=== PATIENT | female | born 1950 | race Caucasian/White ===

== ENCOUNTER → 2016-07-11 | Outpatient (CLI) | payer MEDICARE ==
--- OUTSIDE RECORDS SUMMARY | 2016-07-11 11:41 | XMS REPORT | Continuity of Care Document ---
Author Author [facility] Organization [facility] Address Unknown Phone Unavailable Allergies Medications Problems Date Dx Coded Attending Type Code Diagnosis Diagnosed By 04/16/2014 ADITYA AVILA Ot 268.9 04/16/2014 ADITYA AVILA Ot V13.89 04/16/2014 ADITYA AVILA Ot V15.3 04/16/2014 ADITYA AVILA Ot V58.69 04/16/2015 ADITYA AVILA Ot E55.9 04/16/2015 ADITYA AVILA Ot M85.80 04/16/2015 ADITYA AVILA Ot Z09 04/16/2015 ADITYA AVILA Ot Z86.000 04/16/2015 ADITYA AVILA Ot Z92.3 04/03/2016 Ot 610.1 DIFFUS CYSTIC MASTOPATHY 04/03/2016 Ot V10.3 HX OF BREAST MALIGNANCY 04/03/2016 Ot V67.1 RADIOTHERAPY FOLLOW-UP 04/03/2016 Ot 268.9 VITAMIN D DEFICIENCY NOS 04/03/2016 Ot V10.3 HX OF BREAST MALIGNANCY 04/03/2016 Ot V67.1 RADIOTHERAPY FOLLOW-UP 2016 Ot 610.1 DIFFUS CYSTIC MASTOPATHY 2016 Ot V10.3 HX OF BREAST MALIGNANCY 2016 Ot V67.1 RADIOTHERAPY FOLLOW-UP 2016 Ot 268.9 VITAMIN D DEFICIENCY NOS 2016 Ot V10.3 HX OF BREAST MALIGNANCY 2016 Ot V67.1 RADIOTHERAPY FOLLOW-UP 06/26/2016 ADITYA AVILA Ot 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 06/26/2016 ADITYA AVILA Ot 268.9 VITAMIN D DEFICIENCY NOS 06/26/2016 ADITYA AVILA Ot V15.3 HX OF IRRADIATION 06/26/2016 ADITYA AVILA Ot V58.69 OTH MED,LT,CURRENT USE 06/26/2016 ADITYA AVILA Ot 268.9 VITAMIN D DEFICIENCY NOS 06/26/2016 ADITYA AVILA Ot V13.89 PERSONAL HISTORY OF OTHER SPECIFIED DISE 06/26/2016 ADITYA AVILA Ot V15.3 HX OF IRRADIATION 06/26/2016 ADITYA AVILA Ot V58.69 OTH MED,LT,CURRENT USE 06/26/2016 ADITYA AVILA Ot E55.9 VITAMIN D DEFICIENCY, UNSPECIFIED 06/26/2016 ADITYA AVILA Ot M85.80 OTH DISRD OF BONE DENSITY AND STRUCTURE, 06/26/2016 ADITYA AVILA Ot Z09 ENCNTR FOR F/U EXAM AFT TRTMT FOR COND O 06/26/2016 ADITYA AVILA Ot Z86.000 PERSONAL HISTORY OF IN-SITU NEOPLASM OF 06/26/2016 ADITYA AVILA Ot Z92.3 PERSONAL HISTORY OF IRRADIATION Procedures Results Encounters ACCT No. Visit Date/Time Discharge Status Pt. Type Provider Facility Loc./Unit Complaint [id number] 04/06/2015 10:27:00 2014 23:59:59 CLS Outpatient ADITYA AVILA [facility] [id number] 03/31/2014 10:05:00 2013 23:59:59 CLS Outpatient ADITYA AVILA [facility] FS [id number] 03/25/2013 10:18:00 2012 23:59:59 CLS Outpatient ADITYA AVILA [facility] FS [id number] 04/04/2016 13:36:00 PEN Preadmit ADITYA AVILA [facility] FS [id number] 02/27/2012 13:01:00 Document Registration [id number] 05/02/2011 09:50:00 Document Registration
== END ==
LOC: FS 11:38
PROVIDERS: ATTEND Internal Medicine Hematology & Oncology
DX: Z09 Encounter for follow-up examination after completed treatment for conditions other than malignant neoplasm (principal); Z86.000 Personal history of in-situ neoplasm of breast; E55.9 Vitamin D deficiency, unspecified; M85.80 Other specified disorders of bone density and structure, unspecified site; Z92.3 Personal history of irradiation
CPT/HCPCS: 99213

== ENCOUNTER 2018-02-11 09:14 | Outpatient (RCR) | payer MEDICARE ==
[~2018-02-11] VITALS: Ht 165.1 cm; Wt 48.5 kg
[~2018-02-11 09:14] MED LIST: CARBOPLATIN 425 MG in D5W 50 ML IV(CANCER CTR) 50 ML IV SCH; FAMOTIDINE 20MG/2ML IV (CANCER CTR) IV SCH; FOSAPREPITANT DIMEGLUMINE 150 MG in NS (IVPB) CANCER CENTER ONLY 150 ML IV SCH; NORMAL SALINE IV SCH; NS IV 1000 ML (CANCER CTR) IV SCH; PACLITAXEL IV SCH; PALONOSETRON HCL 0.25 MG, DEXAMETHASONE INJECTION 10 MG in NS (IVPB) CANCER CENTER 50 ML IV SCH; diphenhydrAMINE 25 MG TAB (BENADRYL) CANCER CENTER PO SCH
[2018-02-11 09:35] LABS: BASOPHILS % (AUTO) 0 % (0-10); EOSINOPHILS % (AUTO) 0 % (0-10); HEMATOCRIT 36 % (35-52); HEMOGLOBIN 11.5 G/DL (11.5-16.0); LYMPHOCYTES # (AUTO) 0.8 X 10^3 (1.0-4.0); LYMPHOCYTES % (AUTO) 15 % (12-44); MEAN CORPUSCULAR HEMOGLOBIN 26 PG (25-34); MEAN CORPUSCULAR HGB CONC 32 G/DL (32-36); MEAN CORPUSCULAR VOLUME 83 FL (80-99); MEAN PLATELET VOLUME 8.5 FL (7.4-10.4); MONOCYTES # (AUTO) 0.1 X 10^3 (0.0-1.0); MONOCYTES % (AUTO) 3 % (0-12); NEUTROPHILS # (AUTO) 4.3 X 10^3 (1.8-7.8); NEUTROPHILS % (AUTO) 82 % (42-75); PLATELET COUNT 354 10^3/uL (130-400); RED BLOOD COUNT 4.35 10^6/uL (4.35-5.85); RED CELL DISTRIBUTION WIDTH 21.5 % (10.0-14.5); WHITE BLOOD COUNT 5.3 10^3/uL (4.3-11.0)
[2018-02-11 09:59] LABS: ALANINE AMINOTRANSFERASE 14 U/L (0-55); ALBUMIN 3.8 GM/DL (3.2-4.5); ALKALINE PHOSPHATASE 104 U/L (40-136); BILIRUBIN,TOTAL 0.2 MG/DL (0.1-1.0); BUN/CREATININE RATIO 28; CALCIUM 9.8 MG/DL (8.5-10.1); CARBON DIOXIDE 24 MMOL/L (21-32); CHLORIDE 105 MMOL/L (98-107); CREATININE SERUM 0.78 MG/DL (0.60-1.30); GFR ESTIMATED > 60; GLUCOSE 171 MG/DL (70-105); POTASSIUM 4.1 MMOL/L (3.6-5.0); SODIUM 136 MMOL/L (135-145); TOTAL PROTEIN 7.4 GM/DL (6.4-8.2)
== END 2018-03-01 09:03 | disposition home or self-care (01) ==
LOC: ONC 09:14
PROVIDERS: ATTEND Internal Medicine Hematology & Oncology
DX: Z51.11 Encounter for antineoplastic chemotherapy (principal); Z08 Encounter for follow-up examination after completed treatment for malignant neoplasm; Z85.3 Personal history of malignant neoplasm of breast; E55.9 Vitamin D deficiency, unspecified; M85.89 Other specified disorders of bone density and structure, multiple sites; Z79.899 Other long term (current) drug therapy
CPT/HCPCS: 36591; 80053; 84443; 85025; 86304; 96367; 96375; 96413; 96415; 96417

== ENCOUNTER 2018-03-25 10:40 | Outpatient (RCR) | payer MEDICARE ==
[2018-03-04 09:33] LABS: BASOPHILS % (AUTO) 0 % (0-10); EOSINOPHILS % (AUTO) 0 % (0-10); HEMATOCRIT 36 % (35-52); HEMOGLOBIN 11.6 G/DL (11.5-16.0); LYMPHOCYTES # (AUTO) 0.8 X 10^3 (1.0-4.0); LYMPHOCYTES % (AUTO) 12 % (12-44); MEAN CORPUSCULAR HEMOGLOBIN 28 PG (25-34); MEAN CORPUSCULAR HGB CONC 33 G/DL (32-36); MEAN CORPUSCULAR VOLUME 85 FL (80-99); MEAN PLATELET VOLUME 8.9 FL (7.4-10.4); MONOCYTES # (AUTO) 0.2 X 10^3 (0.0-1.0); MONOCYTES % (AUTO) 3 % (0-12); NEUTROPHILS # (AUTO) 5.5 X 10^3 (1.8-7.8); NEUTROPHILS % (AUTO) 85 % (42-75); PLATELET COUNT 289 10^3/uL (130-400); RED CELL DISTRIBUTION WIDTH 21.6 % (10.0-14.5); WHITE BLOOD COUNT 6.4 10^3/uL (4.3-11.0)
[2018-03-04 09:55] LABS: ALANINE AMINOTRANSFERASE 16 U/L (0-55); ALBUMIN 3.9 GM/DL (3.2-4.5); ALKALINE PHOSPHATASE 105 U/L (40-136); BILIRUBIN,TOTAL 0.2 MG/DL (0.1-1.0); BUN/CREATININE RATIO 24; CALCIUM 10.4 MG/DL (8.5-10.1); CARBON DIOXIDE 22 MMOL/L (21-32); CHLORIDE 104 MMOL/L (98-107); CREATININE SERUM 0.82 MG/DL (0.60-1.30); GFR ESTIMATED > 60; GLUCOSE 194 MG/DL (70-105); POTASSIUM 4.1 MMOL/L (3.6-5.0); SODIUM 138 MMOL/L (135-145); TOTAL PROTEIN 7.7 GM/DL (6.4-8.2)
[~2018-03-25] VITALS: Ht 165.1 cm; Wt 52.6 kg
[2018-03-25 11:10] LABS: BASOPHILS % (AUTO) 1 % (0-10); EOSINOPHILS # (AUTO) 0.1 10^3/uL (0.0-0.3); EOSINOPHILS % (AUTO) 3 % (0-10); HEMATOCRIT 34 % (35-52); HEMOGLOBIN 10.9 G/DL (11.5-16.0); LYMPHOCYTES # (AUTO) 1.4 X 10^3 (1.0-4.0); LYMPHOCYTES % (AUTO) 32 % (12-44); MEAN CORPUSCULAR HEMOGLOBIN 29 PG (25-34); MEAN CORPUSCULAR HGB CONC 32 G/DL (32-36); MEAN CORPUSCULAR VOLUME 89 FL (80-99); MEAN PLATELET VOLUME 9.1 FL (7.4-10.4); MONOCYTES # (AUTO) 0.7 X 10^3 (0.0-1.0); MONOCYTES % (AUTO) 16 % (0-12); NEUTROPHILS # (AUTO) 2.2 X 10^3 (1.8-7.8); NEUTROPHILS % (AUTO) 49 % (42-75); PLATELET COUNT 308 10^3/uL (130-400); RED CELL DISTRIBUTION WIDTH 20.3 % (10.0-14.5); WHITE BLOOD COUNT 4.5 10^3/uL (4.3-11.0)
[2018-03-25 11:31] LABS: ALANINE AMINOTRANSFERASE 15 U/L (0-55); ALBUMIN 3.7 GM/DL (3.2-4.5); ALKALINE PHOSPHATASE 91 U/L (40-136); BILIRUBIN,TOTAL 0.3 MG/DL (0.1-1.0); BUN/CREATININE RATIO 21; CALCIUM 9.7 MG/DL (8.5-10.1); CARBON DIOXIDE 22 MMOL/L (21-32); CHLORIDE 106 MMOL/L (98-107); CREATININE SERUM 0.71 MG/DL (0.60-1.30); GFR ESTIMATED > 60; GLUCOSE 92 MG/DL (70-105); MAGNESIUM 1.7 MG/DL (1.8-2.4); POTASSIUM 3.8 MMOL/L (3.6-5.0); SODIUM 140 MMOL/L (135-145); TOTAL PROTEIN 7.4 GM/DL (6.4-8.2)
== END 2018-06-02 | disposition home or self-care (01) ==
LOC: ONC 10:40
PROVIDERS: ATTEND Internal Medicine Hematology & Oncology
DX: Z51.11 Encounter for antineoplastic chemotherapy (principal); C56.2 Malignant neoplasm of left ovary; C78.7 Secondary malignant neoplasm of liver and intrahepatic bile duct; C78.6 Secondary malignant neoplasm of retroperitoneum and peritoneum; M85.89 Other specified disorders of bone density and structure, multiple sites; E55.9 Vitamin D deficiency, unspecified; Z86.000 Personal history of in-situ neoplasm of breast; Z79.899 Other long term (current) drug therapy
CPT/HCPCS: 36591; 80053; 83735; 85025; 86304; 96367; 96375; 96413; 96415; 96417

== ENCOUNTER 2018-06-10 10:30 | Outpatient (RCR) | payer MEDICARE ==
[2018-06-10 10:48] LABS: BASOPHILS % (AUTO) 1 % (0-10); EOSINOPHILS # (AUTO) 0.3 10^3/uL (0.0-0.3); EOSINOPHILS % (AUTO) 7 % (0-10); HEMATOCRIT 40 % (35-52); HEMOGLOBIN 12.7 G/DL (11.5-16.0); LYMPHOCYTES # (AUTO) 0.8 X 10^3 (1.0-4.0); LYMPHOCYTES % (AUTO) 17 % (12-44); MEAN CORPUSCULAR HEMOGLOBIN 28 PG (25-34); MEAN CORPUSCULAR HGB CONC 32 G/DL (32-36); MEAN CORPUSCULAR VOLUME 86 FL (80-99); MEAN PLATELET VOLUME 9.4 FL (7.4-10.4); MONOCYTES # (AUTO) 0.2 X 10^3 (0.0-1.0); MONOCYTES % (AUTO) 6 % (0-12); NEUTROPHILS % (AUTO) 69 % (42-75); PLATELET COUNT 174 10^3/uL (130-400); RED CELL DISTRIBUTION WIDTH 16.3 % (10.0-14.5); WHITE BLOOD COUNT 4.3 10^3/uL (4.3-11.0)
[2018-06-10 11:11] LABS: ALANINE AMINOTRANSFERASE 22 U/L (0-55); ALBUMIN 3.7 GM/DL (3.2-4.5); ALKALINE PHOSPHATASE 116 U/L (40-136); BILIRUBIN,TOTAL 0.3 MG/DL (0.1-1.0); BUN/CREATININE RATIO 26; CARBON DIOXIDE 23 MMOL/L (21-32); CHLORIDE 102 MMOL/L (98-107); GFR ESTIMATED > 60; GLUCOSE 81 MG/DL (70-105); SODIUM 134 MMOL/L (135-145); TOTAL PROTEIN 7.6 GM/DL (6.4-8.2)
== END 2018-09-08 | disposition home or self-care (01) ==
LOC: ONC 10:30
PROVIDERS: ATTEND Internal Medicine Hematology & Oncology
DX: C56.2 Malignant neoplasm of left ovary (principal); C78.7 Secondary malignant neoplasm of liver and intrahepatic bile duct; C78.6 Secondary malignant neoplasm of retroperitoneum and peritoneum; M85.89 Other specified disorders of bone density and structure, multiple sites; E55.9 Vitamin D deficiency, unspecified; Z86.000 Personal history of in-situ neoplasm of breast; Z79.899 Other long term (current) drug therapy; Z85.3 Personal history of malignant neoplasm of breast
CPT/HCPCS: 36591; 80053; 85025; 86304

== ENCOUNTER → 2019-03-05 | Outpatient (CLI) | payer MEDICARE ==
[~2019-03-05] MED LIST changes: -CARBOPLATIN 425 MG in D5W 50 ML IV(CANCER CTR) 50 ML IV SCH; +CATHETER FLUSH 10 ML SYR IV PRN; -FAMOTIDINE 20MG/2ML IV (CANCER CTR) IV SCH; -FOSAPREPITANT DIMEGLUMINE 150 MG in NS (IVPB) CANCER CENTER ONLY 150 ML IV SCH; +HOLD METFORMIN - RECEIVED CONTRAST 20 ML VIAL IV SCH; +IOHEXOL 350 MG/ML 100 ML (OMNIPAQUE 350) VIAL IV ONE; -NORMAL SALINE IV SCH; +NS 100 ML (IVPB) BAG IV ONE; -NS IV 1000 ML (CANCER CTR) IV SCH; -PACLITAXEL IV SCH; -PALONOSETRON HCL 0.25 MG, DEXAMETHASONE INJECTION 10 MG in NS (IVPB) CANCER CENTER 50 ML IV SCH; -diphenhydrAMINE 25 MG TAB (BENADRYL) CANCER CENTER PO SCH
--- NOTE | 2019-03-05 14:25 | Diagnostic Imaging Report ---
PROCEDURE: CT abdomen and pelvis with contrast. TECHNIQUE: Multiple contiguous axial images were obtained through the abdomen and pelvis after administration of intravenous contrast. Auto Exposure Controls were utilized during the CT exam to meet ALARA standards for radiation dose reduction. INDICATION: Fever, lower abdominal pain for four days. History of breast and ovarian cancer. Cholecystectomy and hysterectomy. COMPARISON: None. FINDINGS: The lung bases are clear. The heart is normal in size. The liver demonstrates multiple hypoattenuating lesions. These appear well circumscribed and appear cyst-like. The largest measures up to 2.8 cm in diameter, located at the lateral right lobe. Additional tiny foci are seen throughout the liver, which are too small to characterize. There is a focal area of peripheral enhancement in the left liver thought to represent transient hepatic attenuation difference. The spleen demonstrates multiple cystic-appearing lesions, although these appear complex with internal heterogeneous density and septation. The largest measures 3.0 x 2.5 cm, located in the medial spleen. The adrenal glands appear normal. The pancreas demonstrates no acute abnormality. The common bile duct is mildly prominent, most likely due to post cholecystectomy changes. The kidneys also demonstrate cystic lesions, the largest in the inferior right kidney measuring 2 cm in diameter. There is moderate right hydronephrosis with marked hydroureter, with a focal transition point in the proximal ureter at the L3 level. No contrast is seen in the distal ureter on delayed imaging beyond the level of S2. The left kidney appears normal. There is wriydwtl-gj-qgvmxe stool throughout the colon. Postsurgical changes are seen at the rectum with sutures in place. No significant free fluid or free air is seen. There is a large cystic lesion in the lower abdomen which measures up to 11.0 x 9.7 cm on axial imaging, and 11.2 cm craniocaudal. There is a cystic lesion in the left pelvis which measures up to 3.8 cm in diameter, and demonstrates mild internal heterogeneity. There is soft tissue density with internal cystic or necrotic changes in the right paraspinous region, measuring approximately 2.6 x 3.2 cm, near the lumbosacral junction (image 51 series 4). This could represent postsurgical scarring or neoplasm, and is along the expected course of the right ureter, and might cause obstruction. Multiple surgical clips are seen in the pelvis and right abdomen. There are mildly prominent loops of small bowel in the left abdomen, most likely due to ileus. In the right inguinal region, there is a cystic-appearing lymph node measuring 3.2 x 2.2 cm, with mild mural nodularity. No acute osseous abnormality is seen. IMPRESSION: 1. Multiple cystic-appearing lesions throughout the abdomen and pelvis, including in the liver and spleen, as well as in a right inguinal lymph node. This includes a very large cystic lesion in the lower abdomen measuring up to 11 cm in size. Findings are concerning for metastatic disease, particularly given the history of ovarian cancer. 2. Ysxihnhb-xx-ghbwht stool in the colon with mildly prominent loops of small bowel in the left abdomen, thought to be due to ileus. A definite transition point is not seen. 3. Right hydroureteronephrosis. The distal right ureter is not well seen, which may be due to compression or stricture. Dictated by: Dictated on workstation # [id number]
== END ==
LOC: RAD FS 13:03
PROVIDERS: ATTEND Nurse Practitioner Family
DX: N13.30 Unspecified hydronephrosis (principal); R19.5 Other fecal abnormalities; R19.00 Intra-abdominal and pelvic swelling, mass and lump, unspecified site; R50.9 Fever, unspecified; Z85.43 Personal history of malignant neoplasm of ovary; K40.90 Unilateral inguinal hernia, without obstruction or gangrene, not specified as recurrent
CPT/HCPCS: 74177

== ENCOUNTER → 2019-03-05 | Outpatient (CLI) | payer MEDICARE ==
[2019-03-05 10:42] LABS: BASOPHILS # (AUTO) 0.1 10^3/uL (0.0-0.1); BASOPHILS % (AUTO) 1 % (0-10); EOSINOPHILS # (AUTO) 0.2 10^3/uL (0.0-0.3); EOSINOPHILS % (AUTO) 3 % (0-10); HEMATOCRIT 42 % (35-52); HEMOGLOBIN 13.5 G/DL (11.5-16.0); LYMPHOCYTES # (AUTO) 1.1 X 10^3 (1.0-4.0); LYMPHOCYTES % (AUTO) 17 % (12-44); MEAN CORPUSCULAR HEMOGLOBIN 32 PG (25-34); MEAN CORPUSCULAR HGB CONC 32 G/DL (32-36); MEAN CORPUSCULAR VOLUME 100 FL (80-99); MEAN PLATELET VOLUME 9.5 FL (7.4-10.4); MONOCYTES # (AUTO) 0.9 X 10^3 (0.0-1.0); MONOCYTES % (AUTO) 13 % (0-12); NEUTROPHILS # (AUTO) 4.5 X 10^3 (1.8-7.8); NEUTROPHILS % (AUTO) 66 % (42-75); PLATELET COUNT 246 10^3/uL (130-400); RED CELL DISTRIBUTION WIDTH 15.7 % (10.0-14.5); WHITE BLOOD COUNT 6.7 10^3/uL (4.3-11.0)
[2019-03-05 11:00] LABS: BUN/CREATININE RATIO 19; CARBON DIOXIDE 28 MMOL/L (21-32); CHLORIDE 102 MMOL/L (98-107); CREATININE SERUM 0.83 MG/DL (0.60-1.30); GFR ESTIMATED > 60; POTASSIUM 4.4 MMOL/L (3.6-5.0); SODIUM 139 MMOL/L (135-145)
[2019-03-05 11:01] LABS: ALANINE AMINOTRANSFERASE 35 U/L (0-55); ALKALINE PHOSPHATASE 103 U/L (40-136); BILIRUBIN,TOTAL 0.6 MG/DL (0.1-1.0); CALCIUM 9.9 MG/DL (8.5-10.1); GLUCOSE 115 MG/DL (70-105); TOTAL PROTEIN 7.3 GM/DL (6.4-8.2)
--- NOTE | 2019-03-05 11:28 | Diagnostic Imaging Report ---
INDICATION: Fever. Abdominal pain. COMPARISON: None FINDINGS: 2 supine radiographic views of the abdomen were obtained and demonstrate a few loops of mildly prominent air-filled small bowel located within the left lower abdominal quadrant. At its widest, small bowel measures approximately 3 cm in diameter. Otherwise, small bowel loops are nondistended.. There is no large collection of free peritoneal air. Moderate air and stool are seen scattered throughout the colon. No unexpected extraosseous calcifications or radiopaque foreign bodies are seen. Bony structures show no gross acute abnormalities. IMPRESSION: 1. Few loops of mildly prominent air-filled small bowel within the left lower abdominal quadrant. Otherwise, small bowel gas pattern is nonobstructed. 2. Moderate colonic air and stool. Please correlate for constipation Dictated by: Dictated on workstation # [id number]
== END ==
LOC: RAD FS 10:24
PROVIDERS: ATTEND Nurse Practitioner Family
DX: K40.90 Unilateral inguinal hernia, without obstruction or gangrene, not specified as recurrent (principal); R50.9 Fever, unspecified; Z85.43 Personal history of malignant neoplasm of ovary
CPT/HCPCS: 36415; 74018; 80053; 85025

== ENCOUNTER → 2019-03-18 | Outpatient (CLI) | payer MEDICARE ==
[~2019-03-18] MED LIST changes: -CATHETER FLUSH 10 ML SYR IV PRN; +FUROSEMIDE 40 MG/4 ML INJ (LASIX) ONE; -HOLD METFORMIN - RECEIVED CONTRAST 20 ML VIAL IV SCH; -IOHEXOL 350 MG/ML 100 ML (OMNIPAQUE 350) VIAL IV ONE; +NITR-65 PO; -NS 100 ML (IVPB) BAG IV ONE; +PHEN-640 PO
--- NOTE | 2019-03-18 17:00 | Diagnostic Imaging Report ---
INDICATION: Right renal obstruction. The patient was administered 5.1 mCi technetium 99m MAG3 intravenously and imaging over the abdomen was performed. In addition, 40 mg of Lasix was administered intravenously at 15 minute indy of the exam. The dynamic blood flow images demonstrate fairly symmetric blood flow to both kidneys. There appears to be fairly symmetric uptake of tubular activity within both kidneys. There is prompt excretion of activity into both renal collecting systems. The right renal collecting system does appear to be dilated. Activity is seen within the left ureter. Activity is visualized in the left ureter as well but is somewhat delayed. Time to peak on the left is 240 seconds and time to peak on the right is 1080 seconds. Overall differential renal function is 54% for the left and 46% for the right. IMPRESSION: There is symmetric blood flow to both kidneys. There is normal uptake and excretion of activity from the left kidney. Right kidney does show hydronephrosis with some delay in an activity within the right ureter consistent with a likely partial obstruction. No complete obstruction is seen. Dictated by: Dictated on workstation # [id number]
== END ==
LOC: CARD 12:40
PROVIDERS: ATTEND Urology
DX: N13.30 Unspecified hydronephrosis (principal); N28.89 Other specified disorders of kidney and ureter
CPT/HCPCS: 78708

== ENCOUNTER 2019-03-19 15:32 | Outpatient (CLI) | payer MEDICARE ==
[~2019-03-19] VITALS: Ht 165 cm; Wt 59.0 kg
[2019-03-20] MEDS ORDERED: NITR-65 PO (09:07)
[2019-03-20] MEDS ORDERED: PHEN-640 PO (09:07)
== END 2019-03-19 15:45 | disposition home or self-care (01) ==
LOC: PREOP 15:32
PROVIDERS: ATTEND Urology
DX: Z01.818 Encounter for other preprocedural examination (principal)

== ENCOUNTER 2019-03-20 06:09 | Day surgery (SDC) | payer MEDICARE ==
[2019-03-20] VITALS (9 sets, daily range): BP systolic 112–155; BP diastolic 72–96
[~2019-03-20] VITALS: Ht 165 cm; Wt 59.0 kg
[2019-03-20] MEDS ORDERED: cefTRIAXone FOR IV USE 1,000 MG in WATER (STERILE) FOR INJECTION 10 ML IV ONE (06:30)
[2019-03-20] MEDS: LACTATED RINGERS 1,000 ML IV PRN ×2 (06:53→08:15)
[2019-03-20] MEDS ORDERED: fentaNYL INJECTION 100 MCG/2 ML AMP ONE (07:15)
[2019-03-20] MEDS ORDERED: MIDAZOLAM 2 MG/2 ML (VERSED) VIAL ONE (07:16)
[2019-03-20] MEDS ORDERED: proPOfol 200 MG/20 ML (DIPRIVAN) VIAL IV ONE (07:16)
[2019-03-20] MEDS ORDERED: LIDOCAINE PF 2% 5 ML (XYLOCAINE) VIAL ONE (07:20)
[2019-03-20] MEDS ORDERED: ONDANSETRON 4 MG/2 ML (SDV) Z0FRAN ONE (07:20)
[2019-03-20] MEDS ORDERED: SEVOFLURANE (ULTANE) 15 ML INHAL SOLN ONE ×3 (07:20→08:48)
[2019-03-20] MEDS ORDERED: DEXAMETHASONE 10 MG/ML (DECADRON) 1 ML VIAL ONE (07:20)
[2019-03-20] MEDS ORDERED: IOPAMIDOL 61% 30 ML (ISOVUE 300) VIAL IV ONE (07:38)
--- NOTE | 2019-03-20 08:02 | Progress Note-Pre Operative ---
Pre-Operative Progress Note H&P Reviewed The H&P was reviewed, patient examined and no changes noted. Date Seen by Provider: Mar 20, 2019 Time Seen by Provider: 08:02 Date H&P Reviewed: Mar 20, 2019 Time H&P Reviewed: 08:02 Pre-Operative Diagnosis: RT URETERAL OBSTRUCTION DEE PEACOCK MD Mar 20, 2019 08:02
--- NOTE | 2019-03-20 08:03 | Progress Note-Post Operative ---
Post-Operative Progess Note Surgeon (s)/Report Programmer (s) Surgeon DEE PEACOCK MD Report Programmer: NONE Pre-Operative Diagnosis RT URETERAL OBSTRUCTION Post-Operative Diagnosis SAME Procedure & Operative Findings Date of Procedure 03/20/19 Procedure Performed/Findings CYSTOSCOPY, RT RETROGRADE UROGRAM, AND INSERTION OF RT STENT Anesthesia Type GENERAL Estimated Blood Loss Estimated blood loss (mL): NONE Specimens/Packing Specimens Removed NONE Packing: NONE DEE PEACOCK MD Mar 20, 2019 08:03
--- NOTE | 2019-03-20 08:04 | Discharge Inst-Urology ---
Discharge Inst-Urology Reconcile Patient Problems Problems Reviewed?: Yes Final Diagnosis RT URETERAL OBSTRUCTION Patient Instructions/Follow Up Plan/Assessment/Instructions Please make appointment to been seen in office in 2 weeks. Increase oral fluids for 48 hours and then as needed. Diet and Activity as tolerated. If questions or concerns contact your physician Or seek help at emergency department. DEE PEACOCK MD Mar 20, 2019 08:04
[2019-03-20] MEDS ORDERED: ROCURONIUM 10 MG/ML 5 ML SYRINGE IV ONE (08:22)
[2019-03-20] MEDS ORDERED: NEOSTIGMINE 3 MG/3 ML VIAL ONE (08:30)
[2019-03-20] MEDS ORDERED: GLYCOPYRROLATE 0.2 MG/ML (ROBINUL) 2 ML VIAL ONE (08:30)
[2019-03-20] MEDS ORDERED: morphine INJ 10 MG/ML 1ML (SYR OR VIAL) IVP ONE (08:45)
[2019-03-20] MEDS ORDERED: fentaNYL INJECTION 100 MCG/2 ML AMP IVP ONE (08:45)
[2019-03-20] MEDS ORDERED: ONDANSETRON 4 MG/2 ML (SDV) Z0FRAN IVP PRN (08:45)
[2019-03-20] MEDS ORDERED: NITR-65 PO (09:07)
[2019-03-20] MEDS ORDERED: PHEN-640 PO (09:07)
--- NOTE | 2019-03-20 11:58 | Anesthesia-General Post-Op ---
General Patient Condition Mental Status/LOC: Same as Preop Cardiovascular: Satisfactory Nausea/Vomiting: Absent Respiratory: Satisfactory Pain: Controlled Complications: Absent Post Op Complications Complications None Follow Up Care/Instructions Patient Instructions None needed. Anesthesia/Patient Condition Patient Condition Patient is doing well, no complaints, stable vital signs, no apparent adverse anesthesia problems. No complications reported per nursing. MINNA CORRALES CRNA Mar 20, 2019 11:58
--- NOTE | 2019-03-20 13:07 | OPERATIVE REPORT ---
DATE OF SERVICE: 03/20/2019 PREOPERATIVE DIAGNOSIS: Right ureteral obstruction. POSTOPERATIVE DIAGNOSIS: Right ureteral obstruction. OPERATION PERFORMED: Cystoscopy, right retrograde urogram and insertion of right double-J stent. SURGEON: Neftaly Peacock MD ANESTHESIA: General. COMPLICATIONS: None. DESCRIPTION OF PROCEDURE: Under satisfactory general anesthesia, the patient in lithotomy position, genitalia were prepped and draped in the usual sterile fashion. Urethra was dilated with sounds to #26-Bhutanese to accommodate a 23-Bhutanese cystoscope. The bladder was inspected and it was normal except for sluggish efflux on the right side. Using the foroblique lens, I passed a 6-Bhutanese ureteral catheter into the intramural portion and injected contrast. There was a narrowing of the ureter distally and dilatation of it was marked tortuosity all the way up to the renal pelvis. I went ahead and passed the stent and with careful manipulation, I was able to bypass the stricture and all the tortuosity all the way up to the renal pelvis. I could see urine coming out from the holes of the stent. I evacuated the bladder, looked again fluoroscopically and there was complete emptying of the contrast through the stent. The patient tolerated the procedure and anesthesia well and was sent to recovery room in stable condition. Job ID: [id number] DocumentID: [id number] Dictated Date: 03/20/2019 09:00:39 Content Management Consultant Date: 03/20/2019 13:07:10 Dictated By: NEFTALY PEACOCK MD
--- NOTE | 2019-03-20 17:43 | Diagnostic Imaging Report ---
INDICATION: Fluoroscopy during cystoscopy and retrograde pyelogram and stent placement. FINDINGS: Fluoroscopy was provided in the OR. 106 seconds of fluoroscopic time was utilized. Images demonstrate a right-sided nephroureteral stent. Multiple surgical clips in the pelvis are noted. IMPRESSION: Fluoroscopy for right ureteral stent placement. Dictated by: Dictated on workstation # [id number]
[2019-03-30] MEDS ORDERED: MORP-68 (11:12)
--- OUTSIDE RECORDS SUMMARY | 2019-04-12 08:49 | XMS REPORT | Clinical Summary ---
Author Author [facility] POS Organization [facility] SP Address Unknown SP Phone Unavailable SP Care Team Providers Care Merchandise For Resale Purchasing Agent Name Role Phone POS Christa Ware MD PCP SP Mateo Cabral MD [id number] SP Sanjuanita Davies MD [id number] SP Source Comments Some departments are not documenting in the electronic medical record. If you d o not see the information that you expected, contact Release of Information in [facility] Information Management department at [phone] for further assistan ce in locating additional records.[facility] Allergies No Known Allergies Medications End Date Status POS Medication Sig Dispensed Refills Start SP Date SP Active SP folic Take by 0 SP acid/multivit-min/lutein mouth daily. SP (CENTRUM SILVER PO) SP Active SP cholecalciferol (VITAMIN Take 2,000 0 SP D-3) 1,000 units tablet Units by SP mouth daily. SP Active SP calcium carbonate/vitamin Take 1 tablet 0 SP D-3 (OSCAL-500+D) 1250 by mouth SP mg/200 unit tablet daily. SP Calcium Carb SP 1250mg SP delivers SP 500mg SP elemental Ca SP Active SP zolpidem (AMBIEN) 10 mg Take 10 mg by 0 SP tablet mouth at SP bedtime as SP needed for SP Sleep. SP Active SP oxyCODONE (ROXICODONE, Take 1-2 45 tablet 0 SP OXY-IR) 5 mg tablet tablets by 8 SP mouth every 4 SP hours as SP needed SP Earliest Fill SP Date: 10/15/17 SP Active SP ondansetron (ZOFRAN) 8 mg Take one 50 tablet 0 SP tabletIndications: Pelvic tablet by 8 SP mass mouth every 6 SP hours as SP needed for SP Nausea or SP Vomiting. SP Active SP hydrocortisone 1 % Apply 0 SP topical creamIndications: topically to SP pruritus of skin affected area SP twice daily. SP Active SP acetaminophen (TYLENOL Take 500 mg 0 SP PO) by mouth SP every 4-6 SP hours as SP needed. SP Active SP ibuprofen (ADVIL) 200 mg Take 400 mg 0 SP tablet by mouth SP every 6 hours SP as needed for SP Pain. Take SP with food. SP Active SP nitrofurantoin Take one 14 capsule 0 SP monohyd/m-cryst capsule by 9 SP (MACROBID) 100 mg mouth every SP capsuleIndications: 12 hours. SP Bacterial Urinary Tract Take with SP Infection food. SP Active SP levoFLOXacin (LEVAQUIN) Take one 5 tablet 0 SP 750 mg tablet tablet by 9 SP mouth daily. SP Active SP diphenoxylate/atropine Take one 60 tablet 3 SP (LOMOTIL) 2.5/0.025 mg tablet by 9 SP tablet mouth twice SP daily as SP needed for SP Diarrhea. SP Active SP ATEZOLIZUMAB Administer 0 SP IVIndications: once every through vein. SP 3 weeks Indications: SP once every 3 SP weeks SP Active SP lactulose 10 gram/15 mL Take 30 mL by 946 mL 3 SP oral solution mouth three 9 SP times daily. SP Active SP electrolyte GUT PEG Mix as 4000 mL 0 SP (NULYTELY) 420 gram oral directed on 9 SP solution package. SP Drink 240ml SP (8oz) every SP 10 minutes SP until gone. SP Refrigerate SP once mixed. SP Active SP morphine SR (MS CONTIN) Take one 60 tablet 0 SP 15 mg tablet tablet by 9 SP mouth every SP 12 hours SP Active SP tiZANidine (ZANAFLEX) 4 Take one 30 tablet 1 SP mg tabletIndications: tablet by 9 SP Cancer associated pain, mouth at SP Malignant neoplasm of bedtime SP ovary, unspecified daily. SP laterality (HCC), Rectal SP pain, Anal pain SP Active SP gabapentin (NEURONTIN) Take one 90 capsule 1 SP 300 mg capsule by 9 SP capsuleIndications: mouth every 8 SP Cancer associated pain, hours. Take SP Malignant neoplasm of 1/day for 3 SP ovary, unspecified days, Take 1 SP laterality (HCC), Rectal pill SP pain, Anal pain twice/day for SP 3 day, then SP take 1 pill SP three SP times/day. SP Active SP nortriptyline (PAMELOR) Take one 30 capsule 3 SP 25 mg capsuleIndications: capsule by 9 SP Cancer associated pain, mouth at SP Malignant neoplasm of bedtime SP ovary, unspecified daily. SP laterality (HCC), Rectal SP pain, Anal pain SP Active SP methylnaltrexone 150 mg Take 150 30 tablet 1 SP tab mg/day by 9 SP mouth daily. SP 04/24/2019 Active SP (INV) cabozantinib ([facility] Take two 60 tablet 0 SP [id number]) 20 mg tablets by 9 SP tabletIndications: mouth daily SP Clinical trial for 21 days. SP participant, Malignant SP neoplasm of ovary, INVESTIGATION SP unspecified laterality AL SPECIAL SP ([facility]) HANDLING SP PRECAUTIONS SP SP -Take on an SP empty stomach SP with a SP minimum of 8 SP ounces of SP water at SP least 1 hour SP before or 2 SP hours after a SP meal. SP 03/31/2019 SP (INV) cabozantinib ([facility] Take one 30 tablet 0 SP [id number]) 20 mg tablet by 9 SP tabletIndications: mouth daily SP Clinical trial for 21 days. SP participant, Malignant SP neoplasm of ovary, INVESTIGATION SP unspecified laterality AL SPECIAL SP ([facility]) HANDLING SP PRECAUTIONS SP SP -Take on an SP empty stomach SP with a SP minimum of 8 SP ounces of SP water at SP least 1 hour SP before or 2 SP hours after a SP meal. SP 04/02/2019 Discontinued (Duplicate Orde r) SP (INV) cabozantinib ([facility] Take one 30 tablet 0 SP [id number]) 20 mg tablet by 9 SP tabletIndications: mouth daily SP Clinical trial for 21 days. SP participant, Malignant SP neoplasm of ovary, INVESTIGATION SP unspecified laterality AL SPECIAL SP (HCC) HANDLING SP PRECAUTIONS SP SP -Take on an SP empty stomach SP with a SP minimum of 8 SP ounces of SP water at SP least 1 hour SP before or 2 SP hours after a SP meal. SP 04/03/2019 Discontinued (Dose adjustmen t) SP (INV) cabozantinib ([facility] Take one 30 tablet 0 SP [id number]) 20 mg tablet by 9 SP tabletIndications: mouth daily SP Clinical trial for 21 days. SP participant, Malignant SP neoplasm of ovary, INVESTIGATION SP unspecified laterality AL SPECIAL SP (HCC) HANDLING SP PRECAUTIONS SP SP -Take on an SP empty stomach SP with a SP minimum of 8 SP ounces of SP water at SP least 1 hour SP before or 2 SP hours after a SP meal. SP Status POS Hospital, Clinic, or Ordered Dose Route Frequency Start End Date SP Other Facility Date SP Administered Medication SP Ended SP lidocaine PF 1% (10 2 mL IJ ONCE 04/03/20 SP mg/mL) injection 2 19 9 SP mLIndications: Rectal SP pain, Anal pain, Cancer SP associated pain, SP Malignant neoplasm of SP ovary, unspecified SP laterality (HCC), SP Neuropathic pain SP Ended SP iohexol (OMNIPAQUE-300) 2 mL SEE ADMIN ONCE 04/03/20 SP 300 mg/mL injection 2 19 9 SP mLIndications: Rectal SP pain, Anal pain, Cancer SP associated pain, SP Malignant neoplasm of SP ovary, unspecified SP laterality (HCC), SP Neuropathic pain SP Ended SP dexamethasone PF 10 mg SEE ADMIN ONCE 04/03/20 SP (DECADRON) injection 10 19 9 SP mgIndications: Rectal SP pain, Anal pain, Cancer SP associated pain, SP Malignant neoplasm of SP ovary, unspecified SP laterality (HCC), SP Neuropathic pain SP Ended SP bupivacaine PF (MARCAINE) 10 mL IJ ONCE 04/03/20 SP 0.25 % injection 10 19 9 SP mLIndications: Rectal SP pain, Anal pain, Cancer SP associated pain, SP Malignant neoplasm of SP ovary, unspecified SP laterality (HCC), SP Neuropathic pain SP Active Problems Problem Noted Date POS Clinical trial participant 05/24/2018 SP Hypotension 10/10/2017 SP Tobacco abuse 10/09/2017 SP Ovarian cancer 09/24/2017 SP Cancer Staging: Clinical stage from : FIGO Stage IIIC (ycT3c, SP cN0, cM0) - Signed by Sanjuanita Davies MD on 03/17/2018 SP Overview: SP CC: Stage IIIC Transitional Cell [place] arcinoma. BRCA Negative. SP REF:Viri Gold MD SP PCP: Christa Ware MD SP Oracle Technical Architect: Talon Reeves MD SP MedOnc: Zakiya Negrete. [phone]; fax: SP HPI: SP Ms Gold is a 67 yo G2 P 2 who presen miguelangel to an OSED on 09/13/2017 with SP c/o a fever. She also complained of nomi rrhea that started on 09/12/2017. SP She has abdominal bloating, small BMs a nd reduced urination. SP Upon examination she was noted to have tenderness in the suprapubic area SP and increased bowel sounds. Abdominal u ltrasound was done and showed SP hepatic and renal cysts. SP A CT done on 09/13/2017 showed complex m ulticystic fluid attenuation pelvic SP mass measuring 16.5 x 15 x 8 cm with ce ntral 2.8 x 3.6 cm soft tissue which SP appears separate from adjacent colonic loops. DDX: ovarian neoplasm of less SP likely dilated fluid containing colonic loops. Right inguinal SP lymphadenopathy and mesenteric soft tis ken deposits abutting the liver SP concerning for metastatic disease. SP She is now being referred to my office. In reading the note from [facility] from 09/17/2017, "had 2 weeks of stooling solid after eating, then SP urine decreased. No stool issues. Now i mproving. Then had fever and dx with SP UTI". Her note from 09/13/2017 states th at she "presents with fever up to SP 103 that started today and diarrhea neeta t started yesterday. She states the SP stools have been of small volume. She s tarted having cramping and urgency SP to defecate on 08/22/2017 hat lasted 4-5 days and then resolved. Since then, SP onset of abdominal bloating, small BMs, reduced urination. Decreased SP drinking fluids and increased fatigue. On examination she had tenderness in SP the suprapubic area. WBC was 18K. SP In talking with the patient, since comp letion of antibiotics, no SP recurrence of fever, wstill with suprap ubic pressure, still with decreased SP caliber of stool. Never had colonoscopy , also urinary pressure/frequency. SP No blood in urine or stool SP TREATMENT: SP 10/09/2017: Exploratory laparotomy, ovar be tumor debulking with SP omentectomy, diaphragmatic upper abdomi nal, pelvic, bladder, peritoneal SP stripping, abdominal hysterectomy, bila teral salpingo-oophorectomy, SP bilateral pelvic lower periaortic lymph node sampling and omentectomy as SP well as resection of 2 liver lesions. Low anterior resection with primary SP anastomosis and mobilization of low ant erior anastomosis. Mobilization of SP splenic flexure.Flexible sigmoidoscopy. Appendectomy.Small bowel resection SP with primary anastomosis. 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 SP 10/22/2017: Presents for follow up. This is her first postoperative visit. SP Will get treatment with Dr. Ruddy Negrete. SP 01/14/2018: presents to the office for f ollow up. She has been treated by SP Dr. Ruddy Negrete with Carboplatin/taxol c hemotherapy. C#1 given on 11/09/2017; SP her last treatment was 01/01/2018. She h as 3 treatments remaining; next SP cycle is on 01/21/2018. SP CT done c/w seroma, reactive pelvic nod e. SP 03/18/2018: Presents for follow up, lion hopkins is her first visit with ia SP following her postoperative visit. She completed her chemotherapy on: SP 03/04/2018. Her last CA125 was 41.6. I t started at [id number] SP (02/07/2018) and now 41.6 on 03/04/2018. SP IMPRESSION : Chest: Stable CT chest without thoracic metastatic SP disease.Abdomen and Pelvis: Mild in crease in size of oval low density SP nodule medial to the spleen consistent with progression of peritoneal SP metastasis. No other enlarging perito conchita masses. No ascites. SP Decrease in size of subcapsular splen ic fluid collection consistent with SP slowly resolving subcapsular hematoma. Tiny posterior subcapsular splenic SP nodules are unchanged.No change in we ll-defined low-density peripheral SP liver lesions which may represent hepat ic cysts or stable treated SP peritoneal metastases. Increase in si ze of large retroperitoneal/central SP mesenteric fluid collection. This may represent progression of cystic SP neoplasm or increase in size of large r etroperitoneal/mesenteric SP lymphocele. SP PET/CT done on 03/22/2018: IMPRESSION Peritoneal carcinomatosis with SP numerous scattered hypermetabolic perit mann nodules including subcapsular SP hepatic, medial splenic, and SP subincisional midline anterior abdomina l wall implants. Several SP hypermetabolic peritoneal nodules are p oorly delineated from bowel loops. SP Mild hypermetabolic bilateral pelvic ly mphadenopathy compatible with robson SP metastatic disease. Redemonstration of large thin-walled unilocular SP abdominopelvic fluid collection without focal or nodular increased FDG SP uptake. Findings may SP reflect postoperative lymphocele, locul ated malignant ascites, or cystic SP malignancy. Development of mild right h ydronephrosis and proximal right SP hydroureter, likely secondary to extrin sic compression. SP 03/28/2018: Presents for follow up fro m the PET Scan. In talking with SP the patient and her , her CA125 dropped further to 33.8 last Sunday. SP She remains asymptomatic except for the abdominal swelling due to the SP lymphcyst. SP 03/27/2019: Presents at 1 year for: SP OLDER RECORDS: SP Pathology: SP 1. none SP Radiology/procedures: SP 1. CT: 09/13/2017: 16.3 x 15 x 8 cm mu lticystic fluid atttenuation SP structure which appears separate from t he adjacent colon and uterus. SP Centrally within this lesion, there is a 2.8 x 3.6 cm nonspecific soft SP tissue mass. There is similar appearing 1.6 x 1.8 cm soft tissue in the SP right adnexal region. There are soft t issue deposits within the mesentery. SP For reference, there is a 1.47 cm soft tissue deposit along the anterior SP aspect of the left hemiliver. There is a similar 0.9 x 2.4 cm soft tissue SP abutting the right posterior liver eliazar in. 2.5 x 1.3 cm low attenuation SP right inguinal node. SP 2. Ultrasound: 09/13/2017: of RUQ. Norm al liver with 2 cysts. GB is SP removed. Normal pancreas. Renal cysts SP 3. Other: no SP PMH: SP 1. Any history of problems with SP heart/lung/kidney/liver/hepatitis/DM/th yroid disease/hematologic SP disorders/DVT: SP 2. Breast Cancer SP PSH: SP 1. BTL SP 2. Breast bx SP 3. C/Section SP 4. Cholecystectomy SP 5. Breast lumpectomy followed by RT SP 6. Cataract removal SP TREAD CUTTER: SP 1. SP 2. Menarche: [age] SP 3. LMP/menopausal:16 years ago SP 4. OCP/ERT/HRT: OCP x 3 years SP 5. control-current: NA SP 6. STDs: no SP 7. Sexually active: no SP 8.: Last pap smear: 5 years ago; no pr ior abnormalities. SP SH: SP 1. Smoke: 45 years of smoking 06/07-1 p pd. SP 2. Drugs: no SP 3. ETOH: yes once/month SP 4. Occupation: retired x 2 years SP 5. Marital status: since 1971 SP 6. Last colonoscopy: never SP 7. Last Mammogram: 06/2017 SP FH: SP 1. Cancer: paunt: ?type; puncle: lung c ancer-smoker; SP Resolved Problems Problem Noted Date Resolved Date POS Moderate malnutrition 10/12/2017 03/27/2018 SP Ovarian cancer 10/09/2017 11/21/2017 SP Pelvic neoplasm 09/25/2017 11/21/2017 SP Overview: SP Added automatically from request for valdovinos rgery [id number] SP Encounters Care Team Description POS Date Type Specialty SP SP Sanjuanita Davies MD Arrived SP 04/11/2019 Hospital Radiology SP Encounter SP Mayra Freitas New Patient SP 04/10/2019 Telephone General Surgery SP Mateo Adam MD Malignant neoplasm of right ovary (HCC) (Primary Dx); SPHemorrhoids, unspecified hemorrhoid type 04/09/2019 Orders Only Oncology SP Darrell Grullon MD SP 04/03/2019 Hospital Radiology SP Encounter SP Darrell Grullon MD SP 04/03/2019 [facility] SP Encounter SP Mateo Adam MD SP 04/03/2019 Documentation Oncology SP Belinda Hernandez APRN SP 04/02/2019 Hospital Oncology SP Encounter SP Belinda Hernandez APRN SP 04/02/2019 Hospital Oncology SP Encounter SP SP Belinda Landeros, [place] Malignant neoplasm of left ovary (HCC) (Primary Dx); SPMalignant neoplasm of right ovary (HCC); Clinical trial participant 04/02/2019 Office Visit Oncology SP SP Belinda Landeros, PAID SEARCH MARKETING ANALYST SP 04/02/2019 Hospital Oncology SP Encounter SP Mateo Adam MD SP 04/02/2019 Orders Only Oncology SP Mateo Adam MD SP 04/02/2019 Documentation Oncology SP Sanjuanita Carroll MD SP 04/02/2019 Telephone Oncology SP SP Belinda Landeros, [place] SP 04/02/2019 Orders Only Oncology SP SP Mateo Cabral MD Malignant neoplasm of ovary, unspecified laterality (HCC) SP Dx); Examination of participant in clinical trial 04/02/2019 Orders Only Oncology SP SP Belinda Landeros, [place] Examination of participant in clinical t rial (Primary Dx) SP 04/01/2019 Orders Only Oncology SP Mateo Adam MD SP 03/31/2019 [facility] Oncology SP Encounter SP Mateo Adam MD SP 03/31/2019 [facility] Oncology SP Encounter SP Mateo Adam MD SP 03/31/2019 [facility] Oncology SP Encounter SP Mateo Adam MD Clinical trial participant (Primary Dx) SP 03/31/2019 Office Visit Oncology SP Mateo Adam MD SP 03/31/2019 Documentation Oncology SP Darrell Grullon MD Cancer associated pain (Primary Dx); SPMalignant neoplasm of ovary, unspecified laterality (HCC); Rectal pain; Anal pain 03/28/2019 Office Visit Anesthesia Pain SP Sanjuanita Carroll MD Malignant neoplasm of right ovary (HCC) SP 03/27/2019 Office Visit Oncology SP Mateo Adam MD SP 03/27/2019 [facility] Radiology SP Encounter SP Sanjuanita Carroll MD SP 03/27/2019 Refill Oncology SP Melyssa Denson APRN-VEHICLE COST ENGINEER SP 03/26/2019 Orders Only Oncology SP Sanjuanita Carroll MD Other SP 03/25/2019 Telephone Oncology SP Sanjuanita Carroll MD Other SP 03/25/2019 Telephone Oncology SP Melyssa Denson PAID SEARCH MARKETING ANALYST-VEHICLE COST ENGINEER SP 03/24/2019 Hospital Oncology SP Encounter SP Mateo Adam MD SP 03/24/2019 Documentation Oncology SP SP Edmundo Martins, [place] Clinical trial participant (Primary Dx); SPMalignant neoplasm of ovary, unspecified laterality (HCC) 03/21/2019 Orders Only SP SP Melyssa Cummings, PAID SEARCH MARKETING ANALYST-VEHICLE COST ENGINEER SP 03/21/2019 Orders Only Oncology SP SP Brennan Robbins MD SP 03/20/2019 Documentation Oncology SP SP Mateo Cabral MD SP 03/19/2019 Documentation Oncology SP SP Mateo Cabral MD Research SP 03/19/2019 Telephone Oncology SP Anila Bloom MD Appointment SP 03/18/2019 Telephone Oncology SP SP Anlia Sanchez MD Clinical trial participant (Primary Dx); SPMalignant neoplasm of right ovary (HCC); Hydronephrosis, unspecified hydronephrosis type 03/17/2019 Office Visit Oncology SP Anila Bloom MD Appointment SP 03/17/2019 Telephone Oncology SP Mateo Adam MD SP 03/17/2019 Documentation Oncology SP Mateo Adam MD Other SP 03/14/2019 Telephone Oncology SP Akbar Land MD SP 03/11/2019 Emergency Emergency Medicine SP SP Morgan Willis MD Hydronephrosis, unspecified hydronephros is type (Primary SP 03/11/2019 Orders Only Urology SP Anila Bloom MD SP 03/10/2019 Hospital Oncology SP Encounter SP Anila Bloom MD Malignant neoplasm of ovary, unspecified laterality SP (Primary Dx); 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); Diarrhea, unspecified type 03/10/2019 Office Visit Oncology SP Anila Bloom MD SP 03/10/2019 Hospital Oncology SP Encounter SP Mateo Adam MD SP 03/10/2019 Documentation Oncology SP Belinda Hernandez APRN SP 03/05/2019 Orders Only Oncology SP Mateo Adam MD Research SP 02/18/2019 Telephone Oncology SP Mateo Adam MD SP 02/17/2019 Hospital Oncology SP Encounter SP Mateo Adam MD Clinical trial participant (Primary Dx) SP 02/17/2019 Office Visit Oncology SP Mateo Adam MD SP 02/17/2019 [facility] Oncology SP Encounter SP Mateo Adam MD SP 02/17/2019 Documentation Oncology SP SP Belinda Landeros, PAID SEARCH MARKETING ANALYST SP 02/13/2019 Orders Only Oncology SP Mateo Adam MD SP 02/12/2019 Documentation Oncology SP SP Belinda Landeros, PAID SEARCH MARKETING ANALYST SP 02/12/2019 Orders Only Oncology SP SP Mateo Cabral MD Malignant neoplasm of ovary, unspecified laterality (HCC) SP Dx); Examination of participant in clinical trial 02/12/2019 Orders Only Oncology SP Mateo Adam MD SP 02/12/2019 Orders Only Oncology SP SP Mateo Cabral MD Malignant neoplasm of ovary, unspecified laterality (HCC) SP Dx); Examination of participant in clinical trial 02/12/2019 Orders Only Oncology SP Mateo Adam MD Malignant neoplasm of ovary, unspecified laterality (HCC) SP Dx); Examination of participant in clinical trial 02/12/2019 Orders Only Oncology SP Mateo Adam MD Results SP 02/12/2019 Telephone Oncology SP Mateo Adam MD SP 02/11/2019 [facility] Oncology SP Encounter SP Mateo Adam MD SP 02/11/2019 [facility] Radiology SP Encounter SP SP Belinda Landeros, PAID SEARCH MARKETING ANALYST SP 02/11/2019 Orders Only Oncology SP SP Gay Reagan PHARMD Clinical trial participant (Primary Dx); SPMalignant neoplasm of ovary, unspecified laterality (HCC) 02/11/2019 Orders Only Oncology SP Mateo Adam MD Malignant neoplasm of ovary, unspecified laterality (HCC) SP Dx); Clinical trial participant; Abnormal CT scan; Malignant neoplasm of right ovary (HCC); Malignant neoplasm of left ovary (HCC) 02/10/2019 Orders Only Oncology SP SP Belinda Landeros, PAID SEARCH MARKETING ANALYST SP 02/10/2019 Orders Only Oncology SP Mateo Adam MD Results SP 02/07/2019 Telephone Oncology SP Mateo Adam MD SP 02/06/2019 [facility] Radiology SP Encounter SP SP Juan J Landeroson, PAID SEARCH MARKETING ANALYST SP 01/13/2019 [facility] Oncology SP Encounter SP SP Tigre Belinda, PAID SEARCH MARKETING ANALYST Malignant neoplasm of ovary, unspecified laterality (HCC) SP Dx); Examination of participant in clinical trial 01/13/2019 Office Visit Oncology SP SP Belinda Landeros APRN SP 01/13/2019 Hospital Oncology SP Encounter SP SP Mateo Cabral MD SP 01/13/2019 Documentation Oncology SP from Last 3 Months Family History Medical History Relation Name Comments POS Cancer Paternal Aunt SP Cancer-Lung Paternal SP Uncle SP Relation Name Status Comments SP Father SP Mother SP Paternal Aunt SP Paternal Uncle SP Social History Date POS Tobacco Use Types Packs/Day Years Used SP SP Current Every Day Smoker Cigarettes 0.5 45 SP Smokeless Tobacco: Never SP Used SP Tobacco Cessation: Ready to Quit: Yes; C ounseling Given: Yes SP Drinks/Week oz/Week Comments POS Alcohol Use SP occasional SP Yes SP Sex Assigned at Date Recorded SP Not on file SP Industry POS Job Start Date Occupation SP Not on file SP Not on file Not on file SP Travel End POS Travel History Travel Start SP No recent travel history available. SP Last Filed Vital Signs Reading Time Taken Comments POS Vital Sign SP 115/80 04/03/2019 1:30 PM CDT SP Blood Pressure SP 81 04/02/2019 12:02 PM CDT SP Pulse SP 36.3 C (97.3 F) 04/03/2019 12:28 PM CDT SP Temperature SP 16 04/02/2019 12:02 PM CDT SP Respiratory Rate SP 99% 04/03/2019 1:30 PM CDT SP Oxygen Saturation SP - - SP Inhaled Oxygen SP Concentration SP 57.6 kg (127 lb) 04/03/2019 12:28 PM CDT SP Weight SP 162.6 cm (5' 4") 04/03/2019 12:28 PM CDT SP Height SP 21.8 04/03/2019 12:28 PM CDT SP Body Mass Index SP Plan of Treatment Health Maintenance Due Date Last Done Comments POS MEDICARE ANNUAL WELLNESS 1950 SP VISIT SP DTAP/TDAP VACCINES (1 - 1969 SP Tdap) SP PHYSICAL (COMPREHENSIVE) 1969 SP EXAM SP BREAST CANCER SCREENING 1991 SP COLORECTAL CANCER 2001 SP SCREENING SP SHINGLES RECOMBINANT 2001 SP VACCINE (1 of 2) SP OSTEOPOROSIS 2016 SP SCREENING/MONITORING SP PNEUMONIA (PCV13/PPSV23) 2016 SP VACCINES (1 of 2 - PCV13) SP INFLUENZA VACCINE 01/02/2019 SP HEPATITIS C SCREENING Completed 05/13/2018 SP Implants Device Identifier Shelf Expiration Date Model / Serial / L ot POS Implanted Type Area Manufactur SP er SP 01/01/2021 [id number] / SP / [id number] Port-11/09/2017 Port Left: Chest SP Implanted: Qty: 1 on 11/09/2017 SP Description:Power Port Implantable SP Port [place] Catheter implanted in SP Pt. left side of chest on SP 11.09.[address] Lovelace, SP [phone]. SP CT 300 psi and MR conditional max SP 3T SP Ref #[id number]; Lot #[id number]; SP [id number]; [id number]; SP [id number] SP Procedures Comments POS Procedure Name Priority Date/Time Associated Diag nosis SP SP MRI PELVIS WO/W CONTRAST ARNAUD 04/11/2019 Malig nant neoplasm of SP 3:39 PM WEAPONS ENGINEER right ovary (HCC) SP SP WY INJECTION ANES Routine 04/03/2019 Rectal pain SP SUPERIOR HYPOGASTRIC 2:03 PM CDT Anal pain SP PLEXUS Cancer associated pain SP Malignant neoplasm of SP ovary, unspecified SP laterality (HCC) SP Neuropathic pain SP SP FLUORO GUIDANCE FOR SPINE Routine 04/03/2019 Pain SP INJ RAD 1:32 PM CDT SP SP HC LIPASE CC Routine 04/02/2019 Clinical trial SP 10:22 AM CDT participant SP Malignant neoplasm of SP ovary, unspecified SP laterality (HCC) SP SP HC AMYLASE CC Routine 04/02/2019 Clinical trial SP 10:22 AM CDT participant SP Malignant neoplasm of SP ovary, unspecified SP laterality (HCC) SP SP HC [facility] Routine 04/02/2019 Clinical trial SP 10:22 AM CDT participant SP Malignant neoplasm of SP ovary, unspecified SP laterality (HCC) SP SP HC MAGNESIUM [facility] Routine 04/02/2019 Clinical trial SP 10:22 AM CDT participant SP Malignant neoplasm of SP ovary, unspecified SP laterality (HCC) SP SP HC LDH [facility] Routine 04/02/2019 Clinical trial SP 10:22 AM CDT participant SP Malignant neoplasm of SP ovary, unspecified SP laterality (HCC) SP SP HC GGTP Routine 04/02/2019 Clinical trial SP 10:22 AM CDT participant SP Malignant neoplasm of SP ovary, unspecified SP laterality (HCC) SP SP HC [facility] Routine 04/02/2019 Clinical tr ial SP 10:22 AM CDT participant SP Malignant neoplasm of SP ovary, unspecified SP laterality (HCC) SP SP HC CBC W DIFF [facility] Routine 04/02/2019 Clinical trial SP 10:22 AM CDT participant SP Malignant neoplasm of SP ovary, unspecified SP laterality (HCC) SP SP HC CA 125 Routine 04/02/2019 Clinical trial SP 10:22 AM CDT participant SP Malignant neoplasm of SP ovary, unspecified SP laterality (HCC) SP SP HC FREE T4(FREE Routine 04/02/2019 Clinical trial SP THYROXINE) 10:22 AM CDT participant SP Malignant neoplasm of SP ovary, unspecified SP laterality (HCC) SP SP HC TSH(THYROID Routine 04/02/2019 Clinical trial SP STIMULATING HORM) 10:22 AM CDT participant SP Malignant neoplasm of SP ovary, unspecified SP laterality (HCC) SP SP HC PTT(APTT) Routine 04/02/2019 Clinical trial SP 10:22 AM CDT participant SP Malignant neoplasm of SP ovary, unspecified SP laterality (HCC) SP SP HC PT(INR) Routine 04/02/2019 Clinical trial SP 10:22 AM CDT participant SP Malignant neoplasm of SP ovary, unspecified SP laterality (HCC) SP SP HC TP/CR RATIO, RANDOM 04/02/2019 Encounter for examination SP 10:07 AM CDT for normal comparison and SP control in clinical SP research program SP Malignant neoplasm of SP unspecified ovary (HCC) SP SP URINALYSIS, MICROSCOPIC Routine 04/02/2019 Clinic al trial SP 10:07 AM CDT participant SP Malignant neoplasm of SP ovary, unspecified SP laterality (HCC) SP SP HC URINALYSIS [facility] Routine 04/02/2019 Clinical trial SP 10:07 AM CDT participant SP Malignant neoplasm of SP ovary, unspecified SP laterality (HCC) SP SP ECG-SCAN 04/02/2019 SP 12:00 AM CDT SP SP HC TP/CR RATIO, RANDOM 03/31/2019 Clinical trial SP 9:41 AM CDT participant SP Malignant neoplasm of SP ovary, unspecified SP laterality (HCC) SP SP URINALYSIS, MICROSCOPIC Routine 03/31/2019 Clinic al trial SP 9:41 AM CDT participant SP Malignant neoplasm of SP ovary, unspecified SP laterality (HCC) SP SP HC URINALYSIS [facility] Routine 03/31/2019 Clinical trial SP 9:41 AM CDT participant SP Malignant neoplasm of SP ovary, unspecified SP laterality (HCC) SP SP HC PT(INR) Routine 03/31/2019 Clinical trial SP 9:12 AM CDT participant SP Malignant neoplasm of SP ovary, unspecified SP laterality (HCC) SP SP HC PTT(APTT) Routine 03/31/2019 Clinical trial SP 9:12 AM CDT participant SP Malignant neoplasm of SP ovary, unspecified SP laterality (HCC) SP SP HC [facility]OSPHORUS [facility] Routine 03/31/2019 Clinical trial SP 9:12 AM CDT participant SP Malignant neoplasm of SP ovary, unspecified SP laterality (HCC) SP SP HC MAGNESIUM [facility] Routine 03/31/2019 Clinical trial SP 9:12 AM CDT participant SP Malignant neoplasm of SP ovary, unspecified SP laterality (HCC) SP SP HC LIPASE Routine 03/31/2019 Clinical trial SP 9:12 AM CDT participant SP Malignant neoplasm of SP ovary, unspecified SP laterality (HCC) SP SP HC AMYLASE Routine 03/31/2019 Clinical trial SP 9:12 AM CDT participant SP Malignant neoplasm of SP ovary, unspecified SP laterality (HCC) SP SP HC LDH [facility] Routine 03/31/2019 Clinical trial SP 9:12 AM CDT participant SP Malignant neoplasm of SP ovary, unspecified SP laterality (HCC) SP SP HC GGTP Routine 03/31/2019 Clinical trial SP 9:12 AM CDT participant SP Malignant neoplasm of SP ovary, unspecified SP laterality (HCC) SP SP HC CHEM 12 [facility] Routine 03/31/2019 Clinical tr ial SP 9:12 AM CDT participant SP Malignant neoplasm of SP ovary, unspecified SP laterality (HCC) SP SP HC CBC W DIFF [facility] Routine 03/31/2019 Clinical trial SP 9:12 AM CDT participant SP Malignant neoplasm of SP ovary, unspecified SP laterality (HCC) SP SP HC CA 125 Routine 03/31/2019 Clinical trial SP 9:12 AM CDT participant SP Malignant neoplasm of SP ovary, unspecified SP laterality (HCC) SP SP HC FREE T4(FREE Routine 03/31/2019 Clinical trial SP THYROXINE) 9:12 AM CDT participant SP Malignant neoplasm of SP ovary, unspecified SP laterality (HCC) SP SP HC TSH(THYROID Routine 03/31/2019 Clinical trial SP STIMULATING HORM) 9:12 AM CDT participant SP Malignant neoplasm of SP ovary, unspecified SP laterality (HCC) SP SP ECG-SCAN 03/31/2019 SP 12:00 AM CDT SP SP CT ABD/PELV W CONTRAST Routine 03/27/2019 Examina tion of SP 11:48 AM CDT participant in clinical SP trial SP Malignant neoplasm of SP ovary, unspecified SP laterality (HCC) SP SP CT CHEST W CONTRAST Routine 03/27/2019 Examinatio n of SP 11:48 AM CDT participant in clinical SP trial SP Malignant neoplasm of SP ovary, unspecified SP laterality (HCC) SP SP CT ABD/PELV W CONTRAST STAT 03/11/2019 SP 4:38 PM CDT SP SP HC URINALYSIS DIPSTICK STAT 03/11/2019 SP 1:30 PM CDT SP SP HC LIPASE STAT 03/11/2019 SP 1:30 PM CDT SP SP HC COMPREHENSIVE STAT 03/11/2019 SP METABOLIC PANEL 1:30 PM CDT SP SP HC CBC W/ AUTOMATED DIFF STAT 03/11/2019 SP 1:30 PM CDT SP SP HC [facility] Routine 03/10/2019 Clinical trial SP 12:40 PM CDT participant SP Malignant neoplasm of SP ovary, unspecified SP laterality (HCC) SP SP HC MAGNESIUM [facility] Routine 03/10/2019 Clinical trial SP 12:40 PM CDT participant SP Malignant neoplasm of SP ovary, unspecified SP laterality (HCC) SP SP HC LIPASE Routine 03/10/2019 Clinical trial SP 12:40 PM CDT participant SP Malignant neoplasm of SP ovary, unspecified SP laterality (HCC) SP SP HC AMYLASE Routine 03/10/2019 Clinical trial SP 12:40 PM CDT participant SP Malignant neoplasm of SP ovary, unspecified SP laterality (HCC) SP SP HC LDH [facility] Routine 03/10/2019 Clinical trial SP 12:40 PM CDT participant SP Malignant neoplasm of SP ovary, unspecified SP laterality (HCC) SP SP HC GGTP Routine 03/10/2019 Clinical trial SP 12:40 PM CDT participant SP Malignant neoplasm of SP ovary, unspecified SP laterality (HCC) SP SP HC CHEM 12 [facility] Routine 03/10/2019 Clinical tr ial SP 12:40 PM CDT participant SP Malignant neoplasm of SP ovary, unspecified SP laterality (HCC) SP SP HC CBC W DIFF [facility] Routine 03/10/2019 Clinical trial SP 12:40 PM CDT participant SP Malignant neoplasm of SP ovary, unspecified SP laterality (HCC) SP SP HC TP/CR RATIO, RANDOM 03/10/2019 Clinical trial SP 12:10 PM CDT participant SP Malignant neoplasm of SP ovary, unspecified SP laterality (HCC) SP SP URINALYSIS, MICROSCOPIC Routine 03/10/2019 Clinic al trial SP 12:10 PM CDT participant SP Malignant neoplasm of SP ovary, unspecified SP laterality (HCC) SP SP HC URINALYSIS [facility] Routine 03/10/2019 Clinical trial SP 12:10 PM CDT participant SP Malignant neoplasm of SP ovary, unspecified SP laterality (HCC) SP SP ECG-SCAN 03/10/2019 SP 12:00 AM CDT SP SP HC TP/CR RATIO, RANDOM 02/17/2019 Clinical trial SP 8:47 AM CDT participant SP Malignant neoplasm of SP ovary, unspecified SP laterality (HCC) SP SP URINALYSIS, MICROSCOPIC Routine 02/17/2019 Clinic al trial SP 8:47 AM CDT participant SP Malignant neoplasm of SP ovary, unspecified SP laterality (HCC) SP SP HC URINALYSIS [facility] Routine 02/17/2019 Clinical trial SP 8:47 AM CDT participant SP Malignant neoplasm of SP ovary, unspecified SP laterality (HCC) SP SP HC [facility] Routine 02/17/2019 Clinical trial SP 8:41 AM CDT participant SP Malignant neoplasm of SP ovary, unspecified SP laterality (HCC) SP SP HC [facility] Routine 02/17/2019 Clinical trial SP 8:41 AM CDT participant SP Malignant neoplasm of SP ovary, unspecified SP laterality (HCC) SP SP HC LIPASE Routine 02/17/2019 Clinical trial SP 8:41 AM CDT participant SP Malignant neoplasm of SP ovary, unspecified SP laterality (HCC) SP SP HC AMYLASE Routine 02/17/2019 Clinical trial SP 8:41 AM CDT participant SP Malignant neoplasm of SP ovary, unspecified SP laterality (HCC) SP SP HC [facility]DH [facility] Routine 02/17/2019 Clinical trial SP 8:41 AM CDT participant SP Malignant neoplasm of SP ovary, unspecified SP laterality (HCC) SP SP HC GGTP Routine 02/17/2019 Clinical trial SP 8:41 AM CDT participant SP Malignant neoplasm of SP ovary, unspecified SP laterality (HCC) SP SP HC CHEM 12 [facility] Routine 02/17/2019 Clinical tr ial SP 8:41 AM CDT participant SP Malignant neoplasm of SP ovary, unspecified SP laterality (HCC) SP SP HC CBC W DIFF [facility] Routine 02/17/2019 Clinical trial SP 8:41 AM CDT participant SP Malignant neoplasm of SP ovary, unspecified SP laterality (HCC) SP SP NM PET SCAN [place]ORSO Routine 02/11/2019 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) SP SP POC GLUCOSE 02/11/2019 SP 1:51 PM CDT SP SP CT ABD/PELV W CONTRAST Routine 02/06/2019 Examina tion of SP 10:47 AM CDT participant in clinical SP trial SP Malignant neoplasm of SP ovary, unspecified SP laterality (HCC) SP SP CT CHEST W CONTRAST Routine 02/06/2019 Examinatio n of SP 10:47 AM CDT participant in clinical SP trial SP Malignant neoplasm of SP ovary, unspecified SP laterality (HCC) SP SP PROTEIN/CR RATIO,UR RAN 01/13/2019 Clinical tria l SP 9:15 AM CDT participant SP Malignant neoplasm of SP ovary, unspecified SP laterality (HCC) SP SP URINALYSIS, MICROSCOPIC Routine 01/13/2019 Clinic al trial SP 9:15 AM CDT participant SP Malignant neoplasm of SP ovary, unspecified SP laterality (HCC) SP SP URINALYSIS DIPSTICK Routine 01/13/2019 Clinical t rial SP 9:15 AM CDT participant SP Malignant neoplasm of SP ovary, unspecified SP laterality (HCC) SP SP BILIRUBIN, DIRECT Routine 01/13/2019 Clinical tri al SP 8:56 AM CDT participant SP Malignant neoplasm of SP ovary, unspecified SP laterality (HCC) SP SP PHOSPHORUS Routine 01/13/2019 Clinical trial SP 8:56 AM CDT participant SP Malignant neoplasm of SP ovary, unspecified SP laterality (HCC) SP SP MAGNESIUM Routine 01/13/2019 Clinical trial SP 8:56 AM CDT participant SP Malignant neoplasm of SP ovary, unspecified SP laterality (HCC) SP SP LIPASE Routine 01/13/2019 Clinical trial SP 8:56 AM CDT participant SP Malignant neoplasm of SP ovary, unspecified SP laterality (HCC) SP SP AMYLASE Routine 01/13/2019 Clinical trial SP 8:56 AM CDT participant SP Malignant neoplasm of SP ovary, unspecified SP laterality (HCC) SP SP LDH-LACTATE DEHYDROGENASE Routine 01/13/2019 Clin ical trial SP 8:56 AM CDT participant SP Malignant neoplasm of SP ovary, unspecified SP laterality (HCC) SP SP GGTP Routine 01/13/2019 Clinical trial SP 8:56 AM CDT participant SP Malignant neoplasm of SP ovary, unspecified SP laterality (HCC) SP SP COMPREHENSIVE METABOLIC Routine 01/13/2019 Clinic al trial SP PANEL 8:56 AM CDT participant SP Malignant neoplasm of SP ovary, unspecified SP laterality (HCC) SP SP CBC AND DIFF Routine 01/13/2019 Clinical trial SP 8:56 AM CDT participant SP Malignant neoplasm of SP ovary, unspecified SP laterality (HCC) SP SP CA125 Routine 01/13/2019 Clinical trial SP 8:56 AM CDT participant SP Malignant neoplasm of SP ovary, unspecified SP laterality (HCC) SP SP FREE T4 (FREE THYROXINE) Routine 01/13/2019 Clini cinthia trial SP ONLY 8:56 AM CDT participant SP Malignant neoplasm of SP ovary, unspecified SP laterality (HCC) SP SP THYROID STIMULATING Routine 01/13/2019 Clinical t rial SP HORMONE-TSH 8:56 AM CDT participant SP Malignant neoplasm of SP ovary, unspecified SP laterality (HCC) SP SP PTT (APTT) Routine 01/13/2019 Clinical trial SP 8:56 AM CDT participant SP Malignant neoplasm of SP ovary, unspecified SP laterality (HCC) SP SP PROTIME INR (PT) Routine 01/13/2019 Clinical tria l SP 8:56 AM CDT participant SP Malignant neoplasm of SP ovary, unspecified SP laterality (HCC) SP from Last 3 Months Results * MRI PELVIS WO/W CONTRAST (04/11/2019 3:39 PM WEAPONS ENGINEER) Specimen POS Impressions Performed At 1.No significant change in size of multiple cystic metastases in the pelvis SP [facility] SP and right groin. SP 2.Unchanged scattered retroperitone al nodules compatible with metastases. SP There is also mild enhancing extraperit mann presacral soft tissue thickening, SP likely either an additional manifestati on of metastatic disease or SP post-therapeutic. SP 3.Minimal direct osseous invasion i nto the anterior/right S1 vertebral body SP by a retroperitoneal metastasis. SP 4.Unchanged moderate right hydronep hrosis and development of mild left SP hydronephrosis. SP 5.No significant change in mild pel keely robson metastases. SP 6.Partial visualization of innumera ble hepatic metastases. SP Approved by Chad Tristan M.D. on 04/11 5:47 PM SP By my electronic signature, I attest th at I have personally reviewed the images SP for this examination and formulated the interpretations and opinions expressed SP in this report SP Finalized by Azar Mcclellan M.D. on 10:19 PM. Dictated by JACQUELYN Alvarez M.D. on 04/11/2019 3:53 PM. SP Narrative Performed At MRI PELVIS [facility] SP Clinical Indication:Female, 68 year s old. Malignant neoplasm of right SP Technique: Multisequence and multiplana r MR imaging was obtained through the pelvis before and following the adminis tration of gadolinium contrast material. SP IV Contrast:Multihance SP Bowel contrast: None SP Magnet:1.5 Emmy Siemens SP Comparison: CT chest/abdomen/pelvis fro 03/27/2019. SP FINDINGS: SP Uterus and adnexa: Prior hysterectomy a nd bilateral salpingooophorectomy. SP Peritoneal space: Visualized bowel loop s are normal in caliber. No significant SP change in size of the simple fluid sign al intensity cystic mass in the central SP upper pelvis which measures up to 12 cm in maximal dimension (series 4 image SP 30). Additionally, there has been no si gnificant change in size of the SP proteinaceous cystic mass in the low le ft intraperitoneal pelvis. SP Retroperitoneal and extraperitoneal pel vis: Multiple unchanged retroperitoneal SP and extraperitoneal nodules and ill-def ined soft tissue thickening. This SP includes a right retroperitoneal nodule at the level of the S1 vertebral body SP along the course of the right ureter (s eries 19 image 57). This nodule invades SP the right S1 vertebral body (series 17 image 41, series 8 image 16). There is SP mild presacral/retroperitoneal enhancin g soft tissue thickening (series 17 SP 46). SP Urinary bladder: Unremarkable. SP Lymph nodes: Multiple enlarged pelvic l ymph nodes are redemonstrated and not SP significantly changed. SP Osseous structures and body wall: Trans itional lumbosacral anatomy. For the SP purposes of numbering, the most caudal defined intervertebral disc space is SP considered S1-S2. Unchanged cystic meta stasis in the right groin. Healed SP ventral abdominal wall incision. SP Other: Partial visualization of innumer able hepatic lesions, consistent with SP metastases. Persistent moderate right h ydronephrosis. Development of mild left SP hydronephrosis. Probable urethral bulki ng agent changes are noted. SP Procedure Note POS SP Interface, Radiant Results - 04/11/2019 10:22 PM WEAPONS ENGINEER MRI PELVIS Clinical Indication: Female, 68 years old. Malignant neoplasm of right ovary. Technique: Multisequence and multiplanar MR imaging was obtained through the pelvis before and following the administration of gadolinium contrast material. IV Contrast:Multihance Bowel contrast: None Magnet:1.5 Emmy Siemens Comparison: CT chest/abdomen/pelvis from 03/27/2019. FINDINGS: Uterus and adnexa: Prior hysterectomy and bilateral salpingooophorectomy. Peritoneal space: Visualized bowel loops are normal in caliber. No significant change in size of the simple fluid signal intensity cystic mass in the central upper pelvis which measures up to 12 cm in maximal dimension (series 4 image 30). Additionally, there has been no significant change in size of the proteinaceous cystic mass in the low left intraperitoneal pelvis. Retroperitoneal and extraperitoneal pelvis: Multiple unchanged retroperitoneal and extraperitoneal nodules and ill-defined soft tissue thickening. This includes a right retroperitoneal nodule at the level of the S1 vertebral body along the course of the right ureter (series 19 image 57). This nodule invades the right S1 vertebral body (series 17 image 41, series 8 image 16). There is mild presacral/retroperitoneal enhancing soft tissue thickening (series 17 image 46). Urinary bladder: Unremarkable. Lymph nodes: Multiple enlarged pelvic lymph nodes are redemonstrated and not significantly changed. Osseous structures and body wall: Transitional lumbosacral anatomy. For the purposes of numbering, the most caudal defined intervertebral disc space is considered S1-S2. Unchanged cystic metastasis in the right groin. Healed midline ventral abdominal wall incision. Other: Partial visualization of innumerable hepatic lesions, consistent with metastases. Persistent moderate right hydronephrosis. Development of mild left hydronephrosis. Probable urethral bulking agent changes are noted. IMPRESSION 1. No significant change in size of mul tiple cystic metastases in the pelvis SP right groin. 2. Unchanged scattered retroperitoneal nodules compatible with metastases. SP is also mild enhancing extraperitoneal presacral soft tissue thickening, likely either an additional manifestation of metastatic disease or post- therapeutic. 3. Minimal direct osseous invasion into the anterior/right S1 vertebral body by SPa retroperitoneal metastasis. 4. Unchanged moderate right hydronephro sis and development of mild left SP 5. No significant change in mild pelvic robson metastases. SP 6. Partial visualization of innumerable hepatic metastases. SP Approved by Chad Tristan M.D. on 04/11/2019 5:47 PM By my electronic signature, I attest that I have personally reviewed the images for this examination and formulated the interpretations and opinions expressed in this report Finalized by Azar Mcclellan M.D. on 04/11/2019 10:19 PM. Dictated by Chad Tristan M.D. on 04/11/2019 3:53 PM. Performing Organization Address City/State/Zipcode Ph one Number [facility] SP * Nerve Block (nerve block meds) (04/03/2019 2:03 PM CDT) Narrative Performed At SP Darrell Chiu MD 04/03/20192:05 PM OTHER OUTSIDE LAB SP Nerve Block (nerve block meds) SP Nerve: superior hypogastric plexus SP Laterality: bilateral SP Consent: SP Consent obtained: verbal SP Consent given by: patient SP Alternatives discussed: referral, no tr eatment, delayed treatment and SP alternative treatment SP Discussed with patient the purpose of t he treatment/procedure, other ways SP of treating my condition, including no treatment/ procedure and the risks SP and benefits of the alternatives. Rigoberto nt has decided to proceed with SP treatment/procedure. SP [place] Protocol: SP Relevant documents: relevant documents present and verified SP Site marked: the operative site was aman polk SP Patient identity confirmed: Patient marvin ntify confirmed verbally with SP patient. SP Time out: Immediately prior to procedur e a "time out" was called to verify SP the correct patient, procedure, equipme nt, sales support manager and site/side SP marked as required SP Procedures Details: SP Indications: Neuritis and Pain Relief SP Preparation: Patient was prepped and dr mckeon in the usual sterile fashion. SP Prep: 2% chlorhexidine SP Patient position: prone SP Needle size: 22 G SP Guidance: fluoroscopy SP Medications administered: 8 mL bupivaca ine PF 0.25 %; 10 mg dexamethasone SP PF 10 mg/mL SP Outcome: Pain improved SP Patient tolerance: tolerated well, no i mmediate complications SP Comments: SP Following appropriate contrast spread a nd negative aspiration, 4mL of the SP solution above was injected on each obed e. SP Performing Organization Address [facility] Ph one Number SP OTHER OUTSIDE LAB SP * FLUORO GUIDANCE FOR SPINE INJ RAD (04/03/2019 1:32 PM CDT) Specimen SP Narrative Performed At SP This order has been auto finalized and does not contain a result. SP * GGTP (04/02/2019 10:22 AM CDT) Only the most recent of 5 results within the time period is included. Pathologist SP Signature SP GGTP 101 (H) 9 - 64 U/L [facility] SP Specimen SP Blood SP Performing Organization Address [facility] Ph one Number SP [facility] [address] [place] [address] SP * PTT (APTT) (04/02/2019 10:22 AM CDT) Only the most recent of 3 results within the time period is included. Pathologist SP Signature SP APTT 46.3 (H) 24.0 - 36.5 SEC [facility] SP Specimen SP Blood SP Performing Organization Address [facility] Ph one Number SP [facility] [address] [place] [address] SP * PROTIME INR (PT) (04/02/2019 10:22 AM CDT) Only the most recent of 3 results within the time period is included. Pathologist SP Signature SP INR 1.1 0.8 - 1.2 [facility] SP Specimen SP Blood SP Performing Organization Address [facility] Ph one Number SP [facility] [address] [place] [address] SP * CBC AND DIFF (04/02/2019 10:22 AM CDT) Only the most recent of 6 results within the time period is included. Pathologist SP Signature SP White Blood 7.3 4.5 - 11.0 K/UL [facility] SP Cells SP RBC 3.83 (L) 4.0 - 5.0 M/UL [facility] SP Hemoglobin 11.9 (L) 12.0 - 15.0 GM/DL [facility] SP Hematocrit 35.3 (L) 36 - 45 % [facility] SP MCV 92.2 80 - 100 FL [facility] SP MCH 31.2 26 - 34 PG [facility] SP MCHC 33.8 32.0 - 36.0 G/DL [facility] SP RDW 15.7 (H) 11 - 15 % [facility] SP Platelet Count 431 (H) 150 - 400 K/UL [facility] SP MPV 7.1 7 - 11 FL [facility] SP Neutrophils 77 41 - 77 % [facility] SP Lymphocytes 10 (L) 24 - 44 % [facility] SP Monocytes 8 4 - 12 % [facility] SP Eosinophils 3 0 - 5 % [facility] SP Basophils 2 0 - 2 % [facility] SP Absolute 5.70 1.8 - 7.0 K/UL [facility] SP Neutrophil SP Count SP Absolute Lymph 0.70 (L) 1.0 - 4.8 K/UL [facility] SP Count SP Absolute 0.60 0 - 0.80 K/UL [facility] SP Monocyte Count SP Absolute 0.20 0 - 0.45 K/UL [facility] SP Eosinophil SP Count SP Absolute 0.10 0 - 0.20 K/UL [facility] SP Basophil Count SP Specimen SP Blood SP Performing Organization Address City/[facility] Ph one Number SP [facility] [address] [place] [address] SP * CA125 (04/02/2019 10:22 AM CDT) Only the most recent of 3 results within the time period is included. Pathologist SP Signature SP CA-125 213 (H) <35 U/ml [facility] SP Specimen SP Blood SP Performing Organization Address [facility] Ph one Number SP [facility] [address] [place] [address] SP * THYROID STIMULATING HORMONE-TSH (04/02/2019 10:22 AM CDT) Only the most recent of 3 results within the time period is included. Pathologist SP Signature SP TSH 0.04 (L) 0.35 - 5.00 MCU/ML [facility] SP Specimen SP Blood SP Performing Organization Address [facility] Ph one Number SP [facility] [address] [place] [address] SP * FREE T4 (FREE THYROXINE) ONLY (04/02/2019 10:22 AM CDT) Only the most recent of 3 results within the time period is included. Pathologist SP Signature SP T4-Free 1.1 0.6 - 1.6 NG/DL [facility] SP Specimen SP Blood SP Performing Organization Address [facility] Ph one Number SP [facility] [address] [place] [address] SP * PHOSPHORUS (04/02/2019 10:22 AM CDT) Only the most recent of 5 results within the time period is included. Pathologist SP Signature SP Phosphorus 4.5 2.0 - 4.5 MG/DL [facility] SP Specimen SP Blood SP Performing Organization Address [facility] [[email or web address]]de Ph one Number SP [facility] [address] [place] [address] SP * MAGNESIUM (04/02/2019 10:22 AM CDT) Only the most recent of 5 results within the time period is included. Pathologist SP Signature SP Magnesium 1.9 1.6 - 2.6 mg/dL [facility] SP Specimen SP Blood SP Performing Organization Address [facility] Ph one Number SP [facility] [address] [place] [phone] SP * LIPASE (04/02/2019 10:22 AM CDT) Only the most recent of 6 results within the time period is included. Pathologist SP Signature SP Lipase 18 11 - 82 U/L [facility] SP Specimen SP Performing Organization Address [facility] Ph one Number SP [facility] [address] [place] [id number] SP * LDH-LACTATE DEHYDROGENASE (04/02/2019 10:22 AM CDT) Only the most recent of 5 results within the time period is included. Pathologist SP Signature SP Lactate 192 100 - 210 U/L [facility] SP Dehydrogenase SP Specimen SP Blood SP Performing Organization Address [facility] Ph one Number SP [facility] [address] [place] [address] SP * AMYLASE (04/02/2019 10:22 AM CDT) Only the most recent of 5 results within the time period is included. Pathologist SP Signature SP Amylase 55 24 - 100 U/L [facility] SP Specimen SP Performing Organization Address [facility] Ph one Number SP [facility] [address] [place], [place] [id number] SP * COMPREHENSIVE METABOLIC PANEL (04/02/2019 10:22 AM CDT) Only the most recent of 6 results within the time period is included. Pathologist SP Signature SP Sodium 138 137 - 147 MMOL/L [facility] SP Potassium 4.2 3.5 - 5.1 MMOL/L [facility] SP Chloride 102 98 - 110 MMOL/L [facility] SP Glucose 86 70 - 100 MG/DL [facility] SP Blood Urea 17 7 - 25 MG/DL [facility] SP Nitrogen SP Creatinine 0.89 0.4 - 1.00 MG/DL [facility] SP Calcium 9.1 8.5 - 10.6 MG/DL [facility] SP Total Protein 6.9 6.0 - 8.0 G/DL [facility] SP Total Bilirubin 0.2 (L) 0.3 - 1.2 MG/DL [facility] SP Albumin 3.4 (L) 3.5 - 5.0 G/DL [facility] SP Alk Phosphatase 185 (H) 25 - 110 U/L [facility] SP AST (SGOT) 42 (H) 7 - 40 U/L [facility] SP CO2 27 21 - 30 MMOL/L [facility] SP ALT (SGPT) 29 7 - 56 U/L [facility] SP Anion Gap 9 3 - 12 [facility] SP eGFR Non >60 >60 mL/min [facility] SP Comment: SP Trin[place] The eGFR is not validated f or SP use in drug dosing SP adjustments.Continue to SP use SP estimated creatinine SP clearance per dosing reference SP text.Please contact the SP Clinical Pharmacist for SP questions. SP eGFR >60 >60 mL/min [facility] SP [place] Comment: SP The eGFR is not validated for SP use in drug dosing SP adjustments.Continue to SP use SP estimated creatinine SP clearance per dosing reference SP text.Please contact the SP Clinical Pharmacist for SP questions. SP Specimen SP Blood SP Performing Organization Address [facility] Ph one Number SP [facility] [address] [place], [place] [phone] SP * PROTEIN/CR RATIO,UR RAN (04/02/2019 10:07 AM CDT) Only the most recent of 5 results within the time period is included. Pathologist SP Signature SP Protein, Random 25 MG/DL [facility] SP Creatinine, 79 MG/DL [facility] SP Random SP Protein/CR 0.3 [facility] SP ratio SP Specimen SP Performing Organization Address [facility] [[email or web address]]de Ph one Number SP [facility] [address] [place] [address] SP * URINALYSIS, MICROSCOPIC (04/02/2019 10:07 AM CDT) Only the most recent of 5 results within the time period is included. Pathologist SP Signature SP WBCs,UA 20-50 0 - 2 /HPF [facility] SP RBCs,UA 0-2 0 - 3 /HPF [facility] SP MucousUA TRACE [facility] SP Bacteria,UA MODERATE (A) NEG-NEG [facility] SP Specimen SP Urine - Urine SP Performing Organization Address [facility] [place] one Number SP [facility] [address] [place] [phone] SP * URINALYSIS DIPSTICK (04/02/2019 10:07 AM CDT) Only the most recent of 6 results within the time period is included. Pathologist SP Signature SP Color,UA YELLOW [facility] SP Turbidity,UA 2+ (A) CLEAR-CLEAR [facility] SP Specific 1.015 1.003 - 1.035 [facility] SP [place]-Urine SP pH,UA 6.5 5.0 - 8.0 [facility] SP Protein,UA TRACE (A) NEG-NEG [facility] SP Glucose,UA NEG NEG-NEG [facility] SP Ketones,UA NEG NEG-NEG [facility] SP Bilirubin,UA NEG NEG-NEG [facility] SP Blood,UA 1+ (A) NEG-NEG [facility] SP Urobilinogen,UA NORMAL NORM-NORMAL [facility] SP Nitrite,UA NEG NEG-NEG [facility] SP Leukocytes,UA 2+ (A) NEG-NEG [facility] SP Specimen SP Urine - Urine SP Performing Organization Address [facility] [place] one Number SP [facility] [address] [place] [phone] SP * ECG-SCAN (04/02/2019 12:00 AM CDT) Narrative Performed At SP This result has an attachment that is n ot available. SP Ordered by an unspecified provider. SP * ECG-SCAN (03/31/2019 12:00 AM CDT) Narrative Performed At This result has an attachment that is n ot available. SP Ordered by an unspecified provider. SP * CT ABD/PELV W CONTRAST (03/27/2019 11:48 AM CDT) Only the most recent of 3 results within the time period is included. Specimen SP Impressions Performed At CHEST: [facility] SP 1. Marked increased size and number of innumerable small pulmonary metastases. SP 2. Development of middle and left anter ior diaphragmatic robson metastases. SP ABDOMEN AND PELVIS: SP 1. Increased size and number of numerou s hepatic metastases. SP 2. Increased abdominopelvic orbson and p eritoneal metastatic disease. SP 3. Development of right adrenal metasta sis. SP 4. Slight improvement of moderate right hydronephrosis status post ureteral SP stent placement. SP 5. Increased conspicuity of subcentimet er anterior abdominal wall nodule, SP suspicious for additional metastasis. SP By my electronic signature, I attest th at I have personally reviewed the images SP for this examination and formulated the interpretations and opinions expressed SP in this report SP Finalized by Jeevan Marquez M.D. on 2:24 PM. Dictated by JACQUELYN Montes M.D. on 03/27/2019 1:13 PM. SP Narrative Performed At SP CT CHEST, ABDOMEN AND PELVIS [facility] SP Clinical Indication:Female, 68 year s old. Malignant neoplasm of ovary, SP transitional cell adenocarcinoma. [place] participant in clinical trial. SP Technique: Multiple contiguous axial im ages were obtained through the chest, SP abdomen and pelvis following the admini stration of IV contrast material. Portal SP venous phase of postcontrast imaging wa s obtained. Post processing coronal and SP sagittal reconstruction images were mad e from the axial images. SP IV contrast: Omnipaque 350. SP Bowel contrast:None. SP Comparison: CT abdomen/pelvis March 042018, PET/CT February 11, 2019, and SP CT chest/abdomen/pelvis February 06. SP CHEST FINDINGS: SP Lower Neck: Unremarkable. SP Axilla, Mediastinum and Janeth: No axilla ry, mediastinal, or hilar SP lymphadenopathy. Development of right m iddle and left anterior diaphragmatic SP lymphadenopathy (series 2, images 37 an d 42 respectively), measuring up to 1.9 SP 1.1 cm on the left. SP Heart and Great Vessels: Heart size is normal. No significant pericardial SP effusion. Normal caliber thoracic aorta without significant atherosclerotic SP plaque. A right IJ chest port terminate s in the low SVC. SP Airway, Lungs and Pleura: The central a irways are patent. There has been SP increase in size and number of numerous pulmonary nodules within both lungs, SP greater within the upper lungs. A repre sentative right middle lobe nodule SP measures 1.0 cm (series 2, image 26), p reviously 0.6 cm on PET/CT February 112018 when measured in a similar fashion . A metastasis along the left SP hemidiaphragm is also significantly inc reased in size, now measuring 1.8 x 0 SP point and series 102, image 89), previo usly 0.8 x 0.4 cm. Unchanged pleural SP parenchymal scarring within the anterio r right upper lobe. There is mild SP bibasilar atelectasis and/or scarring. Mild emphysema. There is no pleural SP effusion. SP Chest Wall and Osseous Structures: Thor acic spondylosis. No destructive osseous SP lesion. SP ABDOMEN AND PELVIS FINDINGS: SP Liver and Biliary system: Liver is norm al in size. Further increase in size and SP number of numerous hypoenhancing hepati c metastases over multiple prior SP examinations. Segment 7 metastasis now measures 2.6 x 2.3 cm (series 2, image SP 74), previously 0.8 x 0.7 cm on Septemb 2018 when measured in a similar SP fashion. The previously measured hypode nse lesion within hepatic segment 6/7 SP measures 2.5 cm (series 2, image 78), p reviously 2.4 cm, and again demonstrates SP simple fluid attenuation. The major por ramsey and hepatic veins appear patent. SP Prior cholecystectomy. There is similar moderate intrahepatic and intrahepatic SP biliary ductal dilatation, likely alejandro dochal ectasia given stability. SP Spleen: Spleen is normal in size. There has been increase in size of several SP splenic capsular metastases. Previously measured posterior superior perisplenic SP mass now measures 5.9 x 1.9 cm (series 2, image 73), previously 5.2 x 2.1 cm on SP February 06, 2019. Splenic hilum mass n ow measures 2.3 x 1.6 cm (series 2, SP 77), previously 2.0 x 1.3 cm. Posterior margin conglomerate now measures 2.5 x SP 2.2 cm (series 2, image 79), previously 2.7 x 1.7 cm. SP Adrenal Glands and Kidneys: Increase in size of right adrenal gland metastasis SP (series 2, image 78). Unremarkable left adrenal gland. Persistent moderate SP hydroureteronephrosis secondary to extr insic compression from large mesenteric SP metastasis and right presacral soft tis ken thickening. Interval placement of a SP right nephroureteral stent, with the pr oximal pigtail within the proximal SP ureter. Punctate nonobstructing left re nal calculus. No left hydronephrosis. A SP left upper pole renal hypodensity is st able and too small to characterize. SP Pancreas and Retroperitoneum: The pancr eas is unremarkable apart from stable SP mild ectasia of the main pancreatic russel t. Development of mild aortocaval and SP left periaortic lymphadenopathy (for in stance series 2, images 87 and 89). SP Aorta and Major Vessels: Normal caliber abdominal aorta with moderate calcified SP atherosclerotic plaque. SP Bowel, Mesentery and Peritoneal space: Prior distal colonic resection and SP colocolonic reanastomosis. Additional s mall bowel anastomosis seen within the SP right lower quadrant. There is mild dis ramsey colonic diverticulosis. The large SP small bowel loops are nondilated. Prior omentectomy. There is no abdominopelvic SP ascites. No significant change in previ ously measured low central abdominal SP peritoneal metastasis, now measuring 11 .5 x 9.9 cm (series 2, image 116), SP previously 11.4 x 10.0 cm on February 06, 2019. The previously measured SP posterior pelvic peritoneal metastasis has increased in size and now measures SP 3.7 x 3.4 cm (series 2, image 124), pre viously 2.5 x 2.9 cm. Additional SP metastases within the central upper mes entery (series 2, image 82) and mid left SP mesentery (series 2, image 94) have inc reased in size. SP Pelvis: Prior hysterectomy, bilateral s alpingo-oophorectomy, and bilateral SP pelvic lymph node dissection. The mildl y distended urinary bladder is SP unremarkable. Previously measured right inguinal lymph node has increased in SP size, now measuring 3.6 x 3.0 cm (serie s 2, image 131), previously 2.8 x 1.8 cm SP on February 06, 2019. There has been sl ight increase in size of the left pelvic SP sidewall lymph node (series 2, image 12 2). Bilateral obturator lymph nodes have SP also increased in size (series 2, image 120). There is similar right presacral SP soft tissue thickening, now measuring 2 .8 x 2.1 cm (image 113), previously 2.9 SP 2.2 cm on March 11, 2019. SP Abdominal wall and Osseous Structures: Transitional lumbosacral anatomy. No SP destructive osseous lesion. Calcified g ranuloma is prior midline laparotomy. SP Increase in conspicuity of a 0.8 cm sub cutaneous nodule within the left SP abdominal wall (series 2, image 107). SP Procedure Note POS SP Interface, Radiant Results - 03/27/2019 2:[address] CHEST, ABDOMEN AND PELVIS Clinical Indication: Female, 68 years old. Malignant neoplasm of ovary, transitional cell adenocarcinoma. Examination of participant in clinical trial. Technique: Multiple contiguous axial images were obtained through the chest, abdomen and pelvis following the administration of IV contrast material. Portal venous phase of postcontrast imaging was obtained. Post processing coronal and sagittal reconstruction images were made from the axial images. IV contrast: Omnipaque 350. Bowel contrast: None. Comparison: CT abdomen/pelvis March 21, 2019, PET/CT February 11, 2019, and CT chest/abdomen/pelvis February 06, 2019. CHEST FINDINGS: Lower Neck: Unremarkable. Axilla, Mediastinum and Janeth: No axillary, mediastinal, or hilar lymphadenopathy. Development of right middle and left anterior diaphragmatic lymphadenopathy (series 2, images 37 and 42 respectively), measuring up to 1.9 x 1.1 cm on the left. Heart and Great Vessels: Heart size is normal. No significant pericardial effusion. Normal caliber thoracic aorta without significant atherosclerotic plaque. A right IJ chest port terminates in the low SVC. Airway, Lungs and Pleura: The central airways are patent. There has been increase in size and number of numerous pulmonary nodules within both lungs, greater within the upper lungs. A manufacturer representative right middle lobe nodule measures 1.0 cm (series 2, image 26), previously 0.6 cm on PET/CT February 11, 2019 when measured in a similar fashion. A metastasis along the left hemidiaphragm is also significantly increased in size, now measuring 1.8 x 0 point and series 102, image 89), previously 0.8 x 0.4 cm. Unchanged pleural parenchymal scarring within the anterior right upper lobe. There is mild bibasilar atelectasis and/or scarring. Mild emphysema. There is no pleural effusion. Chest Wall and Osseous Structures: Thoracic spondylosis. No destructive osseous lesion. ABDOMEN AND PELVIS FINDINGS: Liver and Biliary system: Liver is normal in size. Further increase in size and number of numerous hypoenhancing hepatic metastases over multiple prior examinations. Segment 7 metastasis now measures 2.6 x 2.3 cm (series 2, image 74), previously 0.8 x 0.7 cm on February 06, 2019 when measured in a similar fashion. The previously measured hypodense lesion within hepatic segment 6/7 now measures 2.5 cm (series 2, image 78), previously 2.4 cm, and again demonstrates simple fluid attenuation. The major portal and hepatic veins appear patent. Prior cholecystectomy. There is similar moderate intrahepatic and intrahepatic biliary ductal dilatation, likely choledochal ectasia given stability. Spleen: Spleen is normal in size. There has been increase in size of several splenic capsular metastases. Previously measured posterior superior perisplenic mass now measures 5.9 x 1.9 cm (series 2, image 73), previously 5.2 x 2.1 cm on February 06, 2019. Splenic hilum mass now measures 2.3 x 1.6 cm (series 2, image 77), previously 2.0 x 1.3 cm. Posterior margin conglomerate now measures 2.5 x 2.2 cm (series 2, image 79), previously 2.7 x 1.7 cm. Adrenal Glands and Kidneys: Increase in size of right adrenal gland metastasis (series 2, image 78). Unremarkable left adrenal gland. Persistent moderate hydroureteronephrosis secondary to extrinsic compression from large mesenteric metastasis and right presacral soft tissue thickening. Interval placement of a right nephroureteral stent, with the proximal pigtail within the proximal ureter. Punctate nonobstructing left renal calculus. No left hydronephrosis. A left upper pole renal hypodensity is stable and too small to characterize. Pancreas and Retroperitoneum: The pancreas is unremarkable apart from stable mild ectasia of the main pancreatic duct. Development of mild aortocaval and left periaortic lymphadenopathy (for instance series 2, images 87 and 89). Aorta and Major Vessels: Normal caliber abdominal aorta with moderate calcified atherosclerotic plaque. Bowel, Mesentery and Peritoneal space: Prior distal colonic resection and colocolonic reanastomosis. Additional small bowel anastomosis seen within the right lower quadrant. There is mild distal colonic diverticulosis. The large and small bowel loops are nondilated. Prior omentectomy. There is no abdominopelvic ascites. No significant change in previously measured low central abdominal peritoneal metastasis, now measuring 11.5 x 9.9 cm (series 2, image 116), previously 11.4 x 10.0 cm on February 06, 2019. The previously measured posterior pelvic peritoneal metastasis has increased in size and now measures 3.7 x 3.4 cm (series 2, image 124), previously 2.5 x 2.9 cm. Additional metastases within the central upper mesentery (series 2, image 82) and mid left mesentery (series 2, image 94) have increased in size. Pelvis: Prior hysterectomy, bilateral salpingo-oophorectomy, and bilateral pelvic lymph node dissection. The mildly distended urinary bladder is unremarkable. Previously measured right inguinal lymph node has increased in size, now measuring 3.6 x 3.0 cm (series 2, image 131), previously 2.8 x 1.8 cm on February 06, 2019. There has been slight increase in size of the left pelvic sidewall lymph node (series 2, image 122). Bilateral obturator lymph nodes have also increased in size (series 2, image 120). There is similar right presacral soft tissue thickening, now measuring 2.8 x 2.1 cm (image 113), previously 2.9 x 2.2 cm on March 11, 2019. Abdominal wall and Osseous Structures: Transitional lumbosacral anatomy. No destructive osseous lesion. Calcified granuloma is prior midline laparotomy. Increase in conspicuity of a 0.8 cm subcutaneous nodule within the left anterior abdominal wall (series 2, image 107). IMPRESSION CHEST: 1. Marked increased size and number of i nnumerable small pulmonary metastases. SP 2. Development of middle and left anteri or diaphragmatic robson metastases. SP ABDOMEN AND PELVIS: 1. Increased size and number of numerous hepatic metastases. SP 2. Increased abdominopelvic robson and pe ritoneal metastatic disease. SP 3. Development of right adrenal metastas is. SP 4. Slight improvement of moderate right hydronephrosis status post ureteral SP placement. 5. Increased conspicuity of subcentimete r anterior abdominal wall nodule, SP for additional metastasis. By my electronic signature, I attest that I have personally reviewed the images for this examination and formulated the interpretations and opinions expressed in this report Finalized by Jeevan Marquez M.D. on 03/27/2019 2:24 PM. Dictated by Poncho Stuart M.D. on 03/27/2019 1:13 PM. Performing Organization Address City/State/Zipcode Ph one Number SP [facility] SP * CT CHEST W CONTRAST (03/27/2019 11:48 AM CDT) Only the most recent of 2 results within the time period is included. Specimen SP Impressions Performed At CHEST: [facility] SP 1. Marked increased size and number of innumerable small pulmonary metastases. SP 2. Development of middle and left anter ior diaphragmatic robson metastases. SP ABDOMEN AND PELVIS: SP 1. Increased size and number of numerou s hepatic metastases. SP 2. Increased abdominopelvic robson and p eritoneal metastatic disease. SP 3. Development of right adrenal metasta sis. SP 4. Slight improvement of moderate right hydronephrosis status post ureteral SP stent placement. SP 5. Increased conspicuity of subcentimet er anterior abdominal wall nodule, SP suspicious for additional metastasis. SP By my electronic signature, I attest th at I have personally reviewed the images SP for this examination and formulated the interpretations and opinions expressed SP in this report SP Finalized by Jeevan Marquez M.D. on 2:24 PM. Dictated by JACQUELYN Montes M.D. on 03/27/2019 1:13 PM. SP Narrative Performed At CT CHEST, ABDOMEN AND PELVIS [facility] SP Clinical Indication:Female, 68 year s old. Malignant neoplasm of ovary, SP transitional cell adenocarcinoma. [place] participant in clinical trial. SP Technique: Multiple contiguous axial im ages were obtained through the chest, SP abdomen and pelvis following the admini stration of IV contrast material. Portal SP venous phase of postcontrast imaging wa s obtained. Post processing coronal and SP sagittal reconstruction images were mad e from the axial images. SP IV contrast: Omnipaque 350. SP Bowel contrast:None. SP Comparison: CT abdomen/pelvis March 042018, PET/CT February 11, 2019, and SP CT chest/abdomen/pelvis February 06 19. SP CHEST FINDINGS: SP Lower Neck: Unremarkable. SP Axilla, Mediastinum and Janeth: No axilla ry, mediastinal, or hilar SP lymphadenopathy. Development of right m iddle and left anterior diaphragmatic SP lymphadenopathy (series 2, images 37 an d 42 respectively), measuring up to 1.9 SP 1.1 cm on the left. SP Heart and Great Vessels: Heart size is normal. No significant pericardial SP effusion. Normal caliber thoracic aorta without significant atherosclerotic SP plaque. A right IJ chest port terminate s in the low SVC. SP Airway, Lungs and Pleura: The central a irways are patent. There has been SP increase in size and number of numerous pulmonary nodules within both lungs, SP greater within the upper lungs. A repre sentative right middle lobe nodule SP measures 1.0 cm (series 2, image 26), p reviously 0.6 cm on PET/CT February 112018 when measured in a similar fashion . A metastasis along the left SP hemidiaphragm is also significantly inc reased in size, now measuring 1.8 x 0 SP point and series 102, image 89), previo usly 0.8 x 0.4 cm. Unchanged pleural SP parenchymal scarring within the anterio r right upper lobe. There is mild SP bibasilar atelectasis and/or scarring. Mild emphysema. There is no pleural SP effusion. SP Chest Wall and Osseous Structures: Thor acic spondylosis. No destructive osseous SP lesion. SP ABDOMEN AND PELVIS FINDINGS: SP Liver and Biliary system: Liver is norm al in size. Further increase in size and SP number of numerous hypoenhancing hepati c metastases over multiple prior SP examinations. Segment 7 metastasis now measures 2.6 x 2.3 cm (series 2, image SP 74), previously 0.8 x 0.7 cm on Septemb 2018 when measured in a similar SP fashion. The previously measured hypode nse lesion within hepatic segment 6/7 SP measures 2.5 cm (series 2, image 78), p reviously 2.4 cm, and again demonstrates SP simple fluid attenuation. The major por ramsey and hepatic veins appear patent. SP Prior cholecystectomy. There is similar moderate intrahepatic and intrahepatic SP biliary ductal dilatation, likely alejandro dochal ectasia given stability. SP Spleen: Spleen is normal in size. There has been increase in size of several SP splenic capsular metastases. Previously measured posterior superior perisplenic SP mass now measures 5.9 x 1.9 cm (series 2, image 73), previously 5.2 x 2.1 cm on SP February 06, 2019. Splenic hilum mass n ow measures 2.3 x 1.6 cm (series 2, SP 77), previously 2.0 x 1.3 cm. Posterior margin conglomerate now measures 2.5 x SP 2.2 cm (series 2, image 79), previously 2.7 x 1.7 cm. SP Adrenal Glands and Kidneys: Increase in size of right adrenal gland metastasis SP (series 2, image 78). Unremarkable left adrenal gland. Persistent moderate SP hydroureteronephrosis secondary to extr insic compression from large mesenteric SP metastasis and right presacral soft tis ken thickening. Interval placement of a SP right nephroureteral stent, with the pr oximal pigtail within the proximal SP ureter. Punctate nonobstructing left re nal calculus. No left hydronephrosis. A SP left upper pole renal hypodensity is st able and too small to characterize. SP Pancreas and Retroperitoneum: The pancr eas is unremarkable apart from stable SP mild ectasia of the main pancreatic russel t. Development of mild aortocaval and SP left periaortic lymphadenopathy (for in stance series 2, images 87 and 89). SP Aorta and Major Vessels: Normal caliber abdominal aorta with moderate calcified SP atherosclerotic plaque. SP Bowel, Mesentery and Peritoneal space: Prior distal colonic resection and SP colocolonic reanastomosis. Additional s mall bowel anastomosis seen within the SP right lower quadrant. There is mild dis ramsey colonic diverticulosis. The large SP small bowel loops are nondilated. Prior omentectomy. There is no abdominopelvic SP ascites. No significant change in previ ously measured low central abdominal SP peritoneal metastasis, now measuring 11 .5 x 9.9 cm (series 2, image 116), SP previously 11.4 x 10.0 cm on February 06, 2019. The previously measured SP posterior pelvic peritoneal metastasis has increased in size and now measures SP 3.7 x 3.4 cm (series 2, image 124), pre viously 2.5 x 2.9 cm. Additional SP metastases within the central upper mes entery (series 2, image 82) and mid left SP mesentery (series 2, image 94) have inc reased in size. SP Pelvis: Prior hysterectomy, bilateral s alpingo-oophorectomy, and bilateral SP pelvic lymph node dissection. The mildl y distended urinary bladder is SP unremarkable. Previously measured right inguinal lymph node has increased in SP size, now measuring 3.6 x 3.0 cm (serie s 2, image 131), previously 2.8 x 1.8 cm SP on February 06, 2019. There has been sl ight increase in size of the left pelvic SP sidewall lymph node (series 2, image 12 2). Bilateral obturator lymph nodes have SP also increased in size (series 2, image 120). There is similar right presacral SP soft tissue thickening, now measuring 2 .8 x 2.1 cm (image 113), previously 2.9 SP 2.2 cm on March 11, 2019. SP Abdominal wall and Osseous Structures: Transitional lumbosacral anatomy. No SP destructive osseous lesion. Calcified g ranuloma is prior midline laparotomy. SP Increase in conspicuity of a 0.8 cm sub cutaneous nodule within the left SP abdominal wall (series 2, image 107). SP Procedure Note POS SP Interface, Radiant Results - 03/27/2019 2:[address] CHEST, ABDOMEN AND PELVIS Clinical Indication: Female, 68 years old. Malignant neoplasm of ovary, transitional cell adenocarcinoma. Examination of participant in clinical trial. Technique: Multiple contiguous axial images were obtained through the chest, abdomen and pelvis following the administration of IV contrast material. Portal venous phase of postcontrast imaging was obtained. Post processing coronal and sagittal reconstruction images were made from the axial images. IV contrast: Omnipaque 350. Bowel contrast: None. Comparison: CT abdomen/pelvis March 21, 2019, PET/CT February 11, 2019, and CT chest/abdomen/pelvis February 06, 2019. CHEST FINDINGS: Lower Neck: Unremarkable. Axilla, Mediastinum and Janeth: No axillary, mediastinal, or hilar lymphadenopathy. Development of right middle and left anterior diaphragmatic lymphadenopathy (series 2, images 37 and 42 respectively), measuring up to 1.9 x 1.1 cm on the left. Heart and Great Vessels: Heart size is normal. No significant pericardial effusion. Normal caliber thoracic aorta without significant atherosclerotic plaque. A right IJ chest port terminates in the low SVC. Airway, Lungs and Pleura: The central airways are patent. There has been increase in size and number of numerous pulmonary nodules within both lungs, greater within the upper lungs. A manufacturer representative right middle lobe nodule measures 1.0 cm (series 2, image 26), previously 0.6 cm on PET/CT February 11, 2019 when measured in a similar fashion. A metastasis along the left hemidiaphragm is also significantly increased in size, now measuring 1.8 x 0 point and series 102, image 89), previously 0.8 x 0.4 cm. Unchanged pleural parenchymal scarring within the anterior right upper lobe. There is mild bibasilar atelectasis and/or scarring. Mild emphysema. There is no pleural effusion. Chest Wall and Osseous Structures: Thoracic spondylosis. No destructive osseous lesion. ABDOMEN AND PELVIS FINDINGS: Liver and Biliary system: Liver is normal in size. Further increase in size and number of numerous hypoenhancing hepatic metastases over multiple prior examinations. Segment 7 metastasis now measures 2.6 x 2.3 cm (series 2, image 74), previously 0.8 x 0.7 cm on February 06, 2019 when measured in a similar fashion. The previously measured hypodense lesion within hepatic segment 6/7 now measures 2.5 cm (series 2, image 78), previously 2.4 cm, and again demonstrates simple fluid attenuation. The major portal and hepatic veins appear patent. Prior cholecystectomy. There is similar moderate intrahepatic and intrahepatic biliary ductal dilatation, likely choledochal ectasia given stability. Spleen: Spleen is normal in size. There has been increase in size of several splenic capsular metastases. Previously measured posterior superior perisplenic mass now measures 5.9 x 1.9 cm (series 2, image 73), previously 5.2 x 2.1 cm on February 06, 2019. Splenic hilum mass now measures 2.3 x 1.6 cm (series 2, image 77), previously 2.0 x 1.3 cm. Posterior margin conglomerate now measures 2.5 x 2.2 cm (series 2, image 79), previously 2.7 x 1.7 cm. Adrenal Glands and Kidneys: Increase in size of right adrenal gland metastasis (series 2, image 78). Unremarkable left adrenal gland. Persistent moderate hydroureteronephrosis secondary to extrinsic compression from large mesenteric metastasis and right presacral soft tissue thickening. Interval placement of a right nephroureteral stent, with the proximal pigtail within the proximal ureter. Punctate nonobstructing left renal calculus. No left hydronephrosis. A left upper pole renal hypodensity is stable and too small to characterize. Pancreas and Retroperitoneum: The pancreas is unremarkable apart from stable mild ectasia of the main pancreatic duct. Development of mild aortocaval and left periaortic lymphadenopathy (for instance series 2, images 87 and 89). Aorta and Major Vessels: Normal caliber abdominal aorta with moderate calcified atherosclerotic plaque. Bowel, Mesentery and Peritoneal space: Prior distal colonic resection and colocolonic reanastomosis. Additional small bowel anastomosis seen within the right lower quadrant. There is mild distal colonic diverticulosis. The large and small bowel loops are nondilated. Prior omentectomy. There is no abdominopelvic ascites. No significant change in previously measured low central abdominal peritoneal metastasis, now measuring 11.5 x 9.9 cm (series 2, image 116), previously 11.4 x 10.0 cm on February 06, 2019. The previously measured posterior pelvic peritoneal metastasis has increased in size and now measures 3.7 x 3.4 cm (series 2, image 124), previously 2.5 x 2.9 cm. Additional metastases within the central upper mesentery (series 2, image 82) and mid left mesentery (series 2, image 94) have increased in size. Pelvis: Prior hysterectomy, bilateral salpingo-oophorectomy, and bilateral pelvic lymph node dissection. The mildly distended urinary bladder is unremarkable. Previously measured right inguinal lymph node has increased in size, now measuring 3.6 x 3.0 cm (series 2, image 131), previously 2.8 x 1.8 cm on February 06, 2019. There has been slight increase in size of the left pelvic sidewall lymph node (series 2, image 122). Bilateral obturator lymph nodes have also increased in size (series 2, image 120). There is similar right presacral soft tissue thickening, now measuring 2.8 x 2.1 cm (image 113), previously 2.9 x 2.2 cm on March 11, 2019. Abdominal wall and Osseous Structures: Transitional lumbosacral anatomy. No destructive osseous lesion. Calcified granuloma is prior midline laparotomy. Increase in conspicuity of a 0.8 cm subcutaneous nodule within the left anterior abdominal wall (series 2, image 107). IMPRESSION CHEST: 1. Marked increased size and number of i nnumerable small pulmonary metastases. SP 2. Development of middle and left anteri or diaphragmatic robson metastases. SP ABDOMEN AND PELVIS: 1. Increased size and number of numerous hepatic metastases. SP 2. Increased abdominopelvic robson and pe ritoneal metastatic disease. SP 3. Development of right adrenal metastas is. SP 4. Slight improvement of moderate right hydronephrosis status post ureteral SP placement. 5. Increased conspicuity of subcentimete r anterior abdominal wall nodule, SP for additional metastasis. By my electronic signature, I attest that I have personally reviewed the images for this examination and formulated the interpretations and opinions expressed in this report Finalized by Jeevan Marquez M.D. on 03/27/2019 2:24 PM. Dictated by Poncho Stuart M.D. on 03/27/2019 1:13 PM. Performing Organization Address City/State/Zipcode Ph one Number SP [facility] SP * ECG-SCAN (03/10/2019 12:00 AM CDT) Narrative Performed At This result has an attachment that is n ot available. SP Ordered by an unspecified provider. SP * NM PET SCAN [place] (SKULL-THIGHS) (02/11/2019 3:36 PM CDT) Specimen SP Addenda POS SP Addendum by Ashwin Melendez MD on 02/12/2019 12:45 PM Finalized by Ashwin Melendez M.D. on 02/11/2019 5:06 PM. Dictated by Moody Mckinney M.D. on 02/11/2019 3:19 PM.Addendum: Impression addendum: The hepatic, peritoneal, and robson metastatic disease has progressed since PET/CT March 2018. This addendum was communicated with Dr. Cabral by email on 02/12/2019 at 9:00 AM Approved by Moody Mckinney M.D. on 02/12/2019 8:53 AM By my electronic signature, I attest that I have personally reviewed the images for this examination and formulated the interpretations and opinions expressed in this report Finalized by Ashwin Melendez M.D. on 02/12/2019 12:42 PM. Dictated by Moody Mckinney M.D. on 02/12/2019 8:51 AM. Impressions Performed At 1. Numerous hypermetabolic hepatic and peritoneal met astases with widespread SP RAD RESULTS abdominopelvic robson metastatic disease . SP 2. Multiple tiny pulmonary nodules are too small to evaluate on PET/CT. No SP hypermetabolic cervical or thoracic lym ph nodes identified. SP Approved by Moody Mckinney M.D. on 019 5:05 PM SP By my electronic signature, I attest th at I have personally reviewed the images SP for this examination and formulated the interpretations and opinions expressed SP in this report SP Narrative Performed At NM PET SCAN [place] (SKULL-THIGHS) [facility] SP Radiopharmaceutical: 9.2 mCi F-18 Fluor odeoxyglucose (FDG) IV. SP Clinical Indication: Ovarian cancer, fo llow-up new lesions from 02/06/2019 CT SP Technique: PET imaging was performed fr om the skull to thighs 61 minutes after SP tracer administration. Low dose non-con trast CT imaging was performed for SP attenuation correction and localization purposes. Current mean hepatic SUV SP (reported for chief quality officer purposes) is 2.4, maximum 4.1. SP Blood glucose level (at the time of rad iopharmaceutical administration):85 SP mg/dL SP Comparison: CT chest/abdomen/pelvis 02/06, PET/CT 03/22/2018 SP FINDINGS: SP Head/Neck: No suspicious hypermetabolic lesion(s). SP Chest: No suspicious hypermetabolic les ion(s). Multiple tiny pulmonary nodules SP are too small to evaluate on PET/CT. SP Abdomen/Pelvis: Numerous hypermetabolic hepatic and peritoneal lesions, SP including perisplenic capsular metastas es. Multiple hypermetabolic peritoneal SP implants are noted. Multiple hypermetab olic retroperitoneal, mesenteric, and SP pelvic lymph nodes. A reference aortoca melina node demonstrates a maximum SUV of SP 6.8 (CT image 225). A large cystic lesi on in the central abdomen demonstrates SP significant FDG uptake. A right inguina l lymph node demonstrates only low-grade SP peripheral FDG uptake medially. SP Osseous Structures: Development of a hy permetabolic focus within the T12 SP vertebral body with no definite CT lorin elate which demonstrates a maximum SUV SP 5.6 (CT image 176). SP Additional CT Findings: A right chest p ort is in place the tip terminating in SP the low SVC. Prior distal colonic resec tion and primary anastomosis. Prior SP omentectomy. Prior small bowel anastomo sis within the right lower quadrant of SP the abdomen. Prior hysterectomy and alex ateral salpingo-oophorectomy. SP Procedure Note POS SP Interface, Radiant Results - 02/12/2019 12:45 PM CDT NM PET SCAN [place] (SKULL-THIGHS) Radiopharmaceutical: 9.2 mCi F-18 Fluorodeoxyglucose (FDG) IV. Clinical Indication: Ovarian cancer, follow-up new lesions from 02/06/2019 CT scan Technique: PET imaging was performed from the skull to thighs 61 minutes after tracer administration. Low dose non-contrast CT imaging was performed for attenuation correction and localization purposes. Current mean hepatic SUV (reported for chief quality officer purposes) is 2.4, maximum 4.1. Blood glucose level (at the time of radiopharmaceutical administration): 85 mg/dL Comparison: CT chest/abdomen/pelvis 02/06/2019, PET/CT 03/22/2018 FINDINGS: Head/Neck: No suspicious hypermetabolic lesion(s). Chest: No suspicious hypermetabolic lesion(s). Multiple tiny pulmonary nodules are too small to evaluate on PET/CT. Abdomen/Pelvis: Numerous hypermetabolic hepatic and peritoneal lesions, including perisplenic capsular metastases. Multiple hypermetabolic peritoneal implants are noted. Multiple hypermetabolic retroperitoneal, mesenteric, and pelvic lymph nodes. A reference aortocaval node demonstrates a maximum SUV of 6.8 (CT image 225). A large cystic lesion in the central abdomen demonstrates no significant FDG uptake. A right inguinal lymph node demonstrates only low-grade peripheral FDG uptake medially. Osseous Structures: Development of a hypermetabolic focus within the T12 vertebral body with no definite CT correlate which demonstrates a maximum SUV of 5.6 (CT image 176). Additional CT Findings: A right chest port is in place the tip terminating in the low SVC. Prior distal colonic resection and primary anastomosis. Prior omentectomy. Prior small bowel anastomosis within the right lower quadrant of the abdomen. Prior hysterectomy and bilateral salpingo-oophorectomy. IMPRESSION 1. Numerous hypermetabolic hepatic and p eritoneal metastases with widespread SP robson metastatic disease. 2. Multiple tiny pulmonary nodules are t oo small to evaluate on PET/CT. No SP cervical or thoracic lymph nodes identified. Approved by oMody Mckinney M.D. on 02/11/2019 5:05 PM By my electronic signature, I attest that I have personally reviewed the images for this examination and formulated the interpretations and opinions expressed in this report Performing Organization Address City/State/Zipcode Ph one Number SP [facility] SP * POC GLUCOSE (02/11/2019 1:51 PM CDT) Pathologist SP Signature SP Glucose, POC 85 70 - 100 MG/DL [facility] SP Specimen SP Performing Organization Address City[facility] one Number SP [facility] [address] [place] [address] SP * BILIRUBIN, DIRECT (01/13/2019 8:56 AM CDT) Pathologist SP Signature SP Bilirubin, <0.1 <0.4 MG/DL [facility] SP Direct SP Specimen SP Blood SP Performing Organization Address [facility] Ph one Number SP [facility] [address] [place] [address] SP from Last 3 Months Insurance Type POS Payer Benefit Subscriber ID Effective Phone Address SP Plan / Dates SP Group SP Medicare SP MEDICARE MEDICARE xxxxxxxxxxx 2016- SP PART A AND Present SP B SP Medicare SP BCBS [employer] BCBS xxxxxxxxxxxx 2017-P SP SUPPLEMENT resent SP [id number] SP Advance Directives 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 necessary based on SP Dx SP
--- OUTSIDE RECORDS SUMMARY | 2019-04-12 08:49 | XMS REPORT | Encounter Summary ---
Author Author [facility] POS Organization [facility] SP Address Unknown SP Phone Unavailable SP Care Team Providers Care Manufacturing Weaver Name Role Phone POS Christa Ware MD PCP SP Encounter Details Care Team Description POS Date Type Department SP SP Darrell Chiu MD [address] [facility] [place], [place] [id number] SP 04/03/2019 [facility] [place] [address] [place] [address] SP [phone] SP Social History Date POS Tobacco Use Types Packs/Day Years Used SP SP Current Every Day Smoker Cigarettes 0.5 45 SP Smokeless Tobacco: Never SP Used SP Drinks/Week oz/Week Comments POS Alcohol Use SP occasional SP Yes SP Sex Assigned at Date Recorded SP Not on file SP Industry POS Job Start Date Occupation SP Not on file SP Not on file Not on file SP Travel End POS Travel History Travel Start SP No recent travel history available. SP documented as of this encounter Functional Status Date of Assessment POS Functional Status Response SP 04/02/2019 SP Does the patient have a hearing impairment: No SP 04/02/2019 SP Does the patient have a visual impairment: No SP 04/02/2019 SP Does the patient have impaired ambulation: No SP 04/02/2019 SP Does the patient have an activity of daily living No SP (ADL) impairment: SP 04/02/2019 SP Does the patient have an instrumental activity of No SP daily living (IADL) impairment: SP Date of Assessment POS Cognitive Status Response SP 04/02/2019 SP Does the patient have a cognitive impairment: No SP documented as of this encounter Medications at Time of Discharge Start Date End Date POS Medication Sig Dispensed Refills SP 04/03/2019 04/24/2019 SP (INV) cabozantinib (HSC Take two 60 tablet 0 SP [id number]) 20 mg tablets by SP tabletIndications: mouth daily SP Clinical trial [...] SP hours after a SP meal. SP SP acetaminophen (TYLENOL Take 500 mg 0 SP PO) by mouth SP every 4-6 SP hours as SP needed. SP SP ATEZOLIZUMAB Administer 0 SP IVIndications: once every through vein. SP 3 weeks Indications: SP once every 3 SP weeks SP SP calcium carbonate/vitamin Take 1 tablet 0 SP D-3 (OSCAL-500+D) 1250 by mouth SP mg/200 unit tablet daily. SP Calcium Carb SP 1250mg SP delivers SP 500mg SP elemental Ca SP SP cholecalciferol (VITAMIN Take 2,000 0 SP D-3) 1,000 units tablet Units by SP mouth daily. SP 12/23/2018 SP diphenoxylate/atropine Take one 60 tablet 3 SP (LOMOTIL) 2.5/0.025 mg tablet by SP tablet mouth twice SP daily as SP needed for SP Diarrhea. SP 03/27/2019 SP electrolyte GUT PEG Mix as 4000 mL 0 SP (NULYTELY) 420 gram oral directed on SP solution package. SP Drink 240ml SP (8oz) every SP 10 minutes SP until gone. SP Refrigerate SP once mixed. SP SP folic Take by 0 SP acid/multivit-min/lutein mouth daily. SP (CENTRUM SILVER PO) SP 03/28/2019 SP gabapentin (NEURONTIN) Take one 90 capsule 1 SP 300 mg capsule by SP capsuleIndications: mouth every 8 SP Cancer associated pain, hours. Take SP Malignant neoplasm of 1/day for 3 SP ovary, unspecified days, Take 1 SP laterality (HCC), Rectal pill SP pain, Anal pain twice/day for SP 3 day, then SP take 1 pill SP three SP times/day. SP SP hydrocortisone 1 % Apply 0 SP topical creamIndications: topically to SP pruritus of skin affected area SP twice daily. SP SP ibuprofen (ADVIL) 200 mg Take 400 mg 0 SP tablet by mouth SP every 6 hours SP as needed for SP Pain. Take SP with food. SP 03/27/2019 SP lactulose 10 gram/15 mL Take 30 mL by 946 mL 3 SP oral solution mouth three SP times daily. SP 12/04/2018 SP levoFLOXacin (LEVAQUIN) Take one 5 tablet 0 SP 750 mg tablet tablet by SP mouth daily. SP 03/31/2019 SP methylnaltrexone 150 mg Take 150 30 tablet 1 SP tab mg/day by SP mouth daily. SP 03/27/2019 SP morphine SR (MS CONTIN) Take one 60 tablet 0 SP 15 mg tablet tablet by SP mouth every SP 12 hours SP 07/29/2018 SP nitrofurantoin Take one 14 capsule 0 SP monohyd/m-cryst capsule by SP (MACROBID) 100 mg mouth every SP capsuleIndications: 12 hours. SP Bacterial Urinary Tract Take with SP Infection food. SP 03/28/2019 SP nortriptyline (PAMELOR) Take one 30 capsule 3 SP 25 mg capsuleIndications: capsule by SP Cancer associated pain, mouth at SP Malignant neoplasm of bedtime SP ovary, unspecified daily. SP laterality (HCC), Rectal SP pain, Anal pain SP 05/27/2018 SP ondansetron (ZOFRAN) 8 mg Take one 50 tablet 0 SP tabletIndications: Pelvic tablet by SP mass mouth every 6 SP hours as SP needed for SP Nausea or SP Vomiting. SP 10/15/2017 SP oxyCODONE (ROXICODONE, Take 1-2 45 tablet 0 SP OXY-IR) 5 mg tablet tablets by SP mouth every 4 SP hours as SP needed SP Earliest Fill SP Date: 10/15/17 SP 03/28/2019 SP tiZANidine (ZANAFLEX) 4 Take one 30 tablet 1 SP mg tabletIndications: tablet by SP Cancer associated pain, mouth at SP Malignant neoplasm of bedtime SP ovary, unspecified daily. SP laterality (HCC), Rectal SP pain, Anal pain SP SP zolpidem (AMBIEN) 10 mg Take 10 mg by 0 SP tablet mouth at SP bedtime as SP needed for SP Sleep. SP documented as of this encounter Plan of Treatment Not on filedocumented as of this encounter Procedures Comments POS Procedure Name Priority Date/Time Associated Diag nosis SP SP FLUORO GUIDANCE FOR SPINE Routine 04/03/2019 Pain SP INJ RAD 1:32 PM CDT SP documented in this encounter Results * FLUORO GUIDANCE FOR SPINE INJ RAD (04/03/2019 1:32 PM CDT) Specimen POS Narrative Performed At SP This order has been auto finalized and does not contain a result. SP documented in this encounter Visit Diagnoses Diagnosis POS Pain - Primary SP Generalized pain SP Clinical trial participant SP Malignant neoplasm of ovary, unspecifie d laterality (HCC) SP documented in this encounter
--- OUTSIDE RECORDS SUMMARY | 2019-04-12 08:49 | XMS REPORT | Encounter Summary ---
Author Author [facility] POS Organization [facility] SP Address Unknown SP Phone Unavailable SP Care Team Providers Care P D Driver Name Role Phone POS Christa Ware MD PCP SP Encounter Details Care Team Description POS Date Type Department SP SP Mateo Cabral MD [address] [facility] [place] [address] [phone] SP 04/03/2019 Documentation [facility] SP [address] [facility] 2nd Md Carlos Enrique [address] [place] [address] SP [phone] SP Social History Date POS Tobacco Use [...] No SP documented as of this encounter Miscellaneous Notes * Research - Aydee Banks - 04/03/2019 5:29 PM CDT Study Title:A Phase 1b Dose-Escalation Study of Carbozantinib (XL184) Administ ered Alone or in Combination with Atezolizumab to Subjects with Locally Advanced or Metastatic Solid Tumors [[id number]] Study ID:[id number] Dose Modification: 02/03/2019 - 02/17/2019: - C13D1 delayed by 1 week to accommodate pt vacation - C13D1 delayed 1 additonal week as pt completed PET s can on 11Feb2019. 02/18/2019 -03/17/2019: XL184 held due to biopsy of L hand 03/10/2019: XL184 dose reduced to 20mg per PI d/t diarrhea and PPE 03/17/2019: XL184 held pending consult/renal scan due to possible placement o f stent 04/02/2019: [id number] continues at 20mg. 04/03/2019: XL184 re-escalated to 40 mg, QD. Approval from study PI (Dr. Sanchez ) and treating subPI (Dr. Cabral). OK per protocol as GI issues have now resolve d. Patient presented to clinic to pick and shovel man additional cabozantinib pill bottle. Adry daniel nurse Eva Greenberg (KATHI) and emergency management coordinator visited with patient to doub le verify medication. Pt Katty Gold has been approved to dose re-escalate to 40mg, QD for the XL184 -021. Per protocol: For subjects in the Combination-Therapy Expansion Cohorts and the Exploratory SAC Cohorts, re-escalation of cabozantinib to the previous dose after a dose re duction may be allowed at the discretion of the field traffic investigator for AEs which have resolved or recovered to Grade 1 (or baseline value) and are deemed tolerable an d easily managed by optimized supportive treatment. A minimum two-week interval is needed between resuming with study treatment and the escalation to the next h igher dose level. Dr. Sanchez (PI) and Dr. Cabral are in agreement to re-escalate the patient, as GI issues have now resolved. Please see email for additional confirmation. New medication Accountability: 20 mg Cabozantinib (XL184): I: [id number], II: ZDDB, III: 08/2021, QTY: 30 pills Pharmacy dispensed and additional Cabozantinib pill bottle #[id number]) will return this bottle back to pharmacy as it is not needed. NV: Patient is scheduled to come back to clinic for Cycle 16, Day 1 on 9 documented in this encounter Plan of Treatment Not on filedocumented as of this encounter Visit Diagnoses Not on filedocumented in this encounter
--- OUTSIDE RECORDS SUMMARY | 2019-04-12 08:49 | XMS REPORT | Encounter Summary ---
Author Author [facility] POS Organization [facility] SP Address Unknown SP Phone Unavailable SP Care Team Providers Care Motorboat Mechanic Name Role Phone POS Christa Ware MD PCP SP Reason for Referral * Consult, Test & Treat (Urgent) Referred By Contact Referred To Contact POS Status Reason Specialty Diagnoses / SP Procedures SP SP Mateo Cabral MD [address] [facility] [place] [address] SP [facility] Surgery [address] [place] [address] No Auth Needed Specialty Services Colon and Rectal Diagnoses SP Required Surgery Malignant neoplasm SP of right ovary SP (HCC) SP Hemorrhoids, SP unspecified SP hemorrhoid type SP Encounter Details Care Team Description POS Date Type Department SP SP Mateo Cabral MD [address] [facility] [place], [place] [id number] Malignant neoplasm of right ovary (HCC) (Primary Dx); SPHemorrhoids, unspecified hemorrhoid type 04/09/2019 Orders Only [facility] SP [address] [facility] SP 2nd Fl Carlos Enrique [address] [place] [address] SP [phone] SP Social History Date POS Tobacco Use [...] No SP documented as of this encounter Plan of Treatment Order Schedule POS Name Type Priority Associated Diag noses SP Ordered: 04/09/2019 SP AMB REFERRAL TO Outpatient Routine Malignant neop lasm of SP COLORECTAL SURGERY Referral right ovary (HCC) SP Hemorrhoids, unspecified SP hemorrhoid type SP documented as of this encounter Visit Diagnoses Diagnosis POS Malignant neoplasm of right ovary (HCC) - Primary SP Malignant neoplasm of ovary SP Hemorrhoids, unspecified hemorrhoid typ e SP documented in this encounter
--- OUTSIDE RECORDS SUMMARY | 2019-04-12 08:49 | XMS REPORT | Encounter Summary ---
Author Author [facility] POS Organization [facility] SP Address Unknown SP Phone Unavailable SP Care Team Providers Care Testing Machine Operator Name Role Phone POS Christa Ware MD PCP SP Mateo Cabral MD [id number] SP Sanjuanita Davies MD [id number] SP Reason for Visit * Reason Comments POS New Patient SP Encounter Details Care Team Description POS Date Type Department SP SP Mayra Aguiar New Patient SP 04/10/[address] [facility] SP [address] [place] [address] SP [phone] SP Social History Date POS Tobacco Use [...] as of this encounter Miscellaneous Notes * Telephone Encounter - Mayra Aguiar - 04/10/2019 1:38 PM HOSPITAL NURSING ASSISTANT New Pt Appt: Wed. (05/14/19) at 12PM with Dr. Usama Kirk Location: [place] [address] Emailed appt notice with map to pt on 04.10.19 Referring: Dr. Mateo Cabral (INTERN PRODUCT MARKETING MANAGER) Care Team: Updated on 04.10.19 Dx: hemorrhoid. On ovarian ca trial Verbal records hx from pt: GI Testing: Sep, 2017 - Colonoscopy by Dr. iVri Gold at [facility]. Only one in lifetime. Surgery: 1984 - Hemorrhoid Lanced Oct, 2017 Surgery for ovarian ca with two resections and appendix removal and fu ll hysterectomy at [facility]. - Gallbladder removal 2 c-sections. Radiology: 04.11.19 MRI pelvis at [facility] CT c/a/p at [facility] Imaging at [place], [place] and [address] and [facility]. CT a/p at [facility]. May have all been clouded to [facility] for the ova radha ca surgery ITAL NURSING ASSISTANT documented in this encounter Plan of Treatment Not on filedocumented as of this encounter Visit Diagnoses Not on filedocumented in this encounter
--- OUTSIDE RECORDS SUMMARY | 2019-04-12 08:49 | XMS REPORT | Encounter Summary ---
Author Author [facility] POS Organization [facility] SP Address Unknown SP Phone Unavailable SP Care Team Providers Care Chemical Research Engineer Name Role Phone POS Christa Ware MD PCP SP Mateo Cabral MD [id number] SP Sanjuanita Davies MD 057348 SP Reason for Referral * Radiology Services (Urgent) Referred By Contact Referred To Contact POS Status Reason Specialty Diagnoses / SP Procedures SP SP Sanjuanita Davies MD [address] [place] [address] SP Ic1 Mri [address] [place] [address] No Auth Needed Radiology Diagnoses SP Malignant neoplasm SP of right ovary SP (HCC) SP P SP rocedures SP MRI PELVIS WO/W SP CONTRAST SP Reason for Visit * Radiology Services (Urgent) Referred By Contact Referred To Contact POS Status Reason Specialty Diagnoses / SP Procedures SP SP Sanjuanita Davies MD [address] [place] [address] SP Ic1 Mri [address] [place] [address] No Auth Needed Radiology Diagnoses SP Malignant neoplasm SP of right ovary SP (HCC) SP P SP rocedures SP MRI PELVIS WO/W SP CONTRAST SP Encounter Details Care Team Description POS Date Type Department SP SP Sanjuanita Davies MD [address] [facility] [place] [address] [phone] Arrived SP 04/11/2019 [facility] [place] [address] [place] [address] SP [phone] SP Social History Date POS Tobacco Use [...] Malig nant neoplasm of SP 3:39 PM GENERAL ASSEMBLER INSTALLER right ovary (HCC) SP documented in this encounter Results * MRI PELVIS WO/W CONTRAST (04/11/2019 3:39 PM GENERAL ASSEMBLER INSTALLER) Specimen POS Impressions Performed At SP 1.No significant change in size of multiple [...] r MR imaging was obtained through the SP pelvis before and following the adminis tration [...] Interface, Radiant Results - 04/11/2019 10:22 PM GENERAL ASSEMBLER INSTALLER MRI PELVIS Clinical Indication: Female, 68 years [...] one Number SP [facility] RAD RESULTS SP documented in this encounter Visit Diagnoses Diagnosis POS Malignant neoplasm of right ovary (HCC) SP Malignant neoplasm of ovary SP documented in this encounter Administered Medications Action Date Dose Rate Site POS Medication Order MAR Action SP 04/11/2019 3:34 PM GENERAL ASSEMBLER INSTALLER 11 mL SP gadobenate dimeglumine (MULTIHANCE) Given SP injection 11 mL SP 11 mL, Intravenous, ONCE, 1 dose, Fri SP 04/11/19 at 1545, NOTE: This is a HIGH SP ALERT Medication., SP 04/11/2019 3:34 PM GENERAL ASSEMBLER INSTALLER 50 mL SP sodium chloride PF 0.9% injection 50 mL Given SP 50 mL, Intravenous, ONCE, 1 dose, Fri SP 04/11/19 at 1545, DO NOT SEND this SP medication unless it is requested. This SP med is usually available in floor SP stock., SP documented in this encounter
--- OUTSIDE RECORDS SUMMARY | 2019-04-12 08:50 | XMS REPORT | Encounter Summary ---
Author Author [facility] POS Organization [facility] SP Address Unknown SP Phone Unavailable SP Care Team Providers Care Corporate Planning Manager Name Role Phone POS Christa Ware MD PCP SP Encounter Details Care Team Description POS Date Type Department SP SP Mateo Cabral MD [address] [facility] [place], [place] [phone] SP 04/02/2019 Orders Only [facility] Cancer [place] [address] [place], [place] SP [phone] SP Social History Date POS Tobacco Use [...]
--- OUTSIDE RECORDS SUMMARY | 2019-04-12 08:50 | XMS REPORT | Encounter Summary ---
Author Author [facility] POS Organization [facility] SP Address Unknown SP Phone Unavailable SP Care Team Providers Care Captain Waiter Name Role Phone POS Christa Ware MD PCP SP Reason for Referral * Radiology Services (Routine) Referred By Contact Referred To Contact POS Status Reason Specialty Diagnoses / SP Procedures SP SP Mateo Cabral MD [address] [place] [address] SP New Request Radiology Diagnoses SP Malignant neoplasm SP of ovary, SP unspecified SP laterality (HCC) SP Examination of SP participant in SP clinical trial SP P SP rocedures SP CT ABD/PELV W SP CONTRAST SP * Radiology Services (Routine) Referred By Contact Referred To Contact POS Status Reason Specialty Diagnoses / SP Procedures SP SP Mateo Cabral MD [address] [place] [address] SP New Request Radiology Diagnoses SP Malignant neoplasm SP of ovary, SP unspecified SP laterality (HCC) SP Examination of SP participant in SP clinical trial SP P SP rocedures SP CT CHEST W SP CONTRAST SP Encounter Details Care Team Description POS Date Type Department SP SP Mateo Cabral MD [address] [place] [address] Malignant neoplasm of ovary, unspecified laterality (HCC) SP Dx); Examination of participant in clinical trial 04/02/2019 Orders Only [facility] SP [address] SP [address] Carlos Enrique [address] [place] [address] SP [phone] SP Social History Date POS Tobacco Use [...] Name Type Priority Associated Diag noses SP Expected: 05/05/2019 (Approximate), Expi res: 04/02/[address] CHEST W CONTRAST Imaging Routine Malignant neoplasm of SP ovary, unspecified SP laterality (HCC) SP Examination of SP participant in clinical SP trial SP Expected: 05/05/2019 (Approximate), Expi res: 04/02/[address] ABD/PELV W CONTRAST Imaging Routine Maligna nt neoplasm of SP ovary, unspecified SP laterality (HCC) SP Examination of SP participant in clinical SP trial SP documented as of this encounter Visit Diagnoses Diagnosis POS Malignant neoplasm of ovary, unspecifie d laterality (HCC) - Primary SP Examination of participant in clinical trial SP documented in this encounter
--- OUTSIDE RECORDS SUMMARY | 2019-04-12 08:50 | XMS REPORT | Encounter Summary ---
Author Author [facility] POS Organization [facility] SP Address Unknown SP Phone Unavailable SP Care Team Providers Care Access Tech Name Role Phone POS Christa Ware MD PCP SP Mateo Cab[place] MD [id number] SP Sanjuanita Davies MD 385371 SP Encounter Details Care Team Description POS Date Type Department SP SP Sanjuanita Davies MD [address] [facility] Cancer [place], [place] [phone] SP 04/02/2019 Telephone [facility] Cancer [facility] [address] [place], [place] SP [phone] SP Social History Date POS Tobacco Use [...]
--- OUTSIDE RECORDS SUMMARY | 2019-04-12 08:50 | XMS REPORT | Encounter Summary ---
Author Author [facility] POS Organization [facility] SP Address Unknown SP Phone Unavailable SP Care Team Providers Care Chronic Condition Nurse Name Role Phone POS Christa Ware MD PCP SP Encounter Details Care Team Description POS Date Type Department SP SP Mateo Cabral MD [address] [facility] Cancer [place], [place] [id number] SP 04/02/2019 Documentation [facility] SP [address] [facility] 2nd Tx Carlos Enrique [address] [place] [address] SP [phone] SP Social History Date POS Tobacco Use [...] Notes * Research - Aydee Banks - 04/02/2019 4:00 PM CDT Study Title:A Phase 1b Dose-Escalation Study of Carbozantinib (XL184) Administ ered Alone or in Combination with Atezolizumab to Subjects with Locally Advanced or Metastatic Solid Tumors [[facility]:[id number]] Study ID:[id number] Dose Modification: 02/03/2019 - 02/17/2019: - C13D1 [...] due to possible placement o f stent Patient presented to clinic for Cycle 15, Day 1 for the above mentioned trial wi th her , Petra. Labs were drawn and reviewed by treatment nurse, Newton Greenberg (RN), study odell norman, and Belinda Landeros (DIVISION SUPERVISOR). Labs met treatment parameters. OK to treat per win chapman. Pt requested that her cabozantinib be re-escalated. Per study PI pt will need to stay at the 20 mg dose. Belinda visited with patient to review any new/ongoing symptoms. Please see provi marty notes for detailed assessments. See MAR for infusion start/stop times. Old Medication Accountability: (pill diary returned to construction coordinator) 20 mg Cabozantinib: 1: [id number], II: ZDDB, III: , QTY: 22 pills remaing <-- returned to pharmacy New medication Accountability: 20 mg Cabozantinib: I: [id number], II: ZDDB, III: 08/2021, QTY: 30 pills Today's dosing time: 20 mg Cabozantinib dosed at 12:12 pm Cycle 15, Day 1 new pill diary given to patient. NV: Patient is scheduled to come back to clinic for Cycle 16, Day 1 on 9 documented in this encounter Plan of Treatment Not on filedocumented as of this encounter Visit Diagnoses Not on filedocumented in this encounter
--- OUTSIDE RECORDS SUMMARY | 2019-04-12 08:50 | XMS REPORT | Encounter Summary ---
Author Author [facility] POS Organization [facility] SP Address Unknown SP Phone Unavailable SP Care Team Providers Care Bundle Packer Name Role Phone POS Christa Ware MD PCP SP Encounter Details Care Team Description POS Date Type Department SP SP Belinda Landeros, WIRE MACHINE OPERATOR [address] [facility] [address] [place], [place] [id number] SP 04/02/2019 Orders Only [facility] SP [address] [facility] [address] SP [address]nd [address] Carlos Enrique [address] [place] [address] SP [phone] SP Social History Date POS Tobacco Use [...]
--- OUTSIDE RECORDS SUMMARY | 2019-04-12 08:50 | XMS REPORT | Encounter Summary ---
Author Author [facility] POS Organization [facility] SP Address Unknown SP Phone Unavailable SP Care Team Providers Care Batch Tank Controller Name Role Phone POS Christa Ware MD PCP SP Reason for Visit * Reason Comments POS Treatment SP Encounter Details Care Team Description POS Date Type Department SP SP Belinda Landeros, JIGGER OPERATOR [address] [facility] [address] [place], [place] [phone] SP 04/02/2019 [facility] SP Encounter Cancer [facility] SP [address] [facility] [address] [facility] [address] [place] [address] SP [phone] SP Social History Date POS Tobacco Use [...] available. SP documented as of this encounter Last Filed Vital Signs Reading Time Taken Comments POS Vital Sign SP 102/67 04/02/2019 12:02 PM CDT SP Blood Pressure SP 81 04/02/2019 12:02 PM CDT SP Pulse SP 36.8 C (98.3 F) 04/02/2019 12:02 PM CDT SP Temperature SP 16 04/02/2019 12:02 PM CDT SP Respiratory Rate SP 100% 04/02/2019 12:02 PM CDT SP Oxygen Saturation SP - - SP Inhaled Oxygen SP Concentration SP 57 kg (125 lb 10.6 oz) 04/02/2019 10:07 AM CDT SP Weight SP - - SP Height SP 20.91 03/28/2019 3:05 PM CDT SP Body Mass Index SP documented in this encounter Functional Status Date of Assessment [...] Date POS Medication Sig Dispensed Refills SP SP acetaminophen (TYLENOL Take 500 mg [...] as SP needed for SP Sleep. SP 04/02/2019 04/03/2019 SP (INV) cabozantinib (HSC Take one 30 tablet 0 SP [id number]) 20 mg tablet by SP tabletIndications: mouth daily SP Clinical [...] SP hours after a SP meal. SP documented as of this encounter Progress Notes * Eva Greenberg RN - 04/02/2019 12:42 PM CDT CRC TREATMENT DAY Study : Cycle and Day : Cycle 15 Day 1 Labs : Clinical and correlative labs drawn from R port Assessment : Assessment documented in doc flowsheet. Fatigue Scale:3 Vital Signs : 04/02/19 1007 SOC 04/02/19 1202 Within 60min prior to Atezolizumab Vitals/Screening BP 121/76 102/67 BP Source Arm, Right Upper Arm, Right Upper BP Patient Position Chair Chair Pulse 93 81 Resp 16 16 Temp 36.8 C (98.3 F) 36.8 C (98.3 F) Temp src Oral Oral SpO2 97 % 100 % Correlative Labs & EKG : Correlative labs drawn from R port EKG completed by hospital staff at 1038, pt started resting at 1030 Side Effects : Fatigue Anal pain Additional Notes : Pt arrived to [facility] for C15D1 of XL-184. Pt arrived with . Labs drawn fr om R port. EKG completed. Urine collected. Pt seen by Aydee, claims coordinator. Pt seen by Belinda Landeros APRN. Belinda Landeros APRN suggested use of Udderly Smooth with Urea cream for hands and feet while on treatment. Pt states understanding. Okay to proceed with treatment. Pt tolerated treatment well. This RN reviewed labs and calendar with pt. Pt states understanding. Pt has pills with her upon leaving clinic today. Calendar/AVS : AVS and Calendar given. Patient educated and without questions or concerns. Discharge : Patient left the unit at 1256 without complaints. Drug : Dosage and BSA was double checked with Isa Bradley, RN and agrees with valencia nice as written Verified chemo consent signed and in chart. Blood return positive via: Port (Single and Accessed) Premedications/Prehydration given as ordered (if applicable). ondansetron (ZOFRAN) tablet 16 mg [[id number]] Ordered Dose: 16 mg Route: Oral Frequency: ONCE Administration Dose: 16 mg Arm band verified at bedside with second RN (same RN as above unless otherwise n oted). Lab tests checked (may include other additional protocol parameters): CBC, Compr ehensive Metabolic Panel (CMP) and Other labs per study protocol Chemo drug/dose/route: (INV) atezolizumab ([facility] 322520) 1,200 mg in sodium chloride 0.9% (NS) 270 mL IVP B [[id number]] Ordered Dose: 1,200 mg Route: Intravenous Frequency: ONCE @ 540 mL/hr over 30 Mi nutes Volume: 270 mL Rate verified with second RN (same RN as above unless otherwise noted). Patient education offered and stated understanding. Drug : Dosage was double checked with Isa Bradley ,Chemotherapy Certified Nurse, p er protocol. Dose time: 1212 wedding coordinator at bedside for additional education/teaching. Yes Verified chemo consent signed and in chart. Yes Verified initiate chemo order in Yes Premedications/Prehydration given as ordered. N/A Arm band verified at bedside with second RN (same RN as above unless otherwise n oted). Yes Labs/applicable tests checked: Yes Chemo drug/dose/route: (INV) cabozantinib ([facility] 216135) 20 mg tablet [[id number]] Dose: 20 mg Route: Oral Frequency: DAILY Dispense Quantity: 30 tablet Refills: 0 Fills remaining: -- Sig: Take one tablet by mouth daily for 21 days. INVESTIGATIONAL SPECIAL HANDLI NG PRECAUTIONS -Take on an empty stomach with a minimum of 8 ounces of water at least 1 hour be fore or 2 hours after a meal. Patient education offered and stated understanding. documented in this encounter Miscellaneous Notes * Addendum Note - Radha Alarcon - 04/02/2019 11:59 PM CDT Encounter addended by: Radha Alarcon on: 04/07/2019 8:33 AM Actions taken: Charge Capture section accepted LATORY SERVICES REPRESENTATIVE documented in this encounter Plan of Treatment Order Schedule POS Name Type Priority Associated Diag noses SP Ordered: 04/02/2019 SP RESEARCH BLOOD COLLECTION Lab Routine Clin ical trial SP ONLY participant SP Malignant neoplasm of SP ovary, unspecified SP laterality (HCC) SP documented as of this encounter Procedures Comments POS Procedure Name Priority Date/Time Associated Diag nosis SP SP HC GGTP Routine 04/02/2019 Clinical [...] SP laterality (HCC) SP SP HC LIPASE CC Routine 04/02/2019 [...] laterality (HCC) SP SP HC CHEM 12 [facility] Routine 04/02/2019 Clinical tr ial SP 10:22 AM CDT participant SP Malignant neoplasm of SP ovary, unspecified SP laterality (HCC) SP SP URINALYSIS, MICROSCOPIC Routine 04/02/2019 Clinic al trial SP 10:07 AM CDT participant SP Malignant neoplasm of SP ovary, unspecified SP laterality (HCC) SP SP HC URINALYSIS [facility] Routine 04/02/2019 Clinical trial SP 10:07 AM CDT participant SP Malignant neoplasm of SP ovary, unspecified SP laterality (HCC) SP documented in this encounter Results * LIPASE (04/02/2019 10:22 AM CDT) Pathologist POS Signature SP Lipase 18 11 - 82 U/L [facility] SP Specimen SP Performing Organization Address City[facility] Ph [facility] Number SP [facility] [address] [place] [address] SP * AMYLASE (04/02/2019 10:22 AM CDT) Pathologist SP Signature SP Amylase 55 24 - 100 U/L [facility] SP Specimen SP Performing Organization Address City/[facility] SP [facility] [address] [place] [address] SP * PHOSPHORUS (04/02/2019 10:22 AM CDT) Pathologist SP Signature SP Phosphorus 4.5 2.0 - 4.5 MG/DL [facility] SP Specimen SP Blood SP Performing Organization Address [facility] Ph [facility] Number SP [facility] [address] [place], [place] [id number] SP * MAGNESIUM (04/02/2019 10:22 AM CDT) Pathologist SP Signature SP Magnesium 1.9 1.6 - 2.6 mg/dL [facility] SP Specimen SP Blood SP Performing Organization Address [facility]/[place] Ph one Number SP [facility] [address] [place], [place] [phone] SP * LDH-LACTATE DEHYDROGENASE (04/02/2019 10:22 AM CDT) Pathologist SP Signature SP Lactate 192 100 - 210 U/L [facility] SP Dehydrogenase SP Specimen SP Blood SP Performing Organization Address City/[facility] Ph [facility] Number SP [facility] [address] [place], [place] [phone] SP * GGTP (04/02/2019 10:22 AM CDT) Pathologist SP Signature SP GGTP 101 (H) 9 - 64 U/L [facility] SP Specimen SP Blood SP Performing Organization Address [facility] Ph one Number SP [facility] [address] [place] [address] SP * COMPREHENSIVE METABOLIC PANEL (04/02/2019 10:22 AM CDT) Pathologist SP Signature SP Sodium 138 137 [...] >60 mL/min [facility] SP Comment: SP [place] The eGFR is not validated f or SP use in drug dosing SP adjustments.Continue to SP use SP estimated creatinine SP clearance per dosing reference SP text.Please contact the SP Clinical Pharmacist for SP questions. SP eGFR >60 >60 mL/min [facility] SP [place] Comment: SP The eGFR is not validated for SP use in drug dosing SP adjustments.Continue to SP use SP estimated creatinine SP clearance per dosing reference SP text.Please contact the SP Clinical Pharmacist for SP questions. SP Specimen SP Blood SP Performing Organization Address City/State/Zipcode Ph one Number SP [facility] [address] [place] [address] SP * CBC AND DIFF (04/02/2019 10:22 AM CDT) Pathologist SP Signature SP White Blood 7.3 [...] Specimen SP Blood SP Performing Organization Address City/[facility]/[place] Ph one Number SP [facility] [address] [place], [place] [phone] SP * CA125 (04/02/2019 10:22 AM CDT) Pathologist SP Signature SP CA-125 213 (H) <35 U/ml [facility] SP Specimen SP Blood SP Performing Organization Address City/[facility]/[place] Ph one Number SP [facility] [address] [place] [address] SP * FREE T4 (FREE THYROXINE) ONLY (04/02/2019 10:22 AM CDT) Pathologist SP Signature SP T4-Free 1.1 0.6 - 1.6 NG/DL [facility] SP Specimen SP Blood SP Performing Organization Address City/[facility]/[place] Ph one Number SP [facility] [address] [place] [address] SP * THYROID STIMULATING HORMONE-TSH (04/02/2019 10:22 AM CDT) Pathologist SP Signature SP TSH 0.04 (L) 0.35 - 5.00 MCU/ML [facility] SP Specimen SP Blood SP Performing Organization Address [facility]/[place] Ph one Number SP [facility] [address] [place] [address] SP * PTT (APTT) (04/02/2019 10:22 AM CDT) Pathologist SP Signature SP APTT 46.3 (H) 24.0 - 36.5 SEC [facility] SP Specimen SP Blood SP Performing Organization Address [facility]/[place] Ph one Number SP [facility] [address] [place] [address] SP * PROTIME INR (PT) (04/02/2019 10:22 AM CDT) Pathologist SP Signature SP INR 1.1 0.8 - 1.2 [facility] SP Specimen SP Blood SP Performing Organization Address [facility]/[place] Ph one Number SP [facility] [address] [place] [address] SP * URINALYSIS, MICROSCOPIC (04/02/2019 10:07 AM CDT) Pathologist SP Signature SP WBCs,UA 20-50 0 - 2 /HPF [facility] SP RBCs,UA 0-2 0 - 3 /HPF [facility] SP MucousUA TRACE [facility] SP Bacteria,UA MODERATE (A) NEG-NEG [facility] SP Specimen SP Urine - Urine SP Performing Organization Address [facility] one Number SP [facility] [address] [place] [address] SP * URINALYSIS DIPSTICK (04/02/2019 10:07 AM CDT) Pathologist SP Signature SP Color,UA YELLOW [facility] SP Turbidity,UA 2+ (A) CLEAR-CLEAR [facility] SP Specific 1.015 1.003 - 1.035 [facility] SP [place]-Urine SP pH,UA 6.5 5.0 - 8.0 [facility] [...] Urine - Urine SP Performing Organization Address [facility]/Zipcode Ph one Number SP [facility] [address] [place] [address] SP documented in this encounter Visit Diagnoses Diagnosis POS Clinical trial participant - Primary SP Malignant neoplasm of ovary, unspecifie d laterality (HCC) SP documented in this encounter Administered Medications Action Date Dose Rate Site POS Medication Order MAR Action SP 04/02/2019 12:17 PM CDT 1,200 mg 540 mL/hr SP (INV) atezolizumab ([facility] 951281) 1,200 mg Given - New SP in sodium chloride 0.9% (NS) 270 mL IVPB Bag SP 1,200 mg, Intravenous, 270 mL, SP Administer over 30 Minutes, ONCE, 1 SP dose, Sun04/02/19 at 1200, SP INVESTIGATIONAL CYTOTOXIC If SP first dose was well tolerated, SP administer over 30 minutes (+/- 10 SP minutes). Infuse through a 0.2 micron SP filter. NOTE: This is a HIGH ALERT SP medication., SP 04/02/2019 12:49 PM CDT 500 Units SP heparin lock flush PF syringe 500 Units Given SP 500 Units, Flush, ONCE, 1 dose, Sun SP 04/02/19 at 1200, NOTE: This is a HIGH SP ALERT Medication., SP 04/02/2019 11:44 AM CDT 16 mg SP ondansetron (ZOFRAN) tablet 16 mg Given SP 16 mg, Oral, ONCE, 1 dose, Sun04/02/19 SP at 1130 SP documented in this encounter
--- OUTSIDE RECORDS SUMMARY | 2019-04-12 08:50 | XMS REPORT | Encounter Summary ---
Author Author [facility] POS Organization [facility] SP Address Unknown SP Phone Unavailable SP Care Team Providers Care Boning Room Worker Name Role Phone POS Christa Ware MD PCP SP Reason for Visit * Pain Authorization (Routine) Referred By Contact Referred To Contact POS Status Reason Specialty Diagnoses / SP Procedures SP SP Darrell Chiu MD [address] [facility] [place] [address] SP Asc Icc2 Pp [id number] [place] [address] Closed Diagnoses SP Cancer associated SP pain SP Malignant neoplasm SP of ovary, SP unspecified SP laterality (HCC) SP Rectal pain SP Anal pain SP P SP rocedures SP KU AMB NERVE BLOCK SP Encounter Details Care Team Description POS Date Type Department SP SP Darrell Chiu MD [address] [facility] [place] [address] [phone] SP 04/03/2019 Hospital ASC ICC2 PP SP Encounter [id number] [place] [address] SP [phone] SP Social History Date POS Tobacco Use [...] 1:30 PM CDT SP Blood Pressure SP - - SP Pulse SP 36.3 C (97.3 F) 04/03/2019 12:28 PM CDT SP Temperature SP - - SP Respiratory Rate SP 99% 04/03/2019 1:30 [...] No SP documented as of this encounter Discharge Instructions * Pre-Anesthesia Patient Instructions* Shayy Garcia RN - 04/01/2019 2:46 PM CDT Below are the instructions for your upcoming procedure. DATE OF PROCEDURE: 04/03/2019 ARRIVAL TIME: 12:15 pm * BATHE, BRUSH TEETH AND GARGLE THE MORNING OF SURGERY, NO MAKEUP, PERFUMES OR L OTION * WEAR CASUAL, COMFORTABLE, LOOSE FITTING CLOTHING THAT ARE EASY TO GET ON AND O FF * IF YOU WEAR GLASSES OR CONTACTS PLEASE BRING A CASE FOR THEIR SAFEKEEPING * BRING INSURANCE CARD AND DRIVERS LICENSE, AND BE PREPARED TO PAY ANY COPAY/DED UCTIBLE ON ARRIVAL WHEN CHECKING IN * NOTIFY US IF YOU HAVE ANY SIGNIFICANT HEALTH STATUS CHANGES OR SHOULD YOU BECO ME ILL PRIOR TO SURGERY WITH FEVER OR SORE THROAT OUR ADDRESS IS [address] [place] [id number] [place] [address] [address] TO [address] [place] [address] AND TURN LEFT. TAKE A LEFT AT THE FIRST OR SECOND ENTRANCE AND FOLLOW SIGNAGE TO THE [facility] ([address] [place] [address]). Pre-Admissions Testing (PAT) [facility] [place], [facility] [employer] [address] [place] [address] [id number] (Main) [phone] (PAT) [email or web address] * Additional Instructions* Tomasa Thapa RN - 04/03/2019 1:39 PM CDT GENERAL POST PROCEDURE INSTRUCTIONS Time: Physician: Procedure Completed Today: o Joint Injection (hip, knee, shoulder) o Cervical Epidural Steroid Injection o Cervical Transforaminal Steroid Injection o Trigger Point Injection o Other o Thoracic Epidural Steroid Injection o Lumbar Epidural Steroid Injection o Lumbar Transforaminal Steroid Injection o Facet Joint Injection Important information following your procedure today: ? You may drive today ? If you had sedation, you may NOT drive today ? Rest at home for the next 6 hours. You may then begin to resume your normal a ctivities. ? DO NOT drive any vehicle, operate any power tools, drink alcohol, make any bharati or decisions, or sign any legal documents for the next 12 hours. 1. Pain relief may not be immediate. It is possible you may even experience an i ncrease in pain during the first 24-48 hours followed by a gradual decrease of y our pain. 2. Though the procedure is generally safe and complications are rare, we do ask that you be aware of any of the following: ? Any swelling, persistent redness, new bleeding or drainage from the site of th e injection. ? You should not experience a severe headache. ? You should not run a fever over 101oF. ? New onset of sharp, severe back and or neck pain. ? New onset of upper or lower extremity numbness or weakness. ? New difficulty controlling bowel or bladder function after injection. ? New shortness of breath. If any of these occur, please call to report this occurrence to a nurse at [phone]. If you are calling after 4:00pm, on the weekends or holidays please cinthia felix [phone] and ask to have the pain management resident physician application developer manager fo r the physician paged or go to your local emergency room. 3. You may experience soreness at the injection site. Ice can be applied at 20 m inute intervals for the first 24 hours. The following day you may alternate ice with heat if you are experiencing muscle tightness, otherwise continue with ice. Ice works best at decreasing pain. Avoid application of direct heat, hot showers or hot tubs today. 4. Avoid strenuous activity today. You many resume your regular activities and e xercise tomorrow. 5. Patients with diabetes may see an elevation in blood sugars for 7-10 days aft er the injection. It is important to pay close attention to you diet, check your blood sugars daily and repost extreme elevations to the physician that treats y our diabetes. 6. Patients taking daily blood thinners can resume their regular dose this eveni ng. 7. It is important that you take all medications ordered by your pain physician. Taking medications as ordered is an important part of you pain care plan. If you cannot continue the medication plan, please notify the physician. Possible side effects to steroids that may occur: ? Flushing or redness of the face ? Irritability ? Fluid retention ? Change in women's menses Follow up appointment as needed if in the event you are unable to keep an appoin tment please notify the manager of it 24 hours in advance at [phone]. FOLLOW UP IN 5 WEEKS WITH LUIS F documented in this encounter Medications at Time of Discharge [...] Sleep. SP documented as of this encounter Progress Notes * Darrell Chiu MD - 04/03/2019 12:54 PM CDT I have examined the patient, and there are no significant changes in their condi tion, from the previous H&P performed on 03/28/19. Bilateral superior hypogastric plexus block [facility] - [facility] NEW PATIENT HISTORY AND PHYSICAL Subjective Chief Complaint: No chief complaint on file. HPI: Katty Gold is a 68 y.o. female who has a past medical history of [place] east cancer (HCC), radiation therapy (1999), and Ovarian cancer (HCC) ( 8). who presents for evaluation. The pain is in the Right groin, back of leg and anal region. Reports radiates down to knee Pain started: 3-4 weeks ago in the groin and leg. Anal region worse on 03/21 Initial inciting injury or event: No. Recently feels worse due to her constip ation. Numbness/tingling: No The pain averages 9-10 without medications, 2-3 while on morphine SR and perc ocet. The pain is described as Constant pressure and tightness. Radiating pain is c ramping not sharp. The pain is exacerbated by No clear factors. The pain is partially alleviated by Medications. PRIOR MEDICATIONS: Effective Acetaminophen NSAID Gabapentin - Has tried one pill Ineffective Unable to tolerate Never Gabapentin Lyrica Ami/Nortriptyline Cymbalta Tizanidine PRIOR INTERVENTIONS: Effective Ineffective Katty Loly Horvathson denies any recent fevers, chills, infection, antibiotics, ladarius l or bladder incontinence, saddle anesthesia, bleeding issues, or recent anticoa gulant. History of cancer s/p exploratory laparotomy and radical dissection by Dr. Cresencio moncada. Unfortunately, her cancer continues to progress and patient reports that yelitza derian is likely no longer an option. Still currently on her clinical trial medica tions. Currently having constipation. ROS: All 14 systems reviewed and found to be negative except as above and as fol lows. 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 Family History: Family History Problem Relation Age of Onset Cancer Paternal Aunt Cancer-Lung Paternal Uncle Social History: Lives in [place] [id number] Social History Socioeconomic History Marital status: Spouse name: Not on file Number of children: Not on file Years of education: Not on file Highest education level: Not on file Occupational History Not on file Tobacco Use Smoking status: Current Every Day Smoker Packs/day: 0.50 Years: 45.00 Pack years: 22.50 Types: Cigarettes Smokeless tobacco: Never Used Substance and Sexual Activity Alcohol use: Yes Comment: occasional Drug use: No Sexual activity: Not on file Other Topics Concern Not on file Social History Narrative Not on file Allergies: No Known Allergies Medications: Current Outpatient Medications: (INV) cabozantinib ([facility] 669666) 20 mg tablet, Take one tablet by mouth hero y for 21 days. [employer]VE[employer] PRECAUTIONS -Take on an empty stomach with a minimum of 8 ounces of water at least 1 hour before or 2 h ours after a meal., Disp: 30 tablet, Rfl: 0 acetaminophen (TYLENOL PO), Take 500 mg by mouth every 4-6 hours as needed. , Disp: , Rfl: ATEZOLIZUMAB IV, Administer through vein. Indications: once every 3 weeks, Disp: , Rfl: calcium carbonate/vitamin D-3 (OSCAL-500+D) 1250 mg/200 unit tablet, Take 1 tablet by mouth daily. Calcium Carb 1250mg delivers 500mg elemental Ca, Disp: , Rfl: cholecalciferol (VITAMIN D-3) 1,000 units tablet, Take 2,000 Units by mouth daily., Disp: , Rfl: diphenoxylate/atropine (LOMOTIL) 2.5/0.025 mg tablet, Take one tablet by mo ut twice daily as needed for Diarrhea., Disp: 60 tablet, Rfl: 3 electrolyte GUT PEG (NULYTELY) 420 gram oral solution, Mix as directed on p ackage. Drink 240ml (8oz) every 10 minutes until gone. Refrigerate once mixed., Disp: 4000 mL, Rfl: 0 folic acid/multivit-min/lutein (CENTRUM SILVER PO), Take by mouth daily., Disp: , Rfl: gabapentin (NEURONTIN) 300 mg capsule, Take one capsule by mouth every 8 ho urs. Take 1/day for 3 days, Take 1 pill twice/day for 3 day, then take 1 pill th ree times/day., Disp: 90 capsule, Rfl: 1 hydrocortisone 1 % topical cream, Apply topically to affected area twice d aily., Disp: , Rfl: ibuprofen (ADVIL) 200 mg tablet, Take 400 mg by mouth every 6 hours as need ed for Pain. Take with food., Disp: , Rfl: lactulose 10 gram/15 mL oral solution, Take 30 mL by mouth three times hero y., Disp: 946 mL, Rfl: 3 levoFLOXacin (LEVAQUIN) 750 mg tablet, Take one tablet by mouth daily., Dis p: 5 tablet, Rfl: 0 methylnaltrexone 150 mg tab, Take 150 mg/day by mouth daily., Disp: 30 tabl et, Rfl: 1 morphine SR (MS CONTIN) 15 mg tablet, Take one tablet by mouth every 12 gregg rs, Disp: 60 tablet, Rfl: 0 nitrofurantoin monohyd/m-cryst (MACROBID) 100 mg capsule, Take one capsule by mouth every 12 hours. Take with food., Disp: 14 capsule, Rfl: 0 nortriptyline (PAMELOR) 25 mg capsule, Take one capsule by mouth at bedtime daily., Disp: 30 capsule, Rfl: 3 ondansetron (ZOFRAN) 8 mg tablet, Take one tablet by mouth every 6 hours as needed for Nausea or Vomiting., Disp: 50 tablet, Rfl: 0 oxyCODONE (ROXICODONE, OXY-IR) 5 mg tablet, Take 1-2 tablets by mouth every 4 hours as needed Earliest Fill Date: 10/15/17, Disp: 45 tablet, Rfl: 0 tiZANidine (ZANAFLEX) 4 mg tablet, Take one tablet by mouth at bedtime hero y., Disp: 30 tablet, Rfl: 1 zolpidem (AMBIEN) 10 mg tablet, Take 10 mg by mouth at bedtime as needed fo r Sleep., Disp: , Rfl: Current Facility-Administered Medications: bupivacaine PF (MARCAINE) 0.25 % injection 10 mL, 10 mL, Injection, ONCE, L Darrell car MD dexamethasone PF (DECADRON) injection 10 mg, 10 mg, SEE ADMIN INSTRUCTIONS, ONCE, Darrell Chiu MD iohexol (OMNIPAQUE-300) 300 mg/mL injection 2 mL, 2 mL, SEE ADMIN INSTRUCTI ONS, ONCE, Darrell Chiu MD lidocaine PF 1% (10 mg/mL) injection 2 mL, 2 mL, Injection, ONCE, Us mei Chiu MD Physical examination: BP 135/86 | Temp 36.3 C (97.3 F) | Ht 162.6 cm (64") | Wt 57.6 kg (127 lb ) | LMP 09/24/1997 | SpO2 97% | BMI 21.80 kg/m General: The patient is a well-developed, well nourished 68 y.o. female in no ac anna distress. HEENT: Head is normocephalic and atraumatic. Pupils are equal and reactive to li ght bilaterally. Cardiac: Based on palpation, pulse appears to be regular rate and rhythm. Pulmonary: The patient has unlabored respirations and bilateral symmetric chest excursion. Abdomen: Soft, BLQ TTP and nondistended. There is no rebound or guarding. Extremities: No clubbing, cyanosis, or edema. Neurologic: The patient is alert and oriented times 3. Cranial nerves II through XII are intact without any focal deficits. Musculoskeletal: Gait is normal. L-Spine There is no paraspinal tenderness. Paraspinal muscle tone is tense. There is no tenderness or radiating pain with palpation over the SI joints, piri formis, or greater trochanteric bursae bilaterally. ROM with flexion, extension, rotation, and lateral bending is intact. Strength is equal and adequate bilaterally in the flexors and extensors of the b ilateral lower extremities. SLR is negative bilaterally. CT Chest 03/27/19 1. Marked increased size and number of innumerable small pulmonary metastases. 2. Development of middle and left anterior diaphragmatic robson metastases. CT Abdomen/Pelvis 03/27/19 1. Increased size and number of numerous hepatic metastases. 2. Increased abdominopelvic robson and peritoneal metastatic disease. 3. Development of right adrenal metastasis. 4. Slight improvement of moderate right hydronephrosis status post ureteral sten t placement. 5. Increased conspicuity of subcentimeter anterior abdominal wall nodule, suspic ious for additional metastasis. Last Cr and LFT's: Creatinine Date Value Ref Range Status 04/02/2019 0.89 0.4 - 1.00 MG/DL Final AST (SGOT) Date Value Ref Range Status 04/02/2019 42 (H) 7 - 40 U/L Final ALT (SGPT) Date Value Ref Range Status 04/02/2019 29 7 - 56 U/L Final Alk Phosphatase Date Value Ref Range Status 04/02/2019 185 (H) 25 - 110 U/L Final Total Bilirubin Date Value Ref Range Status 04/02/2019 0.2 (L) 0.3 - 1.2 MG/DL Final Assessment: Katty Gold is a 68 y.o. female who has a past medical history of Breast cancer (HCC), radiation therapy (2000), and Ovarian cancer (HCC) (10/09/2017). pal tejada presents for evaluation of pain. The pain complaints are most likely due to: 1. Rectal pain KU AMB NERVE BLOCK KU AMB NERVE BLOCK lidocaine PF 1% (10 mg/mL) injection 2 mL iohexol (OMNIPAQUE-300) 300 mg/mL injection 2 mL dexamethasone PF (DECADRON) injection 10 mg bupivacaine PF (MARCAINE) 0.25 % injection 10 mL 2. Anal pain KU AMB NERVE BLOCK KU AMB NERVE BLOCK lidocaine PF 1% (10 mg/mL) injection 2 mL iohexol (OMNIPAQUE-300) 300 mg/mL injection 2 mL dexamethasone PF (DECADRON) injection 10 mg bupivacaine PF (MARCAINE) 0.25 % injection 10 mL 3. Cancer associated pain KU AMB NERVE BLOCK KU AMB NERVE BLOCK lidocaine PF 1% (10 mg/mL) injection 2 mL iohexol (OMNIPAQUE-300) 300 mg/mL injection 2 mL dexamethasone PF (DECADRON) injection 10 mg bupivacaine PF (MARCAINE) 0.25 % injection 10 mL 4. Malignant neoplasm of ovary, unspecified laterality (HCC) KU AMB NERVE BLOCK KU AMB NERVE BLOCK lidocaine PF 1% (10 mg/mL) injection 2 mL iohexol (OMNIPAQUE-300) 300 mg/mL injection 2 mL dexamethasone PF (DECADRON) injection 10 mg bupivacaine PF (MARCAINE) 0.25 % injection 10 mL 5. Neuropathic pain lidocaine PF 1% (10 mg/mL) injection 2 mL iohexol (OMNIPAQUE-300) 300 mg/mL injection 2 mL dexamethasone PF (DECADRON) injection 10 mg bupivacaine PF (MARCAINE) 0.25 % injection 10 mL Patient has had an adequate trial of passage of time without improvement of symp toms. The pain has significant impact on the daily quality of life. Plan: 1. Plan for superior hypogastric plexus block bilaterally at first available brit ointment 2. Will start patient on gabapentin, nortriptyline and tizanidine 3. Okay to continue taking morphine SR and percocet PRN as prescribed by her oth er providers 4. Patient scheduled for MRI pelvis 03/31 5. Dependent on course and prognosis, ITP could be considered in the future as w ell. 6. Follow up as needed. Risks/benefits of all pharmacologic and interventional treatments discussed and questions answered. Thank you for this kind referral for consultation. Please feel free to contact m e with any questions or concerns. ATTESTATION I personally performed the che portions of the E/M visit, discussed case with re sident and concur with resident documentation of history, physical exam, assessm ent, and treatment plan unless otherwise noted. Staff name: Darrell Chiu MD Date: 03/28/2019 documented in this encounter Procedure Notes * Darrell Chiu MD - 04/03/2019 2:03 PM CDT Associated Order(s): Nerve Block (nerve block meds) Post-Procedure Diagnose(s): Rectal pain; Anal pain; Cancer associated pain; Deisi gnant neoplasm of ovary, unspecified laterality (HCC); Neuropathic pain Attending Surgeon: Darrell Chiu MD Anesthesia: Local Pre-Procedure Diagnosis: 1. Rectal pain 2. Anal pain 3. Cancer associated pain 4. Malignant neoplasm of ovary, unspecified laterality (HCC) 5. Neuropathic pain Post-Procedure Diagnosis: 1. Rectal pain 2. Anal pain 3. Cancer associated pain 4. Malignant neoplasm of ovary, unspecified laterality (HCC) 5. Neuropathic pain Nerve Block (nerve block meds) Nerve: superior hypogastric plexus Laterality: bilateral Consent: Consent obtained: verbal Consent given by: patient Alternatives discussed: referral, no treatment, delayed treatment and alternativ e treatment Discussed with patient the purpose of the treatment/procedure, other ways of sarah ating my condition, including no treatment/ procedure and the risks and benefits of the alternatives. Patient has decided to proceed with treatment/procedure. [place] Protocol: Relevant documents: relevant documents present and verified Site marked: the operative site was marked Patient identity confirmed: Patient identify confirmed verbally with patient. Time out: Immediately prior to procedure a "time out" was called to verify the c orrect patient, procedure, equipment, field support specialist and site/side marked as requ ired Procedures Details: Indications: Neuritis and Pain Relief Preparation: Patient was prepped and draped in the usual sterile fashion. Prep: 2% chlorhexidine Patient position: prone Needle size: 22 G Guidance: fluoroscopy Medications administered: 8 mL bupivacaine PF 0.25 %; 10 mg dexamethasone PF 10 mg/mL Outcome: Pain improved Patient tolerance: tolerated well, no immediate complications Comments: Following appropriate contrast spread and negative aspiration, 4mL of the soluti on above was injected on each side. Estimated blood loss: none or minimal Specimens: none Patient tolerated the procedure well with no immediate complications. Pressure w as applied, and hemostasis was accomplished. documented in this encounter Miscellaneous Notes * Addendum Note - Tomasa Thapa RN - 04/03/2019 3:18 PM CDT Encounter addended by: Tomasa Thapa RN on: 04/03/2019 3:18 PM Actions taken: Edit Component-style Discharge Instructions * Addendum Note - Tomasa Thapa RN - 04/03/2019 3:15 PM CDT Encounter addended by: Tomasa Thapa RN on: 04/03/2019 3:15 PM Actions taken: Edit Component-style Discharge Instructions documented in this encounter Plan of Treatment Not on filedocumented as of this encounter Procedures Comments POS Procedure Name Priority Date/Time Associated Diag nosis SP SP PA INJECTION ANES Routine 04/03/2019 Rectal pain SP SUPERIOR HYPOGASTRIC 2:03 PM CDT Anal pain SP PLEXUS Cancer associated pain SP Malignant neoplasm of SP ovary, unspecified SP laterality (HCC) SP Neuropathic pain SP documented in this encounter Results * Nerve Block (nerve block meds) (04/03/2019 2:03 PM CDT) Narrative Performed At POS Darrell Chiu MD 04/03/20192:05 PM OTHER OUTSIDE [...] decided to proceed with SP treatment/procedure. SP [place] Protocol: SP Relevant documents: relevant documents present and verified SP Site marked: the operative site was aman VALLADARES Patient identity confirmed: Patient marvin ntify confirmed verbally with SP patient. SP Time out: Immediately prior to procedur e a "time out" was called to verify SP the correct patient, procedure, equipme nt, field support specialist and site/side SP marked as required SP [...] each obed e. SP Performing Organization Address [facility] SP OTHER OUTSIDE LAB SP documented in this encounter Visit Diagnoses Diagnosis POS Rectal pain - Primary SP Anal or rectal pain SP Anal pain SP Anal or rectal pain SP Cancer associated pain SP Neoplasm related pain (acute) (chronic) SP Malignant neoplasm of ovary, unspecifie d laterality (HCC) SP Neuropathic pain SP Neuralgia, neuritis, and radiculitis, u nspecified SP documented in this encounter Administered Medications Action Date Dose Rate Site POS Medication Order MAR Action SP 04/03/2019 1:23 PM CDT 10 mL SP bupivacaine PF (MARCAINE) 0.25 % Given SP injection 10 mL SP 10 mL, Injection, ONCE, 1 dose, Tia SP 04/03/19 at 1300 SP 04/03/2019 2:05 PM CDT 8 mL SP bupivacaine PF (MARCAINE) 0.25 % Given SP injection 8 mL SP 8 mL, Injection, ONCE PRN, 1 dose, SP Starting Tia 04/03/19 at 1405, Until Th u SP 04/03/19 at 1405 SP 04/03/2019 1:24 PM CDT 10 mg SP dexamethasone PF (DECADRON) injection 10 Given SP mg SP 10 mg, SEE ADMIN INSTRUCTIONS, ONCE, 1 SP dose, Tia 04/03/19 at 1300, Preservativ e SP Free Route: Epidural, SP 04/03/2019 2:05 PM CDT 10 mg SP dexamethasone PF (DECADRON) injection 10 Given SP mg SP 10 mg, Injection, ONCE PRN, 1 dose, SP Starting Tia 04/03/19 at 1405, Until Th u SP 04/03/19 at 1405 SP 04/03/2019 1:24 PM CDT 2 mL SP iohexol (OMNIPAQUE-300) 300 mg/mL Given SP injection 2 mL SP 2 mL, SEE ADMIN INSTRUCTIONS, ONCE, 1 SP dose, Tia 04/03/19 at 1300, Route: SP Epidural NOTE: This is a HIGH ALERT SP Medication., SP 04/03/2019 1:24 PM CDT 2 mL SP lidocaine PF 1% (10 mg/mL) injection 2 Given SP mL SP 2 mL, Injection, ONCE, 1 dose, Tia SP 04/03/19 at 1300 SP documented in this encounter
--- OUTSIDE RECORDS SUMMARY | 2019-04-12 08:51 | XMS REPORT | Encounter Summary ---
Author Author [facility] POS Organization [facility] SP Address Unknown SP Phone Unavailable SP Care Team Providers Care Packer Sausage And Wiener Name Role Phone POS Christa Ware MD PCP SP Reason for Visit * Reason Comments POS Treatment SP Encounter Details Care Team Description POS Date Type Department SP SP Belinda Landeros, FINANCIAL SYSTEMS DIRECTOR [address] [facility] [address] [place], [place] [id number] Malignant neoplasm of left ovary (HCC) (Primary Dx); SPMalignant neoplasm of right ovary (HCC); Clinical trial participant 04/02/2019 Office Visit [facility] SP [address] [facility] [address] [place] [address] SP [phone] SP Social History Date POS Tobacco Use [...] Time Taken Comments POS Vital Sign SP 121/76 04/02/2019 10:07 AM CDT SP Blood Pressure SP 93 04/02/2019 10:07 AM CDT SP Pulse SP 36.8 C (98.3 F) 04/02/2019 10:07 AM CDT SP Temperature SP 16 04/02/2019 10:07 AM CDT SP Respiratory Rate SP 97% 04/02/2019 10:07 AM CDT SP Oxygen Saturation SP - - [...] No SP documented as of this encounter Progress Notes * Belinda Landeros APRN - 04/02/2019 11:30 AM CDT Subjective GYNECOLOGIC ONCOLOGY EVALUATION Name:Katty Gold Date: 04/03/19 Primary Care Physician: Christa Ware Chief Complaint: Chief Complaint Patient presents with Treatment History of Present Illness: Katty Gold is a 68 y.o. 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 Onc Timeline Katty Gold is a 67 y.o. female with recurrent transitional cell ovarian cancer. She presents to my office due to severe pain in the rectal/anal region and down her right leg. On 03/05/2019 she had onset of right groin/buttock pain with low grade temberatur es. apparnelty in an ED and old had an "ileus". On 03/11/2019, emeis with constipation. CT otherwise negative for obstruction. Ap parently saw a new retroperitoneal mass with partial obstruction of the right ur eter. Saw Dr. Sanchez as Dr. Cabral was OOT. Ordered a renal scan done last Sunday; h ad a stent placed last at [place]. After the stent was placeed, was wel l until El am when she noted severe ano-recla pain. In bed all day x 2 days. Then went to ED on 03/23/2019. Put on percocet. Saw GI and put on miralax for constipation. Sent here. States that both her GI and physicians suspect pain due to a retroperitoneal mass.Currently has pain in right groin region, buttock on right and down the rig ht leg. She has been off her experimental drug due to a biopsy/surgery on her left hand. Last dose ? But was off x 10 days due to the skin lesion during this time she developed pelvic pain. She has not restarted the experimental drug due to the pain. REF:Viri Gold MD PCP: Christa Ware MD Structural Worker: Talon Reeves MD MED/ONC: Dr. Cesar Ovarian cancer (HCC) 10/09/2017 Surgery Ex Lap, tumor debulking with omentectomy, diaphragmatic upper abdominal, pelvi c, bladder, peritoneal stripping, abdominal hysterectomy, BSO, bilat P and lower PALND and resection of 2 liver lesions. Lower anterior resection of bowel with primary anastomosis. Surgeons Dr. Hakeem Davies and Zelalem Carranza. 10/09/2017 Pathology Transitional cell carcinoma involving anterior liver lesion, diaphragmatic dev or, falciform ligament and liver tumor, omentum, L ovary and fallopian tube, R f allopian tube, R ovary with superficial/serosal involvement, uterine serosa, col onic/rectal serosa, R diaphragm peritoneum. 0/31 LN involved. Tumor cells are p ositive for PAX-8, ALESIA-3 and CAM5.2, partially positive for TERESA, CK7 and p63, a nd negative for WT-1, inhibin, calretinin, Med[place]-1, ER, AL, synaptophysin and chr omogranin. A p53 stain demonstrates focal and weak nuclear staining. A Ki-67 sta in demonstrates a proliferation index of approximately 40%. 10/30/2017 Other CANCER CONFERENCE: Recommend Carbo/Taxol chemotherapy x 6 cycles. 11/19/2017 - 03/04/2018 Chemotherapy Carbo Taxol x [address] Cesar 03/22/2018 Imaging PET with carcinomatosis 03/28/[address] Davies, although she was optimally cytoreduced, it did require extens ze surgery; in addition, transitional cell tumors may be less sensitive to denisha dard therapy and despite the normalization of the CA125, with the uptake on PET and the increased size of the lesion on CT, this was most reflective of alatna resistant/refractory disease. As such, surgical exploration and removal of the perisplenic disease, should have no impact on OS, PFS, and would only delay init iation of cytotoxic therapy. The patient was referred to for possible early phas e trial. 05/27/2018 - Chemotherapy Enrolled in XL-184: a phase I trial of combination of cabozantinib and atezoli zumab, Dose Modification: 02/03/2019 - 02/17/2019: - C13D1 delayed by 1 week to accommodate pt vacation - C13D1 delayed 1 additonal week as pt completed PET scan on p2 019. 02/18/2019 - 03/17/2019: XL184 held due to biopsy of L hand 03/10/2019: XL184 dose reduced to 20mg per PI d/t diarrhea and PPE 03/17/2019: XL184 held pending consult/renal scan due to possible placement o f stent 09/30/2018 Pertinent Labs Tumor genetics sent - KRAS 94% mutational change, GO4Xvij >50%, tp53 + 01/[address] with concern for progression, PET with essentially stable disease, decision to continue with trial 03/11/[address] Scan MPRESSION 1. Development of moderate right hydronephrosis secondary to increase in size of a soft tissue mass within the retroperitoneum. 2. No evidence of bowel obstruction. Mild mural thickening of the rectum, which may indicate mild proctitis. 3. Progression of hepatic metastases. Grossly unchanged mesenteric, splenic and right inguinal metastases. 03/11/2019 Pertinent History Patient begins vomiting when she went to the dentist and the chair was vamsi richmond. Patient was taken by her to the ED at . CT showed (per , r esults in O2) "retroperitoneal mass that had increased in size and is possible i mpinging on the right ureter) ED physician said that a renal scan had been orde red and would be set up by Dr Cabral's office. Per Dr Cabral's office, patient and her made the decision to have this done at [facility]. 03/20/[address] Neftaly Childs at [facility] and has cystoscopy, renal scan and right ureteral stent placement. Patient felt pain relief after the procedure. 03/21/2019 Pertinent History 03/21/2019: Patient developed "severe and unrelenting" rectal and anal pain. Dr Childs believes that the mass may be impinging on the sacral nerves. 03/23/2019: Due to the patients pain and the "awful experience" the patient had at [facility] on 03/11/2019, the patients took her to [facility] ED [facility] location where the patient had another CT. This CT showed a 3.6cm m ass anterior to the distal sigmoid colon and rectum. It also showed a rectocele measuring 10-11cm. 03/24/2019: Patient saw Dr Mariano at [facility]. He is concerned about the sacra l mass. He recommended that the patient increase her Miralax that she has been taking for constipation and get in to see Dr Davies as soon as possible with a CT of the anterior and distal sacrum. 04/02/2019 - Chemotherapy Resumed treatment atezolizumab and cabozantinib. Originally restarted Cabozant inib at 20 mg po. Received OK from sponsor to resume the 40 mg dose. 02-Apr-2019 -- Patient states she was so constipated and tried 7 different medic ations to get relief. She finally ended up drinking 8 glasses of Go-Lytly with good results. States she is going home to have some more to "make sure I'm malinda samina out". She and her expressed they really wanted her to resume treatm ent today at the dose she was at originally. She states there were only 2 days (not consecutive) when she had an excessive number of bowel movements. She and her feel she shouldn't have been dose reduced and eventually had cabo he ld. Target lesions Left hemidiaphragm lesion 15mm --> 14mm --> 11 --> 9 --> 8mm Lateral hepatic lesion 17mm --> 19mm --> 22 mm --> 24 mm -- > 23 mm --> 24 mm Post splenic lesion 32mm -->26mm --> 26 --> 21mm Non target lesions Left pelvic nodule - present Right inguinal node - present Past Medical History: Medical History: Diagnosis Date Breast cancer (HCC) Right Hx of radiation therapy 2000 Ovarian cancer (HCC) 10/09/2017 stage IIIC transitional cell carcinoma of the ovary. Past Surgical History: Surgical History: Procedure Laterality Date COLONOSCOPY 09/27/2017 benign polypectomy without malignancy TUMOR DEBULKING Bilateral 10/09/2017 EXPLORATORY LAPAROTOMY, TOTAL ABDOMINAL HYSTERECTOMY, BILATERAL SALPINGO-OOPHOR ECTOMY, OVARIAN CANCER TUMOR DEBULKING, OMENTECTOMY, PELVIC LYMPH NODE DISSECTIO N, APPENDECTOMY, COLON RESECTION, DIAPHRAGMATIC STRIPPING, MOBILIZATION OF SPLEN IC FLEXURE AND FLEX SIGMOID, RESECTION OF LIVER LESION performed by Mauro Davies MD at [facility] OR/Periop RECTAL SURGERY Left 10/09/2017 RESECTION SIGMOID COLON, COLONOSCOPY performed by Tim Chung MD at [facility] OR/Periop SECTION HX BREAST BIOPSY HX BREAST LUMPECTOMY followed by radiation therapy. HX CHOLECYSTECTOMY HX TUBAL LIGATION Bilateral Medications: Current Outpatient Medications: (INV) cabozantinib ([facility] 143994) 20 mg tablet, Take one tablet by [...] 2.5/0.025 mg tablet, Take one tablet by [facility] twice daily as needed for Diarrhea., Disp: [...] needed fo r Sleep., Disp: , Rfl: Allergies: No Known Allergies Social History: Social History Socioeconomic History Marital status: Spouse [...] file Social History Narrative Not on file Family History: Family History Problem Relation Age of Onset Cancer Paternal Aunt Cancer-Lung Paternal Uncle REVIEW OF SYSTEMS: CONSTITUTIONAL: Negative unless stated in HPI EYES: Negative unless stated in HPI ENT: Negative unless stated in HPI RESPIRATORY: Negative unless stated in HPI CARDIOVASCULAR: Negative unless stated in HPI GI: Negative unless stated in HPI : Negative unless stated in HPI MUSCULO-SKELETAL: Negative unless stated in HPI SKIN: Negative unless stated in HPI ENDOCRINE: Negative unless stated in HPI HEMATOLOGIC: Negative unless stated in HPI ECOG 0 Physical Exam: BP 121/76 (BP Source: Arm, Right Upper, Patient Position: Sitting) | Pulse 93 | Temp 36.8 C (98.3 F) (Oral) | Resp 16 | Wt 57 kg (125 lb 10.6 oz) | LMP 09/24/1997 | SpO2 97% | BMI 20.91 kg/m GENERAL APPEARANCE: Appears healthy. Alert; in no acute distress. Pleasant. HEENT: Unremarkable. No tenderness or masses noted. NECK: Neck supple. No tenderness. No adenopathy. LUNGS: Chest symmetrical. Good diaphragmatic excursion. Lungs clear; normal alethea th sounds. CARDIOVASCULAR: RRR. Heart sounds normal. ABDOMEN: Abdomen soft, non-tender. No masses, organomegaly, or hernia. No clini cinthia evidence of ascites. PELVIC: Deferred EXTREMITIES: Extremities normal. No joint deformities, edema, or skin discolorat ion. Station and gait normal. SKIN: Skin color, texture, turgor normal. Healing biopsy site on back of left fan nd. LYMPH NODES: No palpable supraclavicular or inguinal lymph nodes. Does have 4cm fluctuant area in right groin, minimal mobility and no solid areas palpated CBC w/Diff Lab Results Component Value Date/Time WBC 7.3 04/02/2019 10:22 AM RBC 3.83 (L) 04/02/2019 10:22 AM HGB 11.9 (L) 04/02/2019 10:22 AM HCT 35.3 (L) 04/02/2019 10:22 AM MCV 92.2 04/02/2019 10:22 AM MCH 31.2 04/02/2019 10:22 AM MCHC 33.8 04/02/2019 10:22 AM RDW 15.7 (H) 04/02/2019 10:22 AM PLTCT 431 (H) 04/02/2019 10:22 AM MPV 7.1 04/02/2019 10:22 AM Lab Results Component Value Date/Time NEUT 77 04/02/2019 10:22 AM ANC 5.70 04/02/2019 10:22 AM LYMA 10 (L) 04/02/2019 10:22 AM ALC 0.70 (L) 04/02/2019 10:22 AM JEFRY 8 04/02/2019 10:22 AM AMC 0.60 04/02/2019 10:22 AM EOSA 3 04/02/2019 10:22 AM AEC 0.20 04/02/2019 10:22 AM BASA 2 04/02/2019 10:22 AM ABC 0.10 04/02/2019 10:22 AM Comprehensive Metabolic Profile Lab Results Component Value Date/Time NA 138 04/02/2019 10:22 AM K 4.2 04/02/2019 10:22 AM CL 102 04/02/2019 10:22 AM CO2 27 04/02/2019 10:22 AM GAP 9 04/02/2019 10:22 AM BUN 17 04/02/2019 10:22 AM CR 0.89 04/02/2019 10:22 AM GLU 86 04/02/2019 10:22 AM Lab Results Component Value Date/Time CA 9.1 04/02/2019 10:22 AM PO4 4.5 04/02/2019 10:22 AM ALBUMIN 3.4 (L) 04/02/2019 10:22 AM TOTPROT 6.9 04/02/2019 10:22 AM ALKPHOS 185 (H) 04/02/2019 10:22 AM AST 42 (H) 04/02/2019 10:22 AM ALT 29 04/02/2019 10:22 AM TOTBILI 0.2 (L) 04/02/2019 10:22 AM GFR >60 04/02/2019 10:22 AM GFRAA >60 04/02/2019 10:22 AM Other labs No results found for: ESR Lab Results Component Value Date/Time LDH 192 04/02/2019 10:22 AM ASSESSMENT/PLAN: Katty Gold is a 68 y.o. female with metastatic recurrent transitional car cinoma of the ovary for XL-184 trial. Functionally cleared for trial. Labs reviewed. Possible progression of disease on CT Imaging now with progression of disease Pt has been on hold on the trial for around a month due to skin cancer procedure Reviewed with sponsor and although pt has progression on interval imaging, she m eets criteria to cont/restart treatment as she was deriving clinical benefit avtar or to stopping Will restart trial and repeat imaging in 4-6 weeks per trial 02-Apr-2019: Resumed treatment today. Originally started at Cabozantinib 20 mg[address] Discuss[address] w ith Dr. Cabral, Dr. Sanchez and the Medical Monitor. After patient left for the day, received the OK to restart at 40 mg. Patient will return on 03-Apr-2019 to obtain updated dose. We also discussed if she starts having a rash, hand/foot syndrome, uncontrolled diarrhea - she is to let us know. We discussed using Utterly Smooth with Uria o n hands and feet to help prevent hand/foot. Also discussed wearing socks after applying lotion she she doesn't fall. Skin cancer - reviewed she had to hold cabozantanib 7 days before and after pro cedure per trial protocol Gr 1 neutropenia - no change per protocol, cont dosing Gr 1 rash - hydrocortisone cream and cetaphil prn Elevated amylase and lipase - Gr 2 now resolved Diarrhea - Gr 2, likely related to study drugs, cont TID benafiber with meals, stable and some improvement with treatment delay, reviewed that it is reassurin g that her electrolytes and Cr are stable and that she is not showing signs of d ehydration, has an appt with superintendent operations division Pain - seen in pain clinic, plan for superior hypogastric plexus block bilateral ly at first available appointment Will start patient on gabapentin, nortriptyli ne and tizanidine, Okay to continue taking morphine SR and percocet PRN as presc ribed by her other providers, Patient scheduled for MRI pelvis 03/31 Reviewed NextGene sequencing sent by Dr Davies. KRAS and PM3Hgyj mutation which are both actionable, would consider referral for a clinical trial if evidence of progression. The mechanisms of action for these drugs, rationale for the Cabozantanib and PD1 inhibitor combination, known and potentially expected toxicities, schedule/rout es of drug administration, investigational procedures, response assessment, and voluntary/investigational nature of these trials were discussed at some length. All her questions were answered. RV next cycle Today's visit comprised over 55 minutes, with most of the time dedicated to face to face discussion. Belinda Landeros DNP, FINANCIAL SYSTEMS DIRECTOR-RESOURCE PROGRAM TEACHER PI: Dr. Mateo Cabral documented in this encounter Plan of Treatment Not on filedocumented as of this encounter Procedures Comments POS Procedure Name Priority Date/Time Associated Diag nosis SP SP ECG-SCAN 04/02/2019 SP 12:00 AM CDT SP documented in this encounter Results * ECG-SCAN (04/02/2019 12:00 AM CDT) Narrative Performed At POS This result has an attachment that is n ot available. SP Ordered by an unspecified provider. SP documented in this encounter Visit Diagnoses Diagnosis POS Malignant neoplasm of left ovary (HCC) - Primary SP Malignant neoplasm of ovary SP Malignant neoplasm of right ovary (HCC) SP Malignant neoplasm of ovary SP Clinical trial participant SP documented in this encounter
--- OUTSIDE RECORDS SUMMARY | 2019-04-12 08:51 | XMS REPORT | Encounter Summary ---
Author Author [facility] POS Organization [facility] SP Address Unknown SP Phone Unavailable SP Care Team Providers Care Electric Golf Cart Repairer Name Role Phone POS Christa Ware MD PCP SP Encounter Details Care Team Description POS Date Type Department SP SP Mateo Cabral MD [address] [facility] [place] [address] [phone] SP 03/31/2019 [facility] SP Encounter Cancer Center SP [address] [facility] SP [address]nd Fl [address] [place] [address] SP [phone] SP Social History Date POS Tobacco Use [...] of Assessment POS Functional Status Response SP 03/28/2019 SP Does the patient have a hearing impairment: No SP 03/28/2019 SP Does the patient have a visual impairment: No SP 03/28/2019 SP Does the patient have impaired ambulation: No SP 03/28/2019 SP Does the patient have an activity of daily living No SP (ADL) impairment: SP 03/28/2019 SP Does the patient have an instrumental activity of No SP daily living (IADL) impairment: SP Date of Assessment POS Cognitive Status Response SP 03/28/2019 SP Does the patient have a cognitive [...] as SP needed for SP Sleep. SP 03/21/2019 04/02/2019 SP (INV) cabozantinib ([facility]SC Take one 30 tablet 0 SP [id number]) 20 mg tablet by SP tabletIndications: mouth [...] meal. SP documented as of this encounter Plan of Treatment Not on filedocumented as of this encounter Visit Diagnoses Not on filedocumented in this encounter
--- OUTSIDE RECORDS SUMMARY | 2019-04-12 08:51 | XMS REPORT | Encounter Summary ---
Author Author [facility] POS Organization [facility] SP Address Unknown SP Phone Unavailable SP Care Team Providers Care Chief Human Resources Officer Name Role Phone POS Christa Ware MD PCP SP Encounter Details Care Team Description POS Date Type Department SP SP Mateo Cabral MD [address] [place] [address] [phone] SP 03/31/2019 Documentation [facility] SP [address] [facility] [address] [place] [address] SP [phone] SP Social History Date POS Tobacco Use [...] Notes * Research - Aydee Banks - 03/31/2019 7:05 PM CDT Study Title:A Phase 1b Dose-Escalation Study of Carbozantinib (XL184) Administ ered Alone or in Combination with Atezolizumab to Subjects with Locally Advanced or Metastatic Solid Tumors [place][id number] Study ID:[id number] Dose Modification: 02/03/2019 - 02/17/2019: - C13D1 delayed by 1 week to accommodate pt vacation - C13D1 delayed 1 additonal week as pt completed PET scan on 10Sep2 019. 02/18/2019 - 03/17/2019: XL184 held due [...] were drawn and reviewed by treatment nurse, Eva Greenberg (KATHI), study odell norman, and Dr. Cabral (). 42 week scans were reviewed by Dr. Cabral. Unfortunately, per RECIST 1.1, pt esther wed to have progressive disease. Please see provider notes for detailed assessme nts. Pt and would like to stay on trial, as they have held their cabozan tinib since Feb 2019. communications coordinator sent this request over to sponsor for bonnie lanier guidance. Per medical monitor, Dr. Austin, we can be treated beyond irPD per RECIST 1.1 if the subject meets the following criteria: ? Evidence of clinical benefit, as determined by the investigator narcotics following a re view of all available data ? Absence of symptoms and signs indicating unequivocal progression of disease (e g, laboratory values, such as clinically significant hypercalcemia for subjects with RCC that cannot be managed by optimizing supportive therapy) ? Absence of decline in ECOG performance status that can be attributed to diseas e progression ? Absence of tumor progression at critical anatomical sites (eg, leptomeningeal disease) that cannot be managed by protocol-allowed medical interventions. Cabozantinib can be restarted if held for <12 weeks per Syrup Shed Supervisor discretion. We only require to provide approval if held for >[address] Cabral's response to the above, "I think we should restart her then. The y both felt strongly that they wanted to restart if it was an option and she mildred ts the below criteria. She showed a prolonged benefit of being of the treatment and I think there could be a clinical benefit to trying full therapy again." communications coordinator will schedule the patient to come back for study treatment thi s week. Will submit new orders to treatment nurses. NV: Cycle 15, Day 1 to be determined based on clinic availabilities. documented in this encounter Plan of Treatment Not on filedocumented as of this encounter Visit Diagnoses Not on filedocumented in this encounter
--- OUTSIDE RECORDS SUMMARY | 2019-04-12 08:51 | XMS REPORT | Encounter Summary ---
Author Author [facility] POS Organization [facility] SP Address Unknown SP Phone Unavailable SP Care Team Providers Care Alignment Specialist Name Role Phone POS Christa Ware MD PCP SP Encounter Details Care Team Description POS Date Type Department SP SP Belinda Landeros, PAN GREASER [address] [facility] [address] [place] [address] Examination of participant in clinical t rial (Primary Dx) SP 04/01/2019 Orders Only [facility] SP [address] [facility] [address] [facility] [address] [place] [address] SP [phone] SP Social History Date POS Tobacco Use [...] Type Priority Associated Diag noses SP Expected: 04/02/2019, Expires: 0 SP ECG 12-LEAD ECG Routine Examination of SP participant in clinical SP trial SP documented as of this encounter Visit Diagnoses Diagnosis POS Examination of participant in clinical trial - Primary SP documented in this encounter
--- OUTSIDE RECORDS SUMMARY | 2019-04-12 08:51 | XMS REPORT | Encounter Summary ---
Author Author [facility] POS Organization [facility] SP Address Unknown SP Phone Unavailable SP Care Team Providers Care Manager Fast Food Name Role Phone POS Christa Ware MD PCP SP Encounter Details Care Team Description POS Date Type Department SP SP Belinda Landeros, MYSQL DEVELOPER [address] [facility] [address] [place], [place] [phone] SP 04/02/2019 [facility] SP Encounter Cancer Center SP [address] [facility] SP [address] [place] [address] SP [phone] SP Social History Date POS Tobacco Use [...] Date/Time Associated Diag nosis SP SP HC TP/CR RATIO, RANDOM 04/02/2019 Encounter for examination SP 10:07 AM CDT for normal comparison and SP control in clinical SP research program SP Malignant neoplasm of SP unspecified ovary (HCC) SP documented in this encounter Results * PROTEIN/CR RATIO,UR RAN (04/02/2019 10:07 AM CDT) Pathologist POS Signature SP Protein, Random 25 MG/DL [facility] SP Creatinine, 79 MG/DL [facility] SP Random SP Protein/CR 0.3 [facility] SP ratio SP Specimen SP Performing Organization Address City/State/[facility] Ph one Number SP [facility] [address] [place] [address] SP documented in this encounter Visit Diagnoses Diagnosis POS Encounter for examination for normal co mparison and control in clinical SP program Malignant neoplasm of unspecified ovary (HCC) SP documented in this encounter
--- OUTSIDE RECORDS SUMMARY | 2019-04-12 08:51 | XMS REPORT | Encounter Summary ---
Author Author [facility] POS Organization [facility] SP Address Unknown SP Phone Unavailable SP Care Team Providers Care Cutter Barrel Drum Name Role Phone POS Christa Ware MD PCP SP Encounter Details Care Team Description POS Date Type Department SP SP Belinda Landeros, SENIOR PRODUCTION SUPERVISOR [address] [facility] [address] [place], [place] [id number] [facility] SP [address] [facility] SP [address] En[address] [place] [address] SP [phone] SP Social History Date POS Tobacco Use [...]
--- OUTSIDE RECORDS SUMMARY | 2019-04-12 08:51 | XMS REPORT | Encounter Summary ---
Author Author [facility] POS Organization [facility] SP Address Unknown SP Phone Unavailable SP Care Team Providers Care Automotive Refinish Technician Name Role Phone POS Christa Ware MD PCP SP Encounter Details Care Team Description POS Date Type Department SP SP Mateo Cabral MD [address] [facility] [place] [address] [phone] SP 03/31/2019 [facility] SP Encounter Cancer Center SP [address] [facility] SP 2nd Fl [address] [place] [address] SP [phone] SP Social History Date POS Tobacco Use [...] (HSC Take one 30 tablet 0 SP [id number]) 20 mg tablet by SP tabletIndications: mouth [...]
--- OUTSIDE RECORDS SUMMARY | 2019-04-12 08:52 | XMS REPORT | Encounter Summary ---
Author Author [facility] POS Organization [facility] SP Address Unknown SP Phone Unavailable SP Care Team Providers Care Audio Production Instructor Name Role Phone POS Christa Ware MD PCP SP Reason for Visit * Reason Comments POS Labs Only SP * Treatment (Routine) Referred By Contact Referred To Contact POS Status Reason Specialty Diagnoses / SP Procedures SP SP Mateo Cabral MD [address] [place] [address] SP Mateo Cabral MD [address] [place] [address] Authorized Oncology Diagnoses SP Malignant neoplasm SP of right ovary SP (HCC) SP Clinical trial SP participant SP Malignant neoplasm SP of left ovary SP (HCC) SP P SP rocedures SP (INV) [facility] [id number]; SP [id number]; SP EXPANSION COHORTS SP OR OPTION 1: SP CABOZANTINIB + SP ATEZOLIZUMAB SP Encounter Details Care Team Description POS Date Type Department SP SP Mateo Cabral MD [address] [phone] SP 03/31/2019 [facility] SP Encounter Cancer Center SP [address] [facility] SP [address]nd [address] En[address] [place] [address] SP [phone] SP Social History Date POS Tobacco Use [...] Time Taken Comments POS Vital Sign SP 123/65 03/31/2019 8:55 AM CDT SP Blood Pressure SP 123 03/31/2019 8:55 AM CDT noted to KATHI Velasquez Pulse SP 36.4 C (97.5 F) 03/31/2019 8:55 AM CDT SP Temperature SP 16 03/31/2019 8:55 AM CDT SP Respiratory Rate SP 99% 03/31/2019 8:55 AM CDT SP Oxygen Saturation SP - - SP Inhaled Oxygen SP Concentration SP 56.8 kg (125 lb 3.5 oz) 03/31/2019 8:55 AM CDT SP Weight SP - - SP Height SP 20.84 03/28/2019 3:05 PM CDT SP Body Mass [...] (HSC Take one 30 tablet 0 SP [id number]) 20 mg tablet by SP tabletIndications: mouth [...] Progress Notes * Eva Greenberg RN - 03/31/2019 12:30 PM CDT CRC TREATMENT DAY Study : XL-184 Cycle and Day : Cycle 15 Day 1 -- HELD Labs : Clinical labs drawn from R port Assessment : Assessment documented in doc flowsheet. Fatigue Scale:4 Vital Signs : 03/31/19 0855 SOC, pt started resting at 0849 Vitals/Screening BP 123/65 BP Source Arm, Right Upper BP Patient Position Chair Pulse (!) 123 (noted to KATHI Velasquez) Resp 16 Temp 36.4 C (97.5 F) Temp src Oral SpO2 99 % Correlative Labs & EKG : EKG completed by hospital staff at 1013 Side Effects : Fatigue Diarrhea/Constipation Pain to anal area Additional Notes : Pt arrived to [facility] for C15D1 of XL-184. Pt arrived with . Labs drawn fr om R port. Urine collected. EKG completed. Pt seen by Dr. Cabral. Pt having complaints of previous diarrhea, which has become constipation. Pt having small loose bowel movements at this time with GoLytle. Pt also taking Lac tulose, Miralax, Docalax, Relistor. Pt requesting refill for Relistor. Okay per Dr. Cabral. Completed, sent to [facility] pharmacy. Pt aware. Dr. Cabral reviewed CT scan results with pt. Pt shows progression of disease. Pt states she has only had 4 days of cabozantinib of this cycle, previously t aken last 02/18/19. Pt and pt requesting to stay on clinical trial as has missed cabozantinib doses. Per Dr. Cabral, okay to take cabozantinib pill tonight, but will HOLD C15D1 t reatment. Per Dr. Cabral, will have Aydee, operating room coordinator, email sponsor to see if ok ay to continue on trial at this time. If okay, will bring pt back in to clinic t o start C15D1. Pt and pt states understanding. No pills or infusion dispensed today in clinic. Pt has old pills with her upo n leaving clinic today. Per Dr. Cabral, pt okay to have flu shot. Pt states she will get near home. Pt knows to expect a phone call with upcoming plan of care after hearing from study sponsor. Calendar/AVS : AVS and Calendar given. Patient educated and without questions or concerns. Discharge : Patient left the unit at 1250 without complaints. documented in this encounter Plan of Treatment Order Schedule POS Name Type Priority Associated Diag noses SP Ordered: 03/31/2019 SP RESEARCH BLOOD COLLECTION Lab Routine Clin ical trial SP ONLY participant SP Malignant neoplasm of SP ovary, unspecified SP laterality (HCC) SP documented as of this encounter Procedures Comments POS Procedure Name Priority Date/Time Associated Diag nosis SP SP HC TP/CR RATIO, RANDOM 03/31/2019 [...] this encounter Results * PROTEIN/CR RATIO,UR RAN (03/31/2019 9:41 AM CDT) Pathologist POS Signature SP Protein, Random 23 MG/DL [facility] SP Creatinine, 75 MG/DL [facility] SP Random SP Protein/CR 0.3 [facility] SP ratio SP Specimen SP Performing Organization Address City/State/[facility] Ph one Number SP [facility] [address] [place] [address] SP * URINALYSIS, MICROSCOPIC (03/31/2019 9:41 AM CDT) Pathologist SP Signature SP WBCs,UA 2-5 0 - 2 /HPF [facility] SP RBCs,UA 2-5 0 - 3 /HPF [facility] SP Comment,UA OCCASSIONAL WBC CLUMP PRESENT [facility] SP Epith Cells,UA 0-2 0 - 2 /HPF [facility] SP MucousUA 1+ [facility] SP Bacteria,UA FEW (A) NEG-NEG [facility] SP Specimen SP Urine - Urine SP Performing Organization Address [facility] Ph one Number SP [facility] [address] [place] [phone] SP * URINALYSIS DIPSTICK (03/31/2019 9:41 AM CDT) Pathologist SP Signature SP Color,UA YELLOW [facility] SP Turbidity,UA TRACE (A) CLEAR-CLEAR [facility] SP Specific 1.015 1.003 - 1.035 [facility] SP [place]-Urine SP pH,UA 6.5 5.0 - 8.0 [facility] SP Protein,UA TRACE (A) NEG-NEG [facility] SP Glucose,UA NEG NEG-NEG [facility] SP Ketones,UA NEG NEG-NEG [facility] SP Bilirubin,UA NEG NEG-NEG [facility] SP Blood,UA TRACE (A) NEG-NEG [facility] SP Urobilinogen,UA NORMAL NORM-NORMAL [facility] SP Nitrite,UA NEG NEG-NEG [facility] SP Leukocytes,UA TRACE (A) NEG-NEG [facility] SP Specimen SP Urine - Urine SP Performing Organization Address [facility] Ph one Number SP [facility] [address] [place] [id number] SP * PROTIME INR (PT) (03/31/2019 9:12 AM CDT) Pathologist SP Signature SP INR 1.1 0.8 - 1.2 [facility] SP Specimen SP Blood SP Performing Organization Address [facility] Ph one Number SP [facility] [address] [place] [address] SP * PTT (APTT) (03/31/2019 9:12 AM CDT) Pathologist SP Signature SP APTT 29.2 24.0 - 36.5 SEC [facility] SP Specimen SP Blood SP Performing Organization Address [facility] Ph one Number SP [facility] [address] [place] [address] SP * PHOSPHORUS (03/31/2019 9:12 AM CDT) Pathologist SP Signature SP Phosphorus 3.6 2.0 - 4.5 MG/DL [facility] SP Specimen SP Blood SP Performing Organization Address City/[facility] Ph one Number SP [facility] [address] [place], [place] [phone] SP * MAGNESIUM (03/31/2019 9:12 AM CDT) Pathologist SP Signature SP Magnesium 1.8 1.6 - 2.6 mg/dL [facility] SP Specimen SP Blood SP Performing Organization Address City/[email or web address]de Ph one Number SP [facility] [address] [place], [place] [phone] SP * LIPASE (03/31/2019 9:12 AM CDT) Pathologist SP Signature SP Lipase 17 11 - 82 U/L [facility] SP Specimen SP Blood SP Performing Organization Address City/[facility] Ph one Number SP [facility] [address] [place] [address] SP * AMYLASE (03/31/2019 9:12 AM CDT) Pathologist SP Signature SP Amylase 47 24 - 100 U/L [facility] SP Specimen SP Blood SP Performing Organization Address [email or web address]de Ph one Number SP [facility] [address] [place] [address] SP * LDH-LACTATE DEHYDROGENASE (03/31/2019 9:12 AM CDT) Pathologist SP Signature SP Lactate 175 100 - 210 U/L [facility] SP Dehydrogenase SP Specimen SP Blood SP Performing Organization Address [email or web address]de Ph one Number SP [facility] [address] [place] [address] SP * GGTP (03/31/2019 9:12 AM CDT) Pathologist SP Signature SP GGTP 116 (H) 9 - 64 U/L [facility] SP Specimen SP Blood SP Performing Organization Address City/[facility] Ph one Number SP [facility] [address] [place] [address] SP * COMPREHENSIVE METABOLIC PANEL (03/31/2019 9:12 AM CDT) Pathologist SP Signature SP Sodium 137 137 - 147 MMOL/L [facility] SP Potassium 3.5 3.5 - 5.1 MMOL/L [facility] SP Chloride 100 98 - 110 MMOL/L [facility] SP Glucose 145 (H) 70 - 100 MG/DL [facility] SP Blood Urea 16 7 - 25 MG/DL [facility] SP Nitrogen SP Creatinine 0.78 0.4 - 1.00 MG/DL [facility] SP Calcium 9.3 8.5 - 10.6 MG/DL [facility] SP Total Protein 7.1 6.0 - 8.0 G/DL [facility] SP Total Bilirubin 0.3 0.3 - 1.2 MG/DL [facility] SP Albumin 3.4 (L) 3.5 - 5.0 G/DL [facility] SP Alk Phosphatase 212 (H) 25 - 110 U/L [facility] SP AST (SGOT) 36 7 - 40 U/L [facility] SP CO2 26 21 - 30 MMOL/L [facility] SP ALT (SGPT) 30 7 - 56 U/L [facility] SP Anion Gap 11 3 - 12 [facility] SP eGFR Non >60 >60 mL/min [facility] SP Comment: SP [place] The eGFR is not validated f or SP use in drug dosing SP adjustments.Continue to SP use SP estimated creatinine SP clearance per dosing reference SP text.Please contact the SP Clinical Pharmacist for SP questions. SP eGFR >60 >60 mL/min [facility] SP [place] Comment: SP The eGFR is not validated for SP use in drug dosing SP adjustments.Continue to SP use SP estimated creatinine SP clearance per dosing reference SP text.Please contact the SP Clinical Pharmacist for SP questions. SP Specimen SP Blood SP Performing Organization Address City/State/Zipcode Ph one Number SP [facility] [address] [place] [address] SP * CBC AND DIFF (03/31/2019 9:12 AM CDT) Pathologist SP Signature SP White Blood 6.8 4.5 - 11.0 K/UL [facility] SP Cells SP RBC 3.90 (L) 4.0 - 5.0 M/UL [facility] SP Hemoglobin 12.2 12.0 - 15.0 GM/DL [facility] SP Hematocrit 36.2 36 - 45 % [facility] SP MCV 92.9 80 - 100 FL [facility] SP MCH 31.4 26 - 34 PG [facility] SP MCHC 33.8 32.0 - 36.0 G/DL [facility] SP RDW 16.4 (H) 11 - 15 % [facility] SP Platelet Count 450 (H) 150 - 400 K/UL [facility] SP MPV 7.2 7 - 11 FL [facility] SP Neutrophils 75 41 - 77 % [facility] SP Lymphocytes 10 (L) 24 - 44 % [facility] SP Monocytes 10 4 - 12 % [facility] SP Eosinophils 4 0 - 5 % [facility] SP Basophils 1 0 - 2 % [facility] SP Absolute 5.10 1.8 - 7.0 K/UL [facility] SP Neutrophil SP Count SP Absolute Lymph 0.70 (L) 1.0 - 4.8 K/UL [facility] SP Count SP Absolute 0.70 0 - 0.80 K/UL [facility] SP Monocyte Count SP Absolute 0.20 0 - 0.45 K/UL [facility] SP Eosinophil SP Count SP Absolute 0.10 0 - 0.20 K/UL [facility] SP Basophil Count SP Specimen SP Blood SP Performing Organization Address City/[facility] Ph one Number SP [facility] [address] [place] [address] SP * CA125 (03/31/2019 9:12 AM CDT) Pathologist SP Signature SP CA-125 311 (H) <35 U/ml [facility] SP Specimen SP Blood SP Performing Organization Address City/[facility] Ph one Number SP [facility] [address] [place] [address] SP * FREE T4 (FREE THYROXINE) ONLY (03/31/2019 9:12 AM CDT) Pathologist SP Signature SP T4-Free 1.1 0.6 - 1.6 NG/DL [facility] SP Specimen SP Blood SP Performing Organization Address [facility] Ph one Number SP [facility] [address] [place] [address] SP * THYROID STIMULATING HORMONE-TSH (03/31/2019 9:12 AM CDT) Pathologist SP Signature SP TSH 0.06 (L) 0.35 - 5.00 MCU/ML [facility] SP Specimen SP Blood SP Performing Organization Address City/State/Zipcode Ph one Number [facility] [address] [place] [address] SP documented in this encounter Visit Diagnoses Diagnosis POS Clinical trial participant - Primary SP Malignant neoplasm of ovary, unspecifie d laterality (HCC) SP documented in this encounter Administered Medications Action Date Dose Rate Site POS Medication Order MAR Action SP 03/31/2019 12:45 PM CDT 500 Units SP heparin lock flush PF syringe 500 Units Given SP 500 Units, Flush, ONCE, 1 dose, Mon SP 03/31/19 at 1245, NOTE: This is a HIGH SP ALERT Medication., SP documented in this encounter
--- OUTSIDE RECORDS SUMMARY | 2019-04-12 08:52 | XMS REPORT | Encounter Summary ---
Author Author [facility] POS Organization [facility] SP Address Unknown SP Phone Unavailable SP Care Team Providers Care Animal Assisted Therapist Name Role Phone POS Christa Ware MD PCP SP Reason for Referral * Radiology Services (Urgent) Referred By Contact Referred To Contact POS Status Reason Specialty Diagnoses / SP Procedures SP SP Sanjuanita Davies MD [address] [place] [address] SP Ic1 Mri [address] [place] [phone] No Auth Needed Radiology Diagnoses SP Malignant neoplasm SP of right ovary SP (HCC) SP P SP rocedures SP MRI PELVIS WO/W SP CONTRAST SP * Consult, Test & Treat (Urgent) Referred By Contact Referred To Contact POS Status Reason Specialty Diagnoses / SP Procedures SP SP Sanjuanita Davies MD [address] [place] [address] SP Bhg Spn Anes Pain Cl [address] [address] No Auth Needed Specialty Services Anesthesia Pain Diagnoses SP Required Malignant neoplasm SP of right ovary SP (HCC) SP Reason for Visit * Reason Comments POS Cancer SP Encounter Details Care Team Description POS Date Type Department SP SP Sanjuanita Davies MD [address] [facility] Cancer [place], [place] [phone] Malignant neoplasm of right ovary (HCC) SP 03/27/2019 Office Visit [facility] SP Cancer Center [facility] [address] [place], [place] SP [phone] SP Social History Date POS Tobacco Use [...] Time Taken Comments POS Vital Sign SP 142/81 03/27/2019 12:11 PM CDT SP Blood Pressure SP 104 03/27/2019 12:11 PM CDT SP Pulse SP 36.7 C (98 F) 03/27/2019 12:11 PM CDT SP Temperature SP 16 03/27/2019 12:11 PM CDT SP Respiratory Rate SP 98% 03/27/2019 12:11 PM CDT SP Oxygen Saturation SP - - SP Inhaled Oxygen SP Concentration SP 57.7 kg (127 lb 3.2 oz) 03/27/2019 12:11 PM CDT SP Weight SP 163.7 cm (5' 4.45") 03/27/2019 12:11 PM CDT SP Height SP 21.53 03/27/2019 12:11 PM CDT SP Body Mass Index SP documented in this encounter Functional Status Date of Assessment POS Functional Status Response SP 03/17/2019 SP Does the patient have a hearing impairment: No SP 03/17/2019 SP Does the patient have a visual impairment: Yes SP 03/17/2019 SP Does the patient have impaired ambulation: No SP 03/17/2019 SP Does the patient have an activity of daily living No SP (ADL) impairment: SP 03/17/2019 SP Does the patient have an instrumental activity of No SP daily living (IADL) impairment: SP Date of Assessment POS Cognitive Status Response SP 03/17/2019 SP Does the patient have a cognitive impairment: No SP documented as of this encounter Patient Instructions * Patient Instructions* Gwen Pollard RN - 03/27/2019 12:00 PM CDT Mirlax 17 g every day Lactulose 30 mL 2-3 times per day, take the medication and follow with 8-16 oz o f water If that does not work in 2-3 days: Go-lytely reconstitute to a gallon and drink through out the day documented in this encounter Progress Notes * Sanjuanita Davies MD - 03/27/2019 12:00 PM CDT Subjective GYNECOLOGIC ONCOLOGY EVALUATION Name:Katty Gold Date: 03/31/19 Referring Physician: Primary Care Physician: Christa Ware Chief Complaint: Chief Complaint Patient presents with Cancer History of Present Illness: Katty Gold is a 68 y.o. female with pain Onc Timeline Katty Gold is a 67 [...] h ad a stent placed last at [facility]. After the stent was placeed, was wel l until Sunday am when she noted severe ano-recla pain. [...] REF:Viri Gold MD PCP: Christa Ware MD Radiology Transporter: Talon Reeves MD MED/ONC: Dr. Cesar Ovarian [...] a nd negative for WT-1, inhibin, calretinin, [place]-1, ER, [place], synaptophysin and chr omogranin. A p53 stain [...] on CT, this was most reflective of eagle resistant/refractory disease. As such, surgical exploration and [...] genetics sent - KRAS 94% mutational change, [id number] >50%, tp53 + 01/[address] with [...] the decision to have this done at [facility]. 03/20/[address] Neftaly Childs at [facility] and has cystoscopy, renal scan and right ureteral stent placement. Patient felt pain relief after the procedure. 03/21/2019 Pertinent History 03/21/2019: Patient developed "severe and unrelenting" rectal and anal pain. Dr Childs believes that the mass may be impinging on the sacral nerves. 03/23/2019: Due to the patients pain and the "awful experience" the patient had at [facility] on 03/11/2019, the patients took her to [facility] ED [facility] location where the patient had another CT. This CT showed a 3.6cm m ass anterior to the distal sigmoid colon and rectum. It also showed a rectocele measuring 10-11cm. 03/24/2019: Patient saw Dr Mariano at [facility]. He is concerned about the sacra l mass. He recommended that the patient increase her Miralax that she has been taking for constipation and get in to see Dr Davies as soon as possible with a CT of the anterior and distal sacrum. Past Medical History: Medical History: Diagnosis Date [...] LESION performed by Mauro Davies MD at [facility] OR/Periop RECTAL SURGERY Left 10/09/2017 RESECTION SIGMOID COLON, COLONOSCOPY performed by Tim Chung MD at [facility] OR/Periop SECTION HX BREAST BIOPSY HX BREAST LUMPECTOMY followed by radiation therapy. HX CHOLECYSTECTOMY HX TUBAL LIGATION Bilateral Medications: Current Outpatient Medications: (INV) cabozantinib ([facility] [id number][place] 20 mg tablet, Take one tablet by mouth hero y for 21 days. INVESTIGATIONAL SPECIAL HANDLING PRECAUTIONS -Take on an empty stomach with a minimum of 8 ounces of water at least 1 hour before or 2 h ours after a meal., Disp: 30 tablet, Rfl: 0 (INV) cabozantinib ([facility] [id number]) 20 mg tablet, Take one tablet by [...] 2.5/0.025 mg tablet, Take one tablet by [facility] twice daily as needed for Diarrhea., Disp: [...] daily., Dis p: 5 tablet, Rfl: 0 morphine SR (MS CONTIN) 15 mg tablet, [...] HEMATOLOGIC: Negative unless stated in HPI ECOG 1 Physical Exam: BP 142/81 (BP Source: Arm, Left Upper, Patient Position: Sitting) | Pulse 104 | Temp 36.7 C (98 F) (Oral) | Resp 16 | Ht 163.7 cm (64.45") | Wt 57.7 kg (127 lb 3.2 oz) | LMP 09/24/1997 | SpO2 98% | BMI 21.53 kg/m GENERAL APPEARANCE: Appears healthy. Alert; in no acute distress. Pleasant. HEENT: Unremarkable. No tenderness or masses noted. NECK: Neck supple. No tenderness. No adenopathy. LUNGS: Chest symmetrical. Good diaphragmatic excursion. Lungs clear; normal alethea th sounds. CARDIOVASCULAR: RRR. Heart sounds normal. ABDOMEN: Abdomen soft, non-tender. No masses, organomegaly, or hernia. No clini cinthia evidence of ascites. PELVIC: External genitalia, anus, perineum, urethral meatus, urethra, bladder and vagina normal. I do not think that I feel the presacral mass; however, I do feel what I suspect is her colon onto the left side. Is tender and firm. Exam chaperoned by nurse EXTREMITIES: Extremities normal. No joint deformities, edema, or skin discolorat ion. Station and gait normal. SKIN: Skin color, texture, turgor normal. No rashes or lesions. LYMPH NODES: No palpable supraclavicular or inguinal lymph nodes. Fluid in right groin. CBC w/Diff Lab Results Component Value Date/Time WBC 6.8 03/31/2019 09:12 AM RBC 3.90 (L) 03/31/2019 09:12 AM HGB 12.2 03/31/2019 09:12 AM HCT 36.2 03/31/2019 09:12 AM MCV 92.9 03/31/2019 09:12 AM MCH 31.4 03/31/2019 09:12 AM MCHC 33.8 03/31/2019 09:12 AM RDW 16.4 (H) 03/31/2019 09:12 AM PLTCT 450 (H) 03/31/2019 09:12 AM MPV 7.2 03/31/2019 09:12 AM Lab Results Component Value Date/Time NEUT 75 03/31/2019 09:12 AM ANC 5.10 03/31/2019 09:12 AM LYMA 10 (L) 03/31/2019 09:12 AM ALC 0.70 (L) 03/31/2019 09:12 AM JEFRY 10 03/31/2019 09:12 AM AMC 0.70 03/31/2019 09:12 AM EOSA 4 03/31/2019 09:12 AM AEC 0.20 03/31/2019 09:12 AM BASA 1 03/31/2019 09:12 AM ABC 0.10 03/31/2019 09:12 AM Comprehensive Metabolic Profile Lab Results Component Value Date/Time NA 137 03/31/2019 09:12 AM K 3.5 03/31/2019 09:12 AM CL 100 03/31/2019 09:12 AM CO2 26 03/31/2019 09:12 AM GAP 11 03/31/2019 09:12 AM BUN 16 03/31/2019 09:12 AM CR 0.78 03/31/2019 09:12 AM GLU 145 (H) 03/31/2019 09:12 AM Lab Results Component Value Date/Time CA 9.3 03/31/2019 09:12 AM PO4 3.6 03/31/2019 09:12 AM ALBUMIN 3.4 (L) 03/31/2019 09:12 AM TOTPROT 7.1 03/31/2019 09:12 AM ALKPHOS 212 (H) 03/31/2019 09:12 AM AST 36 03/31/2019 09:12 AM ALT 30 03/31/2019 09:12 AM TOTBILI 0.3 03/31/2019 09:12 AM GFR >60 03/31/2019 09:12 AM GFRAA >60 03/31/2019 09:12 AM Other labs No results found for: ESR Lab Results Component Value Date/Time LDH 175 03/31/2019 09:12 AM Lab Results Component Value Date CA125 17 01/13/2019 ASSESSMENT/PLAN: Katty Gold is a 68 y.o. 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 In addition, I would not be surprised if it was not affecting the sciatic nerve. I am not sure that I can feel it-I suspect that I feel her colon, near the site of her prior anastomosis. This mass is most likely the etiology of her pain. I will make sure that Dr. Cabral is aware; consideration of stereotactic RT to t his site due to the severity of the pain. Will obtain MRI. Consideration to go to pain anesthesia. For her pain, MS Contin 15 mg bid and continue with the oral short acting. (10/04 25). She does have severe constipation/opstipation. Recommended Miralax 17 g/day; la ctulose 30 ml 2-3x/day. If no response in 2-3 days, golyghtly. Sanjuanita A Davies, MD documented in this encounter Plan of Treatment Order Schedule POS Name Type Priority Associated Diag noses SP Ordered: 03/27/2019 SP AMB REFERRAL TO PAIN Outpatient STAT Malignant neoplasm of SP CLINIC Referral right ovary (HCC) SP documented as of this encounter Results * MRI PELVIS WO/W CONTRAST (04/11/2019 3:39 PM PASSENGER BRAKEMAN) Specimen POS Impressions Performed At SP 1.No [...] Emmy Siemens SP Comparison: CT chest/abdomen/pelvis fro m 03/27/2019. SP FINDINGS: SP Uterus and adnexa: [...] Interface, Radiant Results - 04/11/2019 10:22 PM PASSENGER BRAKEMAN MRI PELVIS Clinical Indication: Female, 68 years [...]
--- OUTSIDE RECORDS SUMMARY | 2019-04-12 08:52 | XMS REPORT | Encounter Summary ---
Author Author [facility] POS Organization [facility] SP Address Unknown SP Phone Unavailable SP Care Team Providers Care Mud Mill Tender Name Role Phone POS Christa Ware MD PCP SP Reason for Visit * Reason Comments POS Medication Refill SP Encounter Details Care Team Description POS Date Type Department SP SP Sanjuanita Davies MD [address] [place] [address] Cancer [place], [place] [phone] SP 03/27/[address] [facility] SP Cancer [address] SP [phone] SP Social History Date POS Tobacco Use [...]
--- OUTSIDE RECORDS SUMMARY | 2019-04-12 08:52 | XMS REPORT | Encounter Summary ---
Author Author [facility] POS Organization [facility] SP Address Unknown SP Phone Unavailable SP Care Team Providers Care Retail Analytics Manager Name Role Phone POS Christa Ware MD PCP SP Reason for Visit * Reason Comments POS Treatment SP Encounter Details Care Team Description POS Date Type Department SP SP Mateo Cabral MD [address] [facility] [place] [address] Clinical trial participant (Primary Dx) SP 03/31/2019 Office Visit [facility] [address] En[address] [place] [address] SP [phone] SP Social History Date POS Tobacco Use [...] 8:55 AM CDT noted to KATHI Velasquez SP Pulse SP 36.4 C (97.5 F) 03/31/2019 [...] as of this encounter Progress Notes * Mateo Cabral MD - 03/31/2019 9:45 AM CDT Subjective GYNECOLOGIC ONCOLOGY EVALUATION Name:Katty Gold Date: 03/31/19 Primary Care Physician: Christa Ware Chief Complaint: [...] h ad a stent placed last at [facility]. After the stent was placeed, was wel [...] REF:Viri Gold MD PCP: Christa Ware MD Outside Plant Technician: Talon Reeves MD MED/ONC: Dr. Cesar Ovarian [...] a nd negative for WT-1, inhibin, calretinin, [place]-1, ER, [place], synaptophysin and chr omogranin. 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 As such, surgical exploration and [...] week as pt completed PET scan on Sep2 019. 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 03/20/[address] Neftaly Childs at [facility] and has cystoscopy, renal scan and right ureteral stent placement. Patient felt pain relief after the procedure. 03/21/2019 Pertinent History 03/21/2019: Patient developed "severe and unrelenting" rectal and anal pain. Dr Childs believes that the mass may be impinging on the sacral nerves. 03/23/2019: Due to the patients pain and the "awful experience" the patient had at [facility] on 03/11/2019, the patients took her to [facility] ED [facility] location where the patient had another CT. This CT showed a 3.6cm m ass anterior to the distal sigmoid colon and rectum. It also showed a rectocele measuring 10-11cm. 03/24/2019: Patient saw Dr Mariano at [facility]. He is concerned about the sacra l mass. He recommended that the patient increase her Miralax that she has been taking for constipation and get in to see Dr Davies as soon as possible with a CT of the anterior and distal sacrum. Target lesions Left hemidiaphragm lesion 15mm --> [...] LESION performed by Mauro Davies MD at [facility] OR/Periop RECTAL SURGERY Left 10/09/2017 RESECTION SIGMOID COLON, COLONOSCOPY performed by Tim Chung MD at [facility] OR/Periop SECTION HX BREAST BIOPSY HX BREAST LUMPECTOMY followed by radiation therapy. HX CHOLECYSTECTOMY HX TUBAL LIGATION Bilateral Medications: Current Outpatient Medications: (INV) cabozantinib ([facility] [id number]) 20 mg tablet, Take one tablet by mouth hero y for 21 days. INVESTIGATIONAL SPECIAL HANDLING PRECAUTIONS -Take on an empty stomach with a minimum of 8 ounces of water at least 1 hour before or 2 h ours after a meal., Disp: 30 tablet, Rfl: 0 (INV) cabozantinib ([facility] [id number]) 20 mg tablet, Take one tablet by [...] 2.5/0.025 mg tablet, Take one tablet by [facility] twice daily as needed for Diarrhea., Disp: [...] in HPI ECOG 0 Physical Exam: BP 123/65 (BP Source: Arm, Right Upper, Patient Position: Sitting) | Pulse (!) 123 Comment: noted to KATHI Velasquez | Temp 36.4 C (97.5 F) (Oral) | Resp 16 | Wt 56.8 kg (125 lb 3.5 oz) | LMP 09/24/1997 | SpO2 99% | BMI 20.84 kg/m GENERAL APPEARANCE: Appears healthy. Alert; in [...] Value Date/Time LDH 175 03/31/2019 09:12 AM ASSESSMENT/PLAN: Katty Gold is a 68 [...] repeat imaging in 4-6 weeks per trial Skin cancer - reviewed she had to [...] of d ehydration, has an appt with automation design engineer Pain - seen in pain clinic, plan for superior hypogastric plexus block bilateral ly at first available appointment Will start patient on gabapentin, nortriptyli ne and tizanidine, Okay to continue taking morphine SR and percocet PRN as presc ribed by her other providers, Patient scheduled for MRI pelvis 03/31 Reviewed NextGene sequencing sent by Dr Davies. 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 Mateo Cabral MD documented in this encounter Plan of Treatment Not on filedocumented as of this encounter Procedures Comments POS Procedure Name Priority Date/Time Associated Diag nosis SP SP ECG-SCAN 03/31/2019 SP 12:00 AM CDT SP documented in this encounter Results * ECG-SCAN (03/31/2019 12:00 AM CDT) Narrative Performed At POS This result has an attachment that is n ot available. SP Ordered by an unspecified provider. SP documented in this encounter Visit Diagnoses Diagnosis POS Clinical trial participant - Primary SP documented in this encounter
--- OUTSIDE RECORDS SUMMARY | 2019-04-12 08:52 | XMS REPORT | Encounter Summary ---
Author Author [facility] POS Organization [facility] SP Address Unknown SP Phone Unavailable SP Care Team Providers Care Soaker Helper Name Role Phone POS Christa Ware MD PCP SP Reason for Referral * Pain Authorization (Routine) Referred By Contact Referred To Contact POS Status Reason Specialty Diagnoses / SP Procedures SP SP Darrell Chiu MD [address] [facility] [place] [address] SP [facility] [id number] [place] [address] Closed Diagnoses SP Cancer associated SP pain SP Malignant neoplasm SP of ovary, SP unspecified SP laterality (HCC) SP Rectal pain SP Anal pain SP P SP rocedures SP KU AMB NERVE BLOCK SP Reason for Visit * Reason Comments POS New Patient cancer SP Pain SP Groin Pain SP * Consult, Test & Treat (Urgent) Referred By Contact Referred To Contact POS Status Reason Specialty Diagnoses / SP Procedures SP SP Sanjuanita Davies MD [address] [place] [address] SP Bhg Spn Anes Pain Cl [address] [address] No Auth Needed Specialty Services Anesthesia Pain Diagnoses SP Required Malignant neoplasm SP of right ovary SP (HCC) SP Encounter Details Care Team Description POS Date Type Department SP SP Darrell Chiu MD [address] [facility] [place] [address] [phone] Cancer associated pain (Primary Dx); SPMalignant neoplasm of ovary, unspecified laterality (HCC); Rectal pain; Anal pain 03/28/2019 Office Visit [facility] SP [address] [place] [address] SP [phone] SP Social History Date POS Tobacco Use [...] Time Taken Comments POS Vital Sign SP 128/89 03/28/2019 3:05 PM CDT SP Blood Pressure SP 103 03/28/2019 3:05 PM CDT SP Pulse SP - - SP Temperature SP - - SP Respiratory Rate SP 97% 03/28/2019 3:05 PM CDT SP Oxygen Saturation SP - - SP Inhaled Oxygen SP Concentration SP 59 kg (130 lb) 03/28/2019 3:05 PM CDT SP Weight SP 165.1 cm (5' 5") 03/28/2019 3:05 PM CDT SP Height SP 21.63 03/28/2019 3:05 PM CDT SP Body Mass [...] this encounter Patient Instructions * Patient Instructions* Vania Spears MA - 03/28/2019 3:00 PM CDT General Instructions: How to reach me: Please send a [employer] message to the [facility] or leave a voicemail for my nurse Quin at [phone]. Scheduling: Our scheduling phone number is [phone]. How to get a medication refill: Five business days before refill needed, plea se use the MyChart Refill request or contact your pharmacy directly to request m edication refills. How to receive your test results: If you have signed up for [employer], you will receive your test results and messages from me this way. Otherwise, you will get a phone call or letter. If you are expecting results and have not heard from my office within 2 weeks of your testing, please send a [employer] message or call my office. Support for many chronic illnesses is available through [employer]: [email or web address] or [phone]. For questions on nights, weekends or holidays, call the unit operator at [phone], and ask for the doctor senior consultant for Anesthesia Pain Management. documented in this encounter Progress Notes * Darrell Chiu MD - 03/28/2019 3:[address] Sanjuanita Davies, I appreciate your kind referral of Katty Gold for evaluation of pain. Ple ase see my note below for the full details of the evaluation and management plan . Thank you, Darrell Chiu MD [facility] - Interventional Pain NEW PATIENT HISTORY AND PHYSICAL Subjective Chief Complaint: Chief Complaint Patient presents with Lower Back - Pain Right Leg - Groin Pain New Patient cancer HPI: Katty Gold is a 68 y.o. female who has a past medical history of [place] cancer (HCC), radiation therapy (1999), and Ovarian cancer (HCC) (). who presents for evaluation. The pain is [...] Cymbalta Tizanidine PRIOR INTERVENTIONS: Effective Ineffective Katty Horvathson denies any recent fevers, chills, infection, antibiotics, ladarius l or bladder incontinence, saddle anesthesia, bleeding issues, or recent anticoa gulant. History of cancer s/p exploratory laparotomy and radical dissection by Dr. Cresencio mocnada. Unfortunately, her cancer continues to progress and [...] Cancer-Lung Paternal Uncle Social History: Lives in [place] [id number] Social History Socioeconomic History Marital status: Spouse [...] Allergies Medications: Current Outpatient Medications: (INV) cabozantinib ([facility] [id number]) 20 mg tablet, Take one tablet by mouth hero y for 21 days. [employer] PRECAUTIONS -Take on an empty stomach with a minimum of 8 ounces of water at least 1 hour before or 2 h ours after a meal., Disp: 30 tablet, Rfl: 0 (INV) cabozantinib ([facility] [id number]) 20 mg tablet, Take one tablet by [...] 2.5/0.025 mg tablet, Take one tablet by [facility] twice daily as needed for Diarrhea., Disp: 60 tablet, Rfl: 3 electrolyte GUT PEG (NULYTELY) 420 gram oral solution, Mix as directed on p ackage. Drink 240ml (8oz) every 10 minutes until gone. Refrigerate once mixed., Disp: 4000 mL, Rfl: 0 folic acid/multivit-min/lutein (CENTRUM SILVER PO), Take by mouth daily., Disp: , Rfl: hydrocortisone 1 % topical cream, Apply topically [...] with food., Disp: 14 capsule, Rfl: 0 ondansetron (ZOFRAN) 8 mg tablet, Take one tablet by mouth every 6 hours as needed for Nausea or Vomiting., Disp: 50 tablet, Rfl: 0 oxyCODONE (ROXICODONE, OXY-IR) 5 mg tablet, Take 1-2 tablets by mouth every 4 hours as needed Earliest Fill Date: 10/15/17, Disp: 45 tablet, Rfl: 0 zolpidem (AMBIEN) 10 mg tablet, Take 10 mg by mouth at bedtime as needed fo r Sleep., Disp: , Rfl: Physical examination: BP 128/89 | Pulse 103 | Ht 165.1 cm (65") | Wt 59 kg (130 lb) | LMP 09/24/18 98 | SpO2 97% | BMI 21.63 kg/m Pain Score: Four General: The patient is a well-developed, well nourished 68 y.o. female in no ac wrangell distress. HEENT: Head is normocephalic and atraumatic. [...] LFT's: Creatinine Date Value Ref Range Status 03/11/2019 0.95 0.4 - 1.00 MG/DL Final AST (SGOT) Date Value Ref Range Status 03/11/2019 41 (H) 7 - 40 U/L Final ALT (SGPT) Date Value Ref Range Status 03/11/2019 32 7 - 56 U/L Final Alk Phosphatase Date Value Ref Range Status 03/11/2019 87 25 - 110 U/L Final Total Bilirubin Date Value Ref Range Status 03/11/2019 0.4 0.3 - 1.2 MG/DL Final Assessment: Katty Gold is a 68 y.o. female who has a past medical history of Breast cancer (HCC), radiation therapy (1999), and Ovarian cancer (HCC) (10/09/2017). pal tejada presents for evaluation of pain. The pain complaints are most likely due to: 1. Cancer associated pain tiZANidine (ZANAFLEX) 4 mg tablet KU AMB NERVE BLOCK gabapentin (NEURONTIN) 300 mg capsule nortriptyline (PAMELOR) 25 mg capsule 2. Malignant neoplasm of ovary, unspecified laterality (HCC) tiZANidine (ZANAFL EX) 4 mg tablet KU AMB NERVE BLOCK gabapentin (NEURONTIN) 300 mg capsule nortriptyline (PAMELOR) 25 mg capsule 3. Rectal pain tiZANidine (ZANAFLEX) 4 mg tablet KU AMB NERVE BLOCK gabapentin (NEURONTIN) 300 mg capsule nortriptyline (PAMELOR) 25 mg capsule 4. Anal pain tiZANidine (ZANAFLEX) 4 mg tablet KU AMB NERVE BLOCK gabapentin (NEURONTIN) 300 mg capsule nortriptyline (PAMELOR) 25 mg capsule Patient has had an adequate trial of [...] MD Date: 03/28/2019 documented in this encounter Plan of Treatment Not on filedocumented as of this encounter Visit Diagnoses Diagnosis POS Cancer associated pain - Primary SP Neoplasm related pain (acute) (chronic) SP Malignant neoplasm of ovary, unspecifie d laterality (HCC) SP Rectal pain SP Anal or rectal pain SP Anal pain SP Anal or rectal pain SP documented in this encounter
--- OUTSIDE RECORDS SUMMARY | 2019-04-12 08:53 | XMS REPORT | Encounter Summary ---
Author Author [facility] POS Organization [facility] SP Address Unknown SP Phone Unavailable SP Care Team Providers Care Director Of Residential Services Name Role Phone POS Christa Ware MD PCP SP Reason for Visit * Reason Comments POS Cancer SP Encounter Details Care Team Description POS Date Type Department SP SP Anila Sanchez MD [address] [facility] [place] [address] Clinical trial participant (Primary Dx); SPMalignant neoplasm of right ovary (HCC); Hydronephrosis, unspecified hydronephrosis type 03/17/2019 Office Visit [facility] SP [address] [facility] [address] [place] [address] SP [phone] SP Social History Date POS Tobacco Use [...] Time Taken Comments POS Vital Sign SP 127/69 03/17/2019 10:25 AM CDT SP Blood Pressure SP 90 03/17/2019 10:25 AM CDT SP Pulse SP 36.6 C (97.9 F) 03/17/2019 10:25 AM CDT SP Temperature SP 16 03/17/2019 10:25 AM CDT SP Respiratory Rate SP 99% 03/17/2019 10:25 AM CDT SP Oxygen Saturation SP - - SP Inhaled Oxygen SP Concentration SP 59.2 kg (130 lb 8.2 oz) 03/17/2019 10:25 AM CDT SP Weight SP - - SP Height SP 21.72 02/06/2019 10:10 AM CDT SP Body Mass Index SP documented [...] as of this encounter Progress Notes * Anila Sanchez MD - 03/17/2019 10:20 AM CDT Subjective Name:Katty Gold Date: 03/17/19 Referring Physician: Primary Care Physician: Christa Ware Chief Complaint: Chief Complaint Patient presents with Cancer She is here for follow up of ovarian cancer on a clinical trial with cabozantini b and atezolizumab. HPI: Katty is a 68 y.o. G2 P 2 who presented to an ED on 09/13/2017 with c/o a feve r. She started having diarrhea the day before this. She also had abdominal bloat ing, small BMs and reduced urination. She was noted to have tenderness in the valdovinos prapubic area and increased bowel sounds. Abdominal ultrasound was done and show ed hepatic and renal cysts. A CT done on 09/13/2017 showed complex multicystic fl uid attenuation pelvic mass measuring 16.5 x 15 x 8 cm with central 2.8 x 3.6 cm soft tissue which appears separate from adjacent colonic loops, right inguinal lymphadenopathy and mesenteric soft tissue deposits abutting the liver concernin g for metastatic disease. She was referred to Dr. Davies. On 10/09/2017, she underwent Exploratory laparoto my, ovarian tumor debulking with omentectomy, diaphragmatic upper abdominal, pel keely, bladder, peritoneal stripping, abdominal hysterectomy, bilateral salpingo-o ophorectomy, bilateral pelvic lower periaortic lymph node sampling and omentecto my as well as resection of 2 liver lesions. Low anterior resection with primary anastomosis and mobilization of low anterior anastomosis. Mobilization of sple larissa flexure.Flexible sigmoidoscopy. Appendectomy.Small bowel resection with avtar christina anastomosis. 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 On 11/09/17, the patient started carboplatin and t axol and completed this on 03/04/[address] Negrete. On 03/18/2018 she was seen for follow up by Dr. Davies. Her last CA125 was 41.6 on 03/04/2018. CT of the chest, abdomen and pelvis done on 03/18/18 has the following report: Chest: Stable CT chest without thoracic metastatic disease. Abdomen and Pelvis: 1. Mild increase in size of oval low density nodule medial to the spleen consistent with progression of peritoneal metastasis. No other enlarging peritoneal masses. No ascites. 2. Decrease in size of subcapsular splenic fluid collection consistent with slowly resolving subcapsular hematoma. Tiny posterior subcapsular splenic nodules are unchanged. 3. No change in well-defined low-density peripheral liver lesions which may represent hepatic cysts or stable treated peritoneal metastases. 4. Increase in size of large retroperitoneal/central mesenteric fluid collection. This may represent progression of cystic neoplasm or increase in size of large retroperitoneal/mesenteric lymphocele. PET/CT done on 03/22/2018 has the following report: IMPRESSION Peritoneal car cinomatosis with numerous scattered hypermetabolic peritoneal nodules including subcapsular hepatic, medial splenic, and subincisional midline anterior abdominal wall implants. Several hypermetabolic p eritoneal nodules are poorly delineated from bowel loops. Mild hypermetabolic bi lateral pelvic lymphadenopathy compatible with robson metastatic disease. Redemon stration of large thin-walled unilocular abdominopelvic fluid collection without focal or nodular increased FDG uptake. Findings may reflect postoperative lymphocele, loculated malignant ascites, or cystic maligna ncy. Development of mild right hydronephrosis and proximal right hydroureter, li dennis secondary to extrinsic compression. On 03/28/2018, she was seen by Dr. Davies and she discussed the results of the PET/CT. Per Dr. 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 As such, surgical exploration and removal o f the perisplenic disease, should have no impact on OS, PFS, and would only juana y initiation of cytotoxic therapy. The patient was referred to early Phase Unit for possible participation into XL-184 which is a phase I trial of the combinati on of cabozantinib and atezolizumab. She received C1D1 of the treatment on 05/27/18. She had surgery in the left hand on 02/28/19. Cabozantinib was held before that surgery. I saw her on 03/10/19. She reported having significant diarrhea at night while on cabozantinib sometimes up to 20x. This improved about 5 days after stopping cabozantinib. Per protocol she was to be off cabozantinib for 10 days following her biopsy. We continued to hold it and the patient agreed to be evaluated after 1 week and the plan is to reduce the dose of cabozantinib to 20 mg/day when we restart. On 03/11/19, she went to the ED with complaints of abdominal pain, vomiting start ing that morning and no BM since 03/09/19. ED note showed "Labs grossly unremarka ble, UA not indicative of a UTI. -Imaging as above, concerning for newly developed moderate right hydronephrosis most likely secondary to increased growth and retroperitoneal mass. Consulted G yn/onc for input as to necessary interventions. Please see consult note for fur ther details. Talked to urology who did not recommend acute intervention at [facility] time given patient's normal creatinine. Will follow-up in clinic later on thi s week for reevaluation and determining treatment. -Gave fentanyl, Tylenol, and fluids to help with pain resuscitation. Reevaluati on showed patient feeling better and ready to go home. She will continue to con trol her pain at home by her previous regimen. -Patient was discharged in stable condition with strict return precautions given ." She is here today for follow up. She came accompanied by her . She report s having right sided back pain in the last 2 weeks. Because of the constipation she took Magnesium citrate on 03/15/19 and she had many bouts of BM after than. On 03/16/19, she took dulcolax and miralax and she had 3 good BM. Otherwise she feels good. Medical History: Diagnosis Date Breast cancer (HCC) [...] LESION performed by Mauro Davies MD at [facility] OR/Periop RECTAL SURGERY Left 10/09/2017 RESECTION SIGMOID COLON, COLONOSCOPY performed by Tim Chung MD at [facility] OR/Periop SECTION HX BREAST BIOPSY HX BREAST LUMPECTOMY followed by radiation therapy. HX CHOLECYSTECTOMY HX TUBAL LIGATION Bilateral Medications: Current Outpatient Medications: (INV) cabozantinib ([facility] 644833) 20 mg tablet, Take one tablet by [...] hours as needed. , Disp: , Rfl: calcium carbonate/vitamin D-3 (OSCAL-500+D) [...] for Diarrhea., Disp: 60 tablet, Rfl: 3 folic acid/multivit-min/lutein (CENTRUM SILVER PO), Take by mouth daily., Disp: , Rfl: hydrocortisone 1 % topical cream, Apply topically to affected area twice d aily., Disp: , Rfl: ibuprofen (ADVIL) 200 mg tablet, Take 400 mg by mouth every 6 hours as need ed for Pain. Take with food., Disp: , Rfl: levoFLOXacin (LEVAQUIN) 750 mg tablet, Take one tablet by mouth daily., Dis p: 5 tablet, Rfl: 0 nitrofurantoin monohyd/m-cryst (MACROBID) 100 [...] Onset Cancer Paternal Aunt Cancer-Lung Paternal Uncle Review of Systems Constitutional: Positive for fatigue. Negative for activity change, appetite samaria nge, fever and unexpected weight change. HENT: Positive for dental problem. Negative for mouth sores and trouble swallowi ng. Respiratory: Negative for shortness of breath. Cardiovascular: Negative for chest pain and leg swelling. Gastrointestinal: Positive for abdominal distention, constipation, diarrhea and vomiting (had 2 bouts on 03/11 which she felt was from her dental work that day. No more vomiting since.). Negative for abdominal pain and blood in stool. Genitourinary: Positive for flank pain (right). Negative for difficulty urinatin g and hematuria. Musculoskeletal: Positive for back pain. Skin: Negative for rash. Neurological: Negative for dizziness, light-headedness and headaches. Psychiatric/Behavioral: The patient is not nervous/anxious. ECOG performance status is 1, Restricted in physically strenuous activity but am bulatory and able to carry out work of a light or sedentary nature, e.g., light house work, office work Pain: flank pain, mild and controlled. Physical Exam: BP 127/69 (BP Source: Arm, Left Upper, Patient Position: Sitting) | Pulse 90 | Temp 36.6 C (97.9 F) (Oral) | Resp 16 | Wt 59.2 kg (130 lb 8.2 oz) | LMP 09/24/1997 | SpO2 99% | BMI 21.72 kg/m GENERAL APPEARANCE: Appears healthy. Alert; in no acute distress. Pleasant. Sh e looks better than when I saw her first. She looks like she had gained weight. HEENT: No tenderness or masses noted. NECK: No tenderness. No adenopathy. LUNGS: Chest symmetrical. Good diaphragmatic excursion. Lungs clear; normal alethea th sounds. CARDIOVASCULAR: RRR. Heart sounds normal. ABDOMEN: Abdomen soft, non-tender. No masses, organomegaly, or hernia. No clini cinthia evidence of ascites, multiple scars. EXTREMITIES: Extremities normal. No joint deformities, edema, or skin discolorat ion. Station and gait normal. She has palpable soft mass in the right inguinal a harsh. SKIN: Dry skin, some areas with erythematous papules in the back. Healing incisi onal wound in the left arm without exudation-not completely healed yet. LYMPH NODES: No palpable supraclavicular lymph nodes. CBC w/Diff Lab Results Component Value Date/Time WBC 7.6 03/11/2019 01:30 PM RBC 4.30 03/11/2019 01:30 PM HGB 14.1 03/11/2019 01:30 PM HCT 42.1 03/11/2019 01:30 PM MCV 98.0 03/11/2019 01:30 PM MCH 32.8 03/11/2019 01:30 PM MCHC 33.5 03/11/2019 01:30 PM RDW 16.0 (H) 03/11/2019 01:30 PM PLTCT 359 03/11/2019 01:30 PM MPV 7.1 03/11/2019 01:30 PM Lab Results Component Value Date/Time NEUT 81 (H) 03/11/2019 01:30 PM ANC 6.20 03/11/2019 01:30 PM LYMA 10 (L) 03/11/2019 01:30 PM ALC 0.80 (L) 03/11/2019 01:30 PM JEFRY 6 03/11/2019 01:30 PM AMC 0.50 03/11/2019 01:30 PM EOSA 2 03/11/2019 01:30 PM AEC 0.10 03/11/2019 01:30 PM BASA 1 03/11/2019 01:30 PM ABC 0.00 03/11/2019 01:30 PM Comprehensive Metabolic Profile Lab Results Component Value Date/Time NA 140 03/11/2019 01:30 PM K 4.1 03/11/2019 01:30 PM CL 105 03/11/2019 01:30 PM CO2 25 03/11/2019 01:30 PM GAP 10 03/11/2019 01:30 PM BUN 21 03/11/2019 01:30 PM CR 0.95 03/11/2019 01:30 PM GLU 118 (H) 03/11/2019 01:30 PM Lab Results Component Value Date/Time CA 10.0 03/11/2019 01:30 PM PO4 3.7 03/10/2019 12:40 PM ALBUMIN 4.3 03/11/2019 01:30 PM TOTPROT 8.0 03/11/2019 01:30 PM ALKPHOS 87 03/11/2019 01:30 PM AST 41 (H) 03/11/2019 01:30 PM ALT 32 03/11/2019 01:30 PM TOTBILI 0.4 03/11/2019 01:30 PM GFR 59 (L) 03/11/2019 01:30 PM GFRAA >60 03/11/2019 01:30 PM Other labs No results found for: ESR Lab Results Component Value Date/Time LDH 168 03/10/2019 12:[address] ABD/PELV W CONTRAST Narrative: CT ABDOMEN AND PELVIS Clinical Indication: Female, 68 years old. Abdominal pain. Concern for small mala wel obstruction. History of breast and ovarian cancer. Technique: Multiple contiguous axial images were obtained through the abdomen a nd pelvis following the administration of IV contrast material. Post processing coronal and sagittal reconstruction images were made from the axial images. IV contrast: Omnipaque-350 Bowel contrast: None Comparison: CT abdomen and pelvis from 02/06/2019. FINDINGS: Lower Thorax: Partially visualized heart is normal in size. No significant chapin e tiny pulmonary nodules within the lung bases. Liver and Biliary system: Liver is normal in size, with progression of hepatic m etastases; for example, a segment 7 lesion measures 1.7 cm (image 12, series 2), compared to 0.9 cm previously. Major portal veins are patent. Prior cholecystec maría.. Spleen: Spleen is normal in size, with redemonstration of splenic capsular metas tases which have not significantly changed in appearance. Adrenal Glands and Kidneys: Redemonstration of right adrenal gland thickening. L eft adrenal gland is unremarkable. Development of moderate right hydronephrosis, secondary to soft tissue thickening at the region of the mid to distal right ur eter as described below. Pancreas and Retroperitoneum: Pancreas is unremarkable. Development of retroperi toneal soft tissue thickening, measuring 2.9 x 2.2 cm (image 52, series 2). Aorta and Major Vessels: Aortoiliac vessels are normal in caliber with mild calc ific atherosclerosis. Bowel, Mesentery and Peritoneal space: Prior distal colonic resection and reanas tomosis with omentectomy. No evidence of bowel obstruction. Mesenteric metastase s are unchanged, with the dominant cystic mesenteric metastasis measuring 11.7 c m in diameter (image 51, series 2), previously 11.4 cm. Pelvis: Prior hysterectomy, bilateral salpingo-oophorectomy and pelvic lymph nod e dissection. Partially distended urinary bladder is grossly unremarkable. No si gnificant change in size of previously noted right inguinal lymph node (image 65 , series 2). Abdominal wall and Osseous Structures: Diffuse demineralization. No aggressive o sseous lesion. Impression: 1. Development of moderate right hydronephrosis secondary to increas e in size of a soft tissue mass within the retroperitoneum. 2. No evidence of bowel obstruction. Mild mural thickening of the rectum, which may indicate mild proctitis. 3. Progression of hepatic metastases. Grossly unchanged mesenteric, splenic and right inguinal metastases. Dr. Sandoval discussed these findings with Dr. Li by telephone at 5:38 PM on 03/11/2019. Approved by Viktoria Sandoval MD on 03/11/2019 5:49 PM By my electronic signature, I attest that I have personally reviewed the images for this examination and formulated the interpretations and opinions expressed i n this report Finalized by Carlos Clark M.D. on 03/12/2019 8:38 AM. Dictated by Viktoria livingston MD on 03/11/2019 4:40 PM. ASSESSMENT/PLAN: Katty Gold is a 68 y.o. female with the following problems: 1. Transitional cell cancer of the ovary, FIGO stage IIIC, S/P Exploratory lapar otomy, ovarian tumor debulking with omentectomy, diaphragmatic upper abdominal, pelvic, bladder, peritoneal stripping, abdominal hysterectomy, bilateral salping o-oophorectomy, bilateral pelvic lower periaortic lymph node sampling and omente ctomy as well as resection of 2 liver lesions. Low anterior resection with prim leda anastomosis and mobilization of low anterior anastomosis. Mobilization of s plenic flexure.Flexible sigmoidoscopy. Appendectomy.Small bowel resection with primary anastomosis on 10/09/2017 Final stage : Stage IIIC and pathology showed T ransitional Cell adenocarcinoma of the ovary. She is S/P adjuvant treatment wit h IV carbo/taxol. Unfortunately she has evidence of recurrent disease suggestive of pamunkey resistance. She agreed to be on the XL-184: A Phase 1b Dose-Escala tion Study of Cabozantinib (XL184) Administered in Combination with Atezolizumab to Subjects with Locally Advanced or Metastatic Solid Tumors. She received C1D1 of the treatment on 05/27/18. She had surgery in the left hand on 02/28/19. She has been on cabozantinib because of the hand surgery she recently had. This has healed. However, she is found to have progression of the right hydronephrosis. Jolie samaniego will send her to for this. She is also going to be scheduled for a renal sc an. I will continue to hold cabozantinib in anticipation of a possible urologic procedure. We will continue all supportive measures. RTC with CBC and diff and CMP after the evaluation. 2. Right hydroureter/nephrosis: This is related to her underlying disease. I rev iewed her imaging back in 2018 and this has been present with some improvement and then not seen in the CT done in 02/20. As above we will send to for possi ble decompression if renal functio is present. 3. Flank pain in the right: most probably from the urinary obstruction, as above . 4. Vomiting: unclear of etiology but this has resolved. 5. Constipation: better with current regimen. 6. Diarrhea: this improved when cabozantinib was held then worsened with the lax atives taken for recent constipation. Counseled the patient about this. 7. Voice change: this is chronic. The patient and her were allowed to ask questions and these were address ed. They expressed understanding of what was explained to them and they agreed w ith the present plan. Anila Sanchez MD documented in this encounter Miscellaneous Notes * Addendum Note - Jesus Najera RN - 03/17/2019 10:20 AM CDT Addended by: JESUS NAJERA on: 03/17/2019 03:30 PM Modules accepted: Orders documented in this encounter Plan of Treatment Not on filedocumented as of this encounter Visit Diagnoses Diagnosis POS Clinical trial participant - Primary SP Malignant neoplasm of right ovary (HCC) SP Malignant neoplasm of ovary SP Hydronephrosis, unspecified hydronephro sis type SP documented in this encounter
--- OUTSIDE RECORDS SUMMARY | 2019-04-12 08:53 | XMS REPORT | Encounter Summary ---
Author Author [facility] POS Organization [facility] SP Address Unknown SP Phone Unavailable SP Care Team Providers Care Floor Cleaner Name Role Phone POS Christa Ware MD PCP SP Encounter Details Care Team Description POS Date Type Department SP SP Brennan Robbins MD [address] [facility] [address] [place], [place] [id number] SP 03/20/2019 Documentation [facility] SP [address] [facility] [address] [place] [address] SP [phone] SP Social History Date POS Tobacco Use [...] as of this encounter Progress Notes * Silvina Najera RN - 03/20/2019 3:05 PM CDT Records for stent placement requested from [facility]. documented in this encounter Plan of Treatment Not on filedocumented as of this encounter Visit Diagnoses Not on filedocumented in this encounter
--- OUTSIDE RECORDS SUMMARY | 2019-04-12 08:53 | XMS REPORT | Encounter Summary ---
Author Author [facility] POS Organization [facility] SP Address Unknown SP Phone Unavailable SP Care Team Providers Care Associate Professor Of Management Name Role Phone POS Christa Ware MD PCP SP Encounter Details Care Team Description POS Date Type Department SP SP Mateo Cabral MD [address] [facility] [place] [address] [phone] SP 03/24/2019 Documentation [facility] SP [address] [facility] [address] [place] [address] SP [phone] SP Social History Date POS Tobacco Use [...] of this encounter Progress Notes * Silvina Najera, KATHI - 03/24/2019 9:26 AM CDT Report from ureteral stent placement requested from [facility]. documented in this encounter Plan of Treatment Not on filedocumented as of this encounter Visit Diagnoses Not on filedocumented in this encounter
--- OUTSIDE RECORDS SUMMARY | 2019-04-12 08:53 | XMS REPORT | Encounter Summary ---
Author Author [facility] POS Organization [facility] SP Address Unknown SP Phone Unavailable SP Care Team Providers Care Instructor Apparel Manufacture Name Role Phone POS Christa Ware MD PCP SP Reason for Visit * Reason Comments POS Other SP Encounter Details Care Team Description POS Date Type Department SP SP Sanjuanita Davies MD [address] [facility] [place], [place] [phone] Other SP 03/25/2019 Telephone [facility] Cancer [address] [place] [id number] [place], [place] SP [phone] SP Social History Date POS Tobacco Use [...] encounter Miscellaneous Notes * Telephone Encounter - Glenna Murillo, KATHI - 03/25/2019 1:06 PM CDT called Petra Gold to advise that Katty has been scheduled to see Dr Samson gray 03/27/2019 at 12:[address] Petra verbalized understanding and was enco uraged to call with any further questions or concerns. documented in this encounter Plan of Treatment Not on filedocumented as of this encounter Visit Diagnoses Not on filedocumented in this encounter
--- OUTSIDE RECORDS SUMMARY | 2019-04-12 08:53 | XMS REPORT | Encounter Summary ---
Author Author [facility] POS Organization [facility] SP Address Unknown SP Phone Unavailable SP Care Team Providers Care Reshipping Clerk Name Role Phone POS Christa Ware MD PCP SP Encounter Details Care Team Description POS Date Type Department SP SP Melyssa Cummings, FOOD VENDOR-WORKFORCE DEVELOPMENT PROGRAM DIRECTOR [address] [facility] Clinical Research Ctr [address] [place] [address] [phone] SP 03/24/2019 [facility] SP Encounter Cancer Center SP [address] [facility] 2nd [facility] [address] [place] [address] SP [phone] SP Social History Date POS Tobacco Use [...] SP hours as SP needed. SP SP calcium carbonate/vitamin Take 1 tablet [...] as SP needed for SP Diarrhea. SP SP folic Take by 0 SP acid/multivit-min/lutein mouth daily. SP (CENTRUM SILVER PO) SP SP hydrocortisone 1 % Apply 0 SP topical creamIndications: topically to SP pruritus of skin affected area SP twice daily. SP SP ibuprofen (ADVIL) 200 mg Take 400 mg 0 SP tablet by mouth SP every 6 hours SP as needed for SP Pain. Take SP with food. SP 12/04/2018 SP levoFLOXacin (LEVAQUIN) Take one 5 tablet 0 SP 750 mg tablet tablet by SP mouth daily. SP 07/29/2018 SP nitrofurantoin Take one 14 capsule 0 SP monohyd/m-cryst capsule by SP (MACROBID) 100 mg mouth every SP capsuleIndications: 12 hours. SP Bacterial Urinary Tract Take with SP Infection food. SP 05/27/2018 SP ondansetron (ZOFRAN) 8 mg [...] SP Earliest Fill SP Date: 10/15/17 SP SP zolpidem (AMBIEN) 10 mg Take 10 mg by 0 SP tablet mouth at SP bedtime as SP needed for SP Sleep. SP 03/21/2019 04/02/2019 SP (INV) cabozantinib ([facility] Take one 30 tablet 0 SP [id number]) 20 mg tablet by SP tabletIndications: mouth [...] SP hours after a SP meal. SP 03/10/2019 03/31/2019 SP (INV) cabozantinib ([facility] Take one 30 tablet 0 SP [id number]) 20 mg tablet by SP tabletIndications: mouth [...] as of this encounter Progress Notes * Isa Darby, RN - 03/24/2019 11:17 AM CDT Pt to CRC treatment to picker packer new bottle of Cabozantinib. Had been held due to stent placement. New bottles dispensed today in clinic, pt verbalizes understand ing regarding POC. Drug : Dosage was double checked with Silvina Fox RN ,Chemotherapy Certified Nurse, pe r protocol. Dose time: N/A, pt self dosing at home tonight docent coordinator at bedside for additional education/teaching. Yes Verified chemo consent signed and in chart. Yes Verified initiate chemo order in Yes Premedications/Prehydration given as ordered. N/A Arm band verified at bedside with second RN (same RN as above unless otherwise n oted). Yes Labs/applicable tests checked: N/A Chemo drug/dose/route: (INV) cabozantinib ([facility] [id number]) 20 mg tablet [[id number]] Order Details Dose: 20 mg Route: Oral Frequency: DAILY [...] and stated understanding. documented in this encounter Plan of Treatment Not on filedocumented as of this encounter Visit Diagnoses Not on filedocumented in this encounter
--- OUTSIDE RECORDS SUMMARY | 2019-04-12 08:53 | XMS REPORT | Encounter Summary ---
Author Author [facility] POS Organization [facility] SP Address Unknown SP Phone Unavailable SP Care Team Providers Care It Professional Name Role Phone POS Chritsa Ware MD PCP SP Reason for Visit * Reason Comments POS Other SP Encounter Details Care Team Description POS Date Type Department SP SP Mateo Cabral MD [address] [facility] Cancer [place], [place] [phone] Other SP 03/14/2019 Telephone The [facility] Cancer [place] [id number] [place], [place] SP [phone] SP Social History Date POS Tobacco Use [...] of Assessment POS Functional Status Response SP 03/11/2019 SP Does the patient have a hearing impairment: No SP 11/11/2018 SP Does the patient have a visual impairment: No SP 11/11/2018 SP Does the patient have impaired ambulation: No SP 11/11/2018 SP Does the patient have an activity of daily living No SP (ADL) impairment: SP 11/11/2018 SP Does the patient have an instrumental activity of No SP daily living (IADL) impairment: SP Date of Assessment POS Cognitive Status Response SP 11/11/2018 SP Does the patient have a cognitive impairment: No SP documented as of this encounter Miscellaneous Notes * Telephone Encounter - Mateo Jeronimo RN - 03/14/2019 3:28 PM CDT Call, left VM Recent hospitalization due to concerns partial bowel obstruction . Patient was found not to have ileus. However she is still requiring Miralax and ducolax to nancy [facility]. indicates that referral was to be placed by urology and to ca ll this day if hadnt heard anything regarding an appointment . However upon revi ew of chart, it indicates that Patient is to have renal scan for final determina tion If Pateint will requires ureteral stents or nephrostomy tubes. Informed Hus band the case would need to be discussed w/ Marianna . Patient is scheduled w/ Dr Sanchez on Sunday. documented in this encounter Plan of Treatment Not on filedocumented as of this encounter Visit Diagnoses Not on filedocumented in this encounter
--- OUTSIDE RECORDS SUMMARY | 2019-04-12 08:53 | XMS REPORT | Encounter Summary ---
Author Author [facility] POS Organization [facility] SP Address Unknown SP Phone Unavailable SP Care Team Providers Care Art Tracer Name Role Phone POS Christa Ware MD PCP SP Reason for Visit * Reason Comments POS Appointment SP Encounter Details Care Team Description POS Date Type Department SP SP Anila Sanchez MD [address] [facility] [place] [address] Appointment SP 03/18/2019 Telephone [facility] [address] [place] [address] SP [phone] SP Social History Date POS Tobacco Use [...] encounter Miscellaneous Notes * Telephone Encounter - Silvina Najera RN - 03/18/2019 7:50 AM CDT This RN called patient and e-mailed copy of the renal scan ordered to her as req uested. She denied any additional needs at this time. * Telephone Encounter - Silvina Najera RN - 03/18/2019 7:46 AM CDT ----- Message from Katty Gold sent at 03/17/2019 4:25 PM CDT ----- Regarding: Referral Question Contact: I would appreciate a copy of the order for my renal scan to be put in my chart s o I can have it by tomorrow for the procedure. Silvina in office s aid she would send if needed. I cannot get the [facility] to put me through to her and I do not have her direct number. Thank you. Yuriy documented in this encounter Plan of Treatment Not on filedocumented as of this encounter Visit Diagnoses Not on filedocumented in this encounter
--- OUTSIDE RECORDS SUMMARY | 2019-04-12 08:53 | XMS REPORT | Encounter Summary ---
Author Author [facility] POS Organization [facility] SP Address Unknown SP Phone Unavailable SP Care Team Providers Care Pressing Department Supervisor Name Role Phone POS Christa Ware MD PCP SP Reason for Referral * Radiology Services (Routine) Referred By Contact Referred To Contact POS Status Reason Specialty Diagnoses / SP Procedures SP SP Michelle Lehman MD [address] [facility] [address] [place] [address] SP [facility] [address] [address] No Auth Needed Radiology Diagnoses SP Hydronephrosis, SP unspecified SP hydronephrosis SP type SP P SP rocedures SP NM RENAL FUNCTION SP W LASIX SP Encounter Details Care Team Description POS Date Type Department SP SP Morgan Willis MD [address] [place] [address] [phone] Hydronephrosis, unspecified hydronephros is type (Primary Dx) SP 03/11/2019 Orders Only The [facility] SP [address] SP Level 2 Pod [place] [id number] SP [phone] SP Social History Date POS Tobacco Use [...] Type Priority Associated Diag noses SP Expected: 03/18/2019 (Approximate), Expi res: 03/11/2020 SP NM RENAL FUNCTION W LASIX Imaging Routine Hydr onephrosis, SP unspecified SP hydronephrosis type SP documented as of this encounter Visit Diagnoses Diagnosis POS Hydronephrosis, unspecified hydronephro sis type - Primary SP documented in this encounter
--- OUTSIDE RECORDS SUMMARY | 2019-04-12 08:53 | XMS REPORT | Encounter Summary ---
Author Author [facility] POS Organization [facility] SP Address Unknown SP Phone Unavailable SP Care Team Providers Care Missile Control Pilot Name Role Phone POS Christa Ware MD PCP SP Encounter Details Care Team Description POS Date Type Department SP SP Melyssa Cummings, MANAGER OPERATING-DIORAMIST [address] [facility] Clinical Research Ctr [address] [place] [address] [phone] SP 03/26/2019 Orders Only [facility] SP [address] [facility] 2nd [facility] [address] [place] [address] SP [phone] SP Social History Date POS Tobacco Use [...]
--- OUTSIDE RECORDS SUMMARY | 2019-04-12 08:53 | XMS REPORT | Encounter Summary ---
Author Author [facility] POS Organization [facility] SP Address Unknown SP Phone Unavailable SP Care Team Providers Care Shellfish Farming Supervisor Name Role Phone POS Christa Ware MD PCP SP Encounter Details Care Team Description POS Date Type Department SP SP Melyssa Cummings, CONTINUOUS MINING OPERATOR-AQUATICS ASSISTANT DEPARTMENT HEAD [address] [facility] Clinical Research Ctr [address] [place] [address] [phone] SP 03/21/2019 Orders Only [facility] SP [address] [facility] 2nd [facility] [address] [place] [address] SP [phone] SP Social History Date POS Tobacco Use [...]
--- OUTSIDE RECORDS SUMMARY | 2019-04-12 08:53 | XMS REPORT | Encounter Summary ---
Author Author [facility] POS Organization [facility] SP Address Unknown SP Phone Unavailable SP Care Team Providers Care Mechanical Drawing Teacher Name Role Phone POS Christa Ware MD PCP SP Reason for Visit * Reason Comments POS Other SP Encounter Details Care Team Description POS Date Type Department SP SP Sanjuanita Davies MD [address] [facility] Cancer [place], [place] [phone] Other SP 03/25/2019 Telephone [facility] Cancer [place] [address] [place], [place] SP [phone] SP Social History Date POS Tobacco Use [...] encounter Miscellaneous Notes * Telephone Encounter - Denver GlennaKATHI cano - 03/25/2019 9:43 AM CDT Patients called to discuss recent events with the patients health and re quest an appt with Dr Davies as soon as possible. Patient has been on Clinical Trial with Dr Cabral since May and has done well until March 2019 per the . Patients reported the following timeline: 03/05/2019: Patient febrile, constipated with bloating. PCP order CT which show ed an ilius of the small bowel. Patient was told by her PCP that if she starts to experience vomiting, she should go to the ED immediately. 03/11/2019: Patient begins vomiting when she went to the dentist and the chair was reclined. Patient was taken by her to the ED at . 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 Per Dr Cabral's office, patient and her made the decision to have this done at [facility]. 03/20/2019: Patient saw Dr. Neftaly Childs at [facility] and has cystoscopy, renal scan and right ureteral stent placement. Patient felt pain relief after the pr ocedure. 03/21/2019: Patient developed "severe and unrelenting" rectal and anal pain. Dr Childs believes that the mass may be impinging on the sacral nerves. 03/23/2019: Due to the patients pain and the "awful experience" the patient had at [facility] on 03/11/2019, the patients took her to [facility] ED [facility] location where the patient had another CT. This CT showed a 3.6cm m ass anterior to the distal sigmoid colon and rectum. It also showed a rectocele measuring 10-11cm. 03/24/2019: Patient saw Dr Mariano at [facility]. He is concerned about the sacra l mass. He recommended that the patient increase her Miralax that she has been taking for constipation and get in to see Dr Davies as soon as possible with a CT of the anterior and distal sacrum. I will collect outside records. I have called Dr Mariano's office and his office n ote is not completed. I have been asked to call back in a couple of days for th at report. I have spoken with CT and they confirm that the CT C/A/P that will be done am will get the sacrum also. Patient will be scheduled an appt to see Dr Davies on . I have spoken with Dr Cabral's office to advise t hem of my call with patients , and that Dr Davies will be seeing the pat ient on . documented in this encounter Plan of Treatment Not on filedocumented as of this encounter Visit Diagnoses Not on filedocumented in this encounter
--- OUTSIDE RECORDS SUMMARY | 2019-04-12 08:53 | XMS REPORT | Encounter Summary ---
Author Author [facility] POS Organization [facility] SP Address Unknown SP Phone Unavailable SP Care Team Providers Care Surgical Attendant Name Role Phone POS Christa Ware MD PCP SP Reason for Referral * Radiology Services (Routine) Referred By Contact Referred To Contact POS Status Reason Specialty Diagnoses / SP Procedures SP Mateo Adam MD [address] [place] [address] [place] [address] No Auth Needed Radiology Diagnoses SP Examination of SP participant in SP clinical trial SP Malignant neoplasm SP of ovary, SP unspecified SP laterality (HCC) SP P SP rocedures SP CT ABD/PELV W SP CONTRAST SP CHG CT THORAX SP W/CONTRAST SP MATERIAL SP * Radiology Services (Routine) Referred By Contact Referred To Contact POS Status Reason Specialty Diagnoses / SP Procedures SP Mateo Adam MD [address] [place] [address] SP New Request Radiology Diagnoses SP Examination of SP participant in SP clinical trial SP Malignant neoplasm SP of ovary, SP unspecified SP laterality (HCC) SP P SP rocedures SP CT CHEST W SP CONTRAST SP Reason for Visit * Radiology Services (Routine) Referred By Contact Referred To Contact POS Status Reason Specialty Diagnoses / SP Procedures SP Mateo Adam MD [address] [place] [address] [place] [address] No Auth Needed Radiology Diagnoses SP Examination of SP participant in SP clinical trial SP Malignant neoplasm SP of ovary, SP unspecified SP laterality (HCC) SP P SP rocedures SP CT ABD/PELV W SP CONTRAST SP CHG CT THORAX SP W/CONTRAST SP MATERIAL SP Encounter Details Care Team Description POS Date Type Department SP SP Mateo Cabral MD [address] [place] [address] [phone] SP 03/27/2019 [facility] SP Encounter Health System SP [address] SP [address] [place] [address] SP [phone] SP Social History Date POS Tobacco Use [...] tablet tablet by SP mouth daily. SP 03/27/2019 SP [...] Sleep. SP 03/21/2019 04/02/2019 SP (INV) cabozantinib ([facility] Take one 30 tablet 0 SP [id number]) 20 mg tablet by SP tabletIndications: mouth [...] meal. SP 03/10/2019 03/31/2019 SP (INV) cabozantinib ([facility] Take one 30 tablet 0 [id number]) 20 mg tablet by SP tabletIndications: mouth [...] Priority Date/Time Associated Diag nosis SP SP CT ABD/PELV W CONTRAST Routine [...] SP documented in this encounter Results * CT ABD/PELV W CONTRAST (03/27/2019 11:48 AM CDT) Specimen POS Impressions Performed At SP CHEST: [facility] RAD RESULTS SP 1. Marked [...] lungs, greater within the upper lungs. A telephone claims representative right middle lobe nodule measures 1.0 [...] CHEST W CONTRAST (03/27/2019 11:48 AM CDT) Specimen SP Impressions Performed At CHEST: [facility] [...] lungs, greater within the upper lungs. A telephone claims representative right middle lobe nodule measures 1.0 [...] in this encounter Visit Diagnoses Diagnosis POS Examination of participant in clinical trial SP Malignant neoplasm of ovary, unspecifie d laterality (HCC) SP documented in this encounter Administered Medications Action Date Dose Rate Site POS Medication Order MAR Action SP 03/27/2019 11:49 AM CDT 80 mL SP iohexol (OMNIPAQUE-350) 350 mg/mL Given SP injection 80 mL SP 80 mL, Intravenous, ONCE, 1 dose, Tia SP 03/27/19 at 1200, NOTE: This is a HIGH SP ALERT Medication., SP 03/27/2019 11:49 AM CDT 50 mL SP sodium chloride PF 0.9% injection 50 mL Given SP 50 mL, Intravenous, ONCE, 1 dose, Tia SP 03/27/19 at 1200, DO NOT SEND this SP medication unless it is requested. This SP med is usually available in floor SP stock., Intra-procedure (IR) SP documented in this encounter
--- OUTSIDE RECORDS SUMMARY | 2019-04-12 08:53 | XMS REPORT | Encounter Summary ---
Author Author [facility] POS Organization [facility] SP Address Unknown SP Phone Unavailable SP Care Team Providers Care Sharepoint Administrator Name Role Phone POS Christa Ware MD PCP SP Encounter Details Care Team Description POS Date Type Department SP SP Mateo Cabral MD [address] [facility] [place] [address] [phone] SP 03/19/2019 Documentation [facility] SP [address] [facility] [address] [place] [address] SP [phone] SP Social History Date POS Tobacco Use [...] Progress Notes * Silvina Najera RN - 03/19/2019 10:19 AM CDT Copy of renal scan requested from [facility] in [place]. documented in this encounter Plan of Treatment Not on filedocumented as of this encounter Visit Diagnoses Not on filedocumented in this encounter
--- OUTSIDE RECORDS SUMMARY | 2019-04-12 08:53 | XMS REPORT | Encounter Summary ---
Author Author [facility] POS Organization [facility] SP Address Unknown SP Phone Unavailable SP Care Team Providers Care Fuels Sales Representative Name Role Phone POS Christa Ware MD PCP SP Encounter Details Care Team Description POS Date Type Department SP SP Edmundo Martins, PHARMD Clinical trial participant (Primary Dx); SPMalignant neoplasm of ovary, unspecified laterality (HCC) 03/21/2019 Orders Only [facility] SP [address] [facility] [place] [address] SP Social History Date POS Tobacco Use [...]
--- OUTSIDE RECORDS SUMMARY | 2019-04-12 08:53 | XMS REPORT | Encounter Summary ---
Author Author [facility] POS Organization [facility] SP Address Unknown SP Phone Unavailable SP Care Team Providers Care Leaf Size Picker Name Role Phone POS Christa Ware MD PCP SP Encounter Details Care Team Description POS Date Type Department SP SP Mateo Cabral MD [address] [facility] [place] [address] [phone] SP 03/17/2019 Documentation The [facility] SP [address] [facility] [address] [place] [address] SP [phone] SP Social History Date POS Tobacco Use [...] this encounter Miscellaneous Notes * Research - Mac Lipscomb - 03/17/2019 11:03 AM CDT Study Title:A Phase 1b Dose-Escalation Study of Carbozantinib (XL184) Administ ered Alone or in Combination with Atezolizumab to Subjects with Locally Advanced or Metastatic Solid Tumors [[facility]:[id number]] Study ID:[id number] Dose Modification: 02/03/2019 - 02/17/2019: - C13D1 delayed by 1 week to accommodate pt vacation - C13D1 delayed 1 additonal week as pt completed PET scan on 11Feb2019. 02/18/2019 - 03/17/2019: XL184 held due to biopsy of L hand 03/10/2019: XL184 dose reduced to 20mg per PI d/t diarrhea and PPE 03/17/2019: XL184 held pending consult/renal scan due to possible placement o f stent Patient presentsto CRCfor SOC appt Patient seen by treatment nurses Silvina (RN),this SC and Dr. Sanchez. No labs jamila wn today. Dr. Sanchez met with patient and reviewed new/ongoing symptoms. Isak nicole recently presented to ED with complaints of vomiting. CT completed in ED showe d right hydronephrosis. Dr. Sanchez referred pt to and scheduled a renal scan on 03/20/2019. Per PI will continue to hold XL184 due to possible stent placeme nt. No study procedures completed today. IRT:ORACLE Medication Accountability:Patient does not have any medication at this time. Next Imagin wk scans on 03/27/2019 RTC:Next trial appt C15D1 on 03/31/2019 documented in this encounter Plan of Treatment Not on filedocumented as of this encounter Visit Diagnoses Not on filedocumented in this encounter
--- OUTSIDE RECORDS SUMMARY | 2019-04-12 08:53 | XMS REPORT | Encounter Summary ---
Author Author [facility] POS Organization [facility] SP Address Unknown SP Phone Unavailable SP Care Team Providers Care Ground Wirer Name Role Phone POS Christa Ware MD PCP SP Reason for Visit * Reason Comments POS Research SP Encounter Details Care Team Description POS Date Type Department SP SP Mateo Cabral MD [address] [facility] [place] [address] Research SP 03/19/2019 Telephone [facility] [place] SP [address] [place] [address] SP [phone] SP Social History Date POS Tobacco Use [...] Notes * Research - Mac Lipscomb - 03/19/2019 10:07 AM CDT Petra called to provide an update on Katty. Renal scan completed yesterday at [facility] in [place], [place]. Rigoberto nt scheduled for a stent placement on morning of 03/20. Petra expressed his concern that Katty will be taken off of the trial due to no t being seen at . Assured Petra that she would not be removed from the trial d ue to being seen outside of . SC informed him that we will request records fro m [facility] and advised Petra that 10-day washout will be met on 03/30 and her next appt is scheduled for 03/31. May be able to resume cabozantinib on that da te. Petra stated no further questions or concerns. documented in this encounter Plan of Treatment Not on filedocumented as of this encounter Visit Diagnoses Not on filedocumented in this encounter
--- OUTSIDE RECORDS SUMMARY | 2019-04-12 08:53 | XMS REPORT | Encounter Summary ---
Author Author [facility] POS Organization [facility] SP Address Unknown SP Phone Unavailable SP Care Team Providers Care Fire Watcher Name Role Phone POS Christa Ware MD PCP SP Reason for Visit * Reason Comments POS Appointment SP Encounter Details Care Team Description POS Date Type Department SP SP Anila Sanchez MD [address] [facility] [place] [address] Appointment SP 03/17/2019 Telephone [facility] [address] [place] [address] SP [phone] SP Social History Date POS Tobacco Use [...] Miscellaneous Notes * Telephone Encounter - Silvina Najera, RN - 03/17/2019 3:[address] Sanchez notified this RN that patient will get renal lasix scan and see urol ogy closer to home. This RN cancelled referral and renal scan appointment. This RN called patient to ensure she didn't need any orders or referrals from our off ice. She denied any additional needs at this time. documented in this encounter Plan of Treatment Not on filedocumented as of this encounter Visit Diagnoses Not on filedocumented in this encounter
--- OUTSIDE RECORDS SUMMARY | 2019-04-12 08:54 | XMS REPORT | Encounter Summary ---
Author Author [facility] POS Organization [facility] SP Address Unknown SP Phone Unavailable SP Care Team Providers Care Studio Receptionist Name Role Phone POS Christa Ware MD PCP SP Reason for Visit * Reason Comments POS Treatment SP * Treatment (Routine) Referred By Contact Referred To Contact POS Status Reason Specialty Diagnoses / SP Procedures SP SP Mateo Cabral MD [address] [place] [address] SP Mateo Cabral MD [address] [place] [address] Authorized Oncology Diagnoses SP Malignant neoplasm SP of right ovary SP (HCC) SP Clinical trial SP participant SP Malignant neoplasm SP of left ovary SP (HCC) SP P SP rocedures SP (INV) [facility] [id number]; SP [id number]; SP EXPANSION COHORTS SP OR OPTION 1: SP CABOZANTINIB + SP ATEZOLIZUMAB SP Encounter Details Care Team Description POS Date Type Department SP SP Anila Sanchez MD [address] [facility] [place] [address] SP 03/10/2019 [facility] SP Encounter Cancer Center SP [address] [facility] SP 2nd Fl Carlos Enrique [address] [place] [address] SP [phone] SP Social History Date POS Tobacco Use [...] Time Taken Comments POS Vital Sign SP 125/70 03/10/2019 2:19 PM CDT SP Blood Pressure SP 71 03/10/2019 2:19 PM CDT SP Pulse SP 36.8 C (98.3 F) 03/10/2019 2:19 PM CDT SP Temperature SP 16 03/10/2019 2:19 PM CDT SP Respiratory Rate SP 96% 03/10/2019 2:19 PM CDT SP Oxygen Saturation SP - - SP Inhaled Oxygen SP Concentration SP 59.4 kg (130 lb 15.3 oz) 03/10/2019 12:15 PM CDT SP Weight SP - - SP Height SP 21.79 02/06/2019 10:10 AM CDT SP Body Mass Index SP documented in this encounter Functional Status Date of Assessment POS Functional Status Response SP 11/11/2018 SP Does the patient have a hearing [...] as SP needed for SP Sleep. SP 03/10/2019 03/31/2019 SP (INV) cabozantinib (HSC Take one 30 tablet 0 SP [id number]) 20 mg tablet by SP tabletIndications: mouth [...] Progress Notes * Isa Darby, RN - 03/10/2019 12:07 PM CDT CRC TREATMENT DAY Study : XL 184 Cycle and Day : C14D1 Labs : Clinical and correlative labs drawn. UA obtained. Assessment : Assessment documented in doc flowsheet. Fatigue Scale:0 Vital Signs : 03/10/19 1215 SOC, patient resting prior starting at 1207 03/10/19 1419 Within 60 min of Atezolizumab Start Enc Vitals BP 109/66 125/70 Pulse 71 71 Resp 16 16 Temp 36.9 C (98.4 F) 36.8 C (98.3 F) Temp src Oral Oral SpO2 96 % 96 % Correlative Labs & EKG : Correlative labs drawn. Pre dose EKG done by [facility] at 1229. Side Effects : Diarrhea with Cabozantinib, stopped 5 days after stopping Cabozantinib. Additional Notes : Pt to CRC treatment for C14D1 XL 184. Pt arrived ambulatory with spouse. Labs drawn from Right Port. Labs WNL per treatment plan. Pt seen by dinesh Collins to proceed with Atezolizumab. Pt dosed reduced for Cabozantinib to 1, 20 mg tablet daily due to diarrhea. Pt with wound to left fan nd from dermatology, spot removed on hand in February. Due to would still heali ng and stitches removed today prior to treatment, pt to hold Cabozantinib dose u ntil wound reevaluated by Dr. Sanchez next Sunday. Cabozantinib given to pharmac y to hold until appointment on Sunday and pt scheduled with Dr. Sanchez. Pt tolerated infusion well and verbalizes understanding regarding POC. Calendar/AVS : AVS and Calendar given. Patient educated and without questions or concerns. Discharge : Patient left the unit at 1508 without complaints. Drug : Dosage was double checked with Amber Ervin RN ,Chemotherapy Certified Nurse, per protocol. Dose time: N/A, pt holding Cabozantinib per Dr. Sanchez until evaluation of w ound on hand. Pills double checked by this RN and Ambre Ervin RN, pills given ba ck to pharmacy to be held until Sunday. emergency medical services coordinator at bedside for additional education/teaching. N/A Verified chemo consent signed and in chart. Yes Verified initiate chemo order in Yes Premedications/Prehydration given as ordered. N/A Arm band verified at bedside with second RN (same RN as above unless otherwise n oted). Yes Labs/applicable tests checked: Yes Chemo drug/dose/route: (INV) cabozantinib ([facility] [id number]) 20 mg tablet [[id number]] Order Details Dose: 20 mg Route: Oral [...] meal. Patient education offered and stated understanding. Drug : Dosage and BSA was double checked with Amber Ervin RN and agrees with orders as written Verified chemo consent signed and in chart. Blood return positive via: Port (Single) Premedications/Prehydration given as ordered (if applicable). ondansetron (ZOFRAN) tablet 16 mg [[id number]] Ordered Dose: 16 mg Route: Oral Frequency: ONCE Administration Dose: 16 mg Scheduled Start Date/Time: 03/10/19 1400 End Date/Time: 03/11/19 1400 after 1 do ses Diagnosis Association: Clinical trial participant (Z00.6); Malignant neoplasm of ovary, unspecified laterality (HCC) (C56.9) Order Status: Active Arm band verified at bedside with second RN (same RN as above unless otherwise n oted). Lab tests checked (may include other additional protocol parameters): CBC, Compr ehensive Metabolic Panel (CMP) and UA Chemo drug/dose/route: (INV) atezolizumab ([facility] [id number]) 1,200 mg in sodium chlori de 0.9% (NS) 270 mL IVPB [[id number]] Ordered Dose: 1,200 mg Route: Intravenous Frequency: ONCE @ 540 mL/hr over 30 Mi nutes Volume: 270 mL Stability: 6 Hours Scheduled Start Date/Time: 03/10/19 1430 End Date/Time: 03/11/19 1430 after 1 do ses Admin Instructions: INVESTIGATIONAL CYTOTOXIC If first dose was well tolerated, administer over 30 minutes (+/- 10 minutes). Infuse through a 0.2 micron filter. NOTE: This is a HIGH ALERT medication. Rate verified with second RN (same RN as above unless otherwise noted). Patient education offered and stated understanding. documented in this encounter Miscellaneous Notes * Addendum Note - Radha Alarcon - 03/13/2019 2:14 PM CDT Encounter addended by: Radha Alarcon on: 03/13/2019 2:14 PM Actions taken: Charge Capture section accepted documented in this encounter Plan of Treatment Not on filedocumented as of this encounter Procedures Comments POS Procedure Name Priority Date/Time Associated Diag nosis SP SP GGTP Routine 03/10/2019 Clinical trial SP 12:40 PM CDT participant SP Malignant neoplasm of SP ovary, unspecified SP laterality (HCC) SP SP CBC W DIFF [facility] Routine 03/10/2019 Clinical trial SP 12:40 PM CDT participant SP Malignant neoplasm of SP ovary, unspecified SP laterality (HCC) SP SP PHOSPHORUS [facility] Routine 03/10/2019 Clinical trial SP 12:40 PM CDT participant SP Malignant neoplasm of SP ovary, unspecified SP laterality (HCC) SP SP MAGNESIUM [facility] Routine 03/10/2019 Clinical trial SP 12:40 PM CDT participant SP Malignant neoplasm of SP ovary, unspecified SP laterality (HCC) SP SP LIPASE Routine 03/10/2019 Clinical trial SP 12:40 PM CDT participant SP Malignant neoplasm of SP ovary, unspecified SP laterality (HCC) SP SP LDH [facility] Routine 03/10/2019 Clinical trial SP 12:40 PM CDT participant SP Malignant neoplasm of SP ovary, unspecified SP laterality (HCC) SP SP AMYLASE Routine 03/10/2019 Clinical trial SP 12:40 [...] SP documented in this encounter Results * PHOSPHORUS (03/10/2019 12:40 PM CDT) Pathologist POS Signature SP Phosphorus 3.7 2.0 - 4.5 MG/DL [facility] SP Specimen SP Blood SP Performing Organization Address City/[facility] one Number SP [facility] [address] [place], [place] [id number] SP * MAGNESIUM (03/10/2019 12:40 PM CDT) Pathologist SP Signature SP Magnesium 1.9 1.6 - 2.6 mg/dL [facility] SP Specimen SP Blood SP Performing Organization Address City/[facility] Number SP [facility] [address] [place] [address] SP * LIPASE (03/10/2019 12:40 PM CDT) Pathologist SP Signature SP Lipase 33 11 - 82 U/L [facility] SP Specimen SP Blood SP Performing Organization Address City/State/[facility] Ph one Number SP [facility] [address] [place] [address] SP * AMYLASE (03/10/2019 12:40 PM CDT) Pathologist SP Signature SP Amylase 68 24 - 100 U/L [facility] SP Specimen SP Blood SP Performing Organization Address City/State/[facility] Ph one Number SP [facility] [address] [place] [address] SP * LDH-LACTATE DEHYDROGENASE (03/10/2019 12:40 PM CDT) Pathologist SP Signature SP Lactate 168 100 - 210 U/L [facility] SP Dehydrogenase SP Specimen SP Blood SP Performing Organization Address City/[facility] Ph one Number SP [facility] [address] [place] [address] SP * GGTP (03/10/2019 12:40 PM CDT) Pathologist SP Signature SP GGTP 38 9 - 64 U/L [facility] SP Specimen SP Blood SP Performing Organization Address [facility] Ph one Number SP [facility] [address] [place] [address] SP * COMPREHENSIVE METABOLIC PANEL (03/10/2019 12:40 PM CDT) Pathologist SP Signature SP Sodium 137 137 - 147 MMOL/L [facility] SP Potassium 4.0 3.5 - 5.1 MMOL/L [facility] SP Chloride 105 98 - 110 MMOL/L [facility] SP Glucose 100 70 - 100 MG/DL [facility] SP Blood Urea 21 7 - 25 MG/DL [facility] SP Nitrogen SP Creatinine 0.95 0.4 - 1.00 MG/DL [facility] SP Calcium 9.1 8.5 - 10.6 MG/DL [facility] SP Total Protein 6.6 6.0 - 8.0 G/DL [facility] SP Total Bilirubin 0.3 0.3 - 1.2 MG/DL [facility] SP Albumin 3.8 3.5 - 5.0 G/DL [facility] SP Alk Phosphatase 83 25 - 110 U/L [facility] SP AST (SGOT) 25 7 - 40 U/L [facility] SP CO2 23 21 - 30 MMOL/L [facility] SP ALT (SGPT) 22 7 - 56 U/L [facility] SP Anion Gap 9 3 - 12 [facility] SP eGFR Non 59 (L) >60 mL/min [facility] SP Comment: SP [place]ian The eGFR is not validated f or SP use in drug dosing SP adjustments.Continue to SP use SP estimated creatinine SP clearance per dosing reference SP text.Please contact the SP Clinical Pharmacist for SP questions. SP eGFR >60 >60 mL/min [facility] SP [place] Comment: SP The eGFR is not validated for SP use in drug dosing SP adjustments.Continue to SP use SP estimated creatinine SP clearance per dosing reference SP text.Please contact the SP Clinical Pharmacist for SP questions. SP Specimen SP Blood SP Performing Organization Address [facility]/State[facility] SP [facility] [address] [place], [place] [id number] SP * CBC AND DIFF (03/10/2019 12:40 PM CDT) Pathologist SP Signature SP White Blood 5.0 4.5 - 11.0 K/UL [facility] SP Cells SP RBC 3.78 (L) 4.0 - 5.0 M/UL [facility] SP Hemoglobin 12.4 12.0 - 15.0 GM/DL [facility] SP Hematocrit 36.2 36 - 45 % [facility] SP MCV 95.8 80 - 100 FL [facility] SP MCH 32.8 26 - 34 PG [facility] SP MCHC 34.2 32.0 - 36.0 G/DL [facility] SP RDW 15.5 (H) 11 - 15 % [facility] SP Platelet Count 289 150 - 400 K/UL [facility] SP MPV 7.5 7 - 11 FL [facility] SP Neutrophils 62 41 - 77 % [facility] SP Lymphocytes 22 (L) 24 - 44 % [facility] SP Monocytes 7 4 - 12 % [facility] SP Eosinophils 5 0 - 5 % [facility] SP Basophils 4 (H) 0 - 2 % [facility] SP Absolute 3.10 1.8 - 7.0 K/UL [facility] SP Neutrophil SP Count SP Absolute Lymph 1.10 1.0 - 4.8 K/UL [facility] SP Count SP Absolute 0.30 0 - 0.80 K/UL [facility] SP Monocyte Count SP Absolute 0.30 0 - 0.45 K/UL [facility] SP Eosinophil SP Count SP Absolute 0.20 0 - 0.20 K/UL [facility] SP Basophil Count SP Specimen SP Blood SP Performing Organization Address City/State/Zipcode Ph one Number SP [facility] [address] [place], [place] [phone] SP * PROTEIN/CR RATIO,UR RAN (03/10/2019 12:10 PM CDT) Pathologist SP Signature SP Protein, Random 13 MG/DL [facility] SP Creatinine, 94 MG/DL [facility] SP Random SP Protein/CR 0.1 [facility] SP ratio SP Specimen SP Performing Organization Address [facility] Ph one Number SP [facility] [address] [place] [address] SP * URINALYSIS, MICROSCOPIC (03/10/2019 12:10 PM CDT) Pathologist SP Signature SP WBCs,UA 10-20 0 - 2 /HPF [facility] SP RBCs,UA NONE 0 - 3 /HPF [facility] SP Epith Cells,UA 0-2 0 - 2 /HPF [facility] SP MucousUA TRACE [facility] SP Bacteria,UA MANY (A) NEG-NEG [facility] SP Specimen SP Urine - Urine SP Performing Organization Address [facility] Ph one Number SP [facility] [address] [place], [place] [phone] SP * URINALYSIS DIPSTICK (03/10/2019 12:10 PM CDT) Pathologist SP Signature SP Color,UA YELLOW [facility] SP Turbidity,UA 1+ (A) CLEAR-CLEAR [facility] SP Specific 1.015 1.003 - 1.035 [facility] SP Hanson-Urine SP pH,UA 5.5 5.0 - 8.0 [facility] SP Protein,UA NEG NEG-NEG [facility] SP Glucose,UA NEG NEG-NEG [facility] SP Ketones,UA NEG NEG-NEG [facility] SP Bilirubin,UA NEG NEG-NEG [facility] SP Blood,UA NEG NEG-NEG [facility] SP Urobilinogen,UA NORMAL NORM-NORMAL [facility] SP Nitrite,UA POS (A) NEG-NEG [facility] SP Leukocytes,UA TRACE (A) NEG-NEG [facility] SP Specimen SP Urine - Urine SP Performing Organization Address [facility] SP [facility] [address] [place] [address] SP documented in this encounter Visit Diagnoses Diagnosis POS Clinical trial participant - Primary SP Malignant neoplasm of ovary, unspecifie d laterality (HCC) SP documented in this encounter Administered Medications Action Date Dose Rate Site POS Medication Order MAR Action SP 03/10/2019 2:30 PM CDT 1,200 mg 540 mL/hr SP (INV) atezolizumab ([facility] [id number]) 1,200 mg Given - New SP in sodium chloride 0.9% (NS) 270 mL IVPB Bag SP 1,200 mg, Intravenous, 270 mL, SP Administer over 30 Minutes, ONCE, 1 SP dose, Sun03/10/19 at 1430, SP INVESTIGATIONAL CYTOTOXIC If SP first dose was well tolerated, SP administer over 30 minutes (+/- 10 SP minutes). Infuse through a 0.2 micron SP filter. NOTE: This is a HIGH ALERT SP medication., SP 03/10/2019 3:04 PM CDT 500 Units SP heparin lock flush PF syringe 500 Units Given SP 500 Units, Intra-catheter, ONCE, 1 dose , SP Sun03/10/19 at 1400, NOTE: This is a SP HIGH ALERT Medication., SP 03/10/2019 1:57 PM CDT 16 mg SP ondansetron (ZOFRAN) tablet 16 mg Given SP 16 mg, Oral, ONCE, 1 dose, Sun03/10/19 SP at 1400 SP documented in this encounter
--- OUTSIDE RECORDS SUMMARY | 2019-04-12 08:54 | XMS REPORT | Encounter Summary ---
Author Author [facility] POS Organization [facility] SP Address Unknown SP Phone Unavailable SP Care Team Providers Care Bluing Oven Tender Name Role Phone POS Christa Ware MD PCP SP Encounter Details Care Team Description POS Date Type Department SP SP Anila Sanchez MD [address] [facility] [place] [address] SP 03/10/2019 [facility] SP Encounter Cancer Center SP [address] [facility] SP [address]nd Ga [address] En[address] [place] [address] SP [phone] SP Social History Date POS Tobacco Use [...] Date/Time Associated Diag nosis SP SP ECG-SCAN 03/10/2019 SP 12:00 AM CDT SP documented in this encounter Results * ECG-SCAN (03/10/2019 12:00 AM CDT) Narrative Performed At POS This result has an attachment that is n ot available. SP Ordered by an unspecified provider. SP documented in this encounter Visit Diagnoses Not on filedocumented in this encounter
--- OUTSIDE RECORDS SUMMARY | 2019-04-12 08:54 | XMS REPORT | Encounter Summary ---
Author Author [facility] POS Organization [facility] SP Address Unknown SP Phone Unavailable SP Care Team Providers Care Social Sciences Department Chair Name Role Phone POS Christa Ware MD PCP SP Reason for Visit * Reason Comments POS Vomiting x1 day SP Encounter Details Care Team Description POS Date Type Department SP SP Akbar Crews MD [address] [facility] Emergency Dept [place], [place] [phone] SP 03/11/2019 Emergency [facility] SP [address] [place] [address] SP [phone] SP Social History Date POS Tobacco Use [...] Time Taken Comments POS Vital Sign SP 140/70 03/11/2019 11:00 PM CDT SP Blood Pressure SP - - SP Pulse SP 36.8 C (98.2 F) 03/11/2019 1:21 PM CDT SP Temperature SP - - SP Respiratory Rate SP 97% 03/11/2019 11:00 PM CDT SP Oxygen Saturation SP - - SP Inhaled Oxygen SP Concentration SP 59.4 kg (131 lb) 03/11/2019 1:21 PM CDT SP Weight SP - - SP Height SP 21.8 02/06/2019 10:10 AM CDT SP Body Mass [...] as of this encounter Discharge Instructions * Instructions* Carol Li MD - 03/11/2019 You were seen in the emergency department for abdominal pain. You were found to have signs of an obstruction of your right kidney on CT scan due to increase in size of a mass your retroperitoneal space. He was seen by our obstetric gyneco logists who talked to our urologist who agreed that he did not need any interven tion overnight and can follow-up as an outpatient for further management of your symptoms. You should be receiving a call from Dr. Cabral's office in the [facility], however you if you do not hear from them by tomorrow afternoon, please call their office to schedule an appointment for Sunday. Please keep your appointmen t with medical oncology on Sunday. You can continue to take your medications as prescribed. Please continue to keep your bowels regular by using either MiraLAX or a stool softener as desired. Please return to the emergency department if your symptoms worsen or new symptoms develop including, but not limited to, feve r, worsening abdominal pain, blood in your stool, blood in your urine, or intrac table vomiting. If you were given opiates or narcotics during your stay please do not drive or o perate heavy machinery for the next 24 hours due to the effects of these medicat ions. * Attachments The following attachments cannot be sent through Care Everywhere.* Kidney Problems (IRISH) * Pain,Medicine for (IRISH) documented in this encounter Medications at Time [...] (HSC Take one 30 tablet 0 SP [id number]) 20 mg tablet by SP tabletIndications: mouth [...] as of this encounter Progress Notes * Morgan Willis MD - 03/11/2019 10:35 PM CDT Urology Brief Note I was contacted by Floor Broker/Onc team regarding Katty Gold being evaluated in the e mergency department with 2x episodes nausea/emesis. A CT scan was ordered and de monstrated moderate right sided hydronephrosis in setting of progressive abdomin o-pelvic mestastasis with a dominant pelvic met near 12 cm in size. She has had prior demonstration of mild right sided hydronephrosis on multiple CT scans in r ecent past. Luckily, tonight she has no leukocytosis or fevers, her Cr is near baseline at 0 .9 (baseline in records 0.7-1.0). Her urinalysis is also unremarkable. Per GynOnc, patient appears appropriate for discharge, and was tolerating PO samaria llenge. Urology was called for recommendations regarding her R hydronephrosis. A/P: In setting of widespread metastasis and likely progression of disease, there is likely some degree of early right ureteral obstruction, however patient's renal function is stable and there is no indication for urgent intervention. We would like to evaluate the patient's bilateral renal function and drainage wi th an outpatient NM Renal Lasix scan which I will order. Per GynOnc, patient will likely be following up outpatient in near future. After discussing with Dr. Lehman, most appropriate plan would be to perform Abel al scan in next 1-2 weeks prior to next Floor Broker appt. If evidence of obvious uretera l obstruction, Urology can be contacted and outpatient ureteral stent vs nephros maría tube placement can be performed. We will plan to discuss the pro/cons/risks of both of these options with the patient at the time of her outpatient follow up with Floor Broker if necessary. 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 Morgan Willis MD Urology PGY4 field crop harvest contractor Discussed with Dr. Lehman documented in this encounter Consult Notes * Gabrielle Mchugh MD - 03/11/2019 9:19 PM CDT Associated Order(s): CONSULT ACQUISITION PROFESSIONAL PHYSCIAN Floor Broker/Onc History and Physical Chief Complaint: Nausea, vomiting, change in bowel habits History of Present Illness: This is a 68 y.o. 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 Vomiting 2 times today 1st time green 2nd time yellow. No abrupt adbominal pain or cramping. She is concerned about irregular bowel function. She typically has diarrhea but has not had a BM in 2 days. Sun Sat two small BM. No BM Sunday. Presented to OSH 03/05 and scan last Sunday at OSH told that she had ileus. Copy of CT report brought in for review "[id number] stool in the colon w ith mildly prominent loops of small bowel in the left abdomen, thought to be due to ileus. A definite transition point is not seen. Went to [facility] for vacation after this visit. Right inguinal pain from palpable node. CT scan today concerning for moderate hydronephrosis. Patient and partner commen t that this has been present in scans earlier this year performed as part of her clinical trial. She denies dysuria, endorses stable frequency for 1 year. Diagnosis recurrent transitional cell ovarian cancer Prior treatment Ex lap debulking Carbo/taxol cabozantinib and atezolizumab ROS: General-negative Cardiovascular-negative Pulmonary-negative Gastrointestinal-+nausea, +vomiting Genitourinary-negative Musculoskeletal-left hand biopsy not healing well, right inguinal pain Neurologic-negative Endocrine-negative History: Onc Timeline Katty Gold is a 67 y.o. female with recurrent transitional cell ovaria n cancer. REF:Viri Gold MD PCP: Christa Ware MD Floor Broker: Talon Reeves MD MED/ONC: Dr. Cesar Ovarian cancer (HCC) 10/09/2017 Surgery Ex Lap, tumor debulking with omentectomy, diaphragmatic upper abdominal, p elvic, bladder, peritoneal stripping, abdominal hysterectomy, BSO, bilat P and l ower PALND and resection of 2 liver lesions. Lower anterior resection of bowel with primary anastomosis. Surgeons Dr. Hakeem Davies and Zelalem Carranza. 10/09/2017 Pathology Transitional cell carcinoma involving anterior liver lesion, diaphragmatic tumor, falciform ligament and liver tumor, omentum, L ovary and fallopian tube, R fallopian tube, R ovary with superficial/serosal involvement, uterine serosa, colonic/rectal serosa, R diaphragm peritoneum. 0/31 LN involved. Tumor cells a re positive for PAX-8, ALESIA-3 and CAM5.2, partially positive for TERESA, CK7 and p6 3, and negative for WT-1, inhibin, calretinin, [place]-1, ER, HI, synaptophysin and chromogranin. A p53 stain demonstrates focal and weak nuclear staining. A Ki-67 stain demonstrates a proliferation index of approximately 40%. 10/30/2017 Other CANCER CONFERENCE: Recommend Carbo/Taxol chemotherapy x 6 cycles. 11/19/2017 - 03/04/2018 Chemotherapy Carbo Taxol x [address] Cesar 03/22/2018 Imaging PET with carcinomatosis 03/28/[address] Davies, althoughshe was optimally cytoreduced, it did require e xtensive surgery; in addition, transitional cell tumors may be less sensitive to standard therapy and despitethe normalization of the CA125, with the uptake on PET and the increased size of the lesion on CT, this wasmost reflective of p latinum resistant/refractory disease. As such, surgical exploration and removal of the perisplenic disease, should have no impact on OS, PFS, and wouldonlyd elay initiation of cytotoxic therapy. The patient was referred to for possible e catarino phase trial. 05/27/2018 - Chemotherapy Enrolled in XL-184: a phase I trial of combination of cabozantinib and ate zolizumab, C1 05/27/18 09/30/2018 Pertinent Labs Tumor genetics sent - KRAS 94% mutational change, GI5Iuvv >50%, tp53 + 01/[address] with concern for progression, PET with essentially stable disease, deci gera to continue with trial Target lesions Left hemidiaphragm lesion 15mm --> 14mm --> 11 --> 9 --> 8mm Lateral hepatic lesion 17mm --> 19mm --> 22 mm --> 24 mm -- > 23 mm --> 24 mm Post splenic lesion 32mm -->26mm --> 26 --> 21mm Non target lesions Left pelvic nodule - present Right inguinal node - present Medical History: Diagnosis Date Breast cancer (HCC) Right Hx of radiation therapy 1999 Ovarian cancer (HCC) 10/09/2017 stage IIIC transitional cell carcinoma of the ovary. Surgical History: Procedure Laterality Date COLONOSCOPY 09/27/2017 benign polypectomy without malignancy TUMOR DEBULKING Bilateral 10/09/2017 EXPLORATORY LAPAROTOMY, TOTAL ABDOMINAL HYSTERECTOMY, BILATERAL SALPINGO-OOPHOR ECTOMY, OVARIAN CANCER TUMOR DEBULKING, OMENTECTOMY, PELVIC LYMPH NODE DISSECTIO N, APPENDECTOMY, COLON RESECTION, DIAPHRAGMATIC STRIPPING, MOBILIZATION OF SPLEN IC FLEXURE AND FLEX SIGMOID, RESECTION OF LIVER LESION performed by Mauro Davies MD at [facility] OR/Periop RECTAL SURGERY Left 10/09/2017 RESECTION SIGMOID COLON, COLONOSCOPY performed by Tim Chung MD at [facility] OR/Periop SECTION HX BREAST BIOPSY HX BREAST LUMPECTOMY followed by radiation therapy. HX CHOLECYSTECTOMY HX TUBAL LIGATION Bilateral Social History Socioeconomic History Marital status: Spouse [...] Social History Narrative Not on file Family History Problem Relation Age of Onset Cancer Paternal Aunt Cancer-Lung Paternal Uncle Physical Exam: Blood pressure 136/65, temperature 36.8 C (98.2 F), weight 59.4 kg (131 lb), last menstrual period 09/24/1997, SpO2 92 %. General - No acute distress, walking around the room eating a sandwich Cardiovascular - Regular rate and rhythm Pulmonary - Clear to auscultation bilaterally Abdomen - non-distended, well healed midline and RUQ incision, non tender to pal pation, discomfort with deep palpation over mass in lower abdomen, no rebound, n o guarding, no rigidity, bowel sounds present Extremities - no bilateral lower extremity edema, palpable tender right inguinal node, left hand with bandage over dorsum : deferred Medications - prn ondansetron (ZOFRAN) IV Once PRN Medications- scheduled Allergies- Allergies as of 03/11/2019 (No Known Allergies) Labs - Results for orders placed or performed during the hospital encounter of 03/11/19 (from the past 24 hour(s)) CBC AND DIFF Collection Time: 03/11/19 1:30 PM # # Low-High White Blood Cells 7.6 4.5 - 11.0 K/UL RBC 4.30 4.0 - 5.0 M/UL Hemoglobin 14.1 12.0 - 15.0 GM/DL Hematocrit 42.1 36 - 45 % MCV 98.0 80 - 100 FL MCH 32.8 26 - 34 PG MCHC 33.5 32.0 - 36.0 G/DL RDW 16.0 (H) 11 - 15 % Platelet Count 359 150 - 400 K/UL MPV 7.1 7 - 11 FL Neutrophils 81 (H) 41 - 77 % Lymphocytes 10 (L) 24 - 44 % Monocytes 6 4 - 12 % Eosinophils 2 0 - 5 % Basophils 1 0 - 2 % Absolute Neutrophil Count 6.20 1.8 - 7.0 K/UL Absolute Lymph Count 0.80 (L) 1.0 - 4.8 K/UL Absolute Monocyte Count 0.50 0 - 0.80 K/UL Absolute Eosinophil Count 0.10 0 - 0.45 K/UL Absolute Basophil Count 0.00 0 - 0.20 K/UL COMPREHENSIVE METABOLIC PANEL Collection Time: 03/11/19 1:30 PM # # Low-High Sodium 140 137 - 147 MMOL/L Potassium 4.1 3.5 - 5.1 MMOL/L Chloride 105 98 - 110 MMOL/L Glucose 118 (H) 70 - 100 MG/DL Blood Urea Nitrogen 21 7 - 25 MG/DL Creatinine 0.95 0.4 - 1.00 MG/DL Calcium 10.0 8.5 - 10.6 MG/DL Total Protein 8.0 6.0 - 8.0 G/DL Total Bilirubin 0.4 0.3 - 1.2 MG/DL Albumin 4.3 3.5 - 5.0 G/DL Alk Phosphatase 87 25 - 110 U/L AST (SGOT) 41 (H) 7 - 40 U/L CO2 25 21 - 30 MMOL/L ALT (SGPT) 32 7 - 56 U/L Anion Gap 10 3 - 12 eGFR Non 59 (L) >60 mL/min eGFR >60 >60 mL/min LIPASE Collection Time: 03/11/19 1:30 PM # # Low-High Lipase 38 11 - 82 U/L URINALYSIS DIPSTICK Collection Time: 03/11/19 1:30 PM # # Low-High Color,UA YELLOW Turbidity,UA CLEAR CLEAR-CLEAR Specific [place]-Urine 1.014 1.003 - 1.035 pH,UA 6.0 5.0 - 8.0 Protein,UA NEG NEG-NEG Glucose,UA NEG NEG-NEG Ketones,UA TRACE (A) NEG-NEG Bilirubin,UA NEG NEG-NEG Blood,UA NEG NEG-NEG Urobilinogen,UA NORMAL NORM-NORMAL Nitrite,UA NEG NEG-NEG Leukocytes,UA NEG NEG-NEG Urine Ascorbic Acid, UA NEG NEG-NEG Radiology- CT ABD/PELV W CONTRAST Preliminary Result 1. Development of moderate right hydronephrosis secondary to increase in size of a soft tissue mass within the retroperitoneum. 2. No evidence of bowel obstruction. Mild mural thickening of the rectum, which may be reflective of mild proctitis. 3. Progression of hepatic metastases. Grossly unchanged mesenteric, splenic and right inguinal metastases. Dr. Sandoval discussed these findings with Dr. Li by telephone at 5:38 PM on 03/11/2019. Approved by Viktoria Sandoval MD on 03/11/2019 5:49 PM Assessment: Patient Active Problem List Diagnosis Date Noted Clinical trial participant 05/24/2018 Hypotension 10/10/2017 Tobacco abuse 10/09/2017 Ovarian cancer (HCC) 09/24/2017 68 y.o. female with recurrent Stage IIIC transitional cell carcinoma of the ovar y who presents with nausea vomiting whose workup is not consistent with ileus or bowel obstruction. Worsening hydronephrosis identified on scan with slight bump in SCr but does not require immediate urologic intervention. Plan: 1. CV: mild HTN, pulse normal 2. Pulm: no acute issues 3. GI: Nausea vomiting -CT neg for obstruction, outside scan 6 days prior was concerning for ileus whic h may occur intermittently but is not present at this time -Abdominal exam is benign and not clinically consistent with ileus or obstructio n, non distended, bowel sounds present -Mild increase in AST/ALT - presence of liver mets on CT today, progression of h epatic metastases. Grossly unchanged mesenteric, splenic and right inguinal metastases. -Mild mural thickening of the rectum which may be reflective of mild proctitis n oted, bowel function as above -recommend bowel regimen with Miralax in setting of no BM x2 days -patient reports she has antiemetics at home 4. : -Moderate right hydronephrosis September CT "persistent mild right hydro" December "resolution of mild right hydronephrosis" February CT "no hydronephrosis bilateral" Today "moderate" -Cr today 0.95. Baseline has been 0.70s-0.90s -Discussed care with urology, given only mild increase in SCr which she has had SCr that high in the past no immediate surgical intervention -Plan for outpatient lasix scan with repeat SCr in 1 week. -Patient desires scan at time of her Med Onc appt Sunday if feasible. -Floor Broker Onc will coordinate follow up with Dr. Cabral next week, potential interven tion could be reviewed at this appointment and dicussed with urology -Precautions reviewed with patient including subjective decrease in UOP or new f lank pain 5. MS: ambulating 6. FEN: regular diet 7. Heme: Hgb 14.1, plts 359 8. Pain: well controlled on oral pain meds 9. ID: WBC 7.6, no si/sx infx 10. Neuro/psych: no acute issues 11. Endo: no acute issues 13. Discussed with Dr. Dubon 14. Disposition: appropraite for dischagre and outpatient follow up Gabrielle Mchugh MD Obstetrics and Gynecology PGY3 Please page dry drug worker/onc at [phone] with any questions. Associated attestation - Katie Dubon MD - 03/12/2019 7:56 PM CDT I discussed case with the resident and concur with documentation of history, phy sical exam, assessment, and treatment plan, unless otherwise noted. Katie Dubon MD, FACOG, FACS Professor, Gynecologic Oncology [phone] documented in this encounter ED Notes * Korin Rosario, KATHI - 03/11/2019 11:23 PM CDT Pt given discharge instructions and allowed time for questions. Pt signed paperw ork and discharged with all belongings in possession. IV Removed without complications. * Akbar Crews MD - 03/11/2019 2:19 PM CDT Katty Gold is a 68 y.o. female. Chief Complaint: Chief Complaint Patient presents with Vomiting x1 day History of Present Illness: Katty Gold is a 68 y.o. female with a pmh of metastatic ovarian cancer on chemo presenting today for abdominal pain and vomiting since this afternoon. P atient states that she received her infusion of atezolizumab yesterday without c omplication. She started having vomiting today around 1130 with the last episod e at 1230. Vomit was nonbloody and appeared bilious. She is also supposed to b e on cabozantinib but has not taken it for the last 3 weeks due to a wound on he r hand that is healing. She went to a clinic 4 days ago for right lower quadran t abdominal pain that has been going on for the last [address] had a CT sca n which not show any cause for her pain. Says the pain has been persistent and is not getting better with ibuprofen, which is usually when she uses to treat he r pain. Denies fever, chills, chest pain, shortness of breath, or diarrhea. Melisa jones BM was on 03/09 and she has been passing minimal gas since then. When she was discharged from clinic, they said to return to emergency department if she had any vomiting due to concerns for SBO. History provided by: Patient and medical records flower machine operator used: No Review of Systems: Review of Systems Constitutional: Negative for chills and fever. HENT: Negative for rhinorrhea. Eyes: Negative for visual disturbance. Respiratory: Negative for cough, chest tightness and shortness of breath. Cardiovascular: Negative for chest pain. Gastrointestinal: Positive for abdominal pain, nausea and vomiting. Negative for diarrhea. Mass in R groin, persistent Genitourinary: Negative for difficulty urinating, dysuria and hematuria. Skin: Negative for rash. Neurological: Negative for dizziness, weakness, numbness and headaches. Psychiatric/Behavioral: Negative for agitation, behavioral problems and confusio n. Allergies: Patient has no known allergies. Past Medical History: Medical History: Diagnosis Date [...] by Mauro Davies MD at [facility] OR/Periop RECTAL SURGERY Left 10/09/2017 RESECTION SIGMOID COLON, COLONOSCOPY performed by Tim Chung MD at [facility] OR/Periop SECTION HX BREAST BIOPSY HX BREAST LUMPECTOMY followed by radiation therapy. HX CHOLECYSTECTOMY HX TUBAL LIGATION Bilateral Pertinent medical/surgical history reviewed Social History: Social History Tobacco Use Smoking status: Current Every Day Smoker Packs/day: 0.50 Years: 45.00 Pack years: 22.50 Types: Cigarettes Smokeless tobacco: Never Used Substance Use Topics Alcohol use: Yes Comment: occasional Drug use: No Social History Substance and Sexual Activity Drug Use No Family History: Family History Problem Relation Age of Onset Cancer Paternal Aunt Cancer-Lung Paternal Uncle Vitals: ED Vitals Date and Time T BP P RR SPO2P SPO2 User 03/11/19 2300 -- 140/70 -- -- 88 97 % SP 03/11/19 1830 -- 136/65 -- -- 96 92 % BF 03/11/19 1730 -- 152/77 -- -- 80 95 % NW 03/11/19 1700 -- 145/79 -- -- 76 95 % BF 03/11/19 1652 -- -- -- -- 80 98 % NW 03/11/19 1651 -- 151/78 -- -- 84 97 % NW 03/11/19 1542 -- -- -- -- 73 95 % NW 03/11/19 1541 -- 149/80 -- -- -- -- NW 03/11/19 1530 -- 163/73 -- -- 67 97 % BF 03/11/19 1330 -- 166/70 -- -- 74 97 % BF 03/11/19 1321 36.8 C (98.2 F) 155/71 -- 16 PER MINUTE 72 97 % SR Physical Exam: Physical Exam Constitutional: She appears well-developed and well-nourished. No distress. HENT: Head: Normocephalic and atraumatic. Eyes: Conjunctivae and EOM are normal. Right eye exhibits no discharge. Left eye exhibits no discharge. Neck: Normal range of motion. Cardiovascular: Normal rate, regular rhythm, normal heart sounds and intact dist al pulses. Exam reveals no gallop and no friction rub. No murmur heard. Pulmonary/Chest: Effort normal and breath sounds normal. No respiratory distress . She has no wheezes. She has no rales. Abdominal: Soft. Bowel sounds are normal. She exhibits no distension and no mass . There is tenderness in the right lower quadrant, suprapubic area and left lowe r quadrant. There is no guarding. Musculoskeletal: She exhibits no edema or deformity. Neurological: She is alert. Skin: Skin is warm and dry. Capillary refill takes less than 2 seconds. No rash noted. She is not diaphoretic. No erythema. Psychiatric: She has a normal mood and affect. Her behavior is normal. Judgment and thought content normal. Nursing note and vitals reviewed. Laboratory Results: Labs Reviewed CBC AND DIFF - Abnormal Result Value Ref Range Status White Blood Cells 7.6 4.5 - 11.0 K/UL Final RBC 4.30 4.0 - 5.0 M/UL Final Hemoglobin 14.1 12.0 - 15.0 GM/DL Final Hematocrit 42.1 36 - 45 % Final MCV 98.0 80 - 100 FL Final MCH 32.8 26 - 34 PG Final MCHC 33.5 32.0 - 36.0 G/DL Final RDW 16.0 (*) 11 - 15 % Final Platelet Count 359 150 - 400 K/UL Final MPV 7.1 7 - 11 FL Final Neutrophils 81 (*) 41 - 77 % Final Lymphocytes 10 (*) 24 - 44 % Final Monocytes 6 4 - 12 % Final Eosinophils 2 0 - 5 % Final Basophils 1 0 - 2 % Final Absolute Neutrophil Count 6.20 1.8 - 7.0 K/UL Final Absolute Lymph Count 0.80 (*) 1.0 - 4.8 K/UL Final Absolute Monocyte Count 0.50 0 - 0.80 K/UL Final Absolute Eosinophil Count 0.10 0 - 0.45 K/UL Final Absolute Basophil Count 0.00 0 - 0.20 K/UL Final COMPREHENSIVE METABOLIC PANEL - Abnormal Sodium 140 137 - 147 MMOL/L Final Potassium 4.1 3.5 - 5.1 MMOL/L Final Chloride 105 98 - 110 MMOL/L Final Glucose 118 (*) 70 - 100 MG/DL Final Blood Urea Nitrogen 21 7 - 25 MG/DL Final Creatinine 0.95 0.4 - 1.00 MG/DL Final Calcium 10.0 8.5 - 10.6 MG/DL Final Total Protein 8.0 6.0 - 8.0 G/DL Final Total Bilirubin 0.4 0.3 - 1.2 MG/DL Final Albumin 4.3 3.5 - 5.0 G/DL Final Alk Phosphatase 87 25 - 110 U/L Final AST (SGOT) 41 (*) 7 - 40 U/L Final CO2 25 21 - 30 MMOL/L Final ALT (SGPT) 32 7 - 56 U/L Final Anion Gap 10 3 - 12 Final eGFR Non 59 (*) >60 mL/min Final eGFR >60 >60 mL/min Final URINALYSIS DIPSTICK - Abnormal Color,UA YELLOW Final Turbidity,UA CLEAR CLEAR-CLEAR Final Specific [place]-Urine 1.014 1.003 - 1.035 Final pH,UA 6.0 5.0 - 8.0 Final Protein,UA NEG NEG-NEG Final Glucose,UA NEG NEG-NEG Final Ketones,UA TRACE (*) NEG-NEG Final Bilirubin,UA NEG NEG-NEG Final Blood,UA NEG NEG-NEG Final Urobilinogen,UA NORMAL NORM-NORMAL Final Nitrite,UA NEG NEG-NEG Final Leukocytes,UA NEG NEG-NEG Final Urine Ascorbic Acid, UA NEG NEG-NEG Final LIPASE Lipase 38 11 - 82 U/L Final Radiology Interpretation: CT ABD/PELV W CONTRAST Final Result 1. Development of moderate right hydronephrosis secondary [...] Viktoria livingston MD on 03/11/2019 4:40 PM. EKG: Rate: 71 Rhythm: sinus [place]: left HI: 140 QRS: 72 QTc: 435 Impression: sinus rhythm without STEMI morphology similar to previous ED Course: Katty Gold is a 68 y.o. female with a pmh of metastatic ovarian cancer on chemo presenting today for abdominal pain and vomiting since this afternoon. -vitals reviewed, stable -Differential includes, but is not limited to, SBO, constipation, cancer pain, U TI, other infection -Ordered CBC, CMP, UA, lipase, CT abdomen/pelvis, EKG -Labs grossly unremarkable, UA not indicative of a UTI. -Imaging as above, concerning for newly developed moderate right hydronephrosis most likely secondary to increased growth and retroperitoneal mass. Consulted G yn/onc for input as to necessary interventions. Please see consult note for fur ther details. Talked to urology who did not recommend acute intervention at [facility] s time given patient's normal creatinine. Will [...] stable condition with strict return precautions given . 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 Facility Administered Meds: Medications fentaNYL citrate PF (SUBLIMAZE) injection 50 mcg (50 mcg Intravenous Given 1541) lactated ringers infusion (0 mL Intravenous Infusion Stopped 03/11/191914) iohexol (OMNIPAQUE-350) 350 mg/mL injection 75 mL (75 mL Intravenous Given 1645) sodium chloride PF 0.9% injection 50 mL (50 mL Intravenous Given 03/11/19 1645) fentaNYL citrate PF (SUBLIMAZE) injection 50 mcg (50 mcg Intravenous Given 1900) acetaminophen (TYLENOL) tablet 650 mg (650 mg Oral Given 03/11/19 2319) Clinical Impression: Clinical Impression Right lower quadrant abdominal pain Hydronephrosis, unspecified hydronephrosis type Disposition/Follow up ED Disposition ED Disposition Discharge Mateo Cabral MD [address] [facility] [address] In 3 days Medications: Discharge Medication List as of 03/11/2019 11:10 PM Procedure Notes: Procedures Attestation / Supervision: Carol Li MD Attestation / Supervision Note concerning Katty Gold: I personally perfor med the che portions of the E/M visit, discussed case with resident and concur w [facility] resident documentation of history, physical exam, assessment, and treatment plan unless otherwise noted. Akbar Crews MD * Matilda Shah RN - 03/11/2019 1:35 PM CDT Katty is a 68 y/o female who presents to the ER with CC of vomiting. She report s vomiting twice today and was told to go the ER if she vomits d/t recent dx of an ovarian cyst. Denies blood in her emesis. Describes as yellow bile. Reports 7 /10 RLQ abdominal pain x 1 week. Also reporting diarrhea and fevers. Afebrile at this time. Pt placed on ED monitor. Airway is patent. Lungs CTA. Heart NSR. Pt is PWD. NAD noted. Pt is alert and oriented*4. Pt ambulatory with steady gait. at be dside. Pt Belongings: Clothing: black shirt, pants, undergarments, shoes, bra MISC: phone, black purse Belongings placed in bag at bedside or are with pt. 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 documented in this encounter Plan of Treatment Not on filedocumented as of this encounter Procedures Comments POS Procedure Name Priority Date/Time Associated Diag nosis SP SP CT ABD/PELV W CONTRAST STAT 03/11/2019 SP 4:38 PM CDT SP SP HC URINALYSIS DIPSTICK STAT 03/11/2019 SP 1:30 PM CDT SP SP HC CBC W/ AUTOMATED DIFF STAT 03/11/2019 SP 1:30 PM CDT SP SP HC LIPASE STAT 03/11/2019 SP 1:30 PM CDT SP SP HC COMPREHENSIVE STAT 03/11/2019 SP METABOLIC PANEL 1:30 PM CDT SP documented in this encounter Results * CT ABD/PELV W CONTRAST (03/11/2019 4:38 PM CDT) Specimen POS Impressions Performed At SP 1. Development of moderate right hydron ephrosis secondary to increase in size SP [facility] SP a soft tissue mass within the retroperi toneum. SP 2. No evidence of bowel obstruction. Mi ld mural thickening of the rectum, which SP may indicate mild proctitis. SP 3. Progression of hepatic metastases. G rossly unchanged mesenteric, splenic and SP right inguinal metastases. SP Dr. Sandoval discussed these findings with Dr. Li by telephone at 5:38 PM SP 03/11/2019. SP Approved by Viktoria Sandoval MD on 03/11 5:49 PM SP By my electronic signature, I attest th at I have personally reviewed the images SP for this examination and formulated the interpretations and opinions expressed SP in this report SP Finalized by Carlos Clark M.D. on 03/12/2019 8:38 AM. Dictated by Viktoria Sandoval MD on 03/11/2019 4:40 PM. SP Narrative Performed At CT ABDOMEN AND PELVIS [facility] SP Clinical Indication:Female, 68 year s old. Abdominal pain. Concern for small SP bowel obstruction. History of breast an d ovarian cancer. SP Technique:Multiple contiguous axial images were obtained through the SP and pelvis following the administration of IV contrast material. Post SP coronal and sagittal reconstruction talib ges were made from the axial images. SP IV contrast: Omnipaque-350 SP Bowel contrast:None SP Comparison: CT abdomen and pelvis from 02/06/2019. SP FINDINGS: SP Lower Thorax: Partially visualized hear t is normal in size. No significant SP change tiny pulmonary nodules within th e lung bases. SP Liver and Biliary system: Liver is norm al in size, with progression of hepatic SP metastases; for example, a segment 7 le gera measures 1.7 cm (image 12, series SP 2), compared to 0.9 cm previously. Karla r portal veins are patent. Prior SP cholecystectomy.. SP Spleen: Spleen is normal in size, with redemonstration of splenic capsular SP metastases which have not significantly changed in appearance. SP Adrenal Glands and Kidneys: Redemonstra tion of right adrenal gland thickening. SP Left adrenal gland is unremarkable. Dev elopment of moderate right SP hydronephrosis, secondary to soft tissu e thickening at the region of the mid to SP distal right ureter as described below. SP Pancreas and Retroperitoneum: Pancreas is unremarkable. Development of SP retroperitoneal soft tissue thickening, measuring 2.9 x 2.2 cm (image 52, SP 2). SP Aorta and Major Vessels: Aortoiliac ves sels are normal in caliber with mild SP calcific atherosclerosis. SP Bowel, Mesentery and Peritoneal space: Prior distal colonic resection and SP reanastomosis with omentectomy. No evid ence of bowel obstruction. Mesenteric SP metastases are unchanged, with the marcy nant cystic mesenteric metastasis SP measuring 11.7 cm in diameter (image 51 , series 2), previously 11.4 cm. SP Pelvis: Prior hysterectomy, bilateral s alpingo-oophorectomy and pelvic lymph SP node dissection. Partially distended ur inary bladder is grossly unremarkable. SP significant change in size of previousl y noted right inguinal lymph node (image SP 65, series 2). SP Abdominal wall and Osseous Structures: Diffuse demineralization. No aggressive SP osseous lesion. SP Procedure Note POS SP Interface, Radiant Results - 03/12/2019 8:[address] ABDOMEN AND PELVIS Clinical Indication: Female, 68 years old. Abdominal pain. Concern for small bowel obstruction. History of breast and ovarian cancer. Technique: Multiple contiguous axial images were obtained through the abdomen and pelvis following the administration of IV contrast material. Post processing coronal and sagittal reconstruction images were made from the axial images. IV contrast: Omnipaque-350 Bowel contrast: None Comparison: CT abdomen and pelvis from 02/06/2019. FINDINGS: Lower Thorax: Partially visualized heart is normal in size. No significant change tiny pulmonary nodules within the lung bases. Liver and Biliary system: Liver is normal in size, with progression of hepatic metastases; for example, a segment 7 lesion measures 1.7 cm (image 12, series 2), compared to 0.9 cm previously. Major portal veins are patent. Prior cholecystectomy.. Spleen: Spleen is normal in size, with redemonstration of splenic capsular metastases which have not significantly changed in appearance. Adrenal Glands and Kidneys: Redemonstration of right adrenal gland thickening. Left adrenal gland is unremarkable. Development of moderate right hydronephrosis, secondary to soft tissue thickening at the region of the mid to distal right ureter as described below. Pancreas and Retroperitoneum: Pancreas is unremarkable. Development of retroperitoneal soft tissue thickening, measuring 2.9 x 2.2 cm (image 52, series 2). Aorta and Major Vessels: Aortoiliac vessels are normal in caliber with mild calcific atherosclerosis. Bowel, Mesentery and Peritoneal space: Prior distal colonic resection and reanastomosis with omentectomy. No evidence of bowel obstruction. Mesenteric metastases are unchanged, with the dominant cystic mesenteric metastasis measuring 11.7 cm in diameter (image 51, series 2), previously 11.4 cm. Pelvis: Prior hysterectomy, bilateral salpingo-oophorectomy and pelvic lymph node dissection. Partially distended urinary bladder is grossly unremarkable. No significant change in size of previously noted right inguinal lymph node (image 65, series 2). Abdominal wall and Osseous Structures: Diffuse demineralization. No aggressive osseous lesion. IMPRESSION 1. Development of moderate right hydrone phrosis secondary to increase in size of SPa soft tissue mass within the retroperitoneum. 2. No evidence of bowel obstruction. Mil d mural thickening of the rectum, which SP indicate mild proctitis. 3. Progression of hepatic metastases. Gr ossly unchanged mesenteric, splenic and SP inguinal metastases. Dr. Sandoval discussed these findings with Dr. Li by telephone at 5:38 PM on 03/11/2019. Approved by Viktoria Sandoval MD on 03/11/2019 5:49 PM By my electronic signature, I attest that I have personally reviewed the images for this examination and formulated the interpretations and opinions expressed in this report Finalized by Carlos Clark M.D. on 03/12/2019 8:38 AM. Dictated by Viktoria Sandoval MD on 03/11/2019 4:40 PM. Performing Organization Address [facility] Ph one Number SP [facility] SP * URINALYSIS DIPSTICK (03/11/2019 1:30 PM CDT) Pathologist SP Signature SP Color,UA YELLOW [facility] SP Turbidity,UA CLEAR CLEAR-CLEAR [facility] SP Specific 1.014 1.003 - 1.035 [facility] SP [place]-Urine SP pH,UA 6.0 5.0 - 8.0 [facility] SP Protein,UA NEG NEG-NEG [facility] SP Glucose,UA NEG NEG-NEG [facility] SP Ketones,UA TRACE (A) NEG-NEG [facility] SP Bilirubin,UA NEG NEG-NEG [facility] SP Blood,UA NEG NEG-NEG [facility] SP Urobilinogen,UA NORMAL NORM-NORMAL [facility] SP Nitrite,UA NEG NEG-NEG [facility] SP Leukocytes,UA NEG NEG-NEG [facility] SP Urine Ascorbic NEG NEG-NEG [facility] SP Acid, UA SP Specimen SP Urine - Urine SP Performing Organization Address [facility] Ph one Number SP [facility] [address] [place] [address] SP * LIPASE (03/11/2019 1:30 PM CDT) Pathologist SP Signature SP Lipase 38 11 - 82 U/L [facility] SP Specimen SP Blood SP Performing Organization Address [facility] Ph one Number SP [facility] [address] [place] [address] SP * COMPREHENSIVE METABOLIC PANEL (03/11/2019 1:30 PM CDT) Pathologist SP Signature SP Sodium 140 137 - 147 MMOL/L [facility] SP Potassium 4.1 3.5 - 5.1 MMOL/L [facility] SP Chloride 105 98 - 110 MMOL/L [facility] SP Glucose 118 (H) 70 - 100 MG/DL [facility] SP Blood Urea 21 7 - 25 MG/DL [facility] SP Nitrogen SP Creatinine 0.95 0.4 - 1.00 MG/DL [facility] SP Calcium 10.0 8.5 - 10.6 MG/DL [facility] SP Total Protein 8.0 6.0 - 8.0 G/DL [facility] SP Total Bilirubin 0.4 0.3 - 1.2 MG/DL [facility] SP Albumin 4.3 3.5 - 5.0 G/DL [facility] SP Alk Phosphatase 87 25 - 110 U/L [facility] SP AST (SGOT) 41 (H) 7 - 40 U/L [facility] SP CO2 25 21 - 30 MMOL/L [facility] SP ALT (SGPT) 32 7 - 56 U/L [facility] SP Anion Gap 10 3 - 12 [facility] SP eGFR Non 59 (L) >60 mL/min [facility] SP Comment: SP [place] The eGFR is not validated f or SP use in drug dosing SP adjustments.Continue to SP use SP estimated creatinine SP clearance per dosing reference SP text.Please contact the SP Clinical Pharmacist for SP questions. SP eGFR >60 >60 mL/min [facility] SP [place] Comment: SP The eGFR is not validated for SP use in drug dosing SP adjustments.Continue to SP use SP estimated creatinine SP clearance per dosing reference SP text.Please contact the SP Clinical Pharmacist for SP questions. SP Specimen SP Blood SP Performing Organization Address City/State/Zipcode Ph one Number SP MAIN LAB [address] [place] [address] SP * CBC AND DIFF (03/11/2019 1:30 PM CDT) Pathologist SP Signature SP White Blood 7.6 4.5 - 11.0 K/UL [facility] SP Cells SP RBC 4.30 4.0 - 5.0 M/UL [facility] SP Hemoglobin 14.1 12.0 - 15.0 GM/DL [facility] SP Hematocrit 42.1 36 - 45 % [facility] SP MCV 98.0 80 - 100 FL [facility] SP MCH 32.8 26 - 34 PG [facility] SP MCHC 33.5 32.0 - 36.0 G/DL [facility] SP RDW 16.0 (H) 11 - 15 % [facility] SP Platelet Count 359 150 - 400 K/UL [facility] SP MPV 7.1 7 - 11 FL [facility] SP Neutrophils 81 (H) 41 - 77 % [facility] SP Lymphocytes 10 (L) 24 - 44 % [facility] SP Monocytes 6 4 - 12 % [facility] SP Eosinophils 2 0 - 5 % [facility] SP Basophils 1 0 - 2 % [facility] SP Absolute 6.20 1.8 - 7.0 K/UL [facility] SP Neutrophil SP Count SP Absolute Lymph 0.80 (L) 1.0 - 4.8 K/UL [facility] SP Count SP Absolute 0.50 0 - 0.80 K/UL [facility] SP Monocyte Count SP Absolute 0.10 0 - 0.45 K/UL [facility] SP Eosinophil SP Count SP Absolute 0.00 0 - 0.20 K/UL [facility] SP Basophil Count SP Specimen SP Blood SP Performing Organization Address City/State/Zipcode Ph one Number SP [facility] [address] [place] [address] SP documented in this encounter Visit Diagnoses Diagnosis POS Right lower quadrant abdominal pain - P rimary SP Abdominal pain, right lower quadrant SP Hydronephrosis, unspecified hydronephro sis type SP documented in this encounter Administered Medications Action Date Dose Rate Site POS Medication Order MAR Action 03/11/2019 11:19 PM CDT 650 mg SP acetaminophen (TYLENOL) tablet 650 mg Given SP 650 mg, Oral, ONCE, 1 dose, 03/11/19 SP at 2300, TOTAL ACETAMINOPHEN DOSE NOT T O SP EXCEED 4GM DAILY, 03/11/2019 3:41 PM CDT 50 mcg SP fentaNYL citrate PF (SUBLIMAZE) Given SP injection 50 mcg SP 50 mcg, Intravenous, ONCE, 1 dose, [facility] 03/11/19 at 1530 SP 03/11/2019 7:00 PM CDT 50 mcg SP fentaNYL citrate PF (SUBLIMAZE) Given SP injection 50 mcg SP 50 mcg, Intravenous, ONCE, 1 dose, [facility] 03/11/19 at 1830 SP 03/11/2019 4:45 PM CDT 75 mL SP iohexol (OMNIPAQUE-350) 350 mg/mL Given SP injection 75 mL SP 75 mL, Intravenous, ONCE, 1 dose, [facility] 03/11/19 at 1645, NOTE: This is a HIGH SP ALERT Medication., 03/11/2019 3:41 PM CDT 1,000 mL SP lactated ringers infusion Given - New SP 1,000 mL, 1,000 mL, Intravenous, BOLUS, Bag SP 1 dose, [facility] 03/11/19 at 1530 SP ondansetron (ZOFRAN) injection 4 mg SP 4 mg, Intravenous, ONCE PRN, 1 dose, SP Starting 03/11/19 at 1541, Until Tue SP 03/11/19 at 2359, Nausea/Vomiting SP Injectable, Please give if nausea SP develops, SP 03/11/2019 4:45 PM CDT 50 mL SP sodium chloride PF 0.9% injection 50 mL Given SP 50 mL, Intravenous, ONCE, 1 dose, e SP 03/11/19 at 1645, DO NOT SEND this SP medication unless it is requested. This SP med is usually available in floor SP stock., Intra-procedure (IR) SP documented in this encounter
--- OUTSIDE RECORDS SUMMARY | 2019-04-12 08:54 | XMS REPORT | Encounter Summary ---
Author Author [facility] POS Organization [facility] SP Address Unknown SP Phone Unavailable SP Care Team Providers Care Fruit Inspector Name Role Phone POS Christa Ware MD PCP SP Encounter Details Care Team Description POS Date Type Department SP SP Mateo Cabral MD [address] [facility] [place] [address] [phone] SP 03/10/2019 Documentation [facility] SP [address] [facility] [address] [place] [address] SP [phone] SP Social History Date POS Tobacco Use [...] Notes * Research - Mac Lipscomb - 03/10/2019 1:19 PM CDT Study Title:A Phase 1b Dose-Escalation Study of Carbozantinib (XL184) Administ ered Alone or in Combination with Atezolizumab to Subjects with Locally Advanced or Metastatic Solid Tumors [[facility]:[id number]] Study ID:[id number] Dose Modification: 02/03/2019 - 02/17/2019: - C13D1 delayed by 1 week to accommodate pt vacation - C13D1 delayed 1 additonal week as pt completed PET scan on 11Feb2019. 02/18/2019 - TBD: XL184 held due to biopsy of L hand Patient [facility]sto [id number] 1. Patient seen by treatment nurses Isa (RN) and Amber (RN), this SC and Dr. Sanchez. Labs drawn per protocol and reviewed by all above. Dr. Sanchez met with patient and reviewed new/ongoing symptoms. Patient's biopsy of left hand not ad equately healed per PI and will continue to hold XL184 today, atezolizumab infus ion will continue today. Per PI, once healing is adequate, patient will continue XL184 at a reduced dose of 20mg QD due to diarrhea and PPE. This will be reasse ssed in one week. IRT:[facility] dispensed the following drug units,[id number], [id number]; forwarded to win jones and treatment nurse Medication Accountability:Patient brought in2 bottles of Cabozantinib (XL184 ) both were turned in to pharmacy Drug Unit#: [id number] Drug Unit #: [id number] Pharmacy dispensed one bottle of cabozantinib today: Drug Unit #: [id number], containing 30 tablets Next Imagin wk scans on 03/27/2019 RTC:Patient will return on03/17/19for SOC follow-up of left hand documented in this encounter Plan of Treatment Not on filedocumented as of this encounter Visit Diagnoses Not on filedocumented in this encounter
--- OUTSIDE RECORDS SUMMARY | 2019-04-12 08:55 | XMS REPORT | Encounter Summary ---
Author Author [facility] POS Organization [facility] SP Address Unknown SP Phone Unavailable SP Care Team Providers Care Shaper Set Up Operator Name Role Phone POS Christa Ware MD PCP SP Reason for Visit * Reason Comments POS Treatment SP Encounter Details Care Team Description POS Date Type Department SP SP Mateo Cabral MD [address] [facility] [place] [address] Clinical trial participant (Primary Dx) SP 02/17/2019 Office Visit [facility] [address] [place] [address] SP [phone] SP Social History Date POS Tobacco Use [...] Time Taken Comments POS Vital Sign SP 132/71 02/17/2019 8:28 AM CDT SP Blood Pressure SP 62 02/17/2019 8:28 AM CDT SP Pulse SP 36.4 C (97.5 F) 02/17/2019 8:28 AM CDT SP Temperature SP 16 02/17/2019 8:28 AM CDT SP Respiratory Rate SP 99% 02/17/2019 8:28 AM CDT SP Oxygen Saturation SP - - SP Inhaled Oxygen SP Concentration SP 58 kg (127 lb 13.9 oz) 02/17/2019 8:28 AM CDT SP Weight SP - - SP Height SP 21.28 02/06/2019 10:10 AM CDT SP Body Mass [...] Progress Notes * Mateo Cabral MD - 02/17/2019 9:30 AM CDT Subjective GYNECOLOGIC ONCOLOGY EVALUATION Name:Katty Gold Date: 02/17/19 Primary Care Physician: Christa Ware Chief Complaint: Chief Complaint Patient presents with Treatment History of Present Illness: Katty Gold is a 68 y.o. 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 Onc Timeline Katty Gold is a 67 y.o. female with recurrent transitional cell ovarian cancer. Here today for follow up. Feeling well overall. Diarrhea is mod improved since w e have had a delay on this treatment cycle. Rash cont to be improved today. C ont to have having daily episodes of diarrhea that happen in a short interval in the evenings. Taking immodium BID now and no change noted. The rest of the day is fine without diarrhea. Symptoms otherwise stable. Tolerating cabozantanib well. 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 Has a sc heduled larger excision planned. Appetite is good. Has chronic voice changes. Do es have mild fatigue. No neuropathy. No pain complaints, No changes in bowel or urinary habits. REF:Viri Gold MD PCP: Christa Ware MD Food Technologist: Talon Reeves MD MED/ONC: Dr. Cesar Ovarian [...] serosa, col onic/rectal serosa, R diaphragm peritoneum. [address] LN involved. Tumor cells are p ositive for PAX-8, ALESIA-3 and CAM5.2, partially positive for TERESA, CK7 and p63, a nd negative for WT-1, inhibin, calretinin, [place]-1, ER, VA, synaptophysin and chr omogranin. A p53 stain [...] on CT, this was most reflective of [place] resistant/refractory disease. As such, surgical exploration and removal of the perisplenic disease, should have no impact on OS, PFS, and would only delay init iation of cytotoxic therapy. The patient was referred to for possible early phas e trial. 05/27/2018 - Chemotherapy Enrolled in XL-184: a phase I trial of combination of cabozantinib and atezoli zumab, C1 05/27/18 09/30/2018 Pertinent Labs Tumor genetics sent - KRAS 94% mutational change, [id number] >50%, tp53 + 01/[address] with concern for progression, PET with essentially stable disease, decision to continue with trial Target lesions Left [...] LESION performed by Mauro Davies MD at [facility] OR/Periop RECTAL SURGERY Left 10/09/2017 RESECTION SIGMOID COLON, COLONOSCOPY performed by Tim Chung MD at [facility] OR/Periop SECTION HX BREAST BIOPSY HX BREAST LUMPECTOMY followed by radiation therapy. HX CHOLECYSTECTOMY HX TUBAL LIGATION Bilateral Medications: Current Outpatient Medications: (INV) cabozantinib ([facility] [id number]) 20 mg tablet, Take two tablets by mouth kandice ly for 21 days. IN[employer]ATIONAL [employer] PRECAUTIONS -Take on a n empty stomach with a minimum of 8 ounces of water at least 1 hour before or 2 hours after a meal., Disp: 60 tablet, Rfl: 0 acetaminophen (TYLENOL PO), Take [...] mg tablet, Take one tablet by [facility] twice daily as needed for Diarrhea., Disp: [...] in HPI ECOG 0 Physical Exam: BP 132/71 (BP Source: Arm, Right Upper, Patient Position: Sitting) | Pulse 62 | Temp 36.4 C (97.5 F) (Oral) | Resp 16 | Wt 58 kg (127 lb 13.9 oz) | LMP 09/24/1997 | SpO2 99% | BMI 21.28 kg/m GENERAL APPEARANCE: Appears healthy. Alert; in [...] w/Diff Lab Results Component Value Date/Time WBC 4.1 (L) 02/17/2019 08:41 AM RBC 4.50 02/17/2019 08:41 AM HGB 14.7 02/17/2019 08:41 AM HCT 43.3 02/17/2019 08:41 AM MCV 96.3 02/17/2019 08:41 AM MCH 32.6 02/17/2019 08:41 AM MCHC 33.9 02/17/2019 08:41 AM RDW 15.2 (H) 02/17/2019 08:41 AM PLTCT 201 02/17/2019 08:41 AM MPV 8.0 02/17/2019 08:41 AM Lab Results Component Value Date/Time NEUT 59 02/17/2019 08:41 AM ANC 2.50 02/17/2019 08:41 AM LYMA 25 02/17/2019 08:41 AM ALC 1.00 02/17/2019 08:41 AM JEFRY 9 02/17/2019 08:41 AM AMC 0.40 02/17/2019 08:41 AM EOSA 6 (H) 02/17/2019 08:41 AM AEC 0.20 02/17/2019 08:41 AM BASA 1 02/17/2019 08:41 AM ABC 0.10 02/17/2019 08:41 AM Comprehensive Metabolic Profile Lab Results Component Value Date/Time NA 136 (L) 02/17/2019 08:41 AM K 4.2 02/17/2019 08:41 AM CL 103 02/17/2019 08:41 AM CO2 27 02/17/2019 08:41 AM GAP 6 02/17/2019 08:41 AM BUN 14 02/17/2019 08:41 AM CR 0.78 02/17/2019 08:41 AM GLU 87 02/17/2019 08:41 AM Lab Results Component Value Date/Time CA 9.2 02/17/2019 08:41 AM PO4 3.0 02/17/2019 08:41 AM ALBUMIN 4.0 02/17/2019 08:41 AM TOTPROT 6.8 02/17/2019 08:41 AM ALKPHOS 66 02/17/2019 08:41 AM AST 35 02/17/2019 08:41 AM ALT 38 02/17/2019 08:41 AM TOTBILI 0.4 02/17/2019 08:41 AM GFR >60 02/17/2019 08:41 AM GFRAA >60 02/17/2019 08:41 AM Other labs No results found for: ESR Lab Results Component Value Date/Time LDH 219 (H) 02/17/2019 08:41 AM ASSESSMENT/PLAN: Katty Gold is a 68 y.o. female with metastatic recurrent transitional car cinoma of the ovary for XL-184 trial. Functionally cleared for trial. Labs reviewed. Possible progression of disease on CT PET with stable disease, will cont treatment Cleared for C13 Skin cancer - reviewed she has to hold cabozantanib 7 days before and [...] of d ehydration, has an appt with website designer Reviewed NextGene sequencing sent by Dr Davies. KRAS and [id number] mutation which are both actionable, would consider [...] RV next cycle Today's visit comprised over 40 minutes, with most of the time dedicated to face to face discussion. Mateo Cabral MD documented in this encounter Plan of Treatment Not on filedocumented as of this encounter Visit Diagnoses Diagnosis POS Clinical trial participant - Primary SP documented in this encounter"
--- OUTSIDE RECORDS SUMMARY | 2019-04-12 08:55 | XMS REPORT | Encounter Summary ---
Author Author [facility] POS Organization [facility] SP Address Unknown SP Phone Unavailable SP Care Team Providers Care Industrial Hygienist Name Role Phone POS Christa Ware MD PCP SP Encounter Details Care Team Description POS Date Type Department SP SP Mateo Cabral MD [address] [facility] [place] [address] [phone] SP 02/12/2019 Documentation [facility] SP [address] [facility] [address] [place] [address] SP [phone] SP Social History Date POS Tobacco Use [...] Notes * Research - Aydee Banks - 02/12/2019 3:24 PM CDT Study Title:A Phase 1b Dose-Escalation Study of Carbozantinib (XL184) Administ ered Alone or in Combination with Atezolizumab to Subjects with Locally Advanced or Metastatic Solid Tumors [place][id number] Study ID:[id number] Dose Modification: 02/03/2019 - Cycle 13 delayed by 1 week to accommodate pt vacation, visit to be co mpleted on 02/10/2019 Pt presented to clinic for cabozantinib refill. Pt reported that she ran out of pills. She had a PET scan completed today; however, the results are not yet avai lable. change control coordinator contacted treating provider, Dr. Cabral regarding this. Dr. Cabral is ok with pt continuing on the carbozantinib study pill until furth er notice. Medication Accountability: #1: Cabozantinib, 40 mg, QD. I: 20251207, II: ZDDB, III: , QTY: 30 #2: Cabozantinib, 40 mg, QD. I: 20251208, II: ZDDB, III: , QTY: 30 New pill diary was given to patient. Explained that Dr. Cabral will give the pat ient a call with her PET scan results. NV: Patient is schedule to come back in to clinic for Cycle 13, Day 1 on 02/17 documented in this encounter Plan of Treatment Not on filedocumented as of this encounter Visit Diagnoses Not on filedocumented in this encounter
--- OUTSIDE RECORDS SUMMARY | 2019-04-12 08:55 | XMS REPORT | Encounter Summary ---
Author Author [facility] POS Organization [facility] SP Address Unknown SP Phone Unavailable SP Care Team Providers Care Slide Fasteners Inspector Name Role Phone POS Christa Ware MD PCP SP Encounter Details Care Team Description POS Date Type Department SP SP Mateo Cabral MD [address] [facility] [place] [place] [address] [phone] SP 02/17/2019 Documentation [facility] SP [address] [facility] [address] [place] [address] SP [phone] SP Social History Date POS Tobacco Use [...] Notes * Research - Mac Lipscomb - 02/17/2019 9:28 AM CDT Study Title:A Phase 1b Dose-Escalation Study of Carbozantinib (XL184) Administ ered Alone or in Combination with Atezolizumab to Subjects with Locally Advanced or Metastatic Solid Tumors [[facility] [place] [place]:[id number]] Study ID:[id number] Dose Modification: 02/03/2019 - 02/17/2019: - C13D1 delayed by 1 week to accommodate pt vacation - C13D1 delayed 1 additonal week as pt completed PET scan on 11Feb2019. Patient presentsto CRCfor [id number]. Consent Version Date: 03Dec2018 Clinical trial participation and research nature of the trial were discussed wit h subject during this visit. Subject was alert and oriented during consent discu ssion. Subject was informed of updates to the informed consent which included ad dition of abbreviations for cancer types throughout document, increase in number of patients to 720, changes to required tests and procedures. Subject verbalize d understanding. Subject was given time to review the consent form and to discuss participation i n this study. Questions asked were answered to her satisfaction and subject voic ed desire to sign consent today. Subject signed consent without coercion and und ue influence. A copy of the signed consent was given to the subject and scanned to subjects medical record. Contact information for the study team was given to the subject. No research specific procedures took place prior to consenting. Labs drawn per protocol. Reviewedby Eva Moss(RN) and this SCBrent white tocontinuewith treatment.Dr. Cabralmet with patient, reviewedany new/ongoing symptoms.Please seeprovidernotefor detailed assessments an d AE/conmed. This lactation coordinator collected pill diary and provided patient with new dosing diary for cycle13. Patient self-[id number](2x20mg tablets)at 1001out of Drug u nit #[id number].Doserecorded on herdiary. IRT:[facility] dispensed the following drug units,[id number]; forwarded to pharmacy Medication Accountability:Patient brought in4 bottles of Cabozantinib (XL184 ), 2 were turned in to pharmacy 1:Drug Unit#: [id number] 2:Drug Unit #:[id number] Patient retained this medication today: Drug Unit#: [id number] Drug Unit #: [id number] Next Imagin03/27/2019 RTC:Patient will return on03/10/19for [id number] documented in this encounter Plan of Treatment Not on filedocumented as of this encounter Visit Diagnoses Not on filedocumented in this encounter
--- OUTSIDE RECORDS SUMMARY | 2019-04-12 08:55 | XMS REPORT | Encounter Summary ---
Author Author [facility] POS Organization [facility] SP Address Unknown SP Phone Unavailable SP Care Team Providers Care Applications Processor Name Role Phone POS Christa Ware MD PCP SP Reason for Visit * Reason Comments POS Treatment SP * Treatment (Routine) Referred By Contact Referred To Contact POS Status Reason Specialty Diagnoses / SP Procedures SP SP Mateo Cabral MD [address] [place] [address] SP Mateo Cabral MD [address] [place] [address] Authorized Oncology Diagnoses SP Malignant neoplasm SP of right ovary SP (HCC) SP Clinical trial SP participant SP Malignant neoplasm SP of left ovary SP (HCC) SP P SP rocedures SP (INV) [facility] 730031; SP [id number]; SP EXPANSION COHORTS SP OR OPTION 1: SP CABOZANTINIB + SP ATEZOLIZUMAB SP Encounter Details Care Team Description POS Date Type Department SP SP Mateo Cabral MD [address] [place] [address] [phone] SP 02/17/2019 [facility] SP Encounter Cancer Center SP [address] [facility] [address] [place] [address] SP [phone] SP Social History Date POS Tobacco Use [...] Time Taken Comments POS Vital Sign SP 131/71 02/17/2019 10:40 AM CDT SP Blood Pressure SP 58 02/17/2019 10:40 AM CDT SP Pulse SP 36.4 C (97.6 F) 02/17/2019 10:40 AM CDT SP Temperature SP 16 02/17/2019 10:40 AM CDT SP Respiratory Rate SP 99% [...] as SP needed for SP Sleep. SP 02/11/2019 03/04/2019 SP (INV) cabozantinib (HSC Take two 60 tablet 0 SP [id number]) 20 mg tablets by SP tabletIndications: mouth [...] of this encounter Progress Notes * Eva Greenberg, RN - 02/17/2019 9:10 AM CDT CRC TREATMENT DAY Study : XL-184 Cycle and Day : Cycle 13 Day 1 Labs : Clinical and correlative labs drawn from R port Assessment : Assessment documented in doc flowsheet. Fatigue Scale:0 Vital Signs : 02/17/19 0828 SOC, pt started resting at 0823 02/17/19 1040 Prior to atezolizumab Vitals/Screening BP 132/71 131/71 BP Source Arm, Right Upper Arm, Right Upper BP Patient Position Chair -- Pulse 62 58 Resp 16 16 Temp 36.4 C (97.5 F) 36.4 C (97.6 F) Temp src Oral Oral SpO2 99 % -- Correlative Labs & EKG : Correlative labs drawn from R port Side Effects : Diarrhea Additional Notes : Pt arrived to [facility] for C13D1 of XL-184. Pt arrived with . Labs drawn fr om R port. Labs WNL. Pt seen by Mac, personnel coordinator. Pt seen by Dr. Cabral. Okay to proceed with treatment. Pt tolerated treatment well. Pt having complaints of diarrhea, not new. Pt states she plans to meet with d ietician to help control diarrhea with nutrition. Pt states she had biopsy done on skin lesion to L hand, results came back as malignant. Pt to have procedure on L hand on 02/28/19. Pt knows to HOLD cabozanti nib for 7 days prior and 7 days post procedure due to delayed healing. Pt states understanding. Pt has pills with her upon leaving clinic today. This RN reviewed labs and calendar with pt. Pt states understanding. Calendar/AVS : AVS and Calendar given. Patient educated and without questions or concerns. Discharge : Patient left the unit at 1134 without complaints. Drug : Dosage was double checked with Silvina Najera ,Chemotherapy Certified Nurse, shayna r protocol. Dose time: 1001; Pt dosed from bottle administered last week. summer school coordinator at bedside for additional education/teaching. Yes Verified chemo consent signed and in chart. Yes Verified initiate chemo order in Yes Premedications/Prehydration given as ordered. N/A Arm band verified at bedside with second RN (same RN as above unless otherwise n oted). Yes Labs/applicable tests checked: Yes Chemo drug/dose/route: (INV) cabozantinib (HSC 916171) 20 mg tablet [[id number]] Dose: 40 mg Route: Oral Frequency: DAILY Dispense Quantity: 60 tablet Refills: 0 Fills remaining: -- Sig: Take two tablets by mouth daily for 21 days. INVESTIGATIONAL SPECIAL HANDL ING PRECAUTIONS -Take on an empty stomach with a minimum of 8 ounces of water at least 1 hour be fore or 2 hours after a meal. Patient education offered and stated understanding. Drug : Dosage and BSA was double checked with Silvina Najera RN and agrees with order s as written Verified chemo consent signed and in chart. Blood return positive via: Port (Single and Accessed) Premedications/Prehydration given as ordered (if applicable). ondansetron (ZOFRAN) tablet 16 mg [[id number]] Ordered Dose: 16 mg Route: Oral Frequency: ONCE Administration Dose: 16 mg Arm band verified at bedside with second RN (same RN as above unless otherwise n oted). Lab tests checked (may include other additional protocol parameters): CBC, Compr ehensive Metabolic Panel (CMP) and Other labs per study protocol Chemo drug/dose/route: (INV) atezolizumab ([facility] [id number]) 1,200 mg in sodium chloride 0.9% (NS) 270 mL IVP B [[id number]] Ordered Dose: 1,200 mg Route: Intravenous Frequency: ONCE @ 540 mL/hr over 30 Mi nutes Volume: 270 mL Rate verified with second RN (same RN as above unless otherwise noted). Patient education offered and stated understanding. documented in this encounter Miscellaneous Notes * Addendum Note - Savi Stahl - 02/19/2019 6:13 AM CDT Encounter addended by: Savi Stahl on: 02/19/2019 6:13 AM Actions taken: Charge Capture section accepted * Addendum Note - Eva Greenberg RN - 02/17/2019 12:39 PM CDT Encounter addended by: Eva Greenberg RN on: 02/17/2019 12:39 PM Actions taken: Sign clinical note documented in this encounter Plan of Treatment Not on filedocumented as of this encounter Procedures Comments POS Procedure Name Priority Date/Time Associated Diag nosis SP SP HC TP/CR RATIO, RANDOM 02/17/2019 [...] (HCC) SP SP HC CBC W DIFF [facility] Routine 02/17/2019 Clinical trial SP 8:41 AM CDT participant SP Malignant neoplasm of SP ovary, unspecified SP laterality (HCC) SP SP HC PHOSPHORUS [facility] Routine 02/17/2019 Clinical trial SP 8:41 AM CDT participant SP Malignant neoplasm of SP ovary, unspecified SP laterality (HCC) SP SP HC MAGNESIUM [facility] Routine 02/17/2019 Clinical trial SP 8:41 AM [...] this encounter Results * PROTEIN/CR RATIO,UR RAN (02/17/2019 8:47 AM CDT) Pathologist POS Signature SP Protein, Random 4 MG/DL [facility] SP Creatinine, 18 MG/DL [facility] SP Random SP Protein/CR 0.2 [facility] SP ratio SP Specimen SP Performing Organization Address City/[facility] Ph one Number SP [facility] [address] [place] [address] SP * URINALYSIS, MICROSCOPIC (02/17/2019 8:47 AM CDT) Pathologist SP Signature SP WBCs,UA 0-2 0 - 2 /HPF [facility] SP RBCs,UA 0-2 0 - 3 /HPF [facility] SP MucousUA TRACE [facility] SP Specimen SP Urine - Urine SP Performing Organization Address [facility] Ph one Number SP [facility] [address] [place], [place] [phone] SP * URINALYSIS DIPSTICK (02/17/2019 8:47 AM CDT) Pathologist SP Signature SP Color,UA YELLOW [facility] SP Turbidity,UA CLEAR CLEAR-CLEAR [facility] SP Specific 1.010 1.003 - 1.035 [facility] SP [place]-Urine SP pH,UA 7.0 5.0 - 8.0 [facility] SP Protein,UA NEG NEG-NEG [facility] SP Glucose,UA NEG NEG-NEG [facility] SP Ketones,UA NEG NEG-NEG [facility] SP Bilirubin,UA NEG NEG-NEG [facility] SP Blood,UA NEG NEG-NEG [facility] SP Urobilinogen,UA NORMAL NORM-NORMAL [facility] SP Nitrite,UA NEG NEG-NEG [facility] SP Leukocytes,UA NEG NEG-NEG [facility] SP Specimen SP Urine - Urine SP Performing Organization Address City/[facility] SP [facility] [address] [place], [place] [phone] SP * PHOSPHORUS (02/17/2019 8:41 AM CDT) Pathologist SP Signature SP Phosphorus 3.0 2.0 - 4.5 MG/DL [facility] SP Specimen SP Blood SP Performing Organization Address City/[facility] SP [facility] [address] [place], [place] [phone] SP * MAGNESIUM (02/17/2019 8:41 AM CDT) Pathologist SP Signature SP Magnesium 1.8 1.6 - 2.6 mg/dL [facility] SP Specimen SP Blood SP Performing Organization Address [facility] Ph one Number SP [facility] [address] [place] [phone] SP * LIPASE (02/17/2019 8:41 AM CDT) Pathologist SP Signature SP Lipase 25 11 - 82 U/L [facility] SP Specimen SP Blood SP Performing Organization Address City/[facility] SP [facility] [address] [place] [address] SP * AMYLASE (02/17/2019 8:41 AM CDT) Pathologist SP Signature SP Amylase 84 24 - 100 U/L [facility] SP Specimen SP Blood SP Performing Organization Address [facility] Ph [facility] SP [facility] [address] [place] [address] SP * LDH-LACTATE DEHYDROGENASE (02/17/2019 8:41 AM CDT) Pathologist SP Signature SP Lactate 219 (H) 100 - 210 U/L [facility] SP Dehydrogenase SP Specimen SP Blood SP Performing Organization Address City/[facility] SP [facility] [address] [place], [place] [phone] SP * GGTP (02/17/2019 8:41 AM CDT) Pathologist SP Signature SP GGTP 20 9 - 64 U/L [facility] SP Specimen SP Blood SP Performing Organization Address City/[facility] SP [facility] [address] [place] [address] SP * COMPREHENSIVE METABOLIC PANEL (02/17/2019 8:41 AM CDT) Pathologist SP Signature SP Sodium 136 (L) 137 - 147 MMOL/L [facility] SP Potassium 4.2 3.5 - 5.1 MMOL/L [facility] SP Chloride 103 98 - 110 MMOL/L [facility] SP Glucose 87 70 - 100 MG/DL [facility] SP Blood Urea 14 7 - 25 MG/DL [facility] SP Nitrogen SP Creatinine 0.78 0.4 - 1.00 MG/DL [facility] SP Calcium 9.2 8.5 - 10.6 MG/DL [facility] SP Total Protein 6.8 6.0 - 8.0 G/DL [facility] SP Total Bilirubin 0.4 0.3 - 1.2 MG/DL [facility] SP Albumin 4.0 3.5 - 5.0 G/DL [facility] SP Alk Phosphatase 66 25 - 110 U/L [facility] SP AST (SGOT) 35 7 - 40 U/L [facility] SP CO2 27 21 - 30 MMOL/L [facility] SP ALT (SGPT) 38 7 - 56 U/L [facility] SP Anion Gap 6 3 - 12 [facility] SP eGFR Non >60 >60 mL/min [facility] SP Comment: SP [place] The eGFR is not validated f or SP use in drug dosing SP adjustments.Continue to SP use SP estimated creatinine SP clearance per dosing reference SP text.Please contact the SP Clinical Pharmacist for SP questions. SP eGFR >60 >60 mL/min [facility] SP [place] Comment: SP The eGFR is not validated for SP use in drug dosing SP adjustments.Continue to SP use SP estimated creatinine SP clearance per dosing reference SP text.Please contact the SP Clinical Pharmacist for SP questions. SP Specimen SP Blood SP Performing Organization Address City/State/Zipcode Ph one Number SP [facility] [address] [place], [place] [phone] SP * CBC AND DIFF (02/17/2019 8:41 AM CDT) Pathologist SP Signature SP White Blood 4.1 (L) 4.5 - 11.0 K/UL [facility] SP Cells SP RBC 4.50 4.0 - 5.0 M/UL [facility] SP Hemoglobin 14.7 12.0 - 15.0 GM/DL [facility] SP Hematocrit 43.3 36 - 45 % [facility] SP MCV 96.3 80 - 100 FL [facility] SP MCH 32.6 26 - 34 PG [facility] SP MCHC 33.9 32.0 - 36.0 G/DL [facility] SP RDW 15.2 (H) 11 - 15 % [facility] SP Platelet Count 201 150 - 400 K/UL [facility] SP MPV 8.0 7 - 11 FL [facility] SP Neutrophils 59 41 - 77 % [facility] SP Lymphocytes 25 24 - 44 % [facility] SP Monocytes 9 4 - 12 % [facility] SP Eosinophils 6 (H) 0 - 5 % [facility] SP Basophils 1 0 - 2 % [facility] SP Absolute 2.50 1.8 - 7.0 K/UL [facility] SP Neutrophil SP Count SP Absolute Lymph 1.00 1.0 - 4.8 K/UL [facility] SP Count SP Absolute 0.40 0 - 0.80 K/UL [facility] SP Monocyte Count SP Absolute 0.20 0 - 0.45 K/UL [facility] SP Eosinophil SP Count SP Absolute 0.10 0 - 0.20 K/UL [facility] SP Basophil Count SP Specimen SP Blood SP Performing Organization Address City/State/[place] Ph one Number SP [facility] [address] [place], [place] [phone] SP documented in this encounter Visit Diagnoses Diagnosis POS Clinical trial participant - Primary SP Malignant neoplasm of ovary, unspecifie d laterality (HCC) SP documented in this encounter Administered Medications Action Date Dose Rate Site POS Medication Order MAR Action SP 02/17/2019 10:59 AM CDT 1,200 mg 540 mL/hr SP (INV) atezolizumab ([facility] [id number]) 1,200 mg Given - New SP in sodium chloride 0.9% (NS) 270 mL IVPB Bag SP 1,200 mg, Intravenous, 270 mL, SP Administer over 30 Minutes, ONCE, 1 SP dose, 02/17/19 at 1045, SP INVESTIGATIONAL CYTOTOXIC If SP first dose was well tolerated, SP administer over 30 minutes (+/- 10 SP minutes). Infuse through a 0.2 micron SP filter. NOTE: This is a HIGH ALERT SP medication., SP 02/17/2019 11:32 AM CDT 500 Units SP heparin lock flush PF syringe 500 Units Given SP 500 Units, Flush, ONCE, 1 dose, Mon SP 02/17/19 at 1015, NOTE: This is a HIGH SP ALERT Medication., SP 02/17/2019 10:24 AM CDT 16 mg SP ondansetron (ZOFRAN) tablet 16 mg Given SP 16 mg, Oral, ONCE, 1 dose, 02/17/19 SP at 1015 SP documented in this encounter
--- OUTSIDE RECORDS SUMMARY | 2019-04-12 08:55 | XMS REPORT | Encounter Summary ---
Author Author [facility] POS Organization [facility] SP Address Unknown SP Phone Unavailable SP Care Team Providers Care Multicraft Operator Name Role Phone POS Christa Ware MD PCP SP Encounter Details Care Team Description POS Date Type Department SP SP Belinda Landeros, ROTARY DRILL OPERATOR [address] [facility] [address] [place], [place] [phone] SP 03/05/2019 Orders Only [facility] SP [address] [facility] SP [address] [place] [address] SP [phone] SP Social History Date POS Tobacco Use [...]
--- OUTSIDE RECORDS SUMMARY | 2019-04-12 08:55 | XMS REPORT | Encounter Summary ---
Author Author [facility] POS Organization [facility] SP Address Unknown SP Phone Unavailable SP Care Team Providers Care Cupola Tapper Helper Name Role Phone POS Christa Ware MD PCP SP Encounter Details Care Team Description POS Date Type Department SP SP Mateo Cabral MD [address] [facility] [place] [address] [phone] SP 02/17/2019 [facility] SP Encounter Cancer Center SP [address] [facility] SP [address] [place] [address] SP [phone] SP Social History Date POS Tobacco Use [...] (HSC Take two 60 tablet 0 SP [id number]) 20 mg tablets by SP tabletIndications: mouth [...]
--- OUTSIDE RECORDS SUMMARY | 2019-04-12 08:55 | XMS REPORT | Encounter Summary ---
Author Author [facility] POS Organization [facility] SP Address Unknown SP Phone Unavailable SP Care Team Providers Care Learning Support Specialist Name Role Phone POS Christa Ware MD PCP SP Encounter Details Care Team Description POS Date Type Department SP SP Belinda Landeros, AUDIT OFFICER [address] [facility] [address] [place], [place] [phone] SP 02/12/2019 Orders Only [facility] SP [address] [facility] [address] SP [address] [place] [address] SP [phone] SP Social History Date POS Tobacco Use [...]
--- OUTSIDE RECORDS SUMMARY | 2019-04-12 08:55 | XMS REPORT | Encounter Summary ---
Author Author [facility] POS Organization [facility] SP Address Unknown SP Phone Unavailable SP Care Team Providers Care Cushion Stuffer Name Role Phone POS Christa Ware MD PCP SP Reason for Visit * Reason Comments POS Research SP Encounter Details Care Team Description POS Date Type Department SP SP Mateo Cabral MD [address] [facility] [place] [address] Research SP 02/18/2019 Telephone [facility] [place] SP [address] [place] [address] SP [phone] SP Social History Date POS Tobacco Use [...] Notes * Research - Mac Lipscomb - 02/18/2019 2:09 PM CDT SC contacted pt to follow-up on the new malignancy on her hand. SC let her know that the study medical monitor confirmed that cabozantinib needs to be held for 10 days prior to procedure instead of 7 days. Asked pt to hold cabozantinib star ting today as her surgery is scheduled for 02/28/2019. Advised that she will have to follow-up with Dr. Cabral prior to restarting the cabozantinib to ensure julian quate wound healing. Pt was frustrated with having to hold the cabo but v/u and stated that she was getting a second opinion regarding options for removal/treat ment from a orange peel operator tomorrow and would contact me if she had any questions . documented in this encounter Plan of Treatment Not on filedocumented as of this encounter Visit Diagnoses Not on filedocumented in this encounter
--- OUTSIDE RECORDS SUMMARY | 2019-04-12 08:55 | XMS REPORT | Encounter Summary ---
Author Author [facility] POS Organization [facility] SP Address Unknown SP Phone Unavailable SP Care Team Providers Care Food And Drug Research Scientist Name Role Phone POS Christa Ware MD PCP SP Encounter Details Care Team Description POS Date Type Department SP SP Belinda Landeros, OIL WELL SERVICE OPERATOR HELPER [address] [facility] [address] [place], [place] [phone] SP 02/13/2019 Orders Only [facility] SP [address] [facility] SP [address] [place] [address] SP [phone] SP Social History Date POS Tobacco Use [...]
--- OUTSIDE RECORDS SUMMARY | 2019-04-12 08:55 | XMS REPORT | Encounter Summary ---
Author Author [facility] POS Organization 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); Diarrhea, unspecified type 03/10/2019 Office Visit [facility] SP [address] [facility] [address] [place] [address] SP [phone] SP Social History Date POS Tobacco Use [...] Time Taken Comments POS Vital Sign SP 109/66 03/10/2019 12:15 PM CDT SP Blood Pressure SP 71 03/10/2019 12:15 PM CDT SP Pulse SP 36.9 C (98.4 F) 03/10/2019 12:15 PM CDT SP Temperature SP 16 03/10/2019 12:15 PM CDT SP Respiratory Rate SP 96% 03/10/2019 12:15 PM CDT SP Oxygen Saturation SP - [...] Progress Notes * Anila Sanchez MD - 03/10/2019 1:00 PM CDT Subjective Name:Katty Gold Date: 03/10/19 Referring Physician: Primary Care Physician: Christa Ware Chief Complaint: Chief Complaint Patient presents with Treatment She is here for follow up and treatment of ovarian cancer on a clinical trial wi cabozantinib and atezolizumab. HPI: Katty is a 68 [...] surgery in the left hand on 02/28/19. This morning, the sutures were eden javi. She has been having diarrhea quite frequently but mainly at night. The stoo ls were loose. This improved 5 days after stopping cabozantinib. Medical History: Diagnosis Date Breast cancer (HCC) [...] LESION performed by Mauro Davies MD at [facility] OR/Periop RECTAL SURGERY Left 10/09/2017 RESECTION SIGMOID COLON, COLONOSCOPY performed by Tim Chung MD at [facility] OR/Periop SECTION HX BREAST BIOPSY HX BREAST LUMPECTOMY followed by radiation therapy. HX CHOLECYSTECTOMY HX TUBAL LIGATION Bilateral Medications: Current Outpatient Medications: (INV) cabozantinib ([facility] [id number]) 20 mg tablet, Take one tablet by [...] 2.5/0.025 mg tablet, Take one tablet by [facility] twice daily as needed for [...] needed fo r Sleep., Disp: , Rfl: No current facility-administered medications for this visit. Facility-Administered Medications Ordered in Other Visits: (INV) atezolizumab ([facility] [id number]) 1,200 mg in sodium chloride 0.9% (NS) 270 m L IVPB, 1,200 mg, Intravenous, ONCE, Belinda Landeros APRN, Last Rate: 540 mL/hr a t 03/10/19 1430, 1,200 mg at 03/10/19 1430 heparin lock flush PF syringe 500 Units, 500 Units, Intra-catheter, ONCE, Anila Parson MD Allergies: No Known Allergies Social History: Social [...] OF SYSTEMS: CONSTITUTIONAL: Negative unless stated in HPI. Her appetite is fair. She is acti ve. EYES: no change in vision ENT: no soreness in the mouth RESPIRATORY: no shortness of breath, no cough CARDIOVASCULAR: no chest pain, no palpitations GI: no nausea or vomiting, diarrhea worse at night better since cabo stopped. W as also using with imodium, no bleeding : no hematuria MUSCULO-SKELETAL: no bone pain or back pain SKIN: dry skin, had rashes in the back but better with hydrocortisone ENDOCRINE: she notices falling of her eye lashes, otherwise no new symptoms sugg estive of endocrine problem HEMATOLOGIC: no bleeding ECOG 0 Physical Exam: BP 109/66 (BP Source: Arm, Right Upper, Patient Position: Sitting) | Pulse 71 | Temp 36.9 C (98.4 F) (Oral) | Resp 16 | Wt 59.4 kg (130 lb 15.3 oz) | L MP 09/24/1997 | SpO2 96% | BMI 21.79 kg/m GENERAL APPEARANCE: Appears healthy. Alert; in [...] w/Diff Lab Results Component Value Date/Time WBC 5.0 03/10/2019 12:40 PM RBC 3.78 (L) 03/10/2019 12:40 PM HGB 12.4 03/10/2019 12:40 PM HCT 36.2 03/10/2019 12:40 PM MCV 95.8 03/10/2019 12:40 PM MCH 32.8 03/10/2019 12:40 PM MCHC 34.2 03/10/2019 12:40 PM RDW 15.5 (H) 03/10/2019 12:40 PM PLTCT 289 03/10/2019 12:40 PM MPV 7.5 03/10/2019 12:40 PM Lab Results Component Value Date/Time NEUT 62 03/10/2019 12:40 PM ANC 3.10 03/10/2019 12:40 PM LYMA 22 (L) 03/10/2019 12:40 PM ALC 1.10 03/10/2019 12:40 PM JEFRY 7 03/10/2019 12:40 PM AMC 0.30 03/10/2019 12:40 PM EOSA 5 03/10/2019 12:40 PM AEC 0.30 03/10/2019 12:40 PM BASA 4 (H) 03/10/2019 12:40 PM ABC 0.20 03/10/2019 12:40 PM Comprehensive Metabolic Profile Lab Results Component Value Date/Time NA 137 03/10/2019 12:40 PM K 4.0 03/10/2019 12:40 PM CL 105 03/10/2019 12:40 PM CO2 23 03/10/2019 12:40 PM GAP 9 03/10/2019 12:40 PM BUN 21 03/10/2019 12:40 PM CR 0.95 03/10/2019 12:40 PM GLU 100 03/10/2019 12:40 PM Lab Results Component Value Date/Time CA 9.1 03/10/2019 12:40 PM PO4 3.7 03/10/2019 12:40 PM ALBUMIN 3.8 03/10/2019 12:40 PM TOTPROT 6.6 03/10/2019 12:40 PM ALKPHOS 83 03/10/2019 12:40 PM AST 25 03/10/2019 12:40 PM ALT 22 03/10/2019 12:40 PM TOTBILI 0.3 03/10/2019 12:40 PM GFR 59 (L) 03/10/2019 12:40 PM GFRAA >60 03/10/2019 12:40 PM Other labs No results found for: ESR Lab Results Component Value Date/Time LDH 168 03/10/2019 12:40 PM NM PET SCAN TORSO (SKULL-THIGHS) Addendum: Finalized by Ashwin Melendez M.D. on 02/11/2019 5:06 PM. Dictated by Moody Mckinney M.D. on 02/11/2019 3:19 PM.Addendum: Impression addendum: The hepatic, peritoneal, and robson metastatic disease has progressed since PET /CT March 2018. This addendum was communicated with Dr. Cabral by email on 04/2019 at 9:00 AM Approved by Moody Mckinney M.D. on 02/12/2019 8:53 AM By my electronic signature, I attest that I have personally reviewed the image s for this examination and formulated the interpretations and opinions expresse d in this report Finalized by Ashwin Melendez M.D. on 02/12/2019 12:42 PM. Dictated by Moody Mckinney M.D. on 02/12/2019 8:51 AM. Narrative: NM PET SCAN TORSO (SKULL-THIGHS) Radiopharmaceutical: 9.2 mCi F-18 Fluorodeoxyglucose (FDG) IV. Clinical Indication: Ovarian cancer, follow-up new lesions from 02/06/2019 CT scan Technique: PET imaging was performed from the skull to thighs 61 minutes after t racer administration. Low dose non-contrast CT imaging was performed for attenua tion correction and localization purposes. Current mean hepatic SUV (reported fo r quality measurement specialist purposes) is 2.4, maximum 4.1. Blood glucose level (at the time of radiopharmaceutical administration): 85 mg/ dL Comparison: CT chest/abdomen/pelvis 02/06/2019, PET/CT 03/22/2018 FINDINGS: Head/Neck: No suspicious hypermetabolic lesion(s). Chest: No suspicious hypermetabolic lesion(s). Multiple tiny pulmonary nodules a re too small to evaluate on PET/CT. Abdomen/Pelvis: Numerous hypermetabolic hepatic and peritoneal lesions, includin g perisplenic capsular metastases. Multiple hypermetabolic peritoneal implants a re noted. Multiple hypermetabolic retroperitoneal, mesenteric, and pelvic lymph nodes. A reference aortocaval node demonstrates a maximum SUV of 6.8 (CT image 2 25). A large cystic lesion in the central abdomen demonstrates no significant FD G uptake. A right inguinal lymph node demonstrates only low-grade peripheral FDG uptake medially. Osseous Structures: Development of a hypermetabolic focus within the T12 vertebr al body with no definite CT correlate which demonstrates a maximum SUV of 5.6 (C T image 176). Additional CT Findings: A right chest port is in place the tip terminating in th e low SVC. Prior distal colonic resection and primary anastomosis. Prior omentec maría. Prior small bowel anastomosis within the right lower quadrant of the abdom en. Prior hysterectomy and bilateral salpingo-oophorectomy. Impression: 1. Numerous hypermetabolic hepatic and peritoneal metastases with widespread abd ominopelvic robson metastatic disease. 2. Multiple tiny pulmonary nodules are too small to evaluate on PET/CT. No hyper metabolic cervical or thoracic lymph nodes identified. Approved by Moody Mckinney M.D. on 02/11/2019 5:05 PM By my electronic signature, I attest that I have personally reviewed the images for this examination and formulated the interpretations and opinions expressed i n this report ASSESSMENT/PLAN: Katty Gold is a 68 y.o. 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 She is S/P adjuvant treatment wi IV carbo/taxol. Unfortunately she has evidence of recurrent disease suggestiv e of [place] resistance. She agreed to be on the XL-184: A Phase 1b Dose-Escal ation Study of Cabozantinib (XL184) Administered in Combination with Atezolizuma b to Subjects with Locally Advanced or Metastatic Solid Tumors. She received C1D 1 of the treatment on 05/27/18. She had surgery in the left hand on 02/28/19. Thi s morning, the sutures were removed. She has been having diarrhea quite frequent ly but mainly at night. The stools were loose. This improved 5 days after stoppi ng cabozantinib. He wound is not completely healed yet. We will reassess her nex t week and if the wound is healed we will restart cabozantinib per protocol. We will continue all supportive measures. 2. Diarrhea: this is better since cabozantinib was held. Appears to be related t o cabozantinib. She reported having close to 20x BM a night when she was having diarrhea. As above we will hold cabozantinib but would consider reducing dose fo r grade 2 diarrhea when we restart. 3. Wound from recent skin surgery, left arm. As above. 4. Voice change: this is chronic. The patient and her were allowed to ask questions and these were address ed. They expressed understanding of what was explained to them and they agreed w ith the present plan. 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
--- OUTSIDE RECORDS SUMMARY | 2019-04-12 08:56 | XMS REPORT | Encounter Summary ---
Author Author [facility] POS Organization [facility] SP Address Unknown SP Phone Unavailable SP Care Team Providers Care Glass Mold Repairer Name Role Phone POS Christa Ware MD PCP SP Reason for Visit * Reason Comments POS Results SP Encounter Details Care Team Description POS Date Type Department SP SP Mateo Cabral MD [address] [facility] [place], [place] [phone] Results SP 02/07/2019 Telephone [facility] Cancer [place] [address] [place], [place] SP [phone] SP Social History Date POS Tobacco Use [...] Miscellaneous Notes * Telephone Encounter - Mateo Cabral MD - 02/07/2019 2:29 PM CDT Called to review CT results for trial. CHEST: 1. Increased size and conspicuity of numerous sub-5 mm pulmonary nodules throu ghout the lungs across several prior exams. Findings are suggestive of slow grow ing pulmonary metastases. Infectious/inflammatory nodules or less likely given i ncreased conspicuity since at least November 2018 2. Stable minimal focal soft tissue thickening along the left hemidiaphragm in the region of a prior metastasis. 3. No new or enlarging thoracic lymphadenopathy. ABDOMEN AND PELVIS: 1. Increased size and conspicuity of innumerable hepatic metastases. 2. Redemonstration of multifocal peritoneal metastatic disease, several of whi ch in the mesentery and perisplenic capsular region have increased in size. 3. No significant change in size of right inguinal metastasis. 4. Mild right urothelial thickening and enhancement, nonspecific may be from a scending infection versus tumor involvement. Target areas are mostly stable or smaller. But the area in the lungs and liver a ppears new. Previous liver hypoenhancing lesions not with PET activity. Reviewed that this looks concerning for progression but would recommend PET for further assessment. If no PET increased avidity in these areas then plan would be to continue on the trial. Patient questions answered and patient appreciative of phone call. Mateo Cabral MD Gynecologic Oncology documented in this encounter Plan of Treatment Not on filedocumented as of this encounter Visit Diagnoses Not on filedocumented in this encounter
--- OUTSIDE RECORDS SUMMARY | 2019-04-12 08:56 | XMS REPORT | Encounter Summary ---
Author Author [facility] POS Organization [facility] SP Address Unknown SP Phone Unavailable SP Care Team Providers Care Pillowcase Maker Name Role Phone POS Christa Ware MD PCP SP Reason for Visit * Reason Comments POS Results SP Encounter Details Care Team Description POS Date Type Department SP SP Mateo Cabral MD [address] [facility] Cancer [place], [place] [phone] Results SP 02/12/2019 Telephone [facility] [place] [address] [place], [place] SP [phone] SP Social History Date POS Tobacco Use [...] Telephone Encounter - Mateo Cabral MD - 02/12/2019 9:59 AM CDT Called to review PET CT results. Pulm lesions without PET avidity. Possible inflammation or too small and early t o light up. Imaging is stable from previous PET and CT. Will consider as stable disease and continue trial. Will inform CRC team and get pt scheduled for IV infusion and next cycle. Patient questions answered and patient appreciative of phone call. Mateo Cabral MD Gynecologic Oncology documented in this encounter Plan of Treatment Not on filedocumented as of this encounter Visit Diagnoses Not on filedocumented in this encounter
--- OUTSIDE RECORDS SUMMARY | 2019-04-12 08:56 | XMS REPORT | Encounter Summary ---
Author Author [facility] POS Organization [facility] SP Address Unknown SP Phone Unavailable SP Care Team Providers Care Airplane Engineer Name Role Phone POS Christa Ware MD PCP SP Reason for Referral * Radiology Services (Routine) Referred By Contact Referred To Contact POS Status Reason Specialty Diagnoses / SP Procedures SP SP Mateo Cabral MD [address] [place] [address] SP New Request Radiology Diagnoses SP Examination of SP participant in SP clinical trial SP Malignant neoplasm SP of ovary, SP unspecified SP laterality (HCC) SP P SP rocedures SP CT ABD/PELV W SP CONTRAST SP * Radiology Services (Routine) Referred By Contact Referred To Contact POS Status Reason Specialty Diagnoses / SP Procedures SP SP Mateo Cabral MD [address] [place] [address] SP New Request Radiology Diagnoses SP Examination of SP participant in SP clinical trial SP Malignant neoplasm SP of ovary, SP unspecified SP laterality (HCC) SP P SP rocedures SP CT CHEST W SP CONTRAST SP Encounter Details Care Team Description POS Date Type Department SP SP Mateo aCbral MD [address] [place] [address] Malignant neoplasm of ovary, unspecified laterality (HCC) SP Dx); Examination of participant in clinical trial 02/12/2019 Orders Only [facility] SP [address] [place] [address] SP [phone] SP Social History Date POS Tobacco Use [...] Type Priority Associated Diag noses SP Expected: 03/27/2019 (Approximate), Expi res: 02/13/[address] ABD/PELV W CONTRAST Imaging Routine Examina tion of SP participant in clinical SP trial SP Malignant neoplasm of SP ovary, unspecified SP laterality (HCC) SP documented as of this encounter Results * CT CHEST W CONTRAST (03/27/2019 11:48 AM CDT) Specimen POS Impressions Performed At CHEST: [facility] RESULTS [...] lungs, greater within the upper lungs. A healthcare sales representative right middle lobe nodule measures 1.0 [...]
--- OUTSIDE RECORDS SUMMARY | 2019-04-12 08:56 | XMS REPORT | Encounter Summary ---
Author Author [facility] POS Organization [facility] SP Address Unknown SP Phone Unavailable SP Care Team Providers Care Financial Administrative Assistant Name Role Phone POS Christa Ware MD PCP SP Encounter Details Care Team Description POS Date Type Department SP SP Mateo Cabral MD [address] [facility] [place] [address] [phone] SP 02/11/2019 [facility] SP Encounter Cancer Center SP [address] [facility] [address] [place] [address] SP [phone] SP Social History Date POS Tobacco Use [...] Sleep. SP 02/11/2019 03/04/2019 SP (INV) cabozantinib ([facility] Take two 60 tablet 0 SP [id number]) 20 mg tablets by SP tabletIndications: mouth [...] Progress Notes * Silvina Najera RN - 02/11/2019 3:58 PM CDT Patient presented to CRC after PET scan needing new pills as she took her last d ose today. STAN Tariq, confirmed plan to release new bottle of cabozantanib wi Dr. Cabral. Drug : Dosage was double checked with Eva Greenberg RN, Chemotherapy Certified Nurse , per protocol. Verified initiate chemo order in Yes Premedications/Prehydration given as ordered. N/A Arm band verified at bedside with second RN (same RN as above unless otherwise n oted). Yes Labs/applicable tests checked: N/A Chemo drug/dose/route: (INV) cabozantinib ([facility] [id number]) 20 mg tablet [[id number]] Order Details Dose: 40 mg Route: Oral Frequency: DAILY [...]
--- OUTSIDE RECORDS SUMMARY | 2019-04-12 08:56 | XMS REPORT | Encounter Summary ---
Author Author [facility] POS Organization [facility] SP Address Unknown SP Phone Unavailable SP Care Team Providers Care Navy Diver Name Role Phone POS Christa Ware MD PCP SP Encounter Details Care Team Description POS Date Type Department SP SP Belinda Landeros, DELI COOK [address] [facility] [address] [place], [place] [phone] SP 02/10/2019 Orders Only [facility] SP [address] [facility] SP [address] [place] [address] SP [phone] SP Social History Date POS Tobacco Use [...]
--- OUTSIDE RECORDS SUMMARY | 2019-04-12 08:56 | XMS REPORT | Encounter Summary ---
Author Author [facility] POS Organization [facility] SP Address Unknown SP Phone Unavailable SP Care Team Providers Care Machine Precision Etcher Name Role Phone POS Christa Ware MD PCP SP Reason for Referral * Radiology Services (Routine) Referred By Contact Referred To Contact POS Status Reason Specialty Diagnoses / SP Procedures SP SP Mateo Cabral MD [address] [place] [address] SP [facility] [address] [address] No Auth Needed Radiology Diagnoses SP Malignant neoplasm SP of left ovary SP (HCC) SP P SP rocedures SP NM PET SCAN TORSO SP (SKULL-THIGHS) SP Reason for Visit * Radiology Services (Routine) Referred By Contact Referred To Contact POS Status Reason Specialty Diagnoses / SP Procedures SP SP Mateo Cabral MD [address] [place] [address] SP [facility] [address] [address] No Auth Needed Radiology Diagnoses SP Malignant neoplasm SP of left ovary SP (HCC) SP P SP rocedures SP NM PET SCAN TORSO SP (SKULL-THIGHS) SP Encounter Details Care Team Description POS Date Type Department SP SP Mateo Cabral MD [address] [facility] [place] [place] [address] [phone] SP 02/11/2019 [facility] SP Encounter Health System SP [address] [place] [address] SP [phone] SP Social History Date POS Tobacco Use [...] Priority Date/Time Associated Diag nosis SP SP NM PET SCAN TORSO Routine 02/11/2019 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) SP SP POC GLUCOSE 02/11/2019 SP 1:51 PM CDT SP documented in this encounter Results * NM PET SCAN TORSO (SKULL-THIGHS) (02/11/2019 3:36 PM CDT) Specimen POS Addenda POS SP Addendum by Ashwin Melendez MD on 02/12/2019 12:45 PM Finalized by sAhwin Melendez M.D. on 02/11/2019 5:06 PM. Dictated [...] on 02/12/2019 8:51 AM. Impressions Performed At SP 1. Numerous hypermetabolic hepatic and peritoneal met [...] Current mean hepatic SUV SP (reported for type disk quality control supervisor purposes) is 2.4, maximum 4.1. SP Blood [...] purposes. Current mean hepatic SUV (reported for type disk quality control supervisor purposes) is 2.4, maximum 4.1. Blood glucose [...] expressed in this report Performing Organization Address City/[facility] Ph one Number SP [facility] RES[facility] SP * POC GLUCOSE (02/11/2019 1:51 PM CDT) Pathologist SP Signature SP Glucose, POC 85 70 - 100 MG/DL [facility] SP Specimen SP Performing Organization Address City/[facility] SP [facility] [address] [place] [address] SP documented in this encounter Visit Diagnoses Diagnosis POS Malignant neoplasm of left ovary (HCC) SP Malignant neoplasm of ovary SP documented in this encounter Administered Medications Action Date Dose Rate Site POS Medication Order MAR Action SP 02/11/2019 2:00 PM CDT 9.2 millicuries SP RP DX F-18 FDG injection 10 millicurie Given SP 10 millicurie, Intravenous, ONCE, 1 SP dose, 02/11/19 at 1415 SP documented in this encounter
--- OUTSIDE RECORDS SUMMARY | 2019-04-12 08:56 | XMS REPORT | Encounter Summary ---
Author Author [facility] POS Organization [facility] SP Address Unknown SP Phone Unavailable SP Care Team Providers Care Magnetizer Name Role Phone POS Christa Ware MD PCP SP Encounter Details Care Team Description POS Date Type Department SP SP Gay Reagan, PHARMD Clinical trial participant (Primary Dx); SPMalignant neoplasm of ovary, unspecified laterality (HCC) 02/11/2019 Orders Only [facility] SP [address] [place] [address] SP [phone] SP Social History Date POS Tobacco Use [...]
--- OUTSIDE RECORDS SUMMARY | 2019-04-12 08:56 | XMS REPORT | Encounter Summary ---
Author Author [facility] POS Organization [facility] SP Address Unknown SP Phone Unavailable SP Care Team Providers Care Blood Or Blood Bank Technician Name Role Phone POS Christa Ware MD PCP SP Encounter Details Care Team Description POS Date Type Department SP SP Mateo Cabral MD [address] [facility] [place], [place] [phone] SP 02/12/2019 Orders Only [facility] SP [address] [facility] [address] [place] [address] SP [phone] SP Social History Date POS Tobacco Use [...]
--- OUTSIDE RECORDS SUMMARY | 2019-04-12 08:56 | XMS REPORT | Encounter Summary ---
Author Author [facility] POS Organization [facility] SP Address Unknown SP Phone Unavailable SP Care Team Providers Care Transitions Manager Name Role Phone POS Christa Ware MD PCP SP Reason for Referral * Radiology Services (Routine) Referred By Contact Referred To Contact POS Status Reason Specialty Diagnoses / SP Procedures SP SP Mateo Cabral MD [address] [facility] [place] [address] [place] [address] No Auth Needed Radiology Diagnoses SP Examination of SP participant in clinical trial SP Malignant neoplasm SP of ovary, SP unspecified SP laterality (HCC) SP P SP rocedures SP CT ABD/PELV W SP CONTRAST SP CHG CT THORAX SP W/CONTRAST SP MATERIAL SP Encounter Details Care Team Description POS Date Type Department SP SP Mateo Cabral MD [address] [facility] [place] [address] [phone] Malignant neoplasm of ovary, unspecified laterality (HCC) SP Dx); Examination of participant in clinical trial 02/12/2019 Orders Only [facility] SP [address] [facility] SP [address] Fl [address] [place] [address] SP [phone] SP Social History Date POS Tobacco Use [...] Not on filedocumented as of this encounter Results * CT ABD/PELV W [...] lungs, greater within the upper lungs. A service center representative right middle lobe nodule measures 1.0 [...]
--- OUTSIDE RECORDS SUMMARY | 2019-04-12 08:56 | XMS REPORT | Encounter Summary ---
Author Author [facility] POS Organization [facility] SP Address Unknown SP Phone Unavailable SP Care Team Providers Care Flash Ranging Crewmember Name Role Phone POS Christa Ware MD PCP SP Reason for Referral * Radiology Services (Routine) Referred By Contact Referred To Contact POS Status Reason Specialty Diagnoses / SP Procedures SP SP Mateo Cabral MD [address] [place] [address] SP [facility] [address] [address] No Auth Needed Radiology Diagnoses SP Malignant neoplasm SP of left ovary SP (HCC) SP P SP rocedures SP NM PET SCAN TORSO SP (SKULL-THIGHS) SP Encounter Details Care Team Description POS Date Type Department SP SP Mateo Cabral MD [address] [facility] [place], [place] [id number] Malignant neoplasm of ovary, unspecified laterality (HCC) SP Dx); Clinical trial participant; Abnormal CT scan; Malignant neoplasm of right ovary (HCC); Malignant neoplasm of left ovary (HCC) 02/10/2019 Orders Only The [facility] SP [address] [place] [address] SP [phone] SP Social History Date POS Tobacco Use [...] filedocumented as of this encounter Results * NM PET SCAN [...] Current mean hepatic SUV SP (reported for principal quality engineer purposes) is 2.4, maximum 4.1. SP Blood [...] purposes. Current mean hepatic SUV (reported for principal quality engineer purposes) is 2.4, maximum 4.1. Blood glucose [...] unspecifie d laterality (HCC) - Primary SP Clinical trial participant SP Abnormal CT scan SP Other nonspecific (abnormal) findings o n radiological and other examinations of SPbody structure documented in this encounter
--- OUTSIDE RECORDS SUMMARY | 2019-04-12 08:56 | XMS REPORT | Encounter Summary ---
Author Author [facility] POS Organization [facility] SP Address Unknown SP Phone Unavailable SP Care Team Providers Care Marketing Operations Intern Name Role Phone POS Christa Ware MD PCP SP Encounter Details Care Team Description POS Date Type Department SP SP Mateo Cabral MD [address] [facility], [place] [phone] Malignant neoplasm of ovary, unspecified laterality (HCC) SP Dx); Examination of participant in clinical trial 02/12/2019 Orders Only The [facility] [place] SP [address] [facility] [address] [place] [address] SP [phone] SP Social History Date POS Tobacco Use [...] Type Priority Associated Diag noses SP Expected: 03/31/2019, Expires: 0 SP ECG 12-LEAD ECG Routine Examination of SP participant in clinical SP trial SP Malignant neoplasm of SP ovary, unspecified SP laterality (HCC) SP documented as of this encounter Visit Diagnoses Diagnosis POS Malignant neoplasm of ovary, unspecifie d laterality (HCC) - Primary SP Examination of participant in clinical trial SP documented in this encounter
--- OUTSIDE RECORDS SUMMARY | 2019-04-12 08:56 | XMS REPORT | Encounter Summary ---
Author Author [facility] POS Organization [facility] SP Address Unknown SP Phone Unavailable SP Care Team Providers Care Glove Brusher Name Role Phone POS Christa Ware MD PCP SP Encounter Details Care Team Description POS Date Type Department SP SP Belinda Landeros, CATERER HELPER [address] [facility] [address] [place], [place] [id number] SP 02/11/2019 Orders Only The [facility] SP [address] [facility] SP [address] [place] [address] SP [phone] SP Social History Date POS Tobacco Use [...]
--- OUTSIDE RECORDS SUMMARY | 2019-04-12 08:56 | XMS REPORT | Encounter Summary ---
Author Author [facility] POS Organization [facility] SP Address Unknown SP Phone Unavailable SP Care Team Providers Care Milk Treater Name Role Phone POS Christa Ware MD PCP SP Reason for Referral * Radiology Services (Routine) Referred By Contact Referred To Contact POS Status Reason Specialty Diagnoses / SP Procedures [place] [address] [place] [address] SP New Request Radiology Diagnoses SP Examination of SP participant in SP clinical trial SP Malignant neoplasm SP of ovary, SP unspecified SP laterality (HCC) SP P SP rocedures SP CT ABD/PELV W SP CONTRAST SP * Radiology Services (Routine) Referred By Contact Referred To Contact POS Status Reason Specialty Diagnoses / SP [place] [address] [place] [address] SP No Auth Needed Radiology Diagnoses SP Examination of SP participant in SP clinical trial SP Malignant neoplasm SP of ovary, SP unspecified SP laterality (HCC) SP P SP rocedures SP CT CHEST W SP CONTRAST SP Reason for Visit * Radiology Services (Routine) Referred By Contact Referred To Contact POS Status Reason Specialty Diagnoses / SP Procedures SP SP Mateo Cabral MD [address] [place] [address] SP No Auth Needed Radiology Diagnoses SP Examination of SP participant in SP clinical trial SP Malignant neoplasm SP of ovary, SP unspecified SP laterality (HCC) SP P SP rocedures SP CT CHEST W SP CONTRAST SP Encounter Details Care Team Description POS Date Type Department SP SP Mateo Cabral MD [address] [facility] [place], [place] [id number] SP 02/06/2019 [facility] SP Encounter [facility] SP [address] SP Carlos Enrique [address] [place] [address] SP [phone] SP Social History Date POS Tobacco Use [...] encounter Results * CT ABD/PELV W CONTRAST (02/06/2019 10:47 AM CDT) Specimen POS Impressions Performed At CHEST: [facility] SP 1.Increased size and conspicuity of numerous sub-5 mm pulmonary nodules SP throughout the lungs across several avtar or exams. Findings are suggestive of SP growing pulmonary metastases. Infectiou s/inflammatory nodules or less likely SP given increased conspicuity since at le ast November 2018 SP 2.Stable minimal focal soft tissue thickening along the left hemidiaphragm SP in the region of a prior metastasis. SP 3.No new or enlarging thoracic lymp hadenopathy. SP ABDOMEN AND PELVIS: SP 1.Increased size and conspicuity of innumerable hepatic metastases. SP 2.Redemonstration of multifocal per itoneal metastatic disease, several of SP which in the mesentery and perisplenic capsular region have increased in size. SP 3.No significant change in size of right inguinal metastasis. SP 4.Mild right urothelial thickening and enhancement, nonspecific may be from SP ascending infection versus tumor involv ement. SP By my electronic signature, I attest th at I have personally reviewed the images SP for this examination and formulated the interpretations and opinions expressed SP in this report SP Finalized by KIKO YU M.D. on 02/07/20 19 3:14 PM. Dictated by JACQUELYN Harman D.O. on 02/06/2019 11:45 AM. SP Narrative Performed At CT CHEST, ABDOMEN AND PELVIS [facility] SP Clinical Indication: Female, 68 years. Exam END OF CYCLE ASSESSMENTS [id number] [facility] [id number]. RESEARCH: [employer] [id number] [facility] #[id number], Coordinator: JACQUELYN Tariq Contact: [phone]. SP Technique: Multiple contiguous axial im ages were obtained through the chest, SP abdomen and pelvis following the admini stration of IV contrast material. Post SP processing coronal and sagittal reconst ruction images were made from the axial SP images. SP IV contrast: Omnipaque-350 SP Bowel contrast:None SP Comparison: Multiple prior comparisons including the most recent CT December 192018 and PET/CT March 22, 2018 SP CHEST FINDINGS: SP Lower Neck: Unremarkable SP Axilla, Mediastinum and Janeth: No thorac ic lymphadenopathy. Stable normal-sized SP anterior mediastinal, right hilar, and left epiphrenic lymph nodes. SP Heart and Great Vessels: Heart is david l in size. Stable trace pericardial SP effusion. Normal caliber abdominal aort a. SP Airway, Lungs and Pleura: There are num erous sub-5 mm soft tissue and SP groundglass pulmonary nodules scattered throughout the lungs (for example see SP series 2 images 11, 13, 16, 28, 30). So me of these were present on the SP examinations from December and November,, others are new since those exams. SP Multiple subcentimeter nodules along th e major fissures bilaterally are SP increased in conspicuity compared to re cent prior exams (for example see series SP 300 image 80). No superimposed consolid ation or pleural effusion. SP Previously demonstrated metastasis patria g the left hemidiaphragm is unchanged SP from the prior exam measuring up to 0.8 x 0.4 cm (series 2 image 47) previously SP 0.8 x 0.5 cm. This is significantly dec reased in size compared to when it was SP first seen on the exam dated June. SP Chest Wall and Osseous Structures: Unch anged heterogeneous appearance of the SP thoracic vertebral bodies, likely a man ifestation of diffuse osseous SP demineralization. No suspicious osseous lesion. SP ABDOMEN AND PELVIS FINDINGS: SP Liver and Biliary system: The liver is normal in size. Slight increase in SP conspicuity of innumerable hypoenhancin g hepatic metastases. The previously SP measured hypodense lesion in hepatic se gment 6/7 measures 2.4 cm (series 2 SP 78), previously 2.4 cm. This demonstrat es attenuation compatible with simple SP fluid and was previously not hypermetab olic on prior PET/CT. No significant SP change in moderate intrahepatic biliary ductal dilation and dilation of the SP common bile duct. Prior cholecystectomy . SP Spleen: Spleen remains normal in size. Several splenic capsular metastases have SP increased in size (for example series 2 images 73, 75, and 78). Previously SP hypodense perisplenic masses as describ ed below: SP Posterior superior (series 2 image 73): Measures 5.2 x 2.1 cm, previously 5.7 x SP 2.8. SP Splenic hilum (series 2 image 77): Danita ures 2.0 x 1.3 cm, previously 2.6 x 1.3 SP cm. SP Posterior margin (series 2 image 78): M easures 2.7 x 1.7 cm, previously 2.1 x SP 1.2 cm. SP Adrenal Glands and Kidneys: No adrenal gland mass lesion. Asymmetric urothelial SP thickening and enhancement on the right . No hydronephrosis bilaterally. SP Redemonstration of right renal cysts an d additional bilateral subcentimeter SP hypodensities likely representing an ad ditional tiny cysts. SP Pancreas and Retroperitoneum: The pancr eas is unremarkable. No retroperitoneal SP lymphadenopathy. SP Aorta and Major Vessels: Normal caliber abdominal aorta and iliac arteries with SP mild scattered atherosclerotic plaque. SP Bowel, Mesentery and Peritoneal space: Prior distal colonic resection and SP primary anastomosis. Prior omentectomy. Prior small bowel anastomosis within SP right lower abdomen with unchanged foca l dilation of small bowel loops in the SP anastomotic region. There is mild gaseo us and fluid distention of small bowel SP loops throughout the abdomen without ev idence of obstruction. Prior distal SP colonic resection and reanastomosis. No abdominopelvic ascites. Increase in SP scattered perisplenic capsular metastas es as described above. Increase in SP several mesenteric metastases (for exam ple series 2 images 89 and 100). SP Previously measured peritoneal metastas es as below: SP Low central abdomen (series 2 image 113 ): Measures 11.4 x 10 cm, previously SP x 9.9 cm. SP Posterior pelvis (series 2 image 123): Measures 3.5 x 2.9 cm, previously 3.5 x SP 3.4 cm. SP Pelvis: Prior hysterectomy, bilateral s alpingo-oophorectomy and pelvic lymph SP node dissection. The urinary bladder is unremarkable. No significant change in SP size of previously noted right inguinal lymph node (series 2 image 130) SP measuring 2.8 x 1.8 cm, previously 3.0 x 1.8 cm. Left pelvic sidewall lymph SP also stable (series 2 image 120). SP Abdominal wall and Osseous Structures: Prior midline laparotomy. No aggressive SP osseous lesion. SP Procedure Note POS SP Interface, Radiant Results - 02/06/2019 3:[address] CHEST, ABDOMEN AND PELVIS Clinical Indication: Female, 68 years. Exam END OF CYCLE ASSESSMENTS [id number] [facility] [id number]. RESEARCH: [employer] [id number] Study, [facility] [place][id number], Coordinator: Aydee Banks, Contact: [phone]. Technique: Multiple contiguous axial images were obtained through the chest, abdomen and pelvis following the administration of IV contrast material. Post processing coronal and sagittal reconstruction images were made from the axial images. IV contrast: Omnipaque-350 Bowel contrast: None Comparison: Multiple prior comparisons including the most recent CT December 19, 2018 and PET/CT March 22, 2018 CHEST FINDINGS: Lower Neck: Unremarkable Axilla, Mediastinum and Janeth: No thoracic lymphadenopathy. Stable normal-sized anterior mediastinal, right hilar, and left epiphrenic lymph nodes. Heart and Great Vessels: Heart is normal in size. Stable trace pericardial effusion. Normal caliber abdominal aorta. Airway, Lungs and Pleura: There are numerous sub-5 mm soft tissue and groundglass pulmonary nodules scattered throughout the lungs (for example see series 2 images 11, 13, 16, 28, 30). Some of these were present on the examinations from December and November,, others are new since those exams. Multiple subcentimeter nodules along the major fissures bilaterally are slightly increased in conspicuity compared to recent prior exams (for example see series 300 image 80). No superimposed consolidation or pleural effusion. Previously demonstrated metastasis along the left hemidiaphragm is unchanged from the prior exam measuring up to 0.8 x 0.4 cm (series 2 image 47) previously 0.8 x 0.5 cm. This is significantly decreased in size compared to when it was first seen on the exam dated July 04, 2018. Chest Wall and Osseous Structures: Unchanged heterogeneous appearance of the thoracic vertebral bodies, likely a manifestation of diffuse osseous demineralization. No suspicious osseous lesion. ABDOMEN AND PELVIS FINDINGS: Liver and Biliary system: The liver is normal in size. Slight increase in conspicuity of innumerable hypoenhancing hepatic metastases. The previously measured hypodense lesion in hepatic segment 6/7 measures 2.4 cm (series 2 image 78), previously 2.4 cm. This demonstrates attenuation compatible with simple fluid and was previously not hypermetabolic on prior PET/CT. No significant change in moderate intrahepatic biliary ductal dilation and dilation of the common bile duct. Prior cholecystectomy. Spleen: Spleen remains normal in size. Several splenic capsular metastases have increased in size (for example series 2 images 73, 75, and 78). Previously noted hypodense perisplenic masses as described below: Posterior superior (series 2 image 73): Measures 5.2 x 2.1 cm, previously 5.7 x 2.8. Splenic hilum (series 2 image 77): Measures 2.0 x 1.3 cm, previously 2.6 x 1.3 cm. Posterior margin (series 2 image 78): Measures 2.7 x 1.7 cm, previously 2.1 x 1.2 cm. Adrenal Glands and Kidneys: No adrenal gland mass lesion. Asymmetric urothelial thickening and enhancement on the right. No hydronephrosis bilaterally. Redemonstration of right renal cysts and additional bilateral subcentimeter hypodensities likely representing an additional tiny cysts. Pancreas and Retroperitoneum: The pancreas is unremarkable. No retroperitoneal lymphadenopathy. Aorta and Major Vessels: Normal caliber abdominal aorta and iliac arteries with mild scattered atherosclerotic plaque. Bowel, Mesentery and Peritoneal space: Prior distal colonic resection and primary anastomosis. Prior omentectomy. Prior small bowel anastomosis within the right lower abdomen with unchanged focal dilation of small bowel loops in the anastomotic region. There is mild gaseous and fluid distention of small bowel loops throughout the abdomen without evidence of obstruction. Prior distal colonic resection and reanastomosis. No abdominopelvic ascites. Increase in scattered perisplenic capsular metastases as described above. Increase in several mesenteric metastases (for example series 2 images 89 and 100). Previously measured peritoneal metastases as below: Low central abdomen (series 2 image 113): Measures 11.4 x 10 cm, previously 11.1 x 9.9 cm. Posterior pelvis (series 2 image 123): Measures 3.5 x 2.9 cm, previously 3.5 x 3.4 cm. Pelvis: Prior hysterectomy, bilateral salpingo-oophorectomy and pelvic lymph node dissection. The urinary bladder is unremarkable. No significant change in size of previously noted right inguinal lymph node (series 2 image 130) measuring 2.8 x 1.8 cm, previously 3.0 x 1.8 cm. Left pelvic sidewall lymph node also stable (series 2 image 120). Abdominal wall and Osseous Structures: Prior midline laparotomy. No aggressive osseous lesion. IMPRESSION CHEST: 1. Increased size and conspicuity of nu merous sub-5 mm pulmonary nodules SP the lungs across several prior exams. Findings are suggestive of slow growing pulmonary metastases. Infectious/inflammatory nodules or less likely given increased conspicuity since at least November 2018 2. Stable minimal focal soft tissue thi ckening along the left hemidiaphragm in SP region of a prior metastasis. 3. No new or enlarging thoracic lymphad enopathy. SP ABDOMEN AND PELVIS: 1. Increased size and conspicuity of in numerable hepatic metastases. SP 2. Redemonstration of multifocal perito conchita metastatic disease, several of SP in the mesentery and perisplenic capsular region have increased in size. 3. No significant change in size of rig ht inguinal metastasis. SP 4. Mild right urothelial thickening and enhancement, nonspecific may be from SP infection versus tumor involvement. By my electronic signature, I attest that I have personally reviewed the images for this examination and formulated the interpretations and opinions expressed in this report Finalized by KIKO YU M.D. on 02/06/2019 3:14 PM. Dictated by Brendan Barnett D.O. on 02/06/2019 11:45 AM. Performing Organization Address City/State/Zipcode Ph one Number SP [facility] SP * CT CHEST W CONTRAST (02/06/2019 10:47 AM CDT) Specimen SP Impressions Performed At CHEST: [facility] SP 1.Increased size and conspicuity of numerous sub-5 mm pulmonary nodules SP throughout the lungs across several avtar or exams. Findings are suggestive of SP growing pulmonary metastases. Infectiou s/inflammatory nodules or less likely SP given increased conspicuity since at le ast November 2018 SP 2.Stable minimal focal soft tissue thickening along the left hemidiaphragm SP in the region of a prior metastasis. SP 3.No new or enlarging thoracic lymp hadenopathy. SP ABDOMEN AND PELVIS: SP 1.Increased size and conspicuity of innumerable hepatic metastases. SP 2.Redemonstration of multifocal per itoneal metastatic disease, several of SP which in the mesentery and perisplenic capsular region have increased in size. SP 3.No significant change in size of right inguinal metastasis. SP 4.Mild right urothelial thickening and enhancement, nonspecific may be from SP ascending infection versus tumor involv ement. SP By my electronic signature, I attest th at I have personally reviewed the images SP for this examination and formulated the interpretations and opinions expressed SP in this report SP Finalized by KIKO YU M.D. on 02/07/20 3:14 PM. Dictated by JACQUELYN HarmanOBrent on 02/06/2019 11:45 AM. SP Narrative Performed At CT CHEST, ABDOMEN AND PELVIS [facility] SP Clinical Indication: Female, 68 years. Exam END OF CYCLE ASSESSMENTS [id number] [facility] [place] [id number]. RESEARCH: [employer] [id number] [facility] #[id number], Coordinator: JACQUELYN Tariq Contact: [phone]. SP Technique: Multiple contiguous axial im ages were obtained through the chest, SP abdomen and pelvis following the admini stration of IV contrast material. Post SP processing coronal and sagittal reconst ruction images were made from the axial SP images. SP IV contrast: Omnipaque-350 SP Bowel contrast:None SP Comparison: Multiple prior comparisons including the most recent CT December 192018 and PET/CT March 22, 2018 SP CHEST FINDINGS: SP Lower Neck: Unremarkable SP Axilla, Mediastinum and Janeth: No thorac ic lymphadenopathy. Stable normal-sized SP anterior mediastinal, right hilar, and left epiphrenic lymph nodes. SP Heart and Great Vessels: Heart is david l in size. Stable trace pericardial SP effusion. Normal caliber abdominal aort a. SP Airway, Lungs and Pleura: There are num erous sub-5 mm soft tissue and SP groundglass pulmonary nodules scattered throughout the lungs (for example see SP series 2 images 11, 13, 16, 28, 30). So me of these were present on the SP examinations from December and November,, others are new since those exams. SP Multiple subcentimeter nodules along th e major fissures bilaterally are SP increased in conspicuity compared to re cent prior exams (for example see series SP 300 image 80). No superimposed consolid ation or pleural effusion. SP Previously demonstrated metastasis patria g the left hemidiaphragm is unchanged SP from the prior exam measuring up to 0.8 x 0.4 cm (series 2 image 47) previously SP 0.8 x 0.5 cm. This is significantly dec reased in size compared to when it was SP first seen on the exam dated June. SP Chest Wall and Osseous Structures: Unch anged heterogeneous appearance of the SP thoracic vertebral bodies, likely a man ifestation of diffuse osseous SP demineralization. No suspicious osseous lesion. SP ABDOMEN AND PELVIS FINDINGS: SP Liver and Biliary system: The liver is normal in size. Slight increase in SP conspicuity of innumerable hypoenhancin g hepatic metastases. The previously SP measured hypodense lesion in hepatic se gment 6/7 measures 2.4 cm (series 2 SP 78), previously 2.4 cm. This demonstrat es attenuation compatible with simple SP fluid and was previously not hypermetab olic on prior PET/CT. No significant SP change in moderate intrahepatic biliary ductal dilation and dilation of the SP common bile duct. Prior cholecystectomy . SP Spleen: Spleen remains normal in size. Several splenic capsular metastases have SP increased in size (for example series 2 images 73, 75, and 78). Previously SP hypodense perisplenic masses as describ ed below: SP Posterior superior (series 2 image 73): Measures 5.2 x 2.1 cm, previously 5.7 x SP 2.8. SP Splenic hilum (series 2 image 77): Danita ures 2.0 x 1.3 cm, previously 2.6 x 1.3 SP cm. SP Posterior margin (series 2 image 78): M easures 2.7 x 1.7 cm, previously 2.1 x SP 1.2 cm. SP Adrenal Glands and Kidneys: No adrenal gland mass lesion. Asymmetric urothelial SP thickening and enhancement on the right . No hydronephrosis bilaterally. SP Redemonstration of right renal cysts an d additional bilateral subcentimeter SP hypodensities likely representing an ad ditional tiny cysts. SP Pancreas and Retroperitoneum: The pancr eas is unremarkable. No retroperitoneal SP lymphadenopathy. SP Aorta and Major Vessels: Normal caliber abdominal aorta and iliac arteries with SP mild scattered atherosclerotic plaque. SP Bowel, Mesentery and Peritoneal space: Prior distal colonic resection and SP primary anastomosis. Prior omentectomy. Prior small bowel anastomosis within SP right lower abdomen with unchanged foca l dilation of small bowel loops in the SP anastomotic region. There is mild gaseo us and fluid distention of small bowel SP loops throughout the abdomen without ev idence of obstruction. Prior distal SP colonic resection and reanastomosis. No abdominopelvic ascites. Increase in SP scattered perisplenic capsular metastas es as described above. Increase in SP several mesenteric metastases (for exam ple series 2 images 89 and 100). SP Previously measured peritoneal metastas es as below: SP Low central abdomen (series 2 image 113 ): Measures 11.4 x 10 cm, previously SP x 9.9 cm. SP Posterior pelvis (series 2 image 123): Measures 3.5 x 2.9 cm, previously 3.5 x SP 3.4 cm. SP Pelvis: Prior hysterectomy, bilateral s alpingo-oophorectomy and pelvic lymph SP node dissection. The urinary bladder is unremarkable. No significant change in SP size of previously noted right inguinal lymph node (series 2 image 130) SP measuring 2.8 x 1.8 cm, previously 3.0 x 1.8 cm. Left pelvic sidewall lymph SP also stable (series 2 image 120). SP Abdominal wall and Osseous Structures: Prior midline laparotomy. No aggressive SP osseous lesion. SP Procedure Note POS SP Interface, Radiant Results - 02/06/2019 3:[address] CHEST, ABDOMEN AND PELVIS Clinical Indication: Female, 68 years. Exam END OF CYCLE ASSESSMENTS [id number] [facility] [id number]. RESEARCH: [employer] [id number] Study, [facility] #[id number], Coordinator: Aydee Banks, Contact: [phone]. Technique: Multiple contiguous axial images were obtained through the chest, abdomen and pelvis following the administration of IV contrast material. Post processing coronal and sagittal reconstruction images were made from the axial images. IV contrast: Omnipaque-350 Bowel contrast: None Comparison: Multiple prior comparisons including the most recent CT December 19, 2018 and PET/CT March 22, 2018 CHEST FINDINGS: Lower Neck: Unremarkable Axilla, Mediastinum and Janeth: No thoracic lymphadenopathy. Stable normal-sized anterior mediastinal, right hilar, and left epiphrenic lymph nodes. Heart and Great Vessels: Heart is normal in size. Stable trace pericardial effusion. Normal caliber abdominal aorta. Airway, Lungs and Pleura: There are numerous sub-5 mm soft tissue and groundglass pulmonary nodules scattered throughout the lungs (for example see series 2 images 11, 13, 16, 28, 30). Some of these were present on the examinations from December and November,, others are new since those exams. Multiple subcentimeter nodules along the major fissures bilaterally are slightly increased in conspicuity compared to recent prior exams (for example see series 300 image 80). No superimposed consolidation or pleural effusion. Previously demonstrated metastasis along the left hemidiaphragm is unchanged from the prior exam measuring up to 0.8 x 0.4 cm (series 2 image 47) previously 0.8 x 0.5 cm. This is significantly decreased in size compared to when it was first seen on the exam dated July 04, 2018. Chest Wall and Osseous Structures: Unchanged heterogeneous appearance of the thoracic vertebral bodies, likely a manifestation of diffuse osseous demineralization. No suspicious osseous lesion. ABDOMEN AND PELVIS FINDINGS: Liver and Biliary system: The liver is normal in size. Slight increase in conspicuity of innumerable hypoenhancing hepatic metastases. The previously measured hypodense lesion in hepatic segment 6/7 measures 2.4 cm (series 2 image 78), previously 2.4 cm. This demonstrates attenuation compatible with simple fluid and was previously not hypermetabolic on prior PET/CT. No significant change in moderate intrahepatic biliary ductal dilation and dilation of the common bile duct. Prior cholecystectomy. Spleen: Spleen remains normal in size. Several splenic capsular metastases have increased in size (for example series 2 images 73, 75, and 78). Previously noted hypodense perisplenic masses as described below: Posterior superior (series 2 image 73): Measures 5.2 x 2.1 cm, previously 5.7 x 2.8. Splenic hilum (series 2 image 77): Measures 2.0 x 1.3 cm, previously 2.6 x 1.3 cm. Posterior margin (series 2 image 78): Measures 2.7 x 1.7 cm, previously 2.1 x 1.2 cm. Adrenal Glands and Kidneys: No adrenal gland mass lesion. Asymmetric urothelial thickening and enhancement on the right. No hydronephrosis bilaterally. Redemonstration of right renal cysts and additional bilateral subcentimeter hypodensities likely representing an additional tiny cysts. Pancreas and Retroperitoneum: The pancreas is unremarkable. No retroperitoneal lymphadenopathy. Aorta and Major Vessels: Normal caliber abdominal aorta and iliac arteries with mild scattered atherosclerotic plaque. Bowel, Mesentery and Peritoneal space: Prior distal colonic resection and primary anastomosis. Prior omentectomy. Prior small bowel anastomosis within the right lower abdomen with unchanged focal dilation of small bowel loops in the anastomotic region. There is mild gaseous and fluid distention of small bowel loops throughout the abdomen without evidence of obstruction. Prior distal colonic resection and reanastomosis. No abdominopelvic ascites. Increase in scattered perisplenic capsular metastases as described above. Increase in several mesenteric metastases (for example series 2 images 89 and 100). Previously measured peritoneal metastases as below: Low central abdomen (series 2 image 113): Measures 11.4 x 10 cm, previously 11.1 x 9.9 cm. Posterior pelvis (series 2 image 123): Measures 3.5 x 2.9 cm, previously 3.5 x 3.4 cm. Pelvis: Prior hysterectomy, bilateral salpingo-oophorectomy and pelvic lymph node dissection. The urinary bladder is unremarkable. No significant change in size of previously noted right inguinal lymph node (series 2 image 130) measuring 2.8 x 1.8 cm, previously 3.0 x 1.8 cm. Left pelvic sidewall lymph node also stable (series 2 image 120). Abdominal wall and Osseous Structures: Prior midline laparotomy. No aggressive osseous lesion. IMPRESSION CHEST: 1. Increased size and conspicuity of nu merous sub-5 mm pulmonary nodules SP the lungs across several prior exams. Findings are suggestive of slow growing pulmonary metastases. Infectious/inflammatory nodules or less likely given increased conspicuity since at least November 2018 2. Stable minimal focal soft tissue thi ckening along the left hemidiaphragm in SP region of a prior metastasis. 3. No new or enlarging thoracic lymphad enopathy. SP ABDOMEN AND PELVIS: 1. Increased size and conspicuity of in numerable hepatic metastases. SP 2. Redemonstration of multifocal perito conchita metastatic disease, several of SP in the mesentery and perisplenic capsular region have increased in size. 3. No significant change in size of rig ht inguinal metastasis. SP 4. Mild right urothelial thickening and enhancement, nonspecific may be from SP infection versus tumor involvement. By my electronic signature, I attest that I have personally reviewed the images for this examination and formulated the interpretations and opinions expressed in this report Finalized by KIKO YU M.D. on 02/06/2019 3:14 PM. Dictated by Brendan Barnett D.O. on 02/06/2019 11:45 AM. Performing Organization Address City/State/Zipcode Ph one Number SP [facility] SP documented in this encounter Visit Diagnoses Diagnosis POS Examination of participant in clinical trial SP Malignant neoplasm of ovary, unspecifie d laterality (HCC) SP documented in this encounter Administered Medications Action Date Dose Rate Site POS Medication Order MAR Action SP 02/06/2019 11:00 AM CDT 100 mL SP iohexol (OMNIPAQUE-350) 350 mg/mL Given SP injection 100 mL SP 100 mL, Intravenous, ONCE, 1 dose, Tia SP 02/06/19 at 1100, NOTE: This is a HIGH SP ALERT Medication., SP 02/06/2019 11:00 AM CDT 50 mL SP sodium chloride PF 0.9% injection 50 mL Given SP 50 mL, Intravenous, ONCE, 1 dose, Tia SP 02/06/19 at 1100, Intra-procedure (IR) SP documented in this encounter
--- OUTSIDE RECORDS SUMMARY | 2019-04-12 08:57 | XMS REPORT | Encounter Summary ---
Author Author [facility] POS Organization [facility] SP Address Unknown SP Phone Unavailable SP Care Team Providers Care Clinical Resource Director Name Role Phone POS Christa Ware MD PCP SP Encounter Details Care Team Description POS Date Type Department SP SP Belinda Landeros, POLICE SUPERINTENDENT [address] [facility] [address] [place], [place] [phone] SP 01/13/2019 [facility] SP Encounter Cancer Center SP [address] [facility] SP 2nd Dc Carlos Enrique [address] [place] [address] SP [phone] SP Social History Date POS Tobacco Use [...]
--- OUTSIDE RECORDS SUMMARY | 2019-04-12 08:57 | XMS REPORT | Encounter Summary ---
Author Author [facility] POS Organization [facility] SP Address Unknown SP Phone Unavailable SP Care Team Providers Care Strip Feeder Name Role Phone POS Christa Ware MD PCP SP Encounter Details Care Team Description POS Date Type Department SP SP Melyssa Cummings, PRICING SUPERVISOR-AS400 DEVELOPER [address] [facility] [address] [place] [address] [phone] SP 12/26/2018 Orders Only [facility] SP [address] [facility] 2nd [facility] [address] [place] [address] SP [phone] SP Social History Date POS Tobacco Use [...]
--- OUTSIDE RECORDS SUMMARY | 2019-04-12 08:57 | XMS REPORT | Encounter Summary ---
Demographics Address [address] [facility] [place] [address] Home Phone SP Preferred Language Divehi SP Marital Status Unknown SP Advent Affiliation PRE SP Race White SP Ethnic Group Not or SP Author Author [facility] POS Organization [facility] SP Address Unknown SP Phone Unavailable SP Care Team Providers Care Mold Injector Name Role Phone POS Christa Ware MD PCP SP Reason for Visit * Reason Comments POS Treatment SP Encounter Details Care Team Description POS Date Type Department SP SP Belinda Landeros, CMS EXPERT [address] [facility] [address] [place], [place] [phone] SP 01/13/2019 [facility] SP Encounter Cancer Center SP [address] [facility] 2nd [facility] [address] [place] [address] SP [phone] SP Social History Date POS Tobacco Use [...] Taken Comments POS Vital Sign SP 127/69 01/13/2019 10:26 AM CDT SP Blood Pressure SP 59 01/13/2019 10:26 AM CDT SP Pulse SP 36.6 C (97.9 F) 01/13/2019 10:26 AM CDT SP Temperature SP 16 01/13/2019 10:26 AM CDT SP Respiratory Rate SP 98% 01/13/2019 10:26 AM CDT SP Oxygen Saturation SP - - SP Inhaled Oxygen SP Concentration SP 59.7 kg (131 lb 9.8 oz) 01/13/2019 9:04 AM CDT SP Weight SP - - SP Height SP 21.9 12/19/2018 10:43 AM CDT SP Body Mass Index SP [...] as SP needed for SP Sleep. SP 01/13/2019 02/03/2019 SP (INV) cabozantinib (HSC Take two 60 tablet 0 SP [id number]) 20 mg tablets by SP tabletIndications: mouth [...] of this encounter Progress Notes * Isa Darby RN - 01/13/2019 8:33 AM CDT CRC TREATMENT DAY Study : XL 184 Cycle and Day : C12D1 Labs : Clinical and correlative labs drawn. Assessment : Assessment documented in doc flowsheet. Fatigue Scale:0 Vital Signs : 01/13/19 0904 SOC, patient resting prior starting at 01/13/19 1026 Within 60 min Atezolizumab start Enc Vitals BP 116/67 127/69 Pulse 68 59 Resp 16 16 Temp 36.7 C (98.1 F) 36.6 C (97.9 F) Temp src Oral Oral SpO2 100 % 98 % Correlative Labs & EKG : Correlative labs drawn. No EKG per study protocol. Side Effects : Spot on left hand, pt denies itching pain. Additional Notes : Pt to CRC treatment for C12D1 XL 184. Labs drawn from Right Port. Labs WNL per current treatment plan. Pt reports small bump on left hand, has been present for the last 2 months. P t denies itching/pain. Pt seen by Belinda Landeros APRN. Ok to proceed with treatment. Pt self dosed in clinic from previous bottle with this RN and study coordinat or present at 1010. Pt confirms fasting since 0700. Pt tolerated infusion well and verbalizes understanding regarding POC. Calendar/AVS : AVS and Calendar given. Patient educated and without questions or concerns. Discharge : Patient left the unit at 1111 without complaints. Drug : Dosage and BSA was double checked with Silvina Fox RN and agrees with orders as written Verified chemo consent signed and in chart. Blood return positive via: Port (Single) Premedications/Prehydration given as ordered (if applicable). ondansetron (ZOFRAN) tablet 16 mg [[id number]] Ordered Dose: 16 mg Route: Oral Frequency: ONCE Administration Dose: 16 mg Scheduled Start Date/Time: 01/13/19944 End Date/Time: 01/14/19944 after 1 do ses Diagnosis Association: Clinical trial participant (Z00.6); Malignant neoplasm of ovary, unspecified laterality (HCC) (C56.9) Order Status: Active Arm band verified at bedside with second RN (same RN as above unless otherwise n oted). Lab tests checked (may include other additional protocol parameters): CBC, Compr ehensive Metabolic Panel (CMP) and UA Chemo drug/dose/route: (INV) atezolizumab ([facility] [id number]) 1,200 mg in sodium chlori de 0.9% (NS) 270 mL IVPB [[id number]] Ordered Dose: 1,200 mg Route: Intravenous Frequency: ONCE @ 540 mL/hr over 30 Mi nutes Volume: 270 mL Stability: 6 Hours Scheduled Start Date/Time: 01/13/191014 End Date/Time: 01/14/191014 after 1 do ses Admin Instructions: INVESTIGATIONAL CYTOTOXIC If first dose was well tolerated, administer over 30 minutes (+/- 10 minutes). Infuse through a 0.2 micron filter. NOTE: This is a HIGH ALERT medication. Diagnosis Association: Clinical trial participant (Z00.6); Malignant neoplasm of ovary, unspecified laterality (HCC) (C56.9) Order Status: Active Rate verified with second RN (same RN as above unless otherwise noted). Patient education offered and stated understanding. Drug : Dosage was double checked with Eva Cavazos RN ,Chemotherapy Certified Nurse, per protocol. Dose time: Self dosed from previous bottle at 1010. cash applications coordinator at bedside for additional education/teaching. Yes Verified chemo consent signed and in chart. Yes Verified initiate chemo order in Yes Premedications/Prehydration given as ordered. N/A Arm band verified at bedside with second RN (same RN as above unless otherwise n oted). Yes Labs/applicable tests checked: Yes Chemo drug/dose/route: (INV) cabozantinib ([facility] [id number]) 20 mg tablet [[id number]] Order Details Dose: 40 mg Route: Oral Frequency: DAILY Dispense Quantity: 60 tablet Refills: 0 Fills remaining: -- Sig: Take two tablets by mouth daily for 21 days. INVESTIGATIONAL SPECIAL HANDL ING PRECAUTIONS -Take on an empty stomach with a minimum of 8 ounces of water at least 1 hour be fore or 2 hours after a meal Patient education offered and stated understanding. documented in this encounter Miscellaneous Notes * Addendum Note - Rakel Llamas - 01/15/2019 12:20 PM CDT Encounter addended by: Rakel Llamas on: 01/15/2019 12:20 PM Actions taken: Charge Capture section accepted documented in this encounter Plan of Treatment Not on filedocumented as of this encounter Procedures Comments POS Procedure Name Priority Date/Time Associated Diag nosis SP SP PROTEIN/CR RATIO,UR RAN 01/13/2019 Clinical [...] this encounter Results * PROTEIN/CR RATIO,UR RAN (01/13/2019 9:15 AM CDT) Pathologist POS Signature SP Protein, Random 10 MG/DL [facility] SP Creatinine, 54 MG/DL [facility] SP Random SP Protein/CR 0.2 [facility] SP ratio SP Specimen SP Performing Organization Address [facility] Ph one Number SP [facility] [address] [place] [address] SP * URINALYSIS, MICROSCOPIC (01/13/2019 9:15 AM CDT) Pathologist SP Signature SP WBCs,UA 2-5 0 - 2 /HPF [facility] SP RBCs,UA 0-2 0 - 3 /HPF [facility] SP Epith Cells,UA 2-5 0 - 2 /HPF [facility] SP MucousUA 1+ [facility] SP Bacteria,UA FEW (A) NEG-NEG [facility] SP Specimen SP Urine - Urine SP Performing Organization Address [facility] Ph one Number SP [facility] [address] [place], [place] [phone] SP * URINALYSIS DIPSTICK (01/13/2019 9:15 AM CDT) Pathologist SP Signature SP Color,UA YELLOW [facility] SP Turbidity,UA CLEAR CLEAR-CLEAR [facility] SP Specific 1.010 1.003 - 1.035 [facility] SP [place]-Urine SP pH,UA 6.0 5.0 - 8.0 [facility] SP Protein,UA NEG NEG-NEG [facility] SP Glucose,UA NEG NEG-NEG [facility] SP Ketones,UA NEG NEG-NEG [facility] SP Bilirubin,UA NEG NEG-NEG [facility] SP Blood,UA NEG NEG-NEG [facility] SP Urobilinogen,UA NORMAL NORM-NORMAL [facility] SP Nitrite,UA NEG NEG-NEG [facility] SP Leukocytes,UA NEG NEG-NEG [facility] SP Specimen SP Urine - Urine SP Performing Organization Address [facility] Ph one Number SP [facility] [address] [place] [address] SP * BILIRUBIN, DIRECT (01/13/2019 8:56 AM CDT) Pathologist SP Signature SP Bilirubin, <0.1 <0.4 MG/DL [facility] SP Direct SP Specimen SP Blood SP Performing Organization Address [facility] Ph one Number SP [facility] [address] [place] [address] SP * PHOSPHORUS (01/13/2019 8:56 AM CDT) Pathologist SP Signature SP Phosphorus 3.4 2.0 - 4.5 MG/DL [facility] SP Specimen SP Blood SP Performing Organization Address [facility] Ph one Number SP [facility] [address] [place] [address] SP * MAGNESIUM (01/13/2019 8:56 AM CDT) Pathologist SP Signature SP Magnesium 1.7 1.6 - 2.6 mg/dL [facility] SP Specimen SP Blood SP Performing Organization Address [facility] Ph one Number SP [facility] [address] [place] [address] SP * LIPASE (01/13/2019 8:56 AM CDT) Pathologist SP Signature SP Lipase 24 11 - 82 U/L [facility] SP Specimen SP Blood SP Performing Organization Address City[facility] Ph one Number SP [facility] [address] [place] [address] SP * AMYLASE (01/13/2019 8:56 AM CDT) Pathologist SP Signature SP Amylase 59 24 - 100 U/L [facility] SP Specimen SP Blood SP Performing Organization Address City/[facility] Ph one Number SP [facility] [address] [place] [address] SP * LDH-LACTATE DEHYDROGENASE (01/13/2019 8:56 AM CDT) Pathologist SP Signature SP Lactate 186 100 - 210 U/L [facility] SP Dehydrogenase SP Specimen SP Blood SP Performing Organization Address City/[facility] Ph one Number SP [facility] [address] [place] [address] SP * GGTP (01/13/2019 8:56 AM CDT) Pathologist SP Signature SP GGTP 15 9 - 64 U/L [facility] SP Specimen SP Blood SP Performing Organization Address [facility] Ph one Number SP [facility] [address] [place] [address] SP * COMPREHENSIVE METABOLIC PANEL (01/13/2019 8:56 AM CDT) Pathologist SP Signature SP Sodium 143 137 - 147 MMOL/L [facility] SP Potassium 3.7 3.5 - 5.1 MMOL/L [facility] SP Chloride 110 98 - 110 MMOL/L [facility] SP Glucose 91 70 - 100 MG/DL [facility] SP Blood Urea 15 7 - 25 MG/DL [facility] SP Nitrogen SP Creatinine 0.79 0.4 - 1.00 MG/DL [facility] SP Calcium 8.9 8.5 - 10.6 MG/DL [facility] SP Total Protein 6.3 6.0 - 8.0 G/DL [facility] SP Total Bilirubin 0.4 0.3 - 1.2 MG/DL [facility] SP Albumin 3.6 3.5 - 5.0 G/DL [facility] SP Alk Phosphatase 65 25 - 110 U/L [facility] SP AST (SGOT) 28 7 - 40 U/L [facility] SP CO2 23 21 - 30 MMOL/L [facility] SP ALT (SGPT) 29 7 - 56 U/L [facility] SP Anion Gap 10 3 - 12 [facility] SP eGFR Non >60 >60 mL/min [facility] SP Comment: SP Spanish The eGFR is not validated f or SP use in drug dosing SP adjustments.Continue to SP use SP estimated creatinine SP clearance per dosing reference SP text.Please contact the SP Clinical Pharmacist for SP questions. SP eGFR >60 >60 mL/min [facility] SP Spanish Comment: SP The eGFR is not validated for SP use in drug dosing SP adjustments.Continue to SP use SP estimated creatinine SP clearance per dosing reference SP text.Please contact the SP Clinical Pharmacist for SP questions. SP Specimen SP Blood SP Performing Organization Address City/State/Zipcode Ph one Number SP [facility] [address] [place] [address] SP * CBC AND DIFF (01/13/2019 8:56 AM CDT) Pathologist SP Signature SP White Blood 3.4 (L) 4.5 - 11.0 K/UL [facility] SP Cells SP RBC 4.05 4.0 - 5.0 M/UL [facility] SP Hemoglobin 13.4 12.0 - 15.0 GM/DL [facility] SP Hematocrit 39.8 36 - 45 % [facility] SP MCV 98.3 80 - 100 FL [facility] SP MCH 33.1 26 - 34 PG [facility] SP MCHC 33.7 32.0 - 36.0 G/DL [facility] SP RDW 15.0 11 - 15 % [facility] SP Platelet Count 207 150 - 400 K/UL [facility] SP MPV 7.9 7 - 11 FL [facility] SP Neutrophils 58 41 - 77 % [facility] SP Lymphocytes 24 24 - 44 % [facility] SP Monocytes 11 4 - 12 % [facility] SP Eosinophils 6 (H) 0 - 5 % [facility] SP Basophils 1 0 - 2 % [facility] SP Absolute 2.00 1.8 - 7.0 K/UL [facility] SP Neutrophil SP Count SP Absolute Lymph 0.80 (L) 1.0 - 4.8 K/UL [facility] SP Count SP Absolute 0.40 0 - 0.80 K/UL [facility] SP Monocyte Count SP Absolute 0.20 0 - 0.45 K/UL [facility] SP Eosinophil SP Count SP Absolute 0.00 0 - 0.20 K/UL [facility] SP Basophil Count SP Specimen SP Blood SP Performing Organization Address City/[facility] Ph one Number [facility] [address] [place] [address] SP * CA125 (01/13/2019 8:56 AM CDT) Pathologist SP Signature SP CA-125 17 <35 U/ml [facility] SP Specimen SP Blood SP Performing Organization Address City/[facility] Ph one Number SP [facility] [address] [place] [address] SP * FREE T4 (FREE THYROXINE) ONLY (01/13/2019 8:56 AM CDT) Pathologist SP Signature SP T4-Free 1.5 0.6 - 1.6 NG/DL [facility] SP Specimen SP Blood SP Performing Organization Address City/[facility] Ph one Number SP [facility] [address] [place] [address] SP * THYROID STIMULATING HORMONE-TSH (01/13/2019 8:56 AM CDT) Pathologist SP Signature SP TSH 0.01 (L) 0.35 - 5.00 MCU/ML [facility] SP Specimen SP Blood SP Performing Organization Address [facility] Ph one Number SP [facility] [address] [place] [address] SP * PTT (APTT) (01/13/2019 8:56 AM CDT) Pathologist SP Signature SP APTT 39.0 (H) 24.0 - 36.5 SEC [facility] SP Specimen SP Blood SP Performing Organization Address [facility] Ph one Number SP [facility] [address] [place] [address] SP * PROTIME INR (PT) (01/13/2019 8:56 AM CDT) Pathologist SP Signature SP INR 1.0 0.8 - 1.2 [facility] SP Specimen SP Blood SP Performing Organization Address City/[facility] Ph one Number SP [facility] [address] [place] [address] SP documented in this encounter Visit Diagnoses Diagnosis POS Clinical trial participant - Primary SP Malignant neoplasm of ovary, unspecifie d laterality (HCC) SP documented in this encounter Administered Medications Action Date Dose Rate Site POS Medication Order MAR Action SP 01/13/2019 10:31 AM CDT 1,200 mg 540 mL/hr SP (INV) atezolizumab ([facility] [id number]) 1,200 mg Given - New SP in sodium chloride 0.9% (NS) 270 mL IVPB Bag SP 1,200 mg, Intravenous, 270 mL, SP Administer over 30 Minutes, ONCE, 1 SP dose, Sun01/13/19 at 1015, SP INVESTIGATIONAL CYTOTOXIC If SP first dose was well tolerated, SP administer over 30 minutes (+/- 10 SP minutes). Infuse through a 0.2 micron SP filter. NOTE: This is a HIGH ALERT SP medication., SP 01/13/2019 11:05 AM CDT 500 Units SP heparin lock flush PF syringe 500 Units Given SP 500 Units, Intra-catheter, ONCE, 1 dose , SP Sun01/13/19 at 0845, NOTE: This is a SP HIGH ALERT Medication., SP 01/13/2019 9:58 AM CDT 16 mg SP ondansetron (ZOFRAN) tablet 16 mg Given SP 16 mg, Oral, ONCE, 1 dose, Sun01/13/19 SP at 0945 SP documented in this encounter
--- OUTSIDE RECORDS SUMMARY | 2019-04-12 08:57 | XMS REPORT | Encounter Summary ---
Author Author [facility] POS Organization [facility] SP Address Unknown SP Phone Unavailable SP Care Team Providers Care Ballet Dancer Name Role Phone POS Christa Ware MD PCP SP Encounter Details Care Team Description POS Date Type Department SP SP Melyssa Cummings, FILM REPLACEMENT ORDERER-STUNNER ANIMAL [address] [facility] Clinical Research Ctr [address] [place] [address] [phone] SP 12/26/2018 Orders Only [facility] SP [address] [facility] 2nd [facility] [address] [place] [address] SP [phone] SP Social History Date POS Tobacco Use [...]
--- OUTSIDE RECORDS SUMMARY | 2019-04-12 08:57 | XMS REPORT | Encounter Summary ---
Author Author [facility] POS Organization [facility] SP Address Unknown SP Phone Unavailable SP Care Team Providers Care Monomer Recovery Operator Name Role Phone POS Christa Ware MD PCP SP Encounter Details Care Team Description POS Date Type Department SP SP Mateo Cabral MD [address] [facility] [place] [address] [phone] SP 01/13/2019 Documentation [facility] SP [address] [facility] 2nd [place] Carlos Enrique [address] [place] [address] SP [phone] SP Social History Date POS Tobacco Use [...] Notes * Research - Mac Lipscomb - 01/13/2019 9:59 AM CDT Study Title:A Phase 1b Dose-Escalation Study of Carbozantinib (XL184) Administ ered Alone or in Combination with Atezolizumab to Subjects with Locally Advanced or Metastatic Solid Tumors [[facility]:[id number]] Study ID:[id number] Dose Modification: 02/03/2019 - Cycle 13 delayed by 1 week to accommodate pt vacation, visit to be co mpleted on 02/10/2019 Patient presentsto CRCfor [id number] 1. Labs drawn per protocol. Donby Belinda Landeros (ANALYTICAL CONSULTANT),Isa(RN) and th is SC. Patient tocontinuewith treatment. Gloria with patient, reviewedanynew/ongoing symptoms.Please seeprov idernotefor detailed assessments and AE/conmed. This human service coordinator collected pill diary and provided patient with new dosing diary for cycle12. Patient self-[id number](2x20mg tablets)at 1010out of Drug u nit #[id number].Doserecorded on [employer]ets, [employer].iary. IRT:SUSAN dispensed the following drug units,[id number], [id number], [id number]; vahid ded to pharmacy Medication Accountability:Patient turned in2 bottles of Cabozantinib (XL184) , turned into pharmacy 1:Drug Unit#: [id number] 2:Drug Unit #:[id number]; pt stated the bottle opened in her purse and collected all the pills she could find Pharmacydispensed new medication today: Drug Unit#: [id number] Drug Unit #: [id number] Next Imagin02/06/2019 RTC:Patient will return on02/10/19for [id number] documented in this encounter Plan of Treatment Not on filedocumented as of this encounter Visit Diagnoses Not on filedocumented in this encounter
--- OUTSIDE RECORDS SUMMARY | 2019-04-12 08:57 | XMS REPORT | Encounter Summary ---
Author Author [facility] POS Organization [facility] SP Address Unknown SP Phone Unavailable SP Care Team Providers Care Swinging Cut Off Saw Operator Name Role Phone POS Christa Ware MD PCP SP Reason for Visit * Reason Comments POS Treatment SP Encounter Details Care Team Description POS Date Type Department SP SP Belinda Landeros, AUDIO/VISUAL MANAGER [address] [facility] [address] [place] [address] [phone] Malignant neoplasm of ovary, unspecified laterality (HCC) SP Dx); Examination of participant in clinical trial 01/13/2019 Office Visit [facility] SP [address] [facility] [address] [facility] [address] [place] [address] SP [phone] SP Social History Date POS Tobacco Use [...] Time Taken Comments POS Vital Sign SP 116/67 01/13/2019 9:04 AM CDT SP Blood Pressure SP 68 01/13/2019 9:04 AM CDT SP Pulse SP 36.7 C (98.1 F) 01/13/2019 9:04 AM CDT SP Temperature SP 16 01/13/2019 9:04 AM CDT SP Respiratory Rate SP 100% 01/13/2019 9:04 AM CDT SP Oxygen Saturation SP - [...] Progress Notes * Belinda Landeros APRN - 01/13/2019 9:30 AM CDT Subjective GYNECOLOGIC ONCOLOGY EVALUATION Name:Katty Gold Date: 01/14/19 Primary Care Physician: Christa Ware Chief Complaint: Chief Complaint Patient presents with Treatment History of Present Illness: Katty Gold is a 68 y.o. 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 Onc Timeline Katty Gold is a 67 y.o. female with recurrent transitional cell ovarian cancer. Here today (13-Jan-2019) for follow up. [facility] [place] [place] [facility] have been for the past several weeks. After her appointment today, s he will fly back. She does have a "spot" on the back of her left hand she was a sking about. No rash today. Continues to have some days with diarrhea and othe r days where she is "just fine". Feeling well overall. Symptoms otherwise sta ble. Tolerating cabozantanib well. Appetite is good. Has chronic voice chapin es. Does have mild fatigue. No neuropathy. No pain complaints, No changes in bow el or urinary habits. REF:Viri Gold MD PCP: Christa Ware MD Clerical Warehouse Worker: Talon Reeves MD MED/ONC: Dr. Cesar [...] a nd negative for WT-1, inhibin, calretinin, Clements-1, ER, NM, synaptophysin and chr omogranin. A p53 stain [...] on CT, this was most reflective of ohogamiut resistant/refractory disease. As such, surgical exploration and [...] genetics sent - KRAS 94% mutational change, BG9Vsaw >50%, tp53 + Target lesions Left hemidiaphragm lesion 15mm --> [...] LESION performed by Mauro Davies MD at [facility] OR/Periop RECTAL SURGERY Left 10/09/2017 RESECTION SIGMOID COLON, COLONOSCOPY performed by Tim Chung MD at [facility] OR/Periop SECTION HX BREAST BIOPSY HX BREAST LUMPECTOMY followed by radiation therapy. HX CHOLECYSTECTOMY HX TUBAL LIGATION Bilateral Medications: Current Outpatient Medications: (INV) cabozantinib ([place] 075533) 20 mg tablet, Take two tablets by [...] 2.5/0.025 mg tablet, Take one tablet by [facility] twice daily as needed for Diarrhea., [...] in HPI ECOG 0 Physical Exam: BP 116/67 (BP Source: Arm, Right Upper, Patient Position: Sitting) | Pulse 68 | Temp 36.7 C (98.1 F) (Oral) | Resp 16 | Wt 59.7 kg (131 lb 9.8 oz) | LM P 09/24/1997 | SpO2 100% | BMI 21.90 kg/m GENERAL APPEARANCE: Appears healthy. Alert; in [...] normal. SKIN: Skin color, texture, turgor normal. Follicular rash on her back, nontender and no drainage. LYMPH NODES: No palpable supraclavicular or inguinal lymph nodes. Does have 4cm fluctuant area in right groin, minimal mobility and no solid areas palpated CBC w/Diff Lab Results Component Value Date/Time WBC 3.4 (L) 01/13/2019 08:56 AM RBC 4.05 01/13/2019 08:56 AM HGB 13.4 01/13/2019 08:56 AM HCT 39.8 01/13/2019 08:56 AM MCV 98.3 01/13/2019 08:56 AM MCH 33.1 01/13/2019 08:56 AM MCHC 33.7 01/13/2019 08:56 AM RDW 15.0 01/13/2019 08:56 AM PLTCT 207 01/13/2019 08:56 AM MPV 7.9 01/13/2019 08:56 AM Lab Results Component Value Date/Time NEUT 58 01/13/2019 08:56 AM ANC 2.00 01/13/2019 08:56 AM LYMA 24 01/13/2019 08:56 AM ALC 0.80 (L) 01/13/2019 08:56 AM JEFRY 11 01/13/2019 08:56 AM AMC 0.40 01/13/2019 08:56 AM EOSA 6 (H) 01/13/2019 08:56 AM AEC 0.20 01/13/2019 08:56 AM BASA 1 01/13/2019 08:56 AM ABC 0.00 01/13/2019 08:56 AM Comprehensive Metabolic Profile Lab Results Component Value Date/Time NA 143 01/13/2019 08:56 AM K 3.7 01/13/2019 08:56 AM CL 110 01/13/2019 08:56 AM CO2 23 01/13/2019 08:56 AM GAP 10 01/13/2019 08:56 AM BUN 15 01/13/2019 08:56 AM CR 0.79 01/13/2019 08:56 AM GLU 91 01/13/2019 08:56 AM Lab Results Component Value Date/Time CA 8.9 01/13/2019 08:56 AM PO4 3.4 01/13/2019 08:56 AM ALBUMIN 3.6 01/13/2019 08:56 AM TOTPROT 6.3 01/13/2019 08:56 AM ALKPHOS 65 01/13/2019 08:56 AM AST 28 01/13/2019 08:56 AM ALT 29 01/13/2019 08:56 AM TOTBILI 0.4 01/13/2019 08:56 AM GFR >60 01/13/2019 08:56 AM GFRAA >60 01/13/2019 08:56 AM Other labs No results found for: ESR Lab Results Component Value Date/Time LDH 186 01/13/2019 08:56 AM ASSESSMENT/PLAN: Katty Gold is a 68 y.o. female with metastatic recurrent transitional car cinoma of the ovary for XL-184 trial. Functionally cleared for trial. Cleared for C12 (13-Jan-2019). Stable disease on imaging, to cont trial Lab results reviewed and meet treatment parameters. All abnormal lab values ar e not clinically significant, stable and do not require treatment unless otherwi se noted. Gr 1 neutropenia - no change per protocol, cont dosing Gr 1 rash - hydrocortisone cream and cetaphil prn Elevated amylase and lipase - Gr 2 now resolved Diarrhea - Gr 2, likely related to study drugs, cont TID benafiber with meals, will try lomitil since immodium didn't work, reviewed that it is reassuring that her electrolytes and Cr are stable and that she is not showing signs of dehydra tion Reviewed NextGene sequencing sent by Dr Davies. KRAS and GY4Ywys mutation which are both actionable, would consider referral for a clinical trial if evidence of progression. Right inguinal fluid collection - has had drained in the past and it returned. I discussed that this may be a sort of fluid collection extension from her abdome n, therefore any drainage would be a temporary solution. If causing significant change in symptoms or unable to Complete ADLs then we could consider appt with gen surg to discuss surgical repair. Pt electing to defer at this time. On imagi ng, appears to be metastatic implant The mechanisms of action for these drugs, rationale for the Cabozantanib and PD1 inhibitor combination, known and potentially expected toxicities, schedule/rout es of drug administration, investigational procedures, response assessment, and voluntary/investigational nature of these trials were discussed at some length. All her questions were answered. RV next cycle. CT scans to assess response to treatment scheduled on 9. PI: Dr. Mateo Landeros DNP, AUDIO/VISUAL MANAGER-KETTLE FRY COOK OPERATOR documented in this encounter Plan of Treatment Not on filedocumented as of this encounter Visit Diagnoses Diagnosis POS Malignant neoplasm of ovary, unspecifie d laterality (HCC) - Primary SP Examination of participant in clinical trial SP documented in this encounter
--- OUTSIDE RECORDS SUMMARY | 2019-04-12 08:58 | XMS REPORT | Encounter Summary ---
Author Author [facility] POS Organization [facility] SP Address Unknown SP Phone Unavailable SP Care Team Providers Care Biology Tutor Name Role Phone POS Christa Ware MD PCP SP Encounter Details Care Team Description POS Date Type Department SP SP Mateo Cabral MD [address] [facility] [place] [address] [phone] SP 12/23/2018 Documentation [facility] SP [address] [facility] [address] [place] [address] SP [phone] SP Social History Date POS Tobacco Use [...] Notes * Research - Mac Lipscomb - 12/23/2018 12:18 PM CDT Study Title:A Phase 1b Dose-Escalation Study of Carbozantinib (XL184) Administ ered Alone or in Combination with Atezolizumab to Subjects with Locally Advanced or Metastatic Solid Tumors [[facility]:[id number]] Study ID:[id number] Patient presentsto CRCfor [id number] 1. Labs drawn Eva Silva(RN) and this SC. Patient to continuewith treatment. Dr. Cabralmet with patient, reviewedanynew/ongoing symptoms.Please see providernotefor detailed assessments and AE/conmed. This submarine element coordinator collected pill diary and provided patient with new dosing diary for cycle11. Patient self-[id number](2x20mg tablets)[id number] out of Drug u nit #[id number].Doserecorded on herdiary. IRT: [facility] dispensed the following drug units, [id number], [id number], [id number]; forwarde d to pharmacy Medication Accountability:Patient turned in2 bottles of Cabozantinib (XL184) , turned into pharmacy 1:Drug Unit#: [id number] 2:Drug Unit #:[id number]; pt stated she dropped one at home and could not find it Pharmacydispensed new medication today: Drug Unit#: [id number] Drug Unit #: [id number] Next Imagin02/05/2019 RTC:Patient will return on01/13/19for [id number] documented in this encounter Plan of Treatment Not on filedocumented as of this encounter Visit Diagnoses Not on filedocumented in this encounter
--- OUTSIDE RECORDS SUMMARY | 2019-04-12 08:58 | XMS REPORT | Encounter Summary ---
Author Author [facility] POS Organization [facility] SP Address Unknown SP Phone Unavailable SP Care Team Providers Care Dental Ceramist Assistant Name Role Phone POS Christa Ware MD PCP SP Encounter Details Care Team Description POS Date Type Department SP SP Mateo Cabral MD [address] [facility] [place] [address] [phone] SP 12/23/2018 [facility] SP Encounter Cancer Center SP [address] [facility] SP [address] [place] [address] SP [phone] SP Social History Date POS Tobacco Use [...] tablet Units by SP mouth daily. SP SP folic Take by 0 SP [...]
--- OUTSIDE RECORDS SUMMARY | 2019-04-12 08:58 | XMS REPORT | Encounter Summary ---
Author Author [facility] POS Organization [facility] SP Address Unknown SP Phone Unavailable SP Care Team Providers Care Clean Up Person Name Role Phone POS Christa Ware MD PCP SP Reason for Visit * Reason Comments POS Appointment SP Encounter Details Care Team Description POS Date Type Department SP SP Mateo Cabral MD [address] [facility] [place] [address] Appointment SP 12/25/2018 Telephone [facility] [place] SP [address] [place] [address] SP [phone] SP Social History Date POS Tobacco Use [...]
--- OUTSIDE RECORDS SUMMARY | 2019-04-12 08:58 | XMS REPORT | Encounter Summary ---
Author Author [facility] POS Organization [facility] SP Address Unknown SP Phone Unavailable SP Care Team Providers Care Social Worker School Name Role Phone POS Christa Ware MD PCP SP Reason for Visit * Reason Comments POS Treatment SP Encounter Details Care Team Description POS Date Type Department SP SP Mateo Cabral MD [address] [facility] [place], [place] [phone] SP 12/23/2018 [facility] SP Encounter Cancer [place] SP [address] [facility] SP [address] [place] [address] SP [phone] SP Social History Date POS Tobacco Use [...] Time Taken Comments POS Vital Sign SP 123/76 12/23/2018 12:43 PM CDT SP Blood Pressure SP 60 12/23/2018 12:43 PM CDT SP Pulse SP 36.3 C (97.3 F) 12/23/2018 12:43 PM CDT SP Temperature SP 16 12/23/2018 12:43 PM CDT SP Respiratory Rate SP 99% 12/23/2018 12:43 PM CDT SP Oxygen Saturation SP - - SP Inhaled Oxygen SP Concentration SP 61.6 kg (135 lb 12.9 oz) 12/23/2018 11:06 AM CDT SP Weight SP - - SP Height SP 22.6 12/19/2018 10:43 AM CDT SP Body Mass [...] Progress Notes * Eva Greenberg RN - 12/23/2018 1:45 PM CDT CRC TREATMENT DAY Study : Cycle and Day : Cycle 11 Day 1 Labs : Clinical and correlative labs drawn from R port Assessment : Assessment documented in doc flowsheet. Fatigue Scale:0 Vital Signs : 12/23/18 1106 SOC 12/23/18 1243 Prior to atezolizumab Vitals/Screening BP 123/70 123/76 BP Source Arm, Left Upper Arm, Left Upper BP Patient Position -- Chair Pulse 63 60 Resp 16 16 Temp 36.5 C (97.7 F) 36.3 C (97.3 F) Temp src Oral Oral SpO2 100 % 99 % Correlative Labs & EKG : Correlative labs drawn from R port EKG completed by hospital staff at 1110, pt started resting at 1100 Side Effects : Diarrhea Additional Notes : Pt arrived to [facility] for C11D1 of XL-184. Labs drawn from R port. Urine collecte d. EKG completed. Labs WNL. Pt seen by Mac study lead. Pt seen by Dr. Cabral. Pt states still having diarrhea. Per Dr. Cabral, orders for Lomotil. Prescrip tion sent with patient. Okay to proceed with treatment. Pt tolerated treatment well. Pt has pills with her upon leaving clinic today. Calendar/AVS : AVS and Calendar given. Patient educated and without questions or concerns. Discharge : Patient left the unit at 1344 without complaints. Drug : Dosage and BSA was double checked with Valerie Osman RN and agrees with orders as written Verified chemo consent signed and in chart. Blood return positive via: Port (Single and Accessed) Premedications/Prehydration given as ordered (if applicable). ondansetron (ZOFRAN) tablet 16 mg [[id number]] Ordered Dose: 16 mg Route: Oral Frequency: ONCE Administration Dose: 16 mg Arm band verified at bedside with second RN (same RN as above unless otherwise n oted). Lab tests checked (may include other additional protocol parameters): CBC, Compr ehensive Metabolic Panel (CMP) and Other labs per study protocol Chemo drug/dose/route: (INV) atezolizumab ([facility] [id number]) 1,200 mg in sodium chloride 0.9% (NS) 270 mL IVP B [[id number]] Ordered Dose: 1,200 mg Route: Intravenous Frequency: ONCE @ 540 mL/hr over 30 Mi nutes Volume: 270 mL Rate verified with second RN (same RN as above unless otherwise noted). Silvina oakes RN Patient education offered and stated understanding. Drug : Dosage was double checked with Valerie OsmanChemotherapy Certified Nurse, per protocol. Dose time: 1221 budget coordinator at bedside for additional education/teaching. Yes Verified chemo consent signed and in chart. Yes Verified initiate chemo order in Yes Premedications/Prehydration given as ordered. N/A Arm band verified at bedside with second RN (same RN as above unless otherwise n oted). Yes Labs/applicable tests checked: Yes Chemo drug/dose/route: (INV) cabozantinib ([facility] [id number]) 20 mg tablet [[id number]] Dose: 40 mg Route: Oral Frequency: DAILY [...] * Addendum Note - Rakel Llamas - 12/25/2018 12:56 PM CDT Encounter addended by: Rakel Llamas on: 12/25/2018 12:56 PM Actions taken: Charge Capture section accepted documented in this encounter Plan of Treatment Not on filedocumented as of this encounter Procedures Comments POS Procedure Name Priority Date/Time Associated Diag evetteis SP SP ECG 12-LEAD Routine 12/23/2018 Examination of SP 3:21 PM CDT participant in clinical SP trial SP Malignant neoplasm of SP ovary, unspecified SP laterality (HCC) SP SP GGTP Routine 12/23/2018 Clinical trial SP 11:00 AM CDT participant SP Malignant neoplasm of SP ovary, unspecified SP laterality (HCC) SP SP CBC AND DIFF Routine 12/23/2018 Clinical trial SP 11:00 AM CDT participant SP Malignant neoplasm of SP ovary, unspecified SP laterality (HCC) SP SP CA125 Routine 12/23/2018 Clinical trial SP 11:00 AM CDT participant SP Malignant neoplasm of SP ovary, unspecified SP laterality (HCC) SP SP PHOSPHORUS Routine 12/23/2018 Clinical trial SP 11:00 AM CDT participant SP Malignant neoplasm of SP ovary, unspecified SP laterality (HCC) SP SP MAGNESIUM Routine 12/23/2018 Clinical trial SP 11:00 AM CDT participant SP Malignant neoplasm of SP ovary, unspecified SP laterality (HCC) SP SP LIPASE Routine 12/23/2018 Clinical trial SP 11:00 AM CDT participant SP Malignant neoplasm of SP ovary, unspecified SP laterality (HCC) SP SP LDH-LACTATE DEHYDROGENASE Routine 12/23/2018 Clin ical trial SP 11:00 AM CDT participant SP Malignant neoplasm of SP ovary, unspecified SP laterality (HCC) SP SP BILIRUBIN, DIRECT Routine 12/23/2018 Clinical tri al SP 11:00 AM CDT participant SP Malignant neoplasm of SP ovary, unspecified SP laterality (HCC) SP SP AMYLASE Routine 12/23/2018 Clinical trial SP 11:00 AM CDT participant SP Malignant neoplasm of SP ovary, unspecified SP laterality (HCC) SP SP COMPREHENSIVE METABOLIC Routine 12/23/2018 Clinic al trial SP PANEL 11:00 AM CDT participant SP Malignant neoplasm of SP ovary, unspecified SP laterality (HCC) SP SP PROTEIN/CR RATIO,UR RAN 12/23/2018 Clinical tria l SP 10:39 AM CDT participant SP Malignant neoplasm of SP ovary, unspecified SP laterality (HCC) SP SP URINALYSIS, MICROSCOPIC Routine 12/23/2018 Clinic al trial SP 10:39 AM CDT participant SP Malignant neoplasm of SP ovary, unspecified SP laterality (HCC) SP SP URINALYSIS DIPSTICK Routine 12/23/2018 Clinical t rial SP 10:39 AM CDT participant SP Malignant neoplasm of SP ovary, unspecified SP laterality (HCC) SP SP ECG-SCAN 12/23/2018 SP 12:00 AM CDT SP documented in this encounter Results * BILIRUBIN, DIRECT (12/23/2018 11:00 AM CDT) Pathologist POS Signature SP Bilirubin, <0.1 <0.4 MG/DL [facility] SP Direct SP Specimen SP Blood SP Performing Organization Address [facility] Ph one Number SP [facility] [address] [place] [address] SP * PHOSPHORUS (12/23/2018 11:00 AM CDT) Pathologist SP Signature SP Phosphorus 3.6 2.0 - 4.5 MG/DL [facility] SP Specimen SP Blood SP Performing Organization Address City/[facility] one Number SP [facility] [address] [place], [place] [phone] SP * MAGNESIUM (12/23/2018 11:00 AM CDT) Pathologist SP Signature SP Magnesium 1.7 1.6 - 2.6 mg/dL [facility] SP Specimen SP Blood SP Performing Organization Address [facility] Ph one Number SP [facility] [address] [place] [address] SP * LIPASE (12/23/2018 11:00 AM CDT) Pathologist SP Signature SP Lipase 23 11 - 82 U/L [facility] SP Specimen SP Blood SP Performing Organization Address City/[facility] Ph one Number SP [facility] [address] [place] [address] SP * AMYLASE (12/23/2018 11:00 AM CDT) Pathologist SP Signature SP Amylase 70 24 - 100 U/L [facility] SP Specimen SP Blood SP Performing Organization Address City/[facility] Ph one Number SP [facility] [address] [place] [address] SP * LDH-LACTATE DEHYDROGENASE (12/23/2018 11:00 AM CDT) Pathologist SP Signature SP Lactate 213 (H) 100 - 210 U/L [facility] SP Dehydrogenase SP Specimen SP Blood SP Performing Organization Address [facility] Ph one Number SP [facility] [place] [address] SP * GGTP (12/23/2018 11:00 AM CDT) Pathologist SP Signature SP GGTP 13 9 - 64 U/L [facility] SP Specimen SP Blood SP Performing Organization Address [facility] Ph one Number SP [facility] [address] [place] [address] SP * COMPREHENSIVE METABOLIC PANEL (12/23/2018 11:00 AM CDT) Pathologist SP Signature SP Sodium 135 (L) 137 - 147 MMOL/L [facility] SP Potassium 3.6 3.5 - 5.1 MMOL/L [facility] SP Chloride 106 98 - 110 MMOL/L [facility] SP Glucose 86 70 - 100 MG/DL [facility] SP Blood Urea 16 7 - 25 MG/DL [facility] SP Nitrogen SP Creatinine 0.75 0.4 - 1.00 MG/DL [facility] SP Calcium 8.9 8.5 - 10.6 MG/DL [facility] SP Total Protein 6.4 6.0 - 8.0 G/DL [facility] SP Total Bilirubin 0.4 0.3 - 1.2 MG/DL [facility] SP Albumin 3.8 3.5 - 5.0 G/DL [facility] SP Alk Phosphatase 70 25 - 110 U/L [facility] SP AST (SGOT) 30 7 - 40 U/L [facility] SP CO2 25 21 - 30 MMOL/L [facility] SP ALT (SGPT) 28 7 - 56 U/L [facility] SP Anion Gap 4 3 - 12 [facility] SP eGFR Non >60 >60 mL/min [facility] SP Comment: SP [place] The eGFR is not validated f or SP use in drug dosing SP adjustments.Continue to SP use SP estimated creatinine SP clearance per dosing reference SP text.Please contact the SP Clinical Pharmacist for SP questions. SP eGFR >60 >60 mL/min [facility] SP [place]yan Comment: SP The eGFR is not validated for SP use in drug dosing SP adjustments.Continue to SP use SP estimated creatinine SP clearance per dosing reference SP text.Please contact the SP Clinical Pharmacist for SP questions. SP Specimen SP Blood SP Performing Organization Address City/State/Zipcode Ph one Number SP [facility] [address] [place], [place] [phone] SP * CBC AND DIFF (12/23/2018 11:00 AM CDT) Pathologist SP Signature SP White Blood 3.4 (L) 4.5 - 11.0 K/UL [facility] SP Cells SP RBC 3.86 (L) 4.0 - 5.0 M/UL [facility] SP Hemoglobin 13.1 12.0 - 15.0 GM/DL [facility] SP Hematocrit 38.2 36 - 45 % [facility] SP MCV 98.9 80 - 100 FL [facility] SP MCH 33.8 26 - 34 PG [facility] SP MCHC 34.2 32.0 - 36.0 G/DL [facility] SP RDW 14.9 11 - 15 % [facility] SP Platelet Count 174 150 - 400 K/UL [facility] SP MPV 7.5 7 - 11 FL [facility] SP Neutrophils 56 41 - 77 % [facility] SP Lymphocytes 28 24 - 44 % [facility] SP Monocytes 10 4 - 12 % [facility] SP Eosinophils 5 0 - 5 % [facility] SP Basophils 1 0 - 2 % [facility] SP Absolute 1.90 1.8 - 7.0 K/UL [facility] SP Neutrophil SP Count SP Absolute Lymph 1.00 1.0 - 4.8 K/UL [facility] SP Count SP Absolute 0.30 0 - 0.80 K/UL [facility] SP Monocyte Count SP Absolute 0.20 0 - 0.45 K/UL [facility] SP Eosinophil SP Count SP Absolute 0.00 0 - 0.20 K/UL [facility] SP Basophil Count SP Specimen SP Blood SP Performing Organization Address [facility] Ph one Number SP [facility] [address] [place] [address] SP * CA125 (12/23/2018 11:00 AM CDT) Pathologist SP Signature SP CA-125 34 <35 U/ml [facility] SP Specimen SP Blood SP Performing Organization Address [facility] one Number SP [facility] [address] [place] [address] SP * PROTEIN/CR RATIO,UR RAN (12/23/2018 10:39 AM CDT) Pathologist SP Signature SP Protein, Random 5 MG/DL [facility] SP Creatinine, 37 MG/DL [facility] SP Random SP Protein/CR 0.1 [facility] SP ratio SP Specimen SP Performing Organization Address [facility] one Number SP [facility] [address] [place] [address] SP * URINALYSIS, MICROSCOPIC (12/23/2018 10:39 AM CDT) Pathologist SP Signature SP WBCs,UA 0-2 0 - 2 /HPF [facility] SP RBCs,UA 0-2 0 - 3 /HPF [facility] SP Epith Cells,UA 0-2 0 - 2 /HPF [facility] SP Specimen SP Urine - Urine SP Performing Organization Address [facility] one Number SP [facility] [address] [place] [address] SP * URINALYSIS DIPSTICK (12/23/2018 10:39 AM CDT) Pathologist SP Signature SP Color,UA YELLOW [facility] SP Turbidity,UA CLEAR CLEAR-CLEAR [facility] SP Specific 1.010 1.003 - 1.035 [facility] SP [place]-Urine SP pH,UA 6.0 5.0 - 8.0 [facility] [...] Urine - Urine SP Performing Organization Address City/State/Zipcode Ph one Number SP [facility] [address] [place], [place] [phone] SP * ECG-SCAN (12/23/2018 12:00 AM CDT) Narrative Performed At This result has an attachment that is n ot available. SP Ordered by an unspecified provider. SP documented in this encounter Visit Diagnoses Diagnosis POS Clinical trial participant - Primary SP Malignant neoplasm of ovary, unspecifie d laterality (HCC) SP Examination of participant in clinical trial SP documented in this encounter Administered Medications Action Date Dose Rate Site POS Medication Order MAR Action SP 12/23/2018 1:09 PM CDT 1,200 mg 540 mL/hr SP (INV) atezolizumab ([facility] [id number]) 1,200 mg Given - New SP in sodium chloride 0.9% (NS) 270 mL IVPB Bag SP 1,200 mg, Intravenous, 270 mL, SP Administer over 30 Minutes, ONCE, 1 SP dose, Sun12/23/18 at 1300, SP INVESTIGATIONAL CYTOTOXIC If SP first dose was well tolerated, SP administer over 30 minutes (+/- 10 SP minutes). Infuse through a 0.2 micron SP filter. NOTE: This is a HIGH ALERT SP medication., SP 12/23/2018 1:42 PM CDT 500 Units SP heparin lock flush PF syringe 500 Units Given SP 500 Units, Flush, ONCE, 1 dose, 12/23/18 at 1230, NOTE: This is a HIGH SP ALERT Medication., SP 12/23/2018 12:39 PM CDT 16 mg SP ondansetron (ZOFRAN) tablet 16 mg Given SP 16 mg, Oral, ONCE, 1 dose, 12/23/18 SP at 1230 SP documented in this encounter
--- OUTSIDE RECORDS SUMMARY | 2019-04-12 08:58 | XMS REPORT | Encounter Summary ---
Author Author [facility] POS Organization [facility] SP Address Unknown SP Phone Unavailable SP Care Team Providers Care Label Designer Name Role Phone POS Christa Ware MD PCP SP Encounter Details Care Team Description POS Date Type Department SP SP Gay Reagan, PHARMD Clinical trial participant (Primary Dx); SPMalignant neoplasm of ovary, unspecified laterality (HCC) 12/23/2018 Orders Only [facility] SP [address] SP 2nd Fl [address] [place] [address] SP [phone] SP Social History Date POS Tobacco Use [...]
--- OUTSIDE RECORDS SUMMARY | 2019-04-12 08:58 | XMS REPORT | Encounter Summary ---
Author Author [facility] POS Organization [facility] SP Address Unknown SP Phone Unavailable SP Care Team Providers Care Irrigating Pump Operator Name Role Phone POS Christa Ware MD PCP SP Reason for Referral * Radiology Services (Routine) Referred By Contact Referred To Contact POS Status Reason Specialty Diagnoses / SP Procedures SP SP Mateo Cabral MD [address] [place] [address] SP New Request Radiology Diagnoses SP Examination of SP participant in SP clinical trial SP Malignant neoplasm SP of ovary, SP unspecified SP laterality (HCC) SP P SP rocedures SP CT ABD/PELV W SP CONTRAST SP * Radiology Services (Routine) Referred By Contact Referred To Contact POS Status Reason Specialty Diagnoses / SP Procedures SP SP Mateo Cabral MD [address] [place] [address] SP No Auth Needed Radiology Diagnoses SP Examination of SP participant in SP clinical trial SP Malignant neoplasm SP of ovary, SP unspecified SP laterality (HCC) SP P SP rocedures SP CT CHEST W SP CONTRAST SP Encounter Details Care Team Description POS Date Type Department SP SP Mateo Cabral MD [address] [place] [address] Malignant neoplasm of ovary, unspecified laterality (HCC) SP Dx); Examination of participant in clinical trial 12/25/2018 Orders Only [facility] SP [address] SP 2[address] Fl [address] [place] [address] SP [phone] SP Social History Date POS Tobacco Use [...] on 02/07/20 3:14 PM. Dictated by JACQUELYN Harman D.OBrent on 02/06/2019 11:45 AM. SP Narrative Performed At CT CHEST, ABDOMEN AND PELVIS [facility] SP Clinical Indication: Female, 68 years. Exam END OF CYCLE ASSESSMENTS XL184 [facility] [id number]. RESEARCH: [employer] [id number] [facility] #[id number], Coordinator: JACQUELYN Tariq Contact: [phone]. SP Technique: Multiple contiguous axial im ages [...] 19, 2018 and PET/CT March 22, 2018 SP CHEST [...] years. Exam END OF CYCLE ASSESSMENTS XL184 [facility] [id number]. RESEARCH: [employer] [id number] Study, [facility] #[id number], Coordinator: Aydee Banks, Contact: [phone]. Technique: Multiple contiguous axial images were obtained [...] years. Exam END OF CYCLE ASSESSMENTS XL184 [facility] [id number]. RESEARCH: [employer] [id number] [facility] #[id number], Coordinator: JACQUELYN Tariq Contact: [phone]. SP Technique: Multiple contiguous axial im ages [...] years. Exam END OF CYCLE ASSESSMENTS XL184 [facility] [id number]. RESEARCH: [employer] [id number] Study, [facility] #[id number], Coordinator: Aydee Banks, Contact: [phone]. Technique: Multiple contiguous axial images were obtained [...]
--- OUTSIDE RECORDS SUMMARY | 2019-04-12 08:59 | XMS REPORT | Encounter Summary ---
Author Author [facility] POS Organization [facility] SP Address Unknown SP Phone Unavailable SP Care Team Providers Care Vehicle And Equipment Cleaner Name Role Phone POS Christa Ware MD PCP SP Reason for Visit * Reason Comments POS Heme/Onc Care SP Encounter Details Care Team Description POS Date Type Department SP SP Mateo Cabral MD [address] [facility] [place], [place] [phone] Clinical trial participant (Primary Dx) SP 12/23/2018 Office Visit [facility] SP [address] [place] [address] SP [phone] SP Social History Date POS Tobacco Use [...] Time Taken Comments POS Vital Sign SP 123/70 12/23/2018 11:06 AM CDT SP Blood Pressure SP 63 12/23/2018 11:06 AM CDT SP Pulse SP 36.5 C (97.7 F) 12/23/2018 11:06 AM CDT SP Temperature SP 16 12/23/2018 11:06 AM CDT SP Respiratory Rate SP 100% 12/23/2018 11:06 AM CDT SP Oxygen Saturation SP - [...] Progress Notes * Mateo Cabral MD - 12/23/2018 11:00 AM CDT Subjective GYNECOLOGIC ONCOLOGY EVALUATION Name:Katty Gold Date: 12/23/18 Primary Care Physician: Christa Ware Chief Complaint: Chief Complaint Patient presents with Heme/Onc Care History of Present Illness: Katty Gold is a 68 y.o. 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 Onc Timeline Katty Gold is a 67 y.o. female with recurrent transitional cell ovarian cancer. Here today for follow up. Feeling well overall. Rash cont to be improved today. Did have more sensitivity on a foot corn and topical ointment didn't help but a corn pad did help. No lesions or rash on feet. Cont to have having daily episod es of diarrhea 3-6 x per day that happen in a short interval in the evenings. Ta vilma immodium BID now and no change noted. The rest of the day is fine without diarrhea. Symptoms otherwise stable. Tolerating cabozantanib well. Appetite is good. Has chronic voice changes. Does have mild fatigue. No neuropathy. No pa in complaints, No changes in bowel or urinary habits. REF:Viri Gold MD PCP: Christa Ware MD Utilization Manager: Talon Reeves MD MED/ONC: Dr. Cesar Ovarian [...] a nd negative for WT-1, inhibin, calretinin, Surprise-1, ER, CA, synaptophysin and chr omogranin. A p53 stain [...] on CT, this was most reflective of tim[place] resistant/refractory disease. As such, surgical exploration and [...] genetics sent - KRAS 94% mutational change, [id number] >50%, tp53 + Target lesions Left hemidiaphragm [...] by Mauro Davies MD at [facility] OR/Periop RECTAL SURGERY Left 10/09/2017 RESECTION SIGMOID COLON, COLONOSCOPY performed by Tim Chung MD at [facility] OR/Periop SECTION HX BREAST BIOPSY HX BREAST LUMPECTOMY followed by radiation therapy. HX CHOLECYSTECTOMY HX TUBAL LIGATION Bilateral Medications: Current Outpatient Medications: (INV) cabozantinib ([facility] [id number]) 20 mg tablet, Take two tablets by [...] 2.5/0.025 mg tablet, Take one tablet by [facility] twice daily as needed for [...] in HPI ECOG 0 Physical Exam: BP 123/70 (BP Source: Arm, Left Upper, Patient Position: Sitting) | Pulse 63 | Temp 36.5 C (97.7 F) (Oral) | Resp 16 | Wt 61.6 kg (135 lb 12.9 oz) | LMP 09/24/1997 | SpO2 100% | BMI 22.60 kg/m GENERAL APPEARANCE: Appears healthy. Alert; in [...] Results Component Value Date/Time WBC 3.4 (L) 12/23/2018 11:00 AM RBC 3.86 (L) 12/23/2018 11:00 AM HGB 13.1 12/23/2018 11:00 AM HCT 38.2 12/23/2018 11:00 AM MCV 98.9 12/23/2018 11:00 AM MCH 33.8 12/23/2018 11:00 AM MCHC 34.2 12/23/2018 11:00 AM RDW 14.9 12/23/2018 11:00 AM PLTCT 174 12/23/2018 11:00 AM MPV 7.5 12/23/2018 11:00 AM Lab Results Component Value Date/Time NEUT 56 12/23/2018 11:00 AM ANC 1.90 12/23/2018 11:00 AM LYMA 28 12/23/2018 11:00 AM ALC 1.00 12/23/2018 11:00 AM JEFRY 10 12/23/2018 11:00 AM AMC 0.30 12/23/2018 11:00 AM EOSA 5 12/23/2018 11:00 AM AEC 0.20 12/23/2018 11:00 AM BASA 1 12/23/2018 11:00 AM ABC 0.00 12/23/2018 11:00 AM Comprehensive Metabolic Profile Lab Results Component Value Date/Time NA 135 (L) 12/23/2018 11:00 AM K 3.6 12/23/2018 11:00 AM CL 106 12/23/2018 11:00 AM CO2 25 12/23/2018 11:00 AM GAP 4 12/23/2018 11:00 AM BUN 16 12/23/2018 11:00 AM CR 0.75 12/23/2018 11:00 AM GLU 86 12/23/2018 11:00 AM Lab Results Component Value Date/Time CA 8.9 12/23/2018 11:00 AM PO4 3.6 12/23/2018 11:00 AM ALBUMIN 3.8 12/23/2018 11:00 AM TOTPROT 6.4 12/23/2018 11:00 AM ALKPHOS 70 12/23/2018 11:00 AM AST 30 12/23/2018 11:00 AM ALT 28 12/23/2018 11:00 AM TOTBILI 0.4 12/23/2018 11:00 AM GFR >60 12/23/2018 11:00 AM GFRAA >60 12/23/2018 11:00 AM Other labs No results found for: ESR Lab Results Component Value Date/Time LDH 213 (H) 12/23/2018 11:00 AM ASSESSMENT/PLAN: Katty Gold is a 68 y.o. female with metastatic recurrent transitional car cinoma of the ovary for XL-184 trial. Functionally cleared for trial. Labs reviewed. Cleared for C11. Stable disease on imaging, to cont trial Gr 1 neutropenia - no change per [...] sequencing sent by Dr Davies. KRAS and [id number] mutation which are both actionable, would consider [...]
--- OUTSIDE RECORDS SUMMARY | 2019-04-12 08:59 | XMS REPORT | Encounter Summary ---
Author Author [facility] POS Organization [facility] SP Address Unknown SP Phone Unavailable SP Care Team Providers Care Visitor Services Information Assistant Name Role Phone POS Christa Ware MD PCP SP Reason for Visit * Reason Comments POS Medication Refill SP Encounter Details Care Team Description POS Date Type Department SP SP Belinda Landeros, FOUNDER & CEO [address] [facility] Clinical Research [facility] [address] [place], [place] [phone] SP 12/04/2018 Refill [facility] SP [address] [place] [address] SP [phone] SP Social History Date POS Tobacco Use [...] encounter Miscellaneous Notes * Telephone Encounter - Belinda Landeros APRN - 12/04/2018 7:59 AM CDT Results from urine C&S received. Rx sent for Levofloxacin. Patient called with results and to rock picker prescription. documented in this encounter Plan of Treatment Not on filedocumented as of this encounter Visit Diagnoses Not on filedocumented in this encounter
--- OUTSIDE RECORDS SUMMARY | 2019-04-12 08:59 | XMS REPORT | Encounter Summary ---
Author Author [facility] POS Organization [facility] SP Address Unknown SP Phone Unavailable SP Care Team Providers Care Autotransfusionist Name Role Phone POS Christa Ware MD PCP SP Reason for Visit * Reason Comments POS Medication Refill SP Encounter Details Care Team Description POS Date Type Department SP SP Belinda Landeros, CERAMIC MOLD DESIGNER [address] [facility] Clinical Research [facility] [address] [place], [place] [phone] SP 12/03/2018 Refill [facility] SP [address] [place] [address] SP [phone] SP Social History Date POS Tobacco Use [...]
--- OUTSIDE RECORDS SUMMARY | 2019-04-12 08:59 | XMS REPORT | Encounter Summary ---
Author Author [facility] POS Organization [facility] SP Address Unknown SP Phone Unavailable SP Care Team Providers Care Hand Binder Cutter Name Role Phone POS Christa Ware MD PCP SP Encounter Details Care Team Description POS Date Type Department SP SP Mateo Cabral MD [address] [facility] [place] [address] [phone] SP 12/02/2018 Documentation [facility] SP [address] [facility] [address] [place] [address] SP [phone] SP Social History Date POS Tobacco Use [...] Notes * Research - Mac Lipscomb - 12/02/2018 10:13 AM CDT Study Title:A Phase 1b Dose-Escalation Study of Carbozantinib (XL184) Administ ered Alone or in Combination with Atezolizumab to Subjects with Locally Advanced or Metastatic Solid Tumors [[facility]:[id number]] Study ID:[id number] Patient presentsto CRCfor [id number] 1. Labs drawn Jenifer Landeros (TOWER WATCHMAN),Isa(RN) and this SC. P atient tocontinuewith treatment. Juan Jonmet with patient, reviewed any new/ongoing symptoms.Please seeprovid luzmafor detailed assessments and AE/conmed. This motion study engineer collected pill diary and provided patient with new dosing diary for cycle10. Patient self-[id number](2x20mg tablets)[id number] out of Drug u nit #[id number].Doserecorded on herdiary. IRT: [facility] dispensed the following drug units, [id number], [id number], [id number]; forwarde d to pharmacy Medication Accountability:Patient turned in2 bottles of Cabozantinib (XL184) , turned into pharmacy 1: Drug Unit#: [id number] 2: Drug Unit #:[id number] Pharmacydispensed new medication today: Drug Unit#: [id number] Drug Unit #: [id number] Next Imagin12/19/2018 RTC:Patient will return on12/23/18for [id number] documented in this encounter Plan of Treatment Not on filedocumented as of this encounter Visit Diagnoses Not on filedocumented in this encounter
--- OUTSIDE RECORDS SUMMARY | 2019-04-12 08:59 | XMS REPORT | Encounter Summary ---
Author Author [facility] POS Organization [facility] SP Address Unknown SP Phone Unavailable SP Care Team Providers Care Dressing Room Attendant Name Role Phone POS Christa Ware MD PCP SP Encounter Details Care Team Description POS Date Type Department SP SP Belinda Landeros, INCOME TAX RETURN PREPARER [address] [facility] Clinical Research C[facility] [address] [place], [place] [phone] SP 12/18/2018 Orders Only [facility] SP [address] [facility] SP [address] [place] [address] SP [phone] SP Social History Date POS Tobacco Use [...]
--- OUTSIDE RECORDS SUMMARY | 2019-04-12 08:59 | XMS REPORT | Encounter Summary ---
Author Author [facility] POS Organization [facility] SP Address Unknown SP Phone Unavailable SP Care Team Providers Care Cooper Apprentice Name Role Phone POS Christa Waer MD PCP SP Reason for Referral * Radiology Services (Routine) Referred By Contact Referred To Contact POS Status Reason Specialty Diagnoses / SP Procedures SP Mateo Adam MD [address] [place] [address] [place] [address] No Auth Needed Radiology Diagnoses SP Examination [...] / SP Procedures SP Mateo Adam MD [address] [place] [address] SP New Request Radiology Diagnoses SP Examination of SP participant in SP clinical trial SP Malignant neoplasm SP of ovary, SP unspecified SP laterality (HCC) SP P SP rocedures SP CT CHEST W SP CONTRAST SP Reason for Visit * Radiology Services (Routine) Referred By Contact Referred To Contact POS Status Reason Specialty Diagnoses / SP Procedures SP Mateo Adam MD [address] [place] [address] [place] [address] No Auth Needed Radiology Diagnoses SP Examination of SP participant in SP clinical trial SP Malignant neoplasm SP of ovary, SP unspecified SP laterality (HCC) SP P SP rocedures SP CT ABD/PELV W SP CONTRAST SP CHG CT THORAX SP W/CONTRAST SP MATERIAL SP Encounter Details Care Team Description POS Date Type Department SP SP Mateo Cabral MD [address] [facility] [place] [address] [phone] SP 12/19/2018 [facility] SP Encounter [facility] SP [address] SP Carlos [address] [place] [address] SP [phone] SP Social History Date POS Tobacco Use [...] SP SP CT ABD/PELV W CONTRAST Routine 12/19/2018 Examina tion of SP 11:11 AM CDT participant in clinical SP trial SP Malignant neoplasm of SP ovary, unspecified SP laterality (HCC) SP SP CT CHEST W CONTRAST Routine 12/19/2018 Examinatio n of SP 11:11 AM CDT participant in clinical SP trial SP Malignant neoplasm of SP ovary, unspecified SP laterality (HCC) SP documented in this encounter Results * CT ABD/PELV W CONTRAST (12/19/2018 11:11 AM CDT) Specimen POS Impressions Performed At CHEST: [facility] SP 1. No thoracic lymphadenopathy. SP 2. Stable metastasis along the left hem idiaphragm. No new or enlarging soft SP tissue pulmonary nodule. SP 3. Mild emphysema. SP ABDOMEN AND PELVIS: SP 1. Essentially stable multifocal perito conchita metastatic disease. SP 2. Stable right inguinal metastasis and prominent left external iliac lymph SP node. SP Approved by Jesus Sow M.D. on 2018 2:18 PM SP By my electronic signature, I attest th at I have personally reviewed the images SP for this examination and formulated the interpretations and opinions expressed SP in this report SP Finalized by Ashwin Melendez M.D. on 2018 3:39 PM. Dictated by JACQUELYN Bran M.D. on 12/19/2018 1:36 PM. SP Narrative Performed At CT CHEST, ABDOMEN AND PELVIS [facility] SP Clinical Indication:Female, 68 year s old. Examination of participant in clinical trial. Malignant neoplasm of o vary, unspecified laterality. RESEARCH: [employer] [id number] Study, [facility] [id number], Coordinator: Aydee Banks, Contact: [phone] SP Technique: Multiple contiguous axial im ages were obtained through the chest, SP abdomen and pelvis following the admini stration of IV contrast material. Portal SP venous phase of postcontrast imaging wa s obtained. Post processing coronal and SP sagittal reconstruction images were mad e from the axial images. SP IV contrast: Omnipaque-350 SP Bowel contrast:None SP Comparison: CT chest abdomen pelvis Nov. SP CHEST FINDINGS: SP Lower Neck: Unremarkable SP Axilla, Mediastinum and Janeth: No thorac ic adenopathy. SP Heart and Great Vessels: Heart size is normal. Trace pericardial fluid. Normal SP caliber thoracic aorta. Right subclavia n chest port in similar position. SP Airway, Lungs and Pleura: Central airwa ys are patent. No pneumothorax or SP effusion. No lobar consolidation. Mild emphysema with scattered areas of SP scarring throughout the lungs. Unchange d small metastasis along the left SP hemidiaphragm measuring 0.8 x 0.5 cm (s eries 102 image 93), previously SP 0.9 x 0.6 cm. No new or enlarging pulmo nary nodules. SP Chest Wall and Osseous Structures: No a ggressive osseous lesion. Mild thoracic SP spondylosis. SP ABDOMEN AND PELVIS FINDINGS: SP Liver and Biliary system: Liver is norm al in size. Prior cholecystectomy. There SP is mild central intrahepatic biliary du ctal dilatation. Essentially stable SP scattered hepatic hypodensities, many o f which are too small to characterize. SP The largest hypodense lesion in hepatic segment 7 measures 2.4 cm (series 2 SP image 78), previously measuring 2.3 cm. SP Spleen: Normal size spleen. Persistent low-attenuation masslike thickening SP the spleen. Previously noted perispleni c implants as described: SP Posterior superior (series 2 image 74): Measures 5.9 x 2.8 cm, previously 5.7 x SP 2.8 cm. SP Splenic hilum (series 2 image 77): Danita uring 2.6 x 1.3 cm, previously measuring SP 2.4 x 1.2 cm. SP Posterior margin (series 2 image 79): M easuring 2.1 x 1.2 cm, previously SP measuring 2.6 x 1.2 cm. SP Adrenal Glands and Kidneys: Adrenal gla nds are unremarkable. Resolution of mild SP right hydronephrosis. Unchanged probabl e bilateral renal hypodensities that SP likely represent cysts. SP Pancreas and Retroperitoneum: Unremarka ble. SP Aorta and Major Vessels: Abdominal aort a is normal in caliber with mild SP aortoiliac calcified atherosclerotic pl aque. SP Bowel, Mesentery and Peritoneal space: Prior distal colonic resection and SP primary anastomosis. Prior omentectomy and small bowel anastomosis within the SP right lower abdomen. Small and large mala wel loops are normal in caliber. SP Peritoneal metastases as below: SP Low central abdomen (series 2 image 111 ): Measuring 11.1 x 9.9 cm, previously SP measuring 11.3 x 9.67 cm. SP Posterior pelvis (series 2 image 122): Measuring 3.5 x 3.4 cm, previously SP measuring 3.6 x 3.4 cm. SP Pelvis: Pelvic lymph node dissection. U rinary bladder is unremarkable. SP Redemonstration of enlarged right ingui nal lymph node measuring 3.0 x 1.8 cm SP (series 2 image 129), previously measur ing 3.0 x 1.9 cm. Stable prominent left SP external iliac lymph node (series 2 talib ge 119). No new or enlarging pelvic SP lymphadenopathy. SP Abdominal wall and Osseous Structures: No aggressive osseous lesion. Lumbar SP spondylosis. Prior midline laparotomy SP Procedure Note POS SP Interface, Radiant Results - 12/19/2018 3:[address] CHEST, ABDOMEN AND PELVIS Clinical Indication: Female, 68 years old. Examination of participant in clinical trial. Malignant neoplasm of ovary, unspecified laterality. RESEARCH: [employer] [id number] Study, [facility] [place][id number], Coordinator: Aydee Banks, Contact: [phone] Technique: Multiple contiguous axial images were obtained through the chest, abdomen and pelvis following the administration of IV contrast material. Portal venous phase of postcontrast imaging was obtained. Post processing coronal and sagittal reconstruction images were made from the axial images. IV contrast: Omnipaque-350 Bowel contrast: None Comparison: CT chest abdomen pelvis November 07, 2018. CHEST FINDINGS: Lower Neck: Unremarkable Axilla, Mediastinum and Ajneth: No thoracic adenopathy. Heart and Great Vessels: Heart size is normal. Trace pericardial fluid. Normal caliber thoracic aorta. Right subclavian chest port in similar position. Airway, Lungs and Pleura: Central airways are patent. No pneumothorax or pleural effusion. No lobar consolidation. Mild emphysema with scattered areas of scarring throughout the lungs. Unchanged small metastasis along the left hemidiaphragm measuring 0.8 x 0.5 cm (series 102 image 93), previously measuring 0.9 x 0.6 cm. No new or enlarging pulmonary nodules. Chest Wall and Osseous Structures: No aggressive osseous lesion. Mild thoracic spondylosis. ABDOMEN AND PELVIS FINDINGS: Liver and Biliary system: Liver is normal in size. Prior cholecystectomy. There is mild central intrahepatic biliary ductal dilatation. Essentially stable scattered hepatic hypodensities, many of which are too small to characterize. The largest hypodense lesion in hepatic segment 7 measures 2.4 cm (series 2 image 78), previously measuring 2.3 cm. Spleen: Normal size spleen. Persistent low-attenuation masslike thickening about the spleen. Previously noted perisplenic implants as described: Posterior superior (series 2 image 74): Measures 5.9 x 2.8 cm, previously 5.7 x 2.8 cm. Splenic hilum (series 2 image 77): Measuring 2.6 x 1.3 cm, previously measuring 2.4 x 1.2 cm. Posterior margin (series 2 image 79): Measuring 2.1 x 1.2 cm, previously measuring 2.6 x 1.2 cm. Adrenal Glands and Kidneys: Adrenal glands are unremarkable. Resolution of mild right hydronephrosis. Unchanged probable bilateral renal hypodensities that likely represent cysts. Pancreas and Retroperitoneum: Unremarkable. Aorta and Major Vessels: Abdominal aorta is normal in caliber with mild aortoiliac calcified atherosclerotic plaque. Bowel, Mesentery and Peritoneal space: Prior distal colonic resection and primary anastomosis. Prior omentectomy and small bowel anastomosis within the right lower abdomen. Small and large bowel loops are normal in caliber. Peritoneal metastases as below: Low central abdomen (series 2 image 111): Measuring 11.1 x 9.9 cm, previously measuring 11.3 x 9.67 cm. Posterior pelvis (series 2 image 122): Measuring 3.5 x 3.4 cm, previously measuring 3.6 x 3.4 cm. Pelvis: Pelvic lymph node dissection. Urinary bladder is unremarkable. Redemonstration of enlarged right inguinal lymph node measuring 3.0 x 1.8 cm (series 2 image 129), previously measuring 3.0 x 1.9 cm. Stable prominent left external iliac lymph node (series 2 image 119). No new or enlarging pelvic lymphadenopathy. Abdominal wall and Osseous Structures: No aggressive osseous lesion. Lumbar spondylosis. Prior midline laparotomy IMPRESSION CHEST: 1. No thoracic lymphadenopathy. SP 2. Stable metastasis along the left eric diaphragm. No new or enlarging soft SP pulmonary nodule. 3. Mild emphysema. SP ABDOMEN AND PELVIS: 1. Essentially stable multifocal periton eal metastatic disease. SP 2. Stable right inguinal metastasis and prominent left external iliac lymph SP Approved by Jesus Sow M.D. on 12/19/2018 2:18 PM By my electronic signature, I attest that I have personally reviewed the images for this examination and formulated the interpretations and opinions expressed in this report Finalized by Ashwin Melendez M.D. on 12/19/2018 3:39 PM. Dictated by Jesus Sow M.D. on 12/19/2018 1:36 PM. Performing Organization Address City/State/Zipcode Ph one Number SP [facility] SP * CT CHEST W CONTRAST (12/19/2018 11:11 AM CDT) Specimen SP Impressions Performed At CHEST: [facility] SP 1. No thoracic lymphadenopathy. SP 2. Stable metastasis along the left hem idiaphragm. No new or enlarging soft SP tissue pulmonary nodule. SP 3. Mild emphysema. SP ABDOMEN AND PELVIS: SP 1. Essentially stable multifocal perito conchita metastatic disease. SP 2. Stable right inguinal metastasis and prominent left external iliac lymph SP node. SP Approved by Jesus Sow M.D. on 2018 2:18 PM SP By my electronic signature, I attest th at I have personally reviewed the images SP for this examination and formulated the interpretations and opinions expressed SP in this report SP Finalized by Ashwin Melendez M.D. on 2018 3:39 PM. Dictated by JACQUELYN Bran M.D. on 12/19/2018 1:36 PM. SP Narrative Performed At CT CHEST, ABDOMEN AND PELVIS [facility] SP Clinical Indication:Female, 68 year s old. Examination of participant in clinical trial. Malignant neoplasm of o vary, unspecified laterality. RESEARCH: [employer] [id number] Study, [facility] [id number], Coordinator: Aydee Banks, Contact: [phone] SP Technique: Multiple contiguous axial im ages were obtained through the chest, SP abdomen and pelvis following the admini stration of IV contrast material. Portal SP venous phase of postcontrast imaging wa s obtained. Post processing coronal and SP sagittal reconstruction images were mad e from the axial images. SP IV contrast: Omnipaque-350 SP Bowel contrast:None SP Comparison: CT chest abdomen pelvis Nov. SP CHEST FINDINGS: SP Lower Neck: Unremarkable SP Axilla, Mediastinum and Janeth: No thorac ic adenopathy. SP Heart and Great Vessels: Heart size is normal. Trace pericardial fluid. Normal SP caliber thoracic aorta. Right subclavia n chest port in similar position. SP Airway, Lungs and Pleura: Central airwa ys are patent. No pneumothorax or SP effusion. No lobar consolidation. Mild emphysema with scattered areas of SP scarring throughout the lungs. Unchange d small metastasis along the left SP hemidiaphragm measuring 0.8 x 0.5 cm (s eries 102 image 93), previously SP 0.9 x 0.6 cm. No new or enlarging pulmo nary nodules. SP Chest Wall and Osseous Structures: No a ggressive osseous lesion. Mild thoracic SP spondylosis. SP ABDOMEN AND PELVIS FINDINGS: SP Liver and Biliary system: Liver is norm al in size. Prior cholecystectomy. There SP is mild central intrahepatic biliary du ctal dilatation. Essentially stable SP scattered hepatic hypodensities, many o f which are too small to characterize. SP The largest hypodense lesion in hepatic segment 7 measures 2.4 cm (series 2 SP image 78), previously measuring 2.3 cm. SP Spleen: Normal size spleen. Persistent low-attenuation masslike thickening SP the spleen. Previously noted perispleni c implants as described: SP Posterior superior (series 2 image 74): Measures 5.9 x 2.8 cm, previously 5.7 x SP 2.8 cm. SP Splenic hilum (series 2 image 77): Danita uring 2.6 x 1.3 cm, previously measuring SP 2.4 x 1.2 cm. SP Posterior margin (series 2 image 79): M easuring 2.1 x 1.2 cm, previously SP measuring 2.6 x 1.2 cm. SP Adrenal Glands and Kidneys: Adrenal gla nds are unremarkable. Resolution of mild SP right hydronephrosis. Unchanged probabl e bilateral renal hypodensities that SP likely represent cysts. SP Pancreas and Retroperitoneum: Unremarka ble. SP Aorta and Major Vessels: Abdominal aort a is normal in caliber with mild SP aortoiliac calcified atherosclerotic pl aque. SP Bowel, Mesentery and Peritoneal space: Prior distal colonic resection and SP primary anastomosis. Prior omentectomy and small bowel anastomosis within the SP right lower abdomen. Small and large mala wel loops are normal in caliber. SP Peritoneal metastases as below: SP Low central abdomen (series 2 image 111 ): Measuring 11.1 x 9.9 cm, previously SP measuring 11.3 x 9.67 cm. SP Posterior pelvis (series 2 image 122): Measuring 3.5 x 3.4 cm, previously SP measuring 3.6 x 3.4 cm. SP Pelvis: Pelvic lymph node dissection. U rinary bladder is unremarkable. SP Redemonstration of enlarged right ingui nal lymph node measuring 3.0 x 1.8 cm SP (series 2 image 129), previously measur ing 3.0 x 1.9 cm. Stable prominent left SP external iliac lymph node (series 2 talib ge 119). No new or enlarging pelvic SP lymphadenopathy. SP Abdominal wall and Osseous Structures: No aggressive osseous lesion. Lumbar SP spondylosis. Prior midline laparotomy SP Procedure Note POS SP Interface, Radiant Results - 12/19/2018 3:[address] CHEST, ABDOMEN AND PELVIS Clinical Indication: Female, 68 years old. Examination of participant in clinical trial. Malignant neoplasm of ovary, unspecified laterality. RESEARCH: [employer] [id number] Study, [facility] #[id number], Coordinator: Aydee Banks, Contact: [phone] Technique: Multiple contiguous axial images were obtained through the chest, abdomen and pelvis following the administration of IV contrast material. Portal venous phase of postcontrast imaging was obtained. Post processing coronal and sagittal reconstruction images were made from the axial images. IV contrast: Omnipaque-350 Bowel contrast: None Comparison: CT chest abdomen pelvis November 07, 2018. CHEST FINDINGS: Lower Neck: Unremarkable Axilla, Mediastinum and Janeth: No thoracic adenopathy. Heart and Great Vessels: Heart size is normal. Trace pericardial fluid. Normal caliber thoracic aorta. Right subclavian chest port in similar position. Airway, Lungs and Pleura: Central airways are patent. No pneumothorax or pleural effusion. No lobar consolidation. Mild emphysema with scattered areas of scarring throughout the lungs. Unchanged small metastasis along the left hemidiaphragm measuring 0.8 x 0.5 cm (series 102 image 93), previously measuring 0.9 x 0.6 cm. No new or enlarging pulmonary nodules. Chest Wall and Osseous Structures: No aggressive osseous lesion. Mild thoracic spondylosis. ABDOMEN AND PELVIS FINDINGS: Liver and Biliary system: Liver is normal in size. Prior cholecystectomy. There is mild central intrahepatic biliary ductal dilatation. Essentially stable scattered hepatic hypodensities, many of which are too small to characterize. The largest hypodense lesion in hepatic segment 7 measures 2.4 cm (series 2 image 78), previously measuring 2.3 cm. Spleen: Normal size spleen. Persistent low-attenuation masslike thickening about the spleen. Previously noted perisplenic implants as described: Posterior superior (series 2 image 74): Measures 5.9 x 2.8 cm, previously 5.7 x 2.8 cm. Splenic hilum (series 2 image 77): Measuring 2.6 x 1.3 cm, previously measuring 2.4 x 1.2 cm. Posterior margin (series 2 image 79): Measuring 2.1 x 1.2 cm, previously measuring 2.6 x 1.2 cm. Adrenal Glands and Kidneys: Adrenal glands are unremarkable. Resolution of mild right hydronephrosis. Unchanged probable bilateral renal hypodensities that likely represent cysts. Pancreas and Retroperitoneum: Unremarkable. Aorta and Major Vessels: Abdominal aorta is normal in caliber with mild aortoiliac calcified atherosclerotic plaque. Bowel, Mesentery and Peritoneal space: Prior distal colonic resection and primary anastomosis. Prior omentectomy and small bowel anastomosis within the right lower abdomen. Small and large bowel loops are normal in caliber. Peritoneal metastases as below: Low central abdomen (series 2 image 111): Measuring 11.1 x 9.9 cm, previously measuring 11.3 x 9.67 cm. Posterior pelvis (series 2 image 122): Measuring 3.5 x 3.4 cm, previously measuring 3.6 x 3.4 cm. Pelvis: Pelvic lymph node dissection. Urinary bladder is unremarkable. Redemonstration of enlarged right inguinal lymph node measuring 3.0 x 1.8 cm (series 2 image 129), previously measuring 3.0 x 1.9 cm. Stable prominent left external iliac lymph node (series 2 image 119). No new or enlarging pelvic lymphadenopathy. Abdominal wall and Osseous Structures: No aggressive osseous lesion. Lumbar spondylosis. Prior midline laparotomy IMPRESSION CHEST: 1. No thoracic lymphadenopathy. SP 2. Stable metastasis along the left eric diaphragm. No new or enlarging soft SP pulmonary nodule. 3. Mild emphysema. SP ABDOMEN AND PELVIS: 1. Essentially stable multifocal periton eal metastatic disease. SP 2. Stable right inguinal metastasis and prominent left external iliac lymph SP Approved by Jesus Sow M.D. on 12/19/2018 2:18 PM By my electronic signature, I attest that I have personally reviewed the images for this examination and formulated the interpretations and opinions expressed in this report Finalized by Ashwin Melendez M.D. on 12/19/2018 3:39 PM. Dictated by Jesus Sow M.D. on 12/19/2018 1:36 PM. Performing Organization Address City/State/Zipcode Ph one Number SP [facility] SP documented in this encounter Visit Diagnoses Diagnosis POS Examination of participant in clinical trial SP Malignant neoplasm of ovary, unspecifie d laterality (HCC) SP documented in this encounter Administered Medications Action Date Dose Rate Site POS Medication Order MAR Action SP 12/19/2018 11:00 AM CDT 100 mL SP iohexol (OMNIPAQUE-350) 350 mg/mL Given SP injection 100 mL SP 100 mL, Intravenous, ONCE, 1 dose, Tia SP 12/19/18 at 1100, NOTE: This is a HIGH SP ALERT Medication., SP 12/19/2018 11:00 AM CDT 50 mL SP sodium chloride PF 0.9% injection 50 mL Given SP 50 mL, Intravenous, ONCE, 1 dose, Tia SP 12/19/18 at 1100, Intra-procedure (IR) SP documented in this encounter
--- OUTSIDE RECORDS SUMMARY | 2019-04-12 08:59 | XMS REPORT | Encounter Summary ---
Author Author [facility] POS Organization [facility] SP Address Unknown SP Phone Unavailable SP Care Team Providers Care Cooker Cleaner Name Role Phone POS Christa Ware MD PCP SP Encounter Details Care Team Description POS Date Type Department SP SP Mateo Cabral MD [address] [facility] [place] [address] [phone] SP 12/23/2018 [facility] SP Encounter Cancer Center SP [address] [facility] SP 2nd Dc [address] [place] [address] SP [phone] SP Social History Date POS Tobacco Use [...] as SP needed for SP Sleep. SP 12/23/2018 01/13/2019 SP (INV) cabozantinib (HSC Take two 60 tablet 0 SP [id number]) 20 mg tablets by SP tabletIndications: mouth [...]
--- OUTSIDE RECORDS SUMMARY | 2019-04-12 09:00 | XMS REPORT | Encounter Summary ---
Author Author [facility] POS Organization [facility] SP Address Unknown SP Phone Unavailable SP Care Team Providers Care Retail Customer Service Representative Name Role Phone POS Christa Ware MD PCP SP Reason for Visit * Reason Comments POS Treatment SP Encounter Details Care Team Description POS Date Type Department SP SP Belinda Landeros, INSTRUMENT TECHNICIAN HELPER [address] [facility] [address] [place], [place] [id number] Encounter for examination for normal com parison or control in SPclinical research program; Malignant neoplasm of ovary (HCC) 12/02/2018 Office Visit [facility] SP [address] [facility] SP [address]nd [address] [place] [address] SP [phone] SP Social History Date POS Tobacco Use [...] Time Taken Comments POS Vital Sign SP 119/72 12/02/2018 9:02 AM CDT SP Blood Pressure SP 70 12/02/2018 9:02 AM CDT SP Pulse SP 36.6 C (97.8 F) 12/02/2018 9:02 AM CDT SP Temperature SP 16 12/02/2018 9:02 AM CDT SP Respiratory Rate SP 98% 12/02/2018 9:02 AM CDT SP Oxygen Saturation SP - - SP Inhaled Oxygen SP Concentration SP 61.6 kg (135 lb 12.9 oz) 12/02/2018 9:02 AM CDT SP Weight SP - - SP Height SP 23.31 08/15/2018 9:35 AM CDT SP Body Mass Index SP [...] Progress Notes * Belinda Landeros APRN - 12/02/2018 11:00 AM CDT Subjective GYNECOLOGIC ONCOLOGY EVALUATION Name:Katty Gold Date: 12/02/18 Referring Physician: Primary Care Physician: Christa Ware Chief Complaint: Chief Complaint Patient presents with Treatment History of Present Illness: Katty Gold is a 68 y.o. 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 Onc Timeline Katty Gold is a 67 y.o. female with recurrent transitional cell ovarian cancer. Here today for follow up. Feeling well overall. States her diarrhea is better n ow, but on November 17, she had 9 episodes of diarrhea (about 1 week after treatment ). But then the imodium starts working and keeps it under control and it isn't interfering with her ADL's. Taking imodium BID now. Then rest of the day is fi ne without diarrhea. Symptoms otherwise stable. Tolerating cabozantanib well. Appetite is good. Has chronic voice changes. Does have mild fatigue. No neurop athy. No pain complaints, No changes in bowel or urinary habits. She was also asking about getting a shingles vaccine. She was told the new vacc ine was a live virus. Also now having some pain on the balls of both feet. REF:Viri Gold MD PCP: Christa Ware MD Commissary Agent: Talon Reeves MD MED/ONC: Dr. Cesar Ovarian [...] a nd negative for WT-1, inhibin, calretinin, [place]-1, ER, [place], synaptophysin and chr omogranin. A p53 stain [...] on CT, this was most reflective of [place] resistant/refractory disease. As such, surgical exploration and [...] genetics sent - KRAS 94% mutational change, XG8Insq >50%, tp53 + Target lesions Left hemidiaphragm lesion 15mm --> 14mm --> 11 --> 9 Lateral hepatic lesion 17mm --> 19mm --> no change Post splenic lesion 32mm -->26mm --> 26 Non target lesions Left pelvic nodule - [...] LESION performed by Mauro Davies MD at [facility] OR/Periop RECTAL SURGERY Left 10/09/2017 RESECTION SIGMOID COLON, COLONOSCOPY performed by Tim Chung MD at [facility] OR/Periop SECTION HX BREAST BIOPSY HX BREAST LUMPECTOMY followed by radiation therapy. HX CHOLECYSTECTOMY HX TUBAL LIGATION Bilateral Medications: Current Outpatient Medications: (INV) cabozantinib ([facility] [id number]) 20 mg tablet, Take two tablets by [...] Units by mouth daily., Disp: , Rfl: folic acid/multivit-min/lutein (CENTRUM SILVER PO), Take by mouth daily., Disp: , Rfl: hydrocortisone 1 % topical cream, Apply topically to affected area twice d aily., Disp: , Rfl: ibuprofen (ADVIL) 200 mg tablet, Take 400 mg by mouth every 6 hours as need ed for Pain. Take with food., Disp: , Rfl: nitrofurantoin monohyd/m-cryst (MACROBID) 100 mg capsule, Take [...] in HPI ECOG 0 Physical Exam: BP 119/72 (BP Source: Arm, Right Upper, Patient Position: Sitting) | Pulse 70 | Temp 36.6 C (97.8 F) (Oral) | Resp 16 | Wt 61.6 kg (135 lb 12.9 oz) | L MP 09/24/1997 | SpO2 98% | BMI 23.31 kg/m GENERAL APPEARANCE: Appears healthy. Alert; in [...] on her back, nontender and no drainage. 02-Dec-2018 -- Small callous formation just below 3rd and 4th toes on the ball of both feet. No redness. LYMPH NODES: No palpable supraclavicular or inguinal lymph nodes. Does have 4cm fluctuant area in right groin, minimal mobility and no solid areas palpated CBC w/Diff Lab Results Component Value Date/Time WBC 3.6 (L) 12/02/2018 09:10 AM RBC 3.87 (L) 12/02/2018 09:10 AM HGB 13.3 12/02/2018 09:10 AM HCT 38.6 12/02/2018 09:10 AM MCV 99.6 12/02/2018 09:10 AM MCH 34.2 (H) 12/02/2018 09:10 AM MCHC 34.4 12/02/2018 09:10 AM RDW 15.2 (H) 12/02/2018 09:10 AM PLTCT 199 12/02/2018 09:10 AM MPV 7.8 12/02/2018 09:10 AM Lab Results Component Value Date/Time NEUT 57 12/02/2018 09:10 AM ANC 2.10 12/02/2018 09:10 AM LYMA 27 12/02/2018 09:10 AM ALC 0.90 (L) 12/02/2018 09:10 AM JEFRY 9 12/02/2018 09:10 AM AMC 0.30 12/02/2018 09:10 AM EOSA 6 (H) 12/02/2018 09:10 AM AEC 0.20 12/02/2018 09:10 AM BASA 1 12/02/2018 09:10 AM ABC 0.00 12/02/2018 09:10 AM Comprehensive Metabolic Profile Lab Results Component Value Date/Time NA 140 12/02/2018 09:10 AM K 4.0 12/02/2018 09:10 AM CL 106 12/02/2018 09:10 AM CO2 25 12/02/2018 09:10 AM GAP 9 12/02/2018 09:10 AM BUN 16 12/02/2018 09:10 AM CR 0.82 12/02/2018 09:10 AM GLU 89 12/02/2018 09:10 AM Lab Results Component Value Date/Time CA 9.0 12/02/2018 09:10 AM PO4 3.1 12/02/2018 09:10 AM ALBUMIN 3.8 12/02/2018 09:10 AM TOTPROT 6.5 12/02/2018 09:10 AM ALKPHOS 65 12/02/2018 09:10 AM AST 26 12/02/2018 09:10 AM ALT 25 12/02/2018 09:10 AM TOTBILI 0.4 12/02/2018 09:10 AM GFR >60 12/02/2018 09:10 AM GFRAA >60 12/02/2018 09:10 AM Other labs No results found for: ESR Lab Results Component Value Date/Time LDH 205 12/02/2018 09:10 AM ASSESSMENT/PLAN: Katty Gold is a 68 y.o. female with metastatic recurrent transitional car cinoma of the ovary for XL-184 trial. Functionally cleared for trial. Labs reviewed. Cleared for C10. 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 Not affec ting ADL's. Instructed to use an emollient on her feet and then socks to bed ev xiang night. Will monitor closely. Reviewed NextGene sequencing sent by Dr Davies. KRAS and HC9Wrdf mutation which are both actionable, would consider [...] some length. All her questions were answered. Scans to assess response to treatment are scheduled on 19-Dec-2018. Today's urine was sent for culture. No symptoms of UTI. PI: Dr. Mateo Landeros APRN documented in this encounter Plan of Treatment Not on filedocumented as of this encounter Procedures Comments POS Procedure Name Priority Date/Time Associated Diag nosis SP SP CULTURE-URINE 12/02/2018 Encounter for [facility] [place] SP W/SENSITIVITY 11:41 AM CDT for normal comparis on or SP control in clinical SP research program SP Malignant neoplasm of SP ovary (HCC) SP documented in this encounter Results * CULTURE-URINE W/SENSITIVITY (12/02/2018 11:41 AM CDT) Pathologist POS Signature SP Battery Name URINE CULTURE [facility] SP Specimen URINE [facility] SP Description SP Special NONE [facility] SP Requests SP Culture >100,000 organisms/ml [facility] SP ESCHERICHIA COLI SP (A) SP Report Status FINAL [facility] SP 12/04/2018 SP Organism ID >100,000 organisms/ml [facility] SP ESCHERICHIA COLI SP Specimen SP Urine, Outpatient SP Antibiotic Method Susceptibility POS Organism SP Ampicillin ANGELA (MCG/ML) INTERPRETATION SP <=4 SUSCEPTIBLE: Susceptible >100,000 organisms/ml SP escherichia coli SP Amoxicil/Clav Acid ANGELA (MCG/ML) INTERPRETATION SP <=4/2 SUSCEPTIBLE: Susceptible >100,000 organisms/ml SP escherichia coli SP Levofloxacin ANGELA (MCG/ML) INTERPRETATION SP <=1 SUSCEPTIBLE: Susceptible >100,000 organisms/ml SP escherichia coli SP Nitrofurantoin ANGELA (MCG/ML) INTERPRETATION SP <=16 SUSCEPTIBLE: Susceptible >100,000 organisms/ml SP escherichia coli SP Gentamicin ANGELA (MCG/ML) INTERPRETATION SP <=2 SUSCEPTIBLE: Susceptible >100,000 organisms/ml SP escherichia coli SP Trimethsulfa ANGELA (MCG/ML) INTERPRETATION SP <=0.5/9.5 SUSCEPTIBLE: Susceptible >100,000 organisms/ml SP escherichia coli SP Piperacil/Tazobactam ANGELA (MCG/ML) INTERPRETATION SP <=2/4 SUSCEPTIBLE: Susceptible >100,000 organisms/ml SP escherichia coli SP Tetracycline ANGELA (MCG/ML) INTERPRETATION SP <=2 SUSCEPTIBLE: Susceptible >100,000 organisms/ml SP escherichia coli SP Cefepime ANGELA (MCG/ML) INTERPRETATION SP <=1 SUSCEPTIBLE: Susceptible >100,000 organisms/ml SP escherichia coli SP Ertapenem ANGELA (MCG/ML) INTERPRETATION SP <=0.25 SUSCEPTIBLE: Susceptible >100,000 organisms/ml SP escherichia coli SP Ceftriaxone ANGELA (MCG/ML) INTERPRETATION SP <=1 SUSCEPTIBLE: Susceptible >100,000 organisms/ml SP escherichia coli SP Method ANGELA (MCG/ML) INTERPRETATION SP ANGELA (MCG/ML) INTERPRETATION >100,000 organisms/ml SP escherichia coli SP Performing Organization Address City/State/Zipcode Ph one Number SP MAIN LAB [address] [place] [address] SP documented in this encounter Visit Diagnoses Diagnosis POS Encounter for examination for normal co mparison or control in clinical research SPprogram Examination of participant in clinical trial SP Malignant neoplasm of ovary (HCC) SP Malignant neoplasm of ovary SP documented in this encounter"
--- OUTSIDE RECORDS SUMMARY | 2019-04-12 09:00 | XMS REPORT | Encounter Summary ---
Author Author [facility] POS Organization [facility] SP Address Unknown SP Phone Unavailable SP Care Team Providers Care Instructional Systems Design Consultant Name Role Phone POS Christa Ware MD PCP SP Encounter Details Care Team Description POS Date Type Department SP SP Mateo Cabral MD [address] [facility] [place] [address] [phone] Belinda Landeros, [place] [address] [facility] [address] [place] [address] [phone] SP 12/02/2018 [facility] SP Encounter Cancer Center SP [address] [facility] SP [address]nd [address] [place] [address] SP [phone] SP Social History Date POS Tobacco Use [...] SP Pain. Take SP with food. SP 07/29/2018 SP nitrofurantoin Take one 14 [...] as SP needed for SP Sleep. SP 11/11/2018 12/02/2018 SP (INV) cabozantinib ([facility] Take two 60 tablet 0 SP [id number]) 20 mg tablets by SP tabletIndications: mouth [...]
--- OUTSIDE RECORDS SUMMARY | 2019-04-12 09:00 | XMS REPORT | Encounter Summary ---
Author Author [facility] POS Organization [facility] SP Address Unknown SP Phone Unavailable SP Care Team Providers Care Educational Diagnostician Name Role Phone POS Christa Ware MD PCP SP Encounter Details Care Team Description POS Date Type Department SP SP Belinda Landeros, SWEET GOODS MACHINE OPERATOR [address] [facility] [address] [place], [place] [id number] SP 11/19/2018 Orders Only [facility] SP [address] [facility] SP [address]nd [address] [place] [address] SP [phone] SP Social History Date POS Tobacco Use [...]
--- OUTSIDE RECORDS SUMMARY | 2019-04-12 09:00 | XMS REPORT | Encounter Summary ---
Author Author [facility] POS Organization [facility] SP Address Unknown SP Phone Unavailable SP Care Team Providers Care Greeting Card Writer Name Role Phone POS Christa Ware MD PCP SP Reason for Visit * Reason Comments POS Cancer SP Encounter Details Care Team Description POS Date Type Department SP SP Mateo Cabral MD [address] [facility] [place], [place] [id number] Encounter for examination for normal com parison or control in SPclinical research program; Malignant neoplasm of ovary (HCC) 11/11/2018 Office Visit [facility] SP [address] [facility] [address] [place] [address] [place] [address] SP [phone] SP Social History Date POS Tobacco Use [...] Time Taken Comments POS Vital Sign SP 107/64 11/11/2018 9:02 AM CDT SP Blood Pressure SP 69 11/11/2018 9:02 AM CDT SP Pulse SP 36.6 C (97.9 F) 11/11/2018 9:02 AM CDT SP Temperature SP 16 11/11/2018 9:02 AM CDT SP Respiratory Rate SP 95% 11/11/2018 9:02 AM CDT SP Oxygen Saturation SP - - SP Inhaled Oxygen SP Concentration SP 61 kg (134 lb 7.7 oz) 11/11/2018 9:02 AM CDT SP Weight SP - - SP Height SP 23.08 08/15/2018 9:35 AM CDT SP Body Mass [...] Progress Notes * Mateo Cabral MD - 11/11/2018 9:30 AM CDT Subjective GYNECOLOGIC ONCOLOGY EVALUATION Name:Katty Gold Date: 11/11/18 Referring Physician: Primary Care Physician: Christa Ware [...] overall. Rash cont to be improved today. Cont to have having daily episodes of diarrhea 3-6 x per day that happen in a s hort interval in the evenings. Taking immodium BID now. Then rest of the day is fine without diarrhea. Symptoms otherwise stable. Tolerating cabozantanib we ll. Appetite is good. Has chronic voice changes. Does have mild fatigue. No donna ropathy. No pain complaints, No changes in bowel or urinary habits. REF:Viri Gold MD PCP: Christa Ware MD Proofer Black And White: Talon Reeves MD MED/ONC: Dr. Cesar Ovarian [...] a nd negative for WT-1, inhibin, calretinin, [place]-1, ER, [place], synaptophysin and chr omogranin. A p53 stain [...] on CT, this was most reflective of [place] resistant/refractory disease. As such, surgical exploration and [...] genetics sent - KRAS 94% mutational change, [id number] >50%, tp53 + Target lesions Left hemidiaphragm [...] LESION performed by Mauro Davies MD at [facility] OR/Periop RECTAL SURGERY Left 10/09/2017 RESECTION SIGMOID COLON, COLONOSCOPY performed by Tim Chung MD at [facility] OR/Periop SECTION HX BREAST BIOPSY HX BREAST LUMPECTOMY followed by radiation therapy. HX CHOLECYSTECTOMY HX TUBAL LIGATION Bilateral Medications: Current Outpatient Medications: (INV) cabozantinib ([facility] [id number]) 20 mg tablet, Take two tablets by [...] visit. Facility-Administered Medications Ordered in Other Visits: heparin lock flush PF syringe 500 Units, 500 Units, Flush, ONCE, Milind Landeros APRN ondansetron (ZOFRAN) tablet 16 mg, 16 mg, Oral, ONCE, Belinda Landeros APRN Allergies: No Known Allergies Social History: Social [...] in HPI ECOG 0 Physical Exam: BP 107/64 (BP Source: Arm, Right Upper, Patient Position: Sitting) | Pulse 69 | Temp 36.6 C (97.9 F) (Oral) | Resp 16 | Wt 61 kg (134 lb 7.7 oz) | LMP 09/24/1997 | SpO2 95% | BMI 23.08 kg/m GENERAL APPEARANCE: Appears healthy. Alert; in [...] Results Component Value Date/Time WBC 3.6 (L) 11/11/2018 09:15 AM RBC 4.09 11/11/2018 09:15 AM HGB 13.9 11/11/2018 09:15 AM HCT 40.4 11/11/2018 09:15 AM MCV 98.7 11/11/2018 09:15 AM MCH 33.9 11/11/2018 09:15 AM MCHC 34.3 11/11/2018 09:15 AM RDW 15.5 (H) 11/11/2018 09:15 AM PLTCT 221 11/11/2018 09:15 AM MPV 7.8 11/11/2018 09:15 AM Lab Results Component Value Date/Time NEUT 59 11/11/2018 09:15 AM ANC 2.10 11/11/2018 09:15 AM LYMA 24 11/11/2018 09:15 AM ALC 0.90 (L) 11/11/2018 09:15 AM JEFRY 8 11/11/2018 09:15 AM AMC 0.30 11/11/2018 09:15 AM EOSA 7 (H) 11/11/2018 09:15 AM AEC 0.30 11/11/2018 09:15 AM BASA 2 11/11/2018 09:15 AM ABC 0.10 11/11/2018 09:15 AM Comprehensive Metabolic Profile Lab Results Component Value Date/Time NA 140 11/11/2018 09:15 AM K 4.0 11/11/2018 09:15 AM CL 105 11/11/2018 09:15 AM CO2 27 11/11/2018 09:15 AM GAP 8 11/11/2018 09:15 AM BUN 16 11/11/2018 09:15 AM CR 0.83 11/11/2018 09:15 AM GLU 66 (L) 11/11/2018 09:15 AM Lab Results Component Value Date/Time CA 8.9 11/11/2018 09:15 AM PO4 2.9 11/11/2018 09:15 AM ALBUMIN 3.9 11/11/2018 09:15 AM TOTPROT 6.6 11/11/2018 09:15 AM ALKPHOS 63 11/11/2018 09:15 AM AST 33 11/11/2018 09:15 AM ALT 30 11/11/2018 09:15 AM TOTBILI 0.4 11/11/2018 09:15 AM GFR >60 11/11/2018 09:15 AM GFRAA >60 11/11/2018 09:15 AM Other labs No results found for: ESR Lab Results Component Value Date/Time LDH 241 (H) 11/11/2018 09:15 AM ASSESSMENT/PLAN: Katty Gold is a 68 y.o. female with metastatic recurrent transitional car cinoma of the ovary for XL-184 trial. Functionally cleared for trial. Labs reviewed. Cleared for C9. Stable disease on imaging, to cont trial [...] she is not showing signs of dehydration Reviewed NextGene sequencing sent by Dr Davies. KRAS and AC0Alvw mutation which are both actionable, would consider [...] her questions were answered. RV next cycle with imaging Today's visit comprised over 40 minutes, with most of the time dedicated to face to face discussion. Mateo Cabral MD documented in this encounter Plan of Treatment Not on filedocumented as of this encounter Procedures Comments POS Procedure Name Priority Date/Time Associated Diag nosis SP SP PROTEIN/CR RATIO,UR RAN 11/11/2018 Encounter for examination SP 9:10 AM CDT for normal comparison or SP control in clinical SP research program SP Malignant neoplasm of SP ovary (HCC) SP documented in this encounter Results * PROTEIN/CR RATIO,UR RAN (11/11/2018 9:10 AM CDT) Pathologist POS Signature SP Protein, Random 12 MG/DL [facility] SP Creatinine, 59 MG/DL [facility] SP Random SP Protein/CR 0.2 [facility] SP ratio SP Specimen SP Performing Organization Address City/State/Zipcode Ph one Number SP [facility] [address] [place] [address] SP documented in this encounter Visit Diagnoses Diagnosis POS Encounter for examination for normal co mparison or control in clinical research SPprogram Examination of participant in clinical trial SP Malignant neoplasm of ovary (HCC) SP Malignant neoplasm of ovary SP documented in this encounter"
--- OUTSIDE RECORDS SUMMARY | 2019-04-12 09:00 | XMS REPORT | Encounter Summary ---
Author Author [facility] POS Organization [facility] SP Address Unknown SP Phone Unavailable SP Care Team Providers Care Yarder Puncher Name Role Phone POS Christa Ware MD PCP SP Encounter Details Care Team Description POS Date Type Department SP SP Mateo Cabral MD [address] [facility] [place] [address] [phone] SP 11/11/2018 Documentation [facility] SP [address] [facility] [address] [place] [address] SP [phone] SP Social History Date POS Tobacco Use [...] Notes * Research - Mac Lipscomb - 11/11/2018 10:28 AM CDT Study Title:A Phase 1b Dose-Escalation Study of Carbozantinib (XL184) Administ ered Alone or in Combination with Atezolizumab to Subjects with Locally Advanced or Metastatic Solid Tumors. [id number] Study ID:[id number] Patient presentsto CRCfor [id number] 1. Labs drawn Nakia Silva(RN) and this SC. Patient t ocontinuewith treatment. Dr. Cabralmet with patient, reviewed recent CT scans and new/ongoing symptoms. Please seePInotefor detailed assessments and AE/conmed. This leave coordinator collected pill diary and provided patient with new dosing diary for cycle9. Patient self-[id number](2x20mg tablets)[id number] out of Drug u nit #[id number].Doserecorded on herdiary. Medication Accountability:Patient turned in2 bottles of Cabozantinib (XL184) , turned into pharmacy 1: Drug Unit#: [id number] 2: Drug Unit #:[id number],containing 16tablets Pharmacydispensed new medication today: Drug Unit#: [id number] Drug Unit #: [id number] RTC:Patient will return on12/02/18for [id number] documented in this encounter Plan of Treatment Not on filedocumented as of this encounter Visit Diagnoses Not on filedocumented in this encounter
--- OUTSIDE RECORDS SUMMARY | 2019-04-12 09:00 | XMS REPORT | Encounter Summary ---
Author Author [facility] POS Organization [facility] SP Address Unknown SP Phone Unavailable SP Care Team Providers Care Presentation Manager Name Role Phone POS Christa Ware MD PCP SP Reason for Visit * Reason Comments POS Treatment SP Encounter Details Care Team Description POS Date Type Department SP SP Belinda Landeros, CLEARING DISTRIBUTION CLERK [address] [facility] [address] [place] [address] SP 12/02/2018 [facility] SP Encounter Cancer Center SP [address] [facility] [address] [facility] [address] [place] [address] SP [phone] SP Social History Date POS Tobacco Use [...] Time Taken Comments POS Vital Sign SP 119/63 12/02/2018 10:53 AM CDT SP Blood Pressure SP 55 12/02/2018 10:53 AM CDT SP Pulse SP 36.4 C (97.5 F) 12/02/2018 10:53 AM CDT SP Temperature SP 16 12/02/2018 10:53 AM CDT SP Respiratory Rate SP 100% 12/02/2018 10:53 AM CDT SP Oxygen Saturation SP - [...] this encounter Progress Notes * Isa Darby, KATHI - 12/02/2018 8:30 AM CDT CRC TREATMENT DAY Study : XL 184 Cycle and Day : C10D1 Labs : Clinical and correlative labs drawn. Assessment : Assessment documented in doc flowsheet. Fatigue Scale:0 Vital Signs : 12/02/18 0902 SOC, patient resting prior starting at 0855 12/02/18 1053 Within 60 minutes of Atezolizumab Start Enc Vitals BP 119/72 119/63 Pulse 70 55 Resp 16 16 Temp 36.6 C (97.8 F) 36.4 C (97.5 F) Temp src Oral Oral SpO2 98 % 100 % Correlative Labs & EKG : Correlative labs drawn from Right Port. No EKG per study protocol. Side Effects : None reported. 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 Labs drawn from Right Port. Labs WNL per current treatment plan. UA showing possible infection or contamination, orders per Belinda Landeros APRN to repeat UA with reflex to culture. Will follow up with pt if antibiotic is in dicated. No new symptoms/side effects reported this visit. Pt confirms fasting starting at 0700 prior to dosing and confirms to remain f asting 1 hour post Cabozantinib dose. Pt seen by Belinda Landeros APRN. Ok to proceed with treatment. Pt tolerated infusion well and verbalizes understanding regarding POC. Calendar/AVS : AVS and Calendar given. Patient educated and without questions or concerns. Discharge : Patient left the unit at 1145 without complaints. Drug : Dosage was double checked with Vasu Landry RN ,Chemotherapy Certified Nurse, p er protocol. Dose time: Self dosed in clinic from previous bottle at 1027 with this RN and outpatient program coordinator present building services coordinator at bedside for additional education/teaching. Yes Verified chemo consent signed and in chart. Yes Verified initiate chemo order in Yes Premedications/Prehydration given as ordered. N/A Arm band verified at bedside with second RN (same RN as above unless otherwise n oted). Yes Labs/applicable tests checked: Yes Chemo drug/dose/route: (INV) cabozantinib ([facility] [id number]) 20 mg tablet [[id number]] Order Details Dose: 40 mg Route: Oral [...] (if applicable). ondansetron (ZOFRAN) tablet 16 mg [[id number]] Ordered Dose: 16 mg Route: Oral Frequency: ONCE Administration Dose: 16 mg Scheduled Start Date/Time: 12/02/18 1030 End Date/Time: 12/03/18 1030 after 1 do ses Diagnosis Association: Clinical trial participant (Z00.6); Malignant neoplasm of ovary, unspecified laterality (HCC) (C56.9) Order Status: Active Arm band verified at bedside with second RN (same RN as above unless otherwise n oted). Lab tests checked (may include other additional protocol parameters): CBC, Compr ehensive Metabolic Panel (CMP) and UA Chemo drug/dose/route: (INV) atezolizumab ([facility] [id number]) 1,200 mg in sodium chlori de 0.9% (NS) 270 mL IVPB [[id number]] Ordered Dose: 1,200 mg Route: Intravenous Frequency: ONCE @ 540 mL/hr over 30 Mi nutes Volume: 270 mL Stability: 6 Hours Scheduled Start Date/Time: 12/02/18 1100 End Date/Time: 12/03/18 1100 after 1 do ses Admin Instructions: INVESTIGATIONAL [...] * Addendum Note - Rakel Llamas - 12/03/2018 4:13 PM CDT Encounter addended by: Rakel Llamas on: 12/03/2018 4:13 PM Actions taken: Charge Capture section accepted documented in this encounter Plan of Treatment Not on filedocumented as of this encounter Procedures Comments POS Procedure Name Priority Date/Time Associated Diag nosis SP SP UA REFLEX CULTURE LABEL Routine 12/02/2018 Clinic al trial SP 11:41 AM CDT participant SP Malignant neoplasm of SP ovary, unspecified SP laterality (HCC) SP SP URINALYSIS MICROSCOPIC Routine 12/02/2018 Clinica l trial SP REFLEX TO CULTURE 11:41 AM CDT participant SP Malignant neoplasm of SP ovary, unspecified SP laterality (HCC) SP SP URINALYSIS DIPSTICK Routine 12/02/2018 Clinical t rial SP REFLEX TO CULTURE 11:41 AM CDT participant SP Malignant neoplasm of SP ovary, unspecified SP laterality (HCC) SP SP GGTP Routine 12/02/2018 Clinical trial SP 9:10 AM CDT participant SP Malignant neoplasm of SP ovary, unspecified SP laterality (HCC) SP SP CBC AND DIFF Routine 12/02/2018 Clinical trial SP 9:10 AM CDT participant SP Malignant neoplasm of SP ovary, unspecified SP laterality (HCC) SP SP CA125 Routine 12/02/2018 Clinical trial SP 9:10 AM CDT participant SP Malignant neoplasm of SP ovary, unspecified SP laterality (HCC) SP SP PHOSPHORUS Routine 12/02/2018 Clinical trial SP 9:10 AM CDT participant SP Malignant neoplasm of SP ovary, unspecified SP laterality (HCC) SP SP MAGNESIUM Routine 12/02/2018 Clinical trial SP 9:10 AM CDT participant SP Malignant neoplasm of SP ovary, unspecified SP laterality (HCC) SP SP LIPASE Routine 12/02/2018 Clinical trial SP 9:10 AM CDT participant SP Malignant neoplasm of SP ovary, unspecified SP laterality (HCC) SP SP LDH-LACTATE DEHYDROGENASE Routine 12/02/2018 Clin ical trial SP 9:10 AM CDT participant SP Malignant neoplasm of SP ovary, unspecified SP laterality (HCC) SP SP BILIRUBIN, DIRECT Routine 12/02/2018 Clinical tri al SP 9:10 AM CDT participant SP Malignant neoplasm of SP ovary, unspecified SP laterality (HCC) SP SP AMYLASE Routine 12/02/2018 Clinical trial SP 9:10 AM CDT participant SP Malignant neoplasm of SP ovary, unspecified SP laterality (HCC) SP SP COMPREHENSIVE METABOLIC Routine 12/02/2018 Clinic al trial SP PANEL 9:10 AM CDT participant SP Malignant neoplasm of SP ovary, unspecified SP laterality (HCC) SP SP PROTEIN/CR RATIO,UR RAN 12/02/2018 Clinical tria l SP 8:59 AM CDT participant SP Malignant neoplasm of SP ovary, unspecified SP laterality (HCC) SP SP URINALYSIS, MICROSCOPIC Routine 12/02/2018 Clinic al trial SP 8:59 AM CDT participant SP Malignant neoplasm of SP ovary, unspecified SP laterality (HCC) SP SP URINALYSIS DIPSTICK Routine 12/02/2018 Clinical t rial SP 8:59 AM CDT participant SP Malignant neoplasm of SP ovary, unspecified SP laterality (HCC) SP documented in this encounter Results * UA REFLEX CULTURE LABEL (12/02/2018 11:41 AM CDT) Pathologist POS Signature SP UA Reflex LAB LABEL [facility] SP Culture SP Specimen SP Urine SP Performing Organization Address [facility] Ph one Number SP [facility] [address] [place] [address] SP * URINALYSIS MICROSCOPIC REFLEX TO CULTURE (12/02/2018 11:41 AM CDT) Pathologist SP Signature SP WBCs,UA 2-10 0 - 2 /HPF [facility] SP RBCs,UA 0-2 0 - 3 /HPF [facility] SP Comment,UA Criteria for reflex to culture [facility] SP are WBC>10, Positive Nitrite, SP and/or >=+1 SP leukocytes. If quantity is not SP sufficient, an addendum will SP follow. SP MucousUA TRACE [facility] SP Bacteria,UA MODERATE (A) NEG-NEG [facility] SP Specimen SP Urine SP Performing Organization Address [facility] one Number SP [facility] [address] [place] [address] SP * URINALYSIS DIPSTICK REFLEX TO CULTURE (12/02/2018 11:41 AM CDT) Pathologist SP Signature SP Color,UA YELLOW [facility] SP Turbidity,UA CLEAR CLEAR-CLEAR [facility] SP Specific 1.008 1.003 - 1.035 [facility] SP [place]-Urine SP pH,UA 6.0 5.0 - 8.0 [facility] SP Protein,UA NEG NEG-NEG [facility] SP Glucose,UA NEG NEG-NEG [facility] SP Ketones,UA NEG NEG-NEG [facility] SP Bilirubin,UA NEG NEG-NEG [facility] SP Blood,UA 1+ (A) NEG-NEG [facility] SP Urobilinogen,UA NORMAL NORM-NORMAL [facility] SP Nitrite,UA POS (A) NEG-NEG [facility] SP Leukocytes,UA NEG NEG-NEG [facility] SP Urine Ascorbic NEG NEG-NEG [facility] SP Acid, UA SP Specimen SP Urine SP Performing Organization Address [facility] Ph one Number SP [facility] [address] [place] [address] SP * BILIRUBIN, DIRECT (12/02/2018 9:10 AM CDT) Pathologist SP Signature SP Bilirubin, 0.1 <0.4 MG/DL [facility] SP Direct SP Specimen SP Blood SP Performing Organization Address City/[facility] Ph one Number SP [facility] [address] [place] [address] SP * PHOSPHORUS (12/02/2018 9:10 AM CDT) Pathologist SP Signature SP Phosphorus 3.1 2.0 - 4.5 MG/DL [facility] SP Specimen SP Blood SP Performing Organization Address [facility] Ph one Number SP [facility] [address] [place], [place] [phone] SP * MAGNESIUM (12/02/2018 9:10 AM CDT) Pathologist SP Signature SP Magnesium 1.8 1.6 - 2.6 mg/dL [facility] SP Specimen SP Blood SP Performing Organization Address [facility] Ph one Number SP [facility] [address] [place], [place] [phone] SP * LIPASE (12/02/2018 9:10 AM CDT) Pathologist SP Signature SP Lipase 175 (H) 11 - 82 U/L [facility] SP Specimen SP Blood SP Performing Organization Address [facility] Ph one Number SP [facility] [address] [place] [address] SP * AMYLASE (12/02/2018 9:10 AM CDT) Pathologist SP Signature SP Amylase 116 (H) 24 - 100 U/L [facility] SP Specimen SP Blood SP Performing Organization Address [facility] Ph one Number SP [facility] [address] [place] [address] SP * LDH-LACTATE DEHYDROGENASE (12/02/2018 9:10 AM CDT) Pathologist SP Signature SP Lactate 205 100 - 210 U/L [facility] SP Dehydrogenase SP Specimen SP Blood SP Performing Organization Address [facility] one Number SP [facility] [address] [place], [place] [phone] SP * GGTP (12/02/2018 9:10 AM CDT) Pathologist SP Signature SP GGTP 14 9 - 64 U/L [facility] SP Specimen SP Blood SP Performing Organization Address [facility] Ph one Number SP [facility] [address] [place] [address] SP * COMPREHENSIVE METABOLIC PANEL (12/02/2018 9:10 AM CDT) Pathologist SP Signature SP Sodium 140 137 - 147 MMOL/L [facility] SP Potassium 4.0 3.5 - 5.1 MMOL/L [facility] SP Chloride 106 98 - 110 MMOL/L [facility] SP Glucose 89 70 - 100 MG/DL [facility] SP Blood Urea 16 7 - 25 MG/DL [facility] SP Nitrogen SP Creatinine 0.82 0.4 - 1.00 MG/DL [facility] SP Calcium 9.0 8.5 - 10.6 MG/DL [facility] SP Total Protein 6.5 6.0 - 8.0 G/DL [facility] SP Total Bilirubin 0.4 0.3 - 1.2 MG/DL [facility] SP Albumin 3.8 3.5 - 5.0 G/DL [facility] SP Alk Phosphatase 65 25 - 110 U/L [facility] SP AST (SGOT) 26 7 - 40 U/L [facility] SP CO2 25 21 - 30 MMOL/L [facility] SP ALT (SGPT) 25 7 - 56 U/L [facility] SP Anion Gap 9 3 - 12 [facility] SP eGFR Non >60 >60 mL/min [facility] SP Comment: SP Filipino The eGFR is not validated f or SP use in drug dosing SP adjustments.Continue to SP use SP estimated creatinine SP clearance per dosing reference SP text.Please contact the SP Clinical Pharmacist for SP questions. SP eGFR >60 >60 mL/min [facility] SP Filipino Comment: SP The eGFR is not validated for SP use in drug dosing SP adjustments.Continue to SP use SP estimated creatinine SP clearance per dosing reference SP text.Please contact the SP Clinical Pharmacist for SP questions. SP Specimen SP Blood SP Performing Organization Address [facility] one Number SP [facility] [address] [place], [place] [phone] SP * CBC AND DIFF (12/02/2018 9:10 AM CDT) Pathologist SP Signature SP White Blood 3.6 (L) 4.5 - 11.0 K/UL [facility] SP Cells SP RBC 3.87 (L) 4.0 - 5.0 M/UL [facility] SP Hemoglobin 13.3 12.0 - 15.0 GM/DL [facility] SP Hematocrit 38.6 36 - 45 % [facility] SP MCV 99.6 80 - 100 FL [facility] SP MCH 34.2 (H) 26 - 34 PG [facility] SP MCHC 34.4 32.0 - 36.0 G/DL [facility] SP RDW 15.2 (H) 11 - 15 % [facility] SP Platelet Count 199 150 - 400 K/UL [facility] SP MPV 7.8 7 - 11 FL [facility] SP Neutrophils 57 41 - 77 % [facility] SP Lymphocytes 27 24 - 44 % [facility] SP Monocytes 9 4 - 12 % [facility] SP Eosinophils 6 (H) 0 - 5 % [facility] SP Basophils 1 0 - 2 % [facility] SP Absolute 2.10 1.8 - 7.0 K/UL [facility] SP Neutrophil SP Count SP Absolute Lymph 0.90 (L) 1.0 - 4.8 K/UL [facility] SP Count SP Absolute 0.30 0 - 0.80 K/UL [facility] SP Monocyte Count SP Absolute 0.20 0 - 0.45 K/UL [facility] SP Eosinophil SP Count SP Absolute 0.00 0 - 0.20 K/UL [facility] SP Basophil Count SP Specimen SP Blood SP Performing Organization Address [facility] Ph one Number SP [facility] [address] [place] [address] SP * CA125 (12/02/2018 9:10 AM CDT) Pathologist SP Signature SP CA-125 21 <35 U/ml [facility] SP Specimen SP Blood SP Performing Organization Address [facility] Ph one Number SP [facility] [address] [place] [address] SP * PROTEIN/CR RATIO,UR RAN (12/02/2018 8:59 AM CDT) Pathologist SP Signature SP Protein, Random 4 MG/DL [facility] SP Creatinine, 36 MG/DL [facility] SP Random SP Protein/CR 0.1 [facility] SP ratio SP Specimen SP Performing Organization Address [facility] Ph one Number SP [facility] [address] [place] [address] SP * URINALYSIS, MICROSCOPIC (12/02/2018 8:59 AM CDT) Pathologist SP Signature SP WBCs,UA 5-10 0 - 2 /HPF [facility] SP RBCs,UA 0-2 0 - 3 /HPF [facility] SP Epith Cells,UA 0-2 0 - 2 /HPF [facility] SP MucousUA 1+ [facility] SP Bacteria,UA MANY (A) NEG-NEG [facility] SP Specimen SP Urine - Urine SP Performing Organization Address [facility] one Number SP [facility] [address] [place] [address] SP * URINALYSIS DIPSTICK (12/02/2018 8:59 AM CDT) Pathologist SP Signature SP Color,UA YELLOW [facility] SP Turbidity,UA TRACE (A) CLEAR-CLEAR [facility] SP Specific 1.010 1.003 - 1.035 [facility] SP [place]-Urine SP pH,UA 6.0 5.0 - 8.0 [facility] SP Protein,UA NEG NEG-NEG [facility] SP Glucose,UA NEG NEG-NEG [facility] SP Ketones,UA NEG NEG-NEG [facility] SP Bilirubin,UA NEG NEG-NEG [facility] SP Blood,UA NEG NEG-NEG [facility] SP Urobilinogen,UA NORMAL NORM-NORMAL [facility] SP Nitrite,UA POS (A) NEG-NEG [facility] SP Leukocytes,UA NEG NEG-NEG [facility] SP Specimen SP Urine - Urine SP Performing Organization Address [facility] Ph one Number SP [facility] [address] [place] [address] SP documented in this encounter Visit Diagnoses Diagnosis POS Clinical trial participant - Primary SP Malignant neoplasm of ovary, unspecifie d laterality (HCC) SP documented in this encounter Administered Medications Action Date Dose Rate Site POS Medication Order MAR Action SP 12/02/2018 11:03 AM CDT 1,200 mg 540 mL/hr SP (INV) atezolizumab ([facility] [id number]) 1,200 mg Given - New SP in sodium chloride 0.9% (NS) 270 mL IVPB Bag SP 1,200 mg, Intravenous, 270 mL, SP Administer over 30 Minutes, ONCE, 1 SP dose, Sun12/02/18 at 1100, SP INVESTIGATIONAL CYTOTOXIC If SP first dose was well tolerated, SP administer over 30 minutes (+/- 10 SP minutes). Infuse through a 0.2 micron SP filter. NOTE: This is a HIGH ALERT SP medication., SP 12/02/2018 11:33 AM CDT 500 Units SP heparin lock flush PF syringe 500 Units Given SP 500 Units, Intra-catheter, ONCE, 1 dose , SP Sun12/02/18 at 1030, NOTE: This is a HIG H SP ALERT Medication., SP 12/02/2018 10:26 AM CDT 16 mg SP ondansetron (ZOFRAN) tablet 16 mg Given SP 16 mg, Oral, ONCE, 1 dose, Sun12/02/18 a t SP 1030 SP documented in this encounter
--- OUTSIDE RECORDS SUMMARY | 2019-04-12 09:01 | XMS REPORT | Encounter Summary ---
Author Author [facility] POS Organization [facility] SP Address Unknown SP Phone Unavailable SP Care Team Providers Care Paste Mixer Liquid Name Role Phone POS Christa Ware MD PCP SP Reason for Referral * Radiology Services (Routine) Referred By Contact Referred To Contact POS Status Reason Specialty Diagnoses / SP Procedures SP SP Mateo Cabral MD [address] [place] [address] [place] [address] No Auth Needed Radiology Diagnoses SP Examination [...] SP Procedures SP SP Mateo Cabral MD [address] [place] [address] SP New Request Radiology Diagnoses SP Examination of SP participant in SP clinical trial SP Malignant neoplasm SP of ovary, SP unspecified SP laterality (HCC) SP P SP rocedures SP CT CHEST W SP CONTRAST SP Encounter Details Care Team Description POS Date Type Department SP SP Mateo Cabral MD [address] [facility] [place] [place] [id number] Malignant neoplasm of ovary, unspecified laterality (HCC) SP Dx); Examination of participant in clinical trial 11/08/2018 Orders Only [facility] SP [address] [facility] SP 2nd Fl [address] [place] [address] SP [phone] SP Social History Date POS Tobacco Use [...] of Assessment POS Functional Status Response SP 10/21/2018 SP Does the patient have a hearing impairment: No SP 10/21/2018 SP Does the patient have a visual impairment: Yes SP 10/21/2018 SP Does the patient have impaired ambulation: No SP 10/21/2018 SP Does the patient have an activity of daily living No SP (ADL) impairment: SP 10/21/2018 SP Does the patient have an instrumental activity of No SP daily living (IADL) impairment: SP Date of Assessment POS Cognitive Status Response SP 10/21/2018 SP Does the patient have a cognitive [...] neoplasm of o vary, unspecified laterality. RESEARCH: SP [employer] [id number] Study, [facility] #[id number], Coordinator: Aydee Banks, Contact: [phone] SP Technique: Multiple contiguous axial im ages [...] neoplasm of ovary, unspecified laterality. RESEARCH: [employer] [id number] Study, [facility] #[id number], Coordinator: Aydee Banks, Contact: [phone] Technique: Multiple contiguous axial images were obtained through the chest, abdomen and pelvis following the administration of IV contrast material. Portal venous phase of postcontrast imaging was obtained. Post processing coronal and sagittal reconstruction images were made from the axial images. IV contrast: Omnipaque-350 Bowel contrast: None Comparison: CT chest abdomen pelvis November 07, 2018. CHEST FINDINGS: Lower Neck: Unremarkable Axilla, Mediastinum and Jnaeth: No thoracic adenopathy. Heart and Great Vessels: [...] of o vary, unspecified laterality. RESEARCH: [employer] [id number] Study, [facility] #[id number], Coordinator: Aydee Banks, Contact: [phone] SP Technique: Multiple contiguous axial im ages [...] neoplasm of ovary, unspecified laterality. RESEARCH: [employer] [id number] Study, [facility] #[id number], Coordinator: Aydee Banks, Contact: [phone] Technique: Multiple contiguous axial images were obtained [...]
--- OUTSIDE RECORDS SUMMARY | 2019-04-12 09:01 | XMS REPORT | Encounter Summary ---
Author Author [facility] POS Organization [facility] SP Address Unknown SP Phone Unavailable SP Care Team Providers Care Agents' Records Clerk Name Role Phone POS Christa Ware MD PCP SP Encounter Details Care Team Description POS Date Type Department SP SP Mateo Cabral MD [address] [place] [address] [phone] SP 11/11/2018 [facility] SP Encounter Cancer Center SP [address] [facility] SP [address] [place] [address] SP [phone] SP Social History Date POS Tobacco Use [...] as SP needed for SP Sleep. SP 10/21/2018 11/11/2018 SP (INV) cabozantinib ([facility] Take two 60 tablet 0 SP [id number]) 20 mg tablets by SP tabletIndications: mouth [...]
--- OUTSIDE RECORDS SUMMARY | 2019-04-12 09:01 | XMS REPORT | Encounter Summary ---
Author Author [facility] POS Organization [facility] SP Address Unknown SP Phone Unavailable SP Care Team Providers Care Investment Broker Name Role Phone POS Christa Ware MD PCP SP Reason for Visit * Reason Comments POS Treatment SP Encounter Details Care Team Description POS Date Type Department SP SP Mateo Cabral MD [address] [facility] Cancer [place], [place] [phone] SP 11/11/2018 [facility] SP Encounter Cancer [place] SP [address] [facility] SP [address] Enrique [address] [place] [address] SP [phone] SP Social History Date POS Tobacco Use [...] Time Taken Comments POS Vital Sign SP 131/69 11/11/2018 11:40 AM CDT SP Blood Pressure SP 54 11/11/2018 11:40 AM CDT SP Pulse SP 36.3 C (97.4 F) 11/11/2018 11:40 AM CDT SP Temperature SP 16 11/11/2018 11:40 AM CDT SP Respiratory Rate SP 97% 11/11/2018 11:40 AM CDT SP Oxygen Saturation SP - [...] (HSC Take two 60 tablet 0 SP [id number]) 20 mg tablets by SP tabletIndications: mouth [...] as of this encounter Progress Notes * Nakia Richards RN - 11/11/2018 3:03 PM CDT CRC TREATMENT DAY Study : [id number] Cycle and Day : Cycle 9 Day 1 Labs : Results reviewed with patient. UA collected at 0910. Assessment : Assessment documented in doc flowsheet. Fatigue Scale:0 Vital Signs : 11/11/18 0902 SOC Rest time 0857 11/11/18 1140 Prior to SOI Vitals/Screening BP 107/64 131/69 BP Source Arm, Right Upper Arm, Right Upper Pulse 69 54 Resp 16 16 Temp 36.6 C (97.9 F) 36.3 C (97.4 F) Temp src Oral Oral SpO2 95 % 97 % Correlative Labs & EKG : Correlative lab obtained from port. No ekg per study protocol. Side Effects : Continues to have loose stools. Encouraged to take fiber with meals and imod ium in AM and HS. White spots on nails. Additional Notes : A&O x4. Ambulatory to CRC. No c/o pain. Visit with Dr. Cabral and STAN Alves. Patient self dosed cabozantinib at 1005. Primary RN and STAN Alves at [facility]. Patient received new bottles to take home. Patient started fasting at 0700. Patient tolerated infusion without complications. Calendar/AVS : AVS and Calendar given. Patient educated and without questions or concerns. Discharge : Patient left the unit at 1225 without complaints. Drug : Dosage and BSA was double checked with Isa Bradley, KATHI and agrees with ord ers as written Verified chemo consent signed and in chart. Blood return positive via: Port (Single) Premedications/Prehydration given as ordered (if applicable). ondansetron (ZOFRAN) tablet 16 mg [[id number]] Ordered Dose: 16 mg Route: Oral Frequency: ONCE Administration Dose: 16 mg Arm band verified at bedside with second RN (same RN as above unless otherwise n oted). Lab tests checked (may include other additional protocol parameters): CBC and Co mprehensive Metabolic Panel (CMP) Chemo drug/dose/route: atezolizumab (HSC 053376) 1,200 mg in sodium chloride 0.9 % (NS) 270 mL IVPB [[id number]] Ordered Dose: 1,200 mg Route: Intravenous Frequency: ONCE @ 540 mL/hr over 30 Mi nutes Rate verified with second RN (same RN as above unless otherwise noted). Patient education offered and stated understanding. documented in this encounter Miscellaneous Notes * Addendum Note - Rakel Llamas - 11/14/2018 6:14 AM CDT Encounter addended by: Rakel Llamas on: 11/14/2018 6:14 AM Actions taken: Charge Capture section accepted documented in this encounter Plan of Treatment Not on filedocumented as of this encounter Procedures Comments POS Procedure Name Priority Date/Time Associated Diag nosis SP SP GGTP Routine 11/11/2018 Clinical trial SP 9:15 AM CDT participant SP Malignant neoplasm of SP ovary, unspecified SP laterality (HCC) SP SP PTT (APTT) Routine 11/11/2018 Clinical trial SP 9:15 AM CDT participant SP Malignant neoplasm of SP ovary, unspecified SP laterality (HCC) SP SP PROTIME INR (PT) Routine 11/11/2018 Clinical tria l SP 9:15 AM CDT participant SP Malignant neoplasm of SP ovary, unspecified SP laterality (HCC) SP SP CBC AND DIFF Routine 11/11/2018 Clinical trial SP 9:15 AM CDT participant SP Malignant neoplasm of SP ovary, unspecified SP laterality (HCC) SP SP CA125 Routine 11/11/2018 Clinical trial SP 9:15 AM CDT participant SP Malignant neoplasm of SP ovary, unspecified SP laterality (HCC) SP SP THYROID STIMULATING Routine 11/11/2018 Clinical t rial SP HORMONE-TSH 9:15 AM CDT participant SP Malignant neoplasm of SP ovary, unspecified SP laterality (HCC) SP SP FREE T4 (FREE THYROXINE) Routine 11/11/2018 Clini cinthia trial SP ONLY 9:15 AM CDT participant SP Malignant neoplasm of SP ovary, unspecified SP laterality (HCC) SP SP PHOSPHORUS Routine 11/11/2018 Clinical trial SP 9:15 AM CDT participant SP Malignant neoplasm of SP ovary, unspecified SP laterality (HCC) SP SP MAGNESIUM Routine 11/11/2018 Clinical trial SP 9:15 AM CDT participant SP Malignant neoplasm of SP ovary, unspecified SP laterality (HCC) SP SP LIPASE Routine 11/11/2018 Clinical trial SP 9:15 AM CDT participant SP Malignant neoplasm of SP ovary, unspecified SP laterality (HCC) SP SP LDH-LACTATE DEHYDROGENASE Routine 11/11/2018 Clin ical trial SP 9:15 AM CDT participant SP Malignant neoplasm of SP ovary, unspecified SP laterality (HCC) SP SP BILIRUBIN, DIRECT Routine 11/11/2018 Clinical tri al SP 9:15 AM CDT participant SP Malignant neoplasm of SP ovary, unspecified SP laterality (HCC) SP SP AMYLASE Routine 11/11/2018 Clinical trial SP 9:15 AM CDT participant SP Malignant neoplasm of SP ovary, unspecified SP laterality (HCC) SP SP COMPREHENSIVE METABOLIC Routine 11/11/2018 Clinic al trial SP PANEL 9:15 AM CDT participant SP Malignant neoplasm of SP ovary, unspecified SP laterality (HCC) SP SP URINALYSIS, MICROSCOPIC Routine 11/11/2018 Clinic al trial SP 9:10 AM CDT participant SP Malignant neoplasm of SP ovary, unspecified SP laterality (HCC) SP SP URINALYSIS DIPSTICK Routine 11/11/2018 Clinical t rial SP 9:10 AM CDT participant SP Malignant neoplasm of SP ovary, unspecified SP laterality (HCC) SP documented in this encounter Results * BILIRUBIN, DIRECT (11/11/2018 9:15 AM CDT) Pathologist POS Signature SP Bilirubin, <0.1 <0.4 MG/DL [facility] SP Direct SP Specimen SP Blood SP Performing Organization Address [facility] Ph one Number SP [facility] [address] [place] [address] SP * PHOSPHORUS (11/11/2018 9:15 AM CDT) Pathologist SP Signature SP Phosphorus 2.9 2.0 - 4.5 MG/DL [facility] SP Specimen SP Blood SP Performing Organization Address [facility] Ph one Number SP [facility] [address] [place], [place] [phone] SP * MAGNESIUM (11/11/2018 9:15 AM CDT) Pathologist SP Signature SP Magnesium 1.8 1.6 - 2.6 mg/dL [facility] SP Specimen SP Blood SP Performing Organization Address [facility] Ph one Number SP [facility] [address] [place], [place] [phone] SP * LIPASE (11/11/2018 9:15 AM CDT) Pathologist SP Signature SP Lipase 20 11 - 82 U/L [facility] SP Specimen SP Blood SP Performing Organization Address [facility] Ph one Number SP [facility] [address] [place] [address] SP * AMYLASE (11/11/2018 9:15 AM CDT) Pathologist SP Signature SP Amylase 75 24 - 100 U/L [facility] SP Specimen SP Blood SP Performing Organization Address [facility] Ph one Number SP [facility] [address] [place] [address] SP * LDH-LACTATE DEHYDROGENASE (11/11/2018 9:15 AM CDT) Pathologist SP Signature SP Lactate 241 (H) 100 - 210 U/L [facility] SP Dehydrogenase SP Specimen SP Blood SP Performing Organization Address City/[facility] Ph one Number SP [facility] [address] [place], [place] [phone] SP * GGTP (11/11/2018 9:15 AM CDT) Pathologist SP Signature SP GGTP 15 9 - 64 U/L [facility] SP Specimen SP Blood SP Performing Organization Address [facility] Ph one Number SP [facility] [address] [place] [address] SP * COMPREHENSIVE METABOLIC PANEL (11/11/2018 9:15 AM CDT) Pathologist SP Signature SP Sodium 140 137 - 147 MMOL/L [facility] SP Potassium 4.0 3.5 - 5.1 MMOL/L [facility] SP Chloride 105 98 - 110 MMOL/L [facility] SP Glucose 66 (L) 70 - 100 MG/DL [facility] SP Blood Urea 16 7 - 25 MG/DL [facility] SP Nitrogen SP Creatinine 0.83 0.4 - 1.00 MG/DL [facility] SP Calcium 8.9 8.5 - 10.6 MG/DL [facility] SP Total Protein 6.6 6.0 - 8.0 G/DL [facility] SP Total Bilirubin 0.4 0.3 - 1.2 MG/DL [facility] SP Albumin 3.9 3.5 - 5.0 G/DL [facility] SP Alk Phosphatase 63 25 - 110 U/L [facility] SP AST (SGOT) 33 7 - 40 U/L [facility] SP CO2 27 21 - 30 MMOL/L [facility] SP ALT (SGPT) 30 7 - 56 U/L [facility] SP Anion Gap 8 3 - 12 [facility] SP eGFR Non >60 >60 mL/min [facility] SP Comment: SP Bhutanese The eGFR is not validated f or SP use in drug dosing SP adjustments.Continue to SP use SP estimated creatinine SP clearance per dosing reference SP text.Please contact the SP Clinical Pharmacist for SP questions. SP eGFR >60 >60 mL/min [facility] SP Bhutanese Comment: SP The eGFR is not validated for SP use in drug dosing SP adjustments.Continue to SP use SP estimated creatinine SP clearance per dosing reference SP text.Please contact the SP Clinical Pharmacist for SP questions. SP Specimen SP Blood SP Performing Organization Address City/State/Zipcode Ph one Number SP [facility] [address] [place], [place] [phone] SP * CBC AND DIFF (11/11/2018 9:15 AM CDT) Pathologist SP Signature SP White Blood 3.6 (L) 4.5 - 11.0 K/UL [facility] SP Cells SP RBC 4.09 4.0 - 5.0 M/UL [facility] SP Hemoglobin 13.9 12.0 - 15.0 GM/DL [facility] SP Hematocrit 40.4 36 - 45 % [facility] SP MCV 98.7 80 - 100 FL [facility] SP MCH 33.9 26 - 34 PG [facility] SP MCHC 34.3 32.0 - 36.0 G/DL [facility] SP RDW 15.5 (H) 11 - 15 % [facility] SP Platelet Count 221 150 - 400 K/UL [facility] SP MPV 7.8 7 - 11 FL [facility] SP Neutrophils 59 41 - 77 % [facility] SP Lymphocytes 24 24 - 44 % [facility] SP Monocytes 8 4 - 12 % [facility] SP Eosinophils 7 (H) 0 - 5 % [facility] [...] Specimen SP Blood SP Performing Organization Address City/[facility] Ph one Number SP [facility] [address] [place] [address] SP * CA125 (11/11/2018 9:15 AM CDT) Pathologist SP Signature SP CA-125 13 <35 U/ml [facility] SP Specimen SP Blood SP Performing Organization Address [facility] Ph one Number SP [facility] [address] [place] [address] SP * FREE T4 (FREE THYROXINE) ONLY (11/11/2018 9:15 AM CDT) Pathologist SP Signature SP T4-Free 0.9 0.6 - 1.6 NG/DL [facility] SP Specimen SP Blood SP Performing Organization Address City/[facility] Ph one Number SP [facility] [address] [place] [address] SP * THYROID STIMULATING HORMONE-TSH (11/11/2018 9:15 AM CDT) Pathologist SP Signature SP TSH 2.070 0.35 - 5.00 MCU/ML [facility] SP Specimen SP Blood SP Performing Organization Address [facility] Ph one Number SP [facility] [address] [place] [address] SP * PTT (APTT) (11/11/2018 9:15 AM CDT) Pathologist SP Signature SP APTT 90.8 (H) 24.0 - 36.5 SEC [facility] SP Specimen SP Blood SP Performing Organization Address City/[facility] Ph one Number SP [facility] [address] [place] [address] SP * PROTIME INR (PT) (11/11/2018 9:15 AM CDT) Pathologist SP Signature SP INR 0.9 0.8 - 1.2 [facility] SP Specimen SP Blood SP Performing Organization Address [facility] Ph one Number SP [facility] [address] [place] [address] SP * URINALYSIS, MICROSCOPIC (11/11/2018 9:10 AM CDT) Pathologist SP Signature SP WBCs,UA 0-2 0 - 2 /HPF [facility] SP RBCs,UA 2-5 0 - 3 /HPF [facility] SP Epith Cells,UA 0-2 0 - 2 /HPF [facility] SP MucousUA TRACE [facility] SP Bacteria,UA FEW (A) NEG-NEG [facility] SP Specimen SP Urine - Urine SP Performing Organization Address [facility] Ph one Number SP [facility] [address] [place] [phone] SP * URINALYSIS DIPSTICK (11/11/2018 9:10 AM CDT) Pathologist SP Signature SP Color,UA YELLOW [facility] SP Turbidity,UA CLEAR CLEAR-CLEAR [facility] SP Specific 1.010 1.003 - 1.035 [facility] SP Newman-Urine SP pH,UA 6.0 5.0 - 8.0 [facility] [...] Urine - Urine SP Performing Organization Address [facility] one Number SP [facility] [address] [place] [id number] SP documented in this encounter Visit Diagnoses Diagnosis POS Clinical trial participant - Primary SP Malignant neoplasm of ovary, unspecifie d laterality (HCC) SP documented in this encounter Administered Medications Action Date Dose Rate Site POS Medication Order MAR Action SP 11/11/2018 11:45 AM CDT 1,200 mg 540 mL/hr SP (INV) atezolizumab ([facility] [id number]) 1,200 mg Given - New SP in sodium chloride 0.9% (NS) 270 mL IVPB Bag SP 1,200 mg, Intravenous, 270 mL, SP Administer over 30 Minutes, ONCE, 1 SP dose, [facility] 11/11/18 at 1130, SP INVESTIGATIONAL CYTOTOXIC If SP first dose was well tolerated, SP administer over 30 minutes (+/- 10 SP minutes). Infuse through a 0.2 micron SP filter. NOTE: This is a HIGH ALERT SP medication., SP 11/11/2018 12:18 PM CDT 500 Units SP heparin lock flush PF syringe 500 Units Given SP 500 Units, Flush, ONCE, 1 dose, Mon SP 11/11/18 at 1030, NOTE: This is a HIGH SP ALERT Medication., SP 11/11/2018 10:55 AM CDT 16 mg SP ondansetron (ZOFRAN) tablet 16 mg Given SP 16 mg, Oral, ONCE, 1 dose, [facility] 11/11/18 SP at 1030 SP documented in this encounter
--- OUTSIDE RECORDS SUMMARY | 2019-04-12 09:01 | XMS REPORT | Encounter Summary ---
Author Author [facility] POS Organization [facility] SP Address Unknown SP Phone Unavailable SP Care Team Providers Care School Laboratory Technician Name Role Phone POS Christa Ware MD PCP SP Encounter Details Care Team Description POS Date Type Department SP SP Belinda Landeros, FIREARMS SPECIALIST [address] [facility] [address] [place], [place] [phone] SP 11/04/2018 Orders Only [facility] SP [address] [facility] SP [address] [place] [address] SP [phone] SP Social History Date POS Tobacco Use [...]
--- OUTSIDE RECORDS SUMMARY | 2019-04-12 09:01 | XMS REPORT | Encounter Summary ---
Author Author [facility] POS Organization [facility] SP Address Unknown SP Phone Unavailable SP Care Team Providers Care Painting Worker Name Role Phone POS Christa Ware MD PCP SP Reason for Visit * Reason Comments POS Cancer SP Heme/Onc Care SP Encounter Details Care Team Description POS Date Type Department SP SP Mateo Cabral MD [address] [facility] [place], [place] [phone] Clinical trial participant (Primary Dx) SP 10/21/2018 Office Visit [facility] [address] [place] [address] SP [phone] SP Social History Date POS Tobacco Use [...] Time Taken Comments POS Vital Sign SP 115/68 10/21/2018 10:18 AM CDT SP Blood Pressure SP 85 10/21/2018 10:18 AM CDT SP Pulse SP 36.6 C (97.9 F) 10/21/2018 10:18 AM CDT SP Temperature SP 16 10/21/2018 10:18 AM CDT SP Respiratory Rate SP 98% 10/21/2018 10:18 AM CDT SP Oxygen Saturation SP - - SP Inhaled Oxygen SP Concentration SP 60.6 kg (133 lb 9.6 oz) 10/21/2018 10:18 AM CDT SP Weight SP - - SP Height SP 22.93 08/15/2018 9:35 AM CDT SP Body Mass [...] Progress Notes * Mateo Cabral MD - 10/21/2018 9:45 AM CDT Subjective GYNECOLOGIC ONCOLOGY EVALUATION Name:Katty Gold Date: 10/21/18 Referring Physician: Primary Care Physician: Christa Ware Chief Complaint: Chief Complaint Patient presents with Cancer Heme/Onc Care History of Present Illness: aKtty Gold is a 68 y.o. 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 Onc Timeline Katty Gold is a 67 y.o. female with recurrent transitional cell ovarian cancer. Here today for follow up. Feeling well overall. Rash much improved today. Cont to have having daily episodes of diarrhea 3-6 x per day that happen in a short i nterval. Then rest of the day is fine without diarrhea. Symptoms otherwise stabl e. Tolerating cabozantanib well. Appetite is good. Has chronic voice changes . Does have mild fatigue. No neuropathy. No pain complaints, No changes in bowel or urinary habits. REF:Viri Gold MD PCP: Christa Ware MD Rock Drill Operator: Talon Reeves MD MED/ONC: Dr. Cesar Ovarian [...] a nd negative for WT-1, inhibin, calretinin, [place]-1, ER, MS, synaptophysin and chr omogranin. A p53 stain [...] on CT, this was most reflective of asa'carsarmiut resistant/refractory disease. As such, surgical exploration and [...] genetics sent - KRAS 94% mutational change, LY7Ilrn >50%, tp53 + Target lesions Left hemidiaphragm lesion 15mm --> 14mm Lateral hepatic lesion 17mm --> 19mm Post splenic lesion 32mm -->26mm Non target lesions Left pelvic nodule - [...] COLONOSCOPY performed by Tim Chung MD at [facility] OR/Periop SECTION HX BREAST BIOPSY HX BREAST LUMPECTOMY followed by radiation therapy. HX CHOLECYSTECTOMY HX TUBAL LIGATION Bilateral Medications: Current Outpatient Medications: (INV) cabozantinib ([facility] [id number]) 20 mg tablet, Take two tablets by [...] in HPI ECOG 0 Physical Exam: BP 115/68 (BP Source: Arm, Right Upper, Patient Position: Sitting) | Pulse 85 | Temp 36.6 C (97.9 F) (Oral) | Resp 16 | Wt 60.6 kg (133 lb 9.6 oz) | LM P 09/24/1997 | SpO2 98% | BMI 22.93 kg/m GENERAL APPEARANCE: Appears healthy. Alert; in [...] w/Diff Lab Results Component Value Date/Time WBC 4.0 (L) 10/21/2018 09:41 AM RBC 4.19 10/21/2018 09:41 AM HGB 14.0 10/21/2018 09:41 AM HCT 40.7 10/21/2018 09:41 AM MCV 97.2 10/21/2018 09:41 AM MCH 33.3 10/21/2018 09:41 AM MCHC 34.3 10/21/2018 09:41 AM RDW 17.3 (H) 10/21/2018 09:41 AM PLTCT 211 10/21/2018 09:41 AM MPV 7.5 10/21/2018 09:41 AM Lab Results Component Value Date/Time NEUT 67 10/21/2018 09:41 AM ANC 2.70 10/21/2018 09:41 AM LYMA 20 (L) 10/21/2018 09:41 AM ALC 0.80 (L) 10/21/2018 09:41 AM JEFRY 8 10/21/2018 09:41 AM AMC 0.30 10/21/2018 09:41 AM EOSA 4 10/21/2018 09:41 AM AEC 0.20 10/21/2018 09:41 AM BASA 1 10/21/2018 09:41 AM ABC 0.00 10/21/2018 09:41 AM Comprehensive Metabolic Profile Lab Results Component Value Date/Time NA 138 10/21/2018 09:41 AM K 4.0 10/21/2018 09:41 AM CL 104 10/21/2018 09:41 AM CO2 26 10/21/2018 09:41 AM GAP 8 10/21/2018 09:41 AM BUN 18 10/21/2018 09:41 AM CR 0.92 10/21/2018 09:41 AM GLU 94 10/21/2018 09:41 AM Lab Results Component Value Date/Time CA 9.3 10/21/2018 09:41 AM PO4 2.7 10/21/2018 09:41 AM ALBUMIN 4.1 10/21/2018 09:41 AM TOTPROT 7.2 10/21/2018 09:41 AM ALKPHOS 70 10/21/2018 09:41 AM AST 30 10/21/2018 09:41 AM ALT 28 10/21/2018 09:41 AM TOTBILI 0.4 10/21/2018 09:41 AM GFR >60 10/21/2018 09:41 AM GFRAA >60 10/21/2018 09:41 AM Other labs No results found for: ESR Lab Results Component Value Date/Time LDH 227 (H) 10/21/2018 09:41 AM ASSESSMENT/PLAN: Katty Gold is a 68 y.o. female with metastatic recurrent transitional car cinoma of the ovary for XL-184 trial. Functionally cleared for trial. Labs reviewed. Cleared for C8. Stable disease on imaging, to cont trial Gr 1 neutropenia - no change per protocol, cont dosing Gr 1 rash - hydrocortisone cream and cetaphil prn Diarrhea - Gr 2, likely related to study drugs, will try daily scheduled immodi um, can try loperamide if immodium doesn't work, reviewed that it is reassuring that her electrolytes and Cr are stable and that she is not showing signs of deh ydration Reviewed NextGene sequencing sent by Dr Davies. KRAS and IG2Kmny mutation which are both actionable, would consider referral for a clinical trial if evidence of progression. Right inguinal fluid collection - has had drained in the past and it returned. I discussed that this may be a sort of inguinal hernia and fluid collection exten gera from her abdomen, therefore any drainage would be a temporary solution. If causing significant change in symptoms or unable to Complete ADLs then we could consider appt with gen surg to discuss surgical repair. Pt electing to defer at this time. On imaging, appears to be metastatic implant The mechanisms [...]
--- OUTSIDE RECORDS SUMMARY | 2019-04-12 09:01 | XMS REPORT | Encounter Summary ---
Author Author [facility] POS Organization [facility] SP Address Unknown SP Phone Unavailable SP Care Team Providers Care Entrepreneurship Program Director Name Role Phone POS Christa Ware MD PCP SP Encounter Details Care Team Description POS Date Type Department SP SP Mateo Cabral MD [address] [facility] [place] [address] [phone] SP 10/21/2018 Documentation [facility] SP [address] [facility] [address] [place] [address] SP [phone] SP Social History Date POS Tobacco Use [...] Notes * Research - Mac Lipscomb - 10/21/2018 9:11 AM CDT Study Title:A Phase 1b Dose-Escalation Study of Carbozantinib (XL184) Administ ered Alone or in Combination with Atezolizumab to Subjects with Locally Advanced or Metastatic Solid Tumors. [facility]:[id number] Study ID:[id number] Patient presentsto CRCfor [id number] 1. Labs drawn andreviewedbyDr. Amy Cabral(RN) and this SC. Patient to continuewith treatment. Dr. Cabral met with patient, reviewed new/ongoing symptoms.Please seeprovide rnotefor detailed assessments and AE/conmed. This hospice office coordinator collected pill diary and provided patient with new dosing diary for cycle8. Patient self-[id number](2x20mg tablets)[id number].Doserecor ded on herdiary. Medication Accountability:Patient turned in2 bottles of Cabozantinib (XL184) Drug Unit#: [id number],containing 0tablets Drug Unit #:[id number],containing 20tablets Pharmacydispensed new medication today: Drug Unit#: [id number] Drug Unit #:[id number] RTC:Patient will return on11/11/18for [id number] documented in this encounter Plan of Treatment Not on filedocumented as of this encounter Visit Diagnoses Not on filedocumented in this encounter
--- OUTSIDE RECORDS SUMMARY | 2019-04-12 09:01 | XMS REPORT | Encounter Summary ---
Author Author [facility] POS Organization [facility] SP Address Unknown SP Phone Unavailable SP Care Team Providers Care Getter Welder Name Role Phone POS Christa Ware MD PCP SP Reason for Referral * Radiology Services (Routine) Referred By Contact Referred To Contact POS Status Reason Specialty Diagnoses / SP Procedures SP SP Mateo Cabral MD [address] [place] [address] [place] [address] No Auth Needed Radiology Diagnoses SP Examination of SP participant in clinical trial SP Malignant neoplasm SP of ovary, SP unspecified SP laterality (HCC) SP P SP rocedures SP CT CHEST W SP CONTRAST SP CHG CT ABDOMEN & SP PELVIS W/CONTRAST SP MATERIAL SP * Radiology Services (Routine) Referred By Contact Referred To Contact POS Status Reason Specialty Diagnoses / SP Procedures SP SP Mateo Cabral MD [address] [place] [address] SP New Request Radiology Diagnoses SP Examination of SP participant in SP clinical trial SP Malignant neoplasm SP of ovary, SP unspecified SP laterality (HCC) SP P SP rocedures SP CT ABD/PELV W SP CONTRAST SP Reason for Visit * Radiology Services (Routine) Referred By Contact Referred To Contact POS Status Reason Specialty Diagnoses / SP Procedures SP SP Mateo Cabral MD [address] [facility] [place] [address] [facility] [address] [place] [address] No Auth Needed Radiology Diagnoses SP Examination of SP participant in SP clinical trial SP Malignant neoplasm SP of ovary, SP unspecified SP laterality (HCC) SP P SP rocedures SP CT CHEST W SP CONTRAST SP CHG CT ABDOMEN & SP PELVIS W/CONTRAST SP MATERIAL SP Encounter Details Care Team Description POS Date Type Department SP SP Mateo Cabral MD [address] [place] [address] [phone] SP 11/07/2018 [facility] SP Encounter Health System SP [address] [facility] SP fl [address] [place] [address] SP [phone] SP Social History Date POS Tobacco Use [...] (HSC Take two 60 tablet 0 SP [id number]) 20 mg tablets by SP tabletIndications: mouth [...] SP SP CT ABD/PELV W CONTRAST Routine 11/07/2018 Examina tion of SP 1:02 PM CDT participant in clinical SP trial SP Malignant neoplasm of SP ovary, unspecified SP laterality (HCC) SP SP CT CHEST W CONTRAST Routine 11/07/2018 Examinatio n of SP 1:02 PM CDT participant in clinical SP trial SP Malignant neoplasm of SP ovary, unspecified SP laterality (HCC) SP documented in this encounter Results * CT CHEST W CONTRAST (11/07/2018 1:02 PM CDT) Specimen POS Impressions Performed At CHEST: [facility] SP 1. No thoracic lymphadenopathy. SP 2. Slight decrease in size of a metasta sis along the left hemidiaphragm. No new SP or enlarging soft tissue pulmonary nodu le identified. SP 3. Mild emphysema. SP ABDOMEN AND PELVIS: SP 1. Overall stable multifocal peritoneal metastatic disease. SP 2. Stable to slight decrease in size of a right inguinal metastasis. An SP left external iliac lymph node remains stable in size. SP Approved by Chad Brown M.D. on 11/07/2018 2:51 PM SP By my electronic signature, I attest th at I have personally reviewed the images SP for this examination and formulated the interpretations and opinions expressed SP in this report SP Finalized by Ashwin Melendez M.D. on 019 3:05 PM. Dictated by Chad Brown M.D. on 11/07/2018 1:33 PM. SP Narrative Performed At CT CHEST, ABDOMEN AND PELVIS [facility] SP Clinical Indication:Female, 68 year s old. Ovarian cancer. SP Technique: Multiple contiguous axial im ages were obtained through the chest, SP abdomen and pelvis following the admini stration of IV contrast material. Portal SP venous phase of postcontrast imaging wa s obtained. Post processing coronal and SP sagittal reconstruction images were mad e from the axial images. SP IV contrast: Omnipaque 350 SP Bowel contrast:Water SP Comparison: CT chest, abdomen/pelvis Ap ril 2018. SP CHEST FINDINGS: SP Lower Neck: Unremarkable. SP Axilla, Mediastinum and Janeth: No axilla ry, mediastinal, or hilar SP lymphadenopathy. SP Heart and Great Vessels: Heart is david l in size. No pericardial effusion. SP Normal caliber thoracic aorta. Right valdovinos bclavian chest port remains in place. SP Airway, Lungs and Pleura: Central airwa ys are patent. No pneumothorax or SP effusion. There is mild emphysema. Scat tered areas of pleural parenchymal SP scarring again noted. Decrease in size of a small metastasis along the left SP hemidiaphragm measuring 0.9 x 0.6 cm (s eries 4 image 93), previously 1.1 x 0.8 SP cm. SP Chest Wall and Osseous Structures: No d estructive osseous lesions. Mild SP spondylosis. SP ABDOMEN AND PELVIS FINDINGS: SP Liver and Biliary system: Liver is norm al in size. Prior cholecystectomy. There SP is mild central intrahepatic biliary du ctal dilatation. No significant change SP size of scattered hepatic hypodensities , many of which are too small to SP characterize. The largest hypodense les ion in segment 7 of the liver measures SP to 2.3 cm (series 2 image 77), previous ly 2.4 cm. No significant change in SP of capsular thickening along the hepati c margins. SP Spleen: Spleen is normal in size with p ersistent low-attenuation masslike SP thickening about the spleen. Previously measured perisplenic implants as SP described: SP *Posterior superior (Series 2 image 73) : Measures 5.7 x 2.8 cm, previously 5.7 SP 2.8 cm. SP *Splenic hilum (series 2 image 76): Katelynn sures 2.4 x 1.2 cm, previously 2.4 x 1.1 SP cm. SP *Posterior margin (series 2 image 77): Measures 2.6 x 1.2 cm, previously 2.5 x SP 1.1 cm. SP Adrenal Glands and Kidneys: The adrenal glands are unremarkable. Persistent SP right hydronephrosis. Unchanged probabl e renal cysts which are incompletely SP characterized. SP Pancreas and Retroperitoneum: Pancreas is unremarkable. No retroperitoneal SP lymphadenopathy. SP Aorta and Major Vessels: Normal caliber abdominal aorta with mild aortoiliac SP calcific atherosclerosis. SP Bowel, Mesentery and Peritoneal space: Small and large bowel loops are normal SP caliber. Prior distal colonic resection and primary anastomosis. Prior SP omentectomy and small bowel anastomosis within the right lower abdomen. There SP mild distal colonic diverticulosis. Per itoneal metastases and discrete masses SP are described as follows: SP *Low central abdomen (series 2 image 11 1): Measures 11.3 x 9.6 cm, previously SP 11.0 x 9.3 cm when measured in a simila r fashion. SP *Posterior pelvis (series 2 image 120): Measures 3.6 x 3.4 cm, previously 3.7 x SP 3.3 cm. SP Pelvis: Prior pelvic lymph node dissect ion. Urinary bladder is grossly SP unremarkable. An enlarged right inguina l lymph node measures 3.0 x 1.9 cm SP (series 2 image 126), previously 3.2 x 1.9 cm. A mildly enlarged left external SP iliac lymph node has not significantly changed size (series 2 image 117). No SP or enlarging pelvic lymphadenopathy. SP Abdominal wall and Osseous Structures: No destructive osseous lesions. SP Multilevel lumbar spondylosis. Prior mi dline laparotomy. SP Procedure Note POS SP Interface, Radiant Results - 11/07/2018 3:[address] CHEST, ABDOMEN AND PELVIS Clinical Indication: Female, 68 years old. Ovarian cancer. Technique: Multiple contiguous axial images were obtained through the chest, abdomen and pelvis following the administration of IV contrast material. Portal venous phase of postcontrast imaging was obtained. Post processing coronal and sagittal reconstruction images were made from the axial images. IV contrast: Omnipaque 350 Bowel contrast: Water Comparison: CT chest, abdomen/pelvis September 26, 2018. CHEST FINDINGS: Lower Neck: Unremarkable. Axilla, Mediastinum and Janeth: No axillary, mediastinal, or hilar lymphadenopathy. Heart and Great Vessels: Heart is normal in size. No pericardial effusion. Normal caliber thoracic aorta. Right subclavian chest port remains in place. Airway, Lungs and Pleura: Central airways are patent. No pneumothorax or pleural effusion. There is mild emphysema. Scattered areas of pleural parenchymal scarring again noted. Decrease in size of a small metastasis along the left hemidiaphragm measuring 0.9 x 0.6 cm (series 4 image 93), previously 1.1 x 0.8 cm. Chest Wall and Osseous Structures: No destructive osseous lesions. Mild thoracic spondylosis. ABDOMEN AND PELVIS FINDINGS: Liver and Biliary system: Liver is normal in size. Prior cholecystectomy. There is mild central intrahepatic biliary ductal dilatation. No significant change in size of scattered hepatic hypodensities, many of which are too small to characterize. The largest hypodense lesion in segment 7 of the liver measures up to 2.3 cm (series 2 image 77), previously 2.4 cm. No significant change in areas of capsular thickening along the hepatic margins. Spleen: Spleen is normal in size with persistent low-attenuation masslike thickening about the spleen. Previously measured perisplenic implants as described: *Posterior superior (Series 2 image 73): Measures 5.7 x 2.8 cm, previously 5.7 x 2.8 cm. *Splenic hilum (series 2 image 76): Measures 2.4 x 1.2 cm, previously 2.4 x 1.1 cm. *Posterior margin (series 2 image 77): Measures 2.6 x 1.2 cm, previously 2.5 x 1.1 cm. Adrenal Glands and Kidneys: The adrenal glands are unremarkable. Persistent mild right hydronephrosis. Unchanged probable renal cysts which are incompletely characterized. Pancreas and Retroperitoneum: Pancreas is unremarkable. No retroperitoneal lymphadenopathy. Aorta and Major Vessels: Normal caliber abdominal aorta with mild aortoiliac calcific atherosclerosis. Bowel, Mesentery and Peritoneal space: Small and large bowel loops are normal in caliber. Prior distal colonic resection and primary anastomosis. Prior omentectomy and small bowel anastomosis within the right lower abdomen. There is mild distal colonic diverticulosis. Peritoneal metastases and discrete masses are described as follows: *Low central abdomen (series 2 image 111): Measures 11.3 x 9.6 cm, previously 11.0 x 9.3 cm when measured in a similar fashion. *Posterior pelvis (series 2 image 120): Measures 3.6 x 3.4 cm, previously 3.7 x 3.3 cm. Pelvis: Prior pelvic lymph node dissection. Urinary bladder is grossly unremarkable. An enlarged right inguinal lymph node measures 3.0 x 1.9 cm (series 2 image 126), previously 3.2 x 1.9 cm. A mildly enlarged left external iliac lymph node has not significantly changed size (series 2 image 117). No new or enlarging pelvic lymphadenopathy. Abdominal wall and Osseous Structures: No destructive osseous lesions. Multilevel lumbar spondylosis. Prior midline laparotomy. IMPRESSION CHEST: 1. No thoracic lymphadenopathy. SP 2. Slight decrease in size of a metastas is along the left hemidiaphragm. No SP or enlarging soft tissue pulmonary nodule identified. 3. Mild emphysema. SP ABDOMEN AND PELVIS: 1. Overall stable multifocal peritoneal metastatic disease. SP 2. Stable to slight decrease in size of a right inguinal metastasis. An SP left external iliac lymph node remains stable in size. Approved by Chad Brown M.D. on 11/07/2018 2:51 PM By my electronic signature, I attest that I have personally reviewed the images for this examination and formulated the interpretations and opinions expressed in this report Finalized by Ashwin Melendez M.D. on 11/07/2018 3:05 PM. Dictated by Chad Brown M.D. on 11/07/2018 1:33 PM. Performing Organization Address City/State/Zipcode Ph one Number SP [facility] SP * CT ABD/PELV W CONTRAST (11/07/2018 1:02 PM CDT) Specimen SP Impressions Performed At CHEST: [facility] SP 1. No thoracic lymphadenopathy. SP 2. Slight decrease in size of a metasta sis along the left hemidiaphragm. No new SP or enlarging soft tissue pulmonary nodu le identified. SP 3. Mild emphysema. SP ABDOMEN AND PELVIS: SP 1. Overall stable multifocal peritoneal metastatic disease. SP 2. Stable to slight decrease in size of a right inguinal metastasis. An SP left external iliac lymph node remains stable in size. SP Approved by Chad Brown M.D. on 11/07/2018 2:51 PM SP By my electronic signature, I attest th at I have personally reviewed the images SP for this examination and formulated the interpretations and opinions expressed SP in this report SP Finalized by Ashwin Melendez M.D. on 019 3:05 PM. Dictated by Chad Brown M.D. on 11/07/2018 1:33 PM. SP Narrative Performed At CT CHEST, ABDOMEN AND PELVIS [facility] SP Clinical Indication:Female, 68 year s old. Ovarian cancer. SP Technique: Multiple contiguous axial im ages were obtained through the chest, SP abdomen and pelvis following the admini stration of IV contrast material. Portal SP venous phase of postcontrast imaging wa s obtained. Post processing coronal and SP sagittal reconstruction images were mad e from the axial images. SP IV contrast: Omnipaque 350 SP Bowel contrast:Water SP Comparison: CT chest, abdomen/pelvis Ap ril 2018. SP CHEST FINDINGS: SP Lower Neck: Unremarkable. SP Axilla, Mediastinum and Janeth: No axilla ry, mediastinal, or hilar SP lymphadenopathy. SP Heart and Great Vessels: Heart is david l in size. No pericardial effusion. SP Normal caliber thoracic aorta. Right valdovinos bclavian chest port remains in place. SP Airway, Lungs and Pleura: Central airwa ys are patent. No pneumothorax or SP effusion. There is mild emphysema. Scat tered areas of pleural parenchymal SP scarring again noted. Decrease in size of a small metastasis along the left SP hemidiaphragm measuring 0.9 x 0.6 cm (s eries 4 image 93), previously 1.1 x 0.8 SP cm. SP Chest Wall and Osseous Structures: No d estructive osseous lesions. Mild SP spondylosis. SP ABDOMEN AND PELVIS FINDINGS: SP Liver and Biliary system: Liver is norm al in size. Prior cholecystectomy. There SP is mild central intrahepatic biliary du ctal dilatation. No significant change SP size of scattered hepatic hypodensities , many of which are too small to SP characterize. The largest hypodense les ion in segment 7 of the liver measures SP to 2.3 cm (series 2 image 77), previous ly 2.4 cm. No significant change in SP of capsular thickening along the hepati c margins. SP Spleen: Spleen is normal in size with p ersistent low-attenuation masslike SP thickening about the spleen. Previously measured perisplenic implants as SP described: SP *Posterior superior (Series 2 image 73) : Measures 5.7 x 2.8 cm, previously 5.7 SP 2.8 cm. SP *Splenic hilum (series 2 image 76): Katelynn sures 2.4 x 1.2 cm, previously 2.4 x 1.1 SP cm. SP *Posterior margin (series 2 image 77): Measures 2.6 x 1.2 cm, previously 2.5 x SP 1.1 cm. SP Adrenal Glands and Kidneys: The adrenal glands are unremarkable. Persistent SP right hydronephrosis. Unchanged probabl e renal cysts which are incompletely SP characterized. SP Pancreas and Retroperitoneum: Pancreas is unremarkable. No retroperitoneal SP lymphadenopathy. SP Aorta and Major Vessels: Normal caliber abdominal aorta with mild aortoiliac SP calcific atherosclerosis. SP Bowel, Mesentery and Peritoneal space: Small and large bowel loops are normal SP caliber. Prior distal colonic resection and primary anastomosis. Prior SP omentectomy and small bowel anastomosis within the right lower abdomen. There SP mild distal colonic diverticulosis. Per itoneal metastases and discrete masses SP are described as follows: SP *Low central abdomen (series 2 image 11 1): Measures 11.3 x 9.6 cm, previously SP 11.0 x 9.3 cm when measured in a simila r fashion. SP *Posterior pelvis (series 2 image 120): Measures 3.6 x 3.4 cm, previously 3.7 x SP 3.3 cm. SP Pelvis: Prior pelvic lymph node dissect ion. Urinary bladder is grossly SP unremarkable. An enlarged right inguina l lymph node measures 3.0 x 1.9 cm SP (series 2 image 126), previously 3.2 x 1.9 cm. A mildly enlarged left external SP iliac lymph node has not significantly changed size (series 2 image 117). No SP or enlarging pelvic lymphadenopathy. SP Abdominal wall and Osseous Structures: No destructive osseous lesions. SP Multilevel lumbar spondylosis. Prior mi dline laparotomy. SP Procedure Note POS SP Interface, Radiant Results - 11/07/2018 3:[address] CHEST, ABDOMEN AND PELVIS Clinical Indication: Female, 68 years old. Ovarian cancer. Technique: Multiple contiguous axial images were obtained through the chest, abdomen and pelvis following the administration of IV contrast material. Portal venous phase of postcontrast imaging was obtained. Post processing coronal and sagittal reconstruction images were made from the axial images. IV contrast: Omnipaque 350 Bowel contrast: Water Comparison: CT chest, abdomen/pelvis September 26, 2018. CHEST FINDINGS: Lower Neck: Unremarkable. Axilla, Mediastinum and Janeth: No axillary, mediastinal, or hilar lymphadenopathy. Heart and Great Vessels: Heart is normal in size. No pericardial effusion. Normal caliber thoracic aorta. Right subclavian chest port remains in place. Airway, Lungs and Pleura: Central airways are patent. No pneumothorax or pleural effusion. There is mild emphysema. Scattered areas of pleural parenchymal scarring again noted. Decrease in size of a small metastasis along the left hemidiaphragm measuring 0.9 x 0.6 cm (series 4 image 93), previously 1.1 x 0.8 cm. Chest Wall and Osseous Structures: No destructive osseous lesions. Mild thoracic spondylosis. ABDOMEN AND PELVIS FINDINGS: Liver and Biliary system: Liver is normal in size. Prior cholecystectomy. There is mild central intrahepatic biliary ductal dilatation. No significant change in size of scattered hepatic hypodensities, many of which are too small to characterize. The largest hypodense lesion in segment 7 of the liver measures up to 2.3 cm (series 2 image 77), previously 2.4 cm. No significant change in areas of capsular thickening along the hepatic margins. Spleen: Spleen is normal in size with persistent low-attenuation masslike thickening about the spleen. Previously measured perisplenic implants as described: *Posterior superior (Series 2 image 73): Measures 5.7 x 2.8 cm, previously 5.7 x 2.8 cm. *Splenic hilum (series 2 image 76): Measures 2.4 x 1.2 cm, previously 2.4 x 1.1 cm. *Posterior margin (series 2 image 77): Measures 2.6 x 1.2 cm, previously 2.5 x 1.1 cm. Adrenal Glands and Kidneys: The adrenal glands are unremarkable. Persistent mild right hydronephrosis. Unchanged probable renal cysts which are incompletely characterized. Pancreas and Retroperitoneum: Pancreas is unremarkable. No retroperitoneal lymphadenopathy. Aorta and Major Vessels: Normal caliber abdominal aorta with mild aortoiliac calcific atherosclerosis. Bowel, Mesentery and Peritoneal space: Small and large bowel loops are normal in caliber. Prior distal colonic resection and primary anastomosis. Prior omentectomy and small bowel anastomosis within the right lower abdomen. There is mild distal colonic diverticulosis. Peritoneal metastases and discrete masses are described as follows: *Low central abdomen (series 2 image 111): Measures 11.3 x 9.6 cm, previously 11.0 x 9.3 cm when measured in a similar fashion. *Posterior pelvis (series 2 image 120): Measures 3.6 x 3.4 cm, previously 3.7 x 3.3 cm. Pelvis: Prior pelvic lymph node dissection. Urinary bladder is grossly unremarkable. An enlarged right inguinal lymph node measures 3.0 x 1.9 cm (series 2 image 126), previously 3.2 x 1.9 cm. A mildly enlarged left external iliac lymph node has not significantly changed size (series 2 image 117). No new or enlarging pelvic lymphadenopathy. Abdominal wall and Osseous Structures: No destructive osseous lesions. Multilevel lumbar spondylosis. Prior midline laparotomy. IMPRESSION CHEST: 1. No thoracic lymphadenopathy. SP 2. Slight decrease in size of a metastas is along the left hemidiaphragm. No SP or enlarging soft tissue pulmonary nodule identified. 3. Mild emphysema. SP ABDOMEN AND PELVIS: 1. Overall stable multifocal peritoneal metastatic disease. SP 2. Stable to slight decrease in size of a right inguinal metastasis. An SP left external iliac lymph node remains stable in size. Approved by Chad Brown M.D. on 11/07/2018 2:51 PM By my electronic signature, I attest that I have personally reviewed the images for this examination and formulated the interpretations and opinions expressed in this report Finalized by Ashwin Melendez M.D. on 11/07/2018 3:05 PM. Dictated by Chad Brown M.D. on 11/07/2018 1:33 PM. Performing Organization Address City/State/Zipcode Ph one Number SP [facility] SP documented in this encounter Visit Diagnoses Diagnosis POS Examination of participant in clinical trial SP Malignant neoplasm of ovary, unspecifie d laterality (HCC) SP documented in this encounter Administered Medications Action Date Dose Rate Site POS Medication Order MAR Action SP 11/07/2018 1:00 PM CDT 100 mL SP iohexol (OMNIPAQUE-350) 350 mg/mL Given SP injection 100 mL SP 100 mL, Intravenous, ONCE, 1 dose, Tia SP 11/07/18 at 1300, NOTE: This is a HIGH SP ALERT Medication., SP 11/07/2018 1:04 PM CDT 50 mL SP sodium chloride PF 0.9% injection 50 mL Given SP 50 mL, Intravenous, ONCE, 1 dose, Tia SP 11/07/18 at 1300, DO NOT SEND this SP medication unless it is requested. This SP med is usually available in floor SP stock., Intra-procedure (IR) SP documented in this encounter
--- OUTSIDE RECORDS SUMMARY | 2019-04-12 09:02 | XMS REPORT | Encounter Summary ---
Author Author [facility] POS Organization [facility] SP Address Unknown SP Phone Unavailable SP Care Team Providers Care Technology Consultant Name Role Phone POS Christa Ware MD PCP SP Encounter Details Care Team Description POS Date Type Department SP SP Mateo Cabral MD [address] [facility] [place] [address] [phone] SP 10/21/2018 [facility] SP Encounter [facility] SP [address] [facility] SP [address] [place] [address] SP [phone] SP Social History Date POS Tobacco Use [...] (HSC Take two 60 tablet 0 SP [id number]) 20 mg tablets by SP tabletIndications: mouth [...]
--- OUTSIDE RECORDS SUMMARY | 2019-04-12 09:02 | XMS REPORT | Summary of Care ---
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) - Discharge Disposition: Home - Attending Physician: BROCK OCHOA MD Admitting Physician: BROCK OCHOA MD Referring Physician: BROCK OCHOA MD Vital Signs No data available for this section Problem List No data available for this section Allergies, Adverse Reactions, Alerts No Known Allergies Medications Protonix 40 mg oral delayed release tablet 1 TAB, PO, Daily, 0 Refill(s) Start Date: 04/11/18 Status: Ordered Results HEMATOLOGY Most recent to 1 POS oldest [Reference SP Range]: SP WBC [4.0-11.0 5.9 x10'3/microL SP x10'3/microL] (04/17/18 1:09 PM) SP RBC [3.90-5.60 3.86 x10'6/microL SP x10'6/microL] *LOW* SP (04/17/18 1:09 PM) SP Hgb [12.0-16.0 g/dL] 10.8 g/dL SP *LOW* SP (04/17/18 1:09 PM) SP Hct [35-47 %] 35 % SP (04/17/18 1:09 PM) SP Platelet [140-400 351 x10'3/microL SP x10'3/microL] (04/17/18 1:09 PM) SP MCV [81-99 fL] 92 fL SP (04/17/18 1:09 PM) SP MCH [27-34 pg] 28 pg SP (04/17/18 1:09 PM) SP MCHC [30-36 g/dL] 31 g/dL SP (04/17/18 1:09 PM) SP RDW [<=16.4 %] 17.2 % SP *HI* SP (04/17/18 1:09 PM) SP MPV [6.5-10.4 fL] 8.9 fL SP (04/17/18 1:09 PM) SP PT [11.5-15.0 13.1 second SP second] (04/17/18 1:09 PM) SP INR 1.0 SP *NA* SP (04/17/18 1:09 PM) SP IMMUNO/SEROLOGY Most recent to 1 SP oldest [Reference SP Range]: SP Interpretation Flow See Scanned Report SP Cytometry (04/17/18 3:19 PM) SP Immunizations No data available for this section Procedures No data available for this section Social History Social History Type Response POS Functional Status No data available for this section Assessment and Plan No data available for this section Hospital Discharge Instructions No data available for this section
--- OUTSIDE RECORDS SUMMARY | 2019-04-12 09:02 | XMS REPORT | Encounter Summary ---
Author Author [facility] POS Organization [facility] SP Address Unknown SP Phone Unavailable SP Care Team Providers Care Supervisor Name Role Phone POS Christa Ware MD PCP SP Reason for Visit * Reason Comments POS Heme/Onc Care Cycle 8, day 1 [id number] SP Encounter Details Care Team Description POS Date Type Department SP SP Mateo Cabral MD [address] [facility] [place], [place] [phone] SP 10/21/2018 [facility] SP Encounter Cancer Center SP [address] [facility] SP [address] [place] [address] SP [phone] SP Social History Date POS Tobacco Use [...] as of this encounter Progress Notes * Amy Spence RN - 10/21/2018 11:57 AM CDT CRC TREATMENT DAY Study : [id number] Cycle and Day : Cycle 8, day 1 Labs : Clinical Correlative Assessment : Assessment documented in doc flowsheet. Fatigue Scale:0 Vital Signs : At rest greater than 5 minutes prior to each set of vital signs. 10/21/18 1011 10/21/18 1209 Prior to Atezolizumab Enc Vitals BP 115/68 126/73 Pulse 85 64 Resp 16 16 Temp 36.6 C (97.9 F) 36.6 C (97.9 F) Temp src Oral Oral SpO2 98 % 98 % Correlative Labs & EKG : Correlative lab drawn 1219. Patient fasting greater than 2 hours prior to la b draw. Side Effects : Rash on chest nearly gone. Advised to use sun screen. Diarrhea daily, four stools in one episode. Uses Imodium when needing to harvinder id diarrhea for obligations away from home. Dr. Cabral confirmed use of this pl an. Additional Notes : The patient presents to the [facility] for cycle 8, day day 1 clinical trial [id number]- 021. She has ovarian cancer. She was seen by Dr. Cabral who gave OK to proceed today. CT scan 11/07 with cycle 9 planned for 11/11. Labs within treatment parame ters. Calendar/AVS : AVS and Calendar given. Patient educated and without questions or concerns. Discharge : Patient left the unit ambulatory accompanied by her at 1309 without c omplaints. Drug : Atezolizumab Dosage and BSA was double checked with Isa Bradley, RN, Chemotherapy Certif ied Nurse and agrees with orders as written Verified chemo consent signed and in chart. Blood return positive via: Port (Single) upon initiation and completion of infus ion. Premedications/Prehydration given as ordered (if applicable). ondansetron (ZOFRAN) tablet 16 mg [[id number]] Ordered Dose: 16 mg Route: Oral Frequency: ONCE Arm band verified at bedside with second RN (same RN as above unless otherwise n oted). Lab tests checked (may include other additional protocol parameters): CBC, Compr ehensive Metabolic Panel (CMP), UA, Tumor Marker and other labs pertinent to the study. Chemo drug/dose/route: (INV) atezolizumab ([facility] [id number]) 1,200 mg in sodium chloride 0.9% (NS) 270 mL IVP B [[id number]] Ordered Dose: 1,200 mg Route: Intravenous Frequency: ONCE @ 540 mL/hr over 30 Mi nutes Rate verified with second RN (same RN as above unless otherwise noted). Patient education offered and stated understanding. Drug : Cabozatinib Dosage was double checked with Isa Bradley, RN, Chemotherapy Certified Nurs e, per protocol. Dose time: 1244 Patient fasting greater than 2 hours prior to dosing. 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 Y es Verified chemo consent signed and in chart. Yes Verified initiate chemo order in Yes Premedications/Prehydration given as ordered. N/A Arm band verified at bedside with second RN Vasu Mas. Yes Labs/applicable tests checked: Yes Chemo drug/dose/route: (INV) cabozantinib ([facility] [id number]) 20 mg tablet 10/21/18 11/11/18 Milind Landeros APRN Take two tablets by mouth daily for [...] Associated Diag nosis SP SP GGTP Routine 10/21/2018 Clinical trial SP 9:41 AM CDT participant SP Malignant neoplasm of SP ovary, unspecified SP laterality (HCC) SP SP CBC AND DIFF Routine 10/21/2018 Clinical trial SP 9:41 AM CDT participant SP Malignant neoplasm of SP ovary, unspecified SP laterality (HCC) SP SP CA125 Routine 10/21/2018 Clinical trial SP 9:41 AM CDT participant SP Malignant neoplasm of SP ovary, unspecified SP laterality (HCC) SP SP PHOSPHORUS Routine 10/21/2018 Clinical trial SP 9:41 AM CDT participant SP Malignant neoplasm of SP ovary, unspecified SP laterality (HCC) SP SP MAGNESIUM Routine 10/21/2018 Clinical trial SP 9:41 AM CDT participant SP Malignant neoplasm of SP ovary, unspecified SP laterality (HCC) SP SP LIPASE Routine 10/21/2018 Clinical trial SP 9:41 AM CDT participant SP Malignant neoplasm of SP ovary, unspecified SP laterality (HCC) SP SP LDH-LACTATE DEHYDROGENASE Routine 10/21/2018 Clin ical trial SP 9:41 AM CDT participant SP Malignant neoplasm of SP ovary, unspecified SP laterality (HCC) SP SP BILIRUBIN, DIRECT Routine 10/21/2018 Clinical tri al SP 9:41 AM CDT participant SP Malignant neoplasm of SP ovary, unspecified SP laterality (HCC) SP SP AMYLASE Routine 10/21/2018 Clinical trial SP 9:41 AM CDT participant SP Malignant neoplasm of SP ovary, unspecified SP laterality (HCC) SP SP COMPREHENSIVE METABOLIC Routine 10/21/2018 Clinic al trial SP PANEL 9:41 AM CDT participant SP Malignant neoplasm of SP ovary, unspecified SP laterality (HCC) SP SP PROTEIN/CR RATIO,UR RAN 10/21/2018 Clinical tria l SP 9:20 AM CDT participant SP Malignant neoplasm of SP ovary, unspecified SP laterality (HCC) SP SP URINALYSIS, MICROSCOPIC Routine 10/21/2018 Clinic al trial SP 9:20 AM CDT participant SP Malignant neoplasm of SP ovary, unspecified SP laterality (HCC) SP SP URINALYSIS DIPSTICK Routine 10/21/2018 Clinical t rial SP 9:20 AM CDT participant SP Malignant neoplasm of SP ovary, unspecified SP laterality (HCC) SP documented in this encounter Results * BILIRUBIN, DIRECT (10/21/2018 9:41 AM CDT) Pathologist POS Signature SP Bilirubin, 0.1 <0.4 MG/DL [facility] SP Direct SP Specimen SP Blood SP Performing Organization Address City/State/Zipcode Ph one Number SP [facility] [address] [place] [address] SP * PHOSPHORUS (10/21/2018 9:41 AM CDT) Pathologist SP Signature SP Phosphorus 2.7 2.0 - 4.5 MG/DL [facility] SP Specimen SP Blood SP Performing Organization Address City[facility] one Number SP [facility] [address] [place], [place] [phone] SP * MAGNESIUM (10/21/2018 9:41 AM CDT) Pathologist SP Signature SP Magnesium 1.8 1.6 - 2.6 mg/dL [facility] SP Specimen SP Blood SP Performing Organization Address City[facility] SP [facility] [address] [place], [place] [phone] SP * LIPASE (10/21/2018 9:41 AM CDT) Pathologist SP Signature SP Lipase 33 11 - 82 U/L [facility] SP Specimen SP Blood SP Performing Organization Address [facility] Ph one Number SP [facility] [address] [place] [address] SP * AMYLASE (10/21/2018 9:41 AM CDT) Pathologist SP Signature SP Amylase 84 24 - 100 U/L [facility] SP Specimen SP Blood SP Performing Organization Address [facility] Ph one Number SP [facility] [address] [place] [address] SP * LDH-LACTATE DEHYDROGENASE (10/21/2018 9:41 AM CDT) Pathologist SP Signature SP Lactate 227 (H) 100 - 210 U/L [facility] SP Dehydrogenase SP Specimen SP Blood SP Performing Organization Address City/[facility] Ph one Number SP [facility] [address] [place], [place] [phone] SP * GGTP (10/21/2018 9:41 AM CDT) Pathologist SP Signature SP GGTP 13 9 - 64 U/L [facility] SP Specimen SP Blood SP Performing Organization Address City[facility] SP [facility] [address] [place] [address] SP * COMPREHENSIVE METABOLIC PANEL (10/21/2018 9:41 AM CDT) Pathologist SP Signature SP Sodium 138 137 - 147 MMOL/L [facility] SP Potassium 4.0 3.5 - 5.1 MMOL/L [facility] SP Chloride 104 98 - 110 MMOL/L [facility] SP Glucose 94 70 - 100 MG/DL [facility] SP Blood Urea 18 7 - 25 MG/DL [facility] SP Nitrogen SP Creatinine 0.92 0.4 - 1.00 MG/DL [facility] SP Calcium 9.3 8.5 - 10.6 MG/DL [facility] SP Total Protein 7.2 6.0 - 8.0 G/DL [facility] SP Total Bilirubin 0.4 0.3 - 1.2 MG/DL [facility] SP Albumin 4.1 3.5 - 5.0 G/DL [facility] SP [...] Ph one Number SP [facility] [address] [place], [place] [phone] SP * CBC AND DIFF (10/21/2018 9:41 AM CDT) Pathologist SP Signature SP White Blood 4.0 (L) 4.5 - 11.0 K/UL [facility] SP Cells SP RBC 4.19 4.0 - 5.0 M/UL [facility] SP Hemoglobin 14.0 12.0 - 15.0 GM/DL [facility] SP Hematocrit 40.7 36 - 45 % [facility] SP MCV 97.2 80 - 100 FL [facility] SP MCH 33.3 26 - 34 PG [facility] SP MCHC 34.3 32.0 - 36.0 G/DL [facility] SP RDW 17.3 (H) 11 - 15 % [facility] SP Platelet Count 211 150 - 400 K/UL [facility] SP MPV 7.5 7 - 11 FL [facility] SP Neutrophils 67 41 - 77 % [facility] SP Lymphocytes 20 (L) 24 - 44 % [facility] SP Monocytes 8 4 - 12 % [facility] SP Eosinophils 4 0 - 5 % [facility] SP Basophils 1 0 - 2 % [facility] SP Absolute 2.70 1.8 - 7.0 K/UL [facility] SP [...] Specimen SP Blood SP Performing Organization Address [facility] Ph one Number SP [facility] [address] [place], [place] [phone] SP * CA125 (10/21/2018 9:41 AM CDT) Pathologist SP Signature SP CA-125 13 <35 U/ml [facility] SP Specimen SP Blood SP Performing Organization Address [facility] Ph [facility] SP [facility] [address] [place] [address] SP * PROTEIN/CR RATIO,UR RAN (10/21/2018 9:20 AM CDT) Pathologist SP Signature SP Protein, Random 12 MG/DL [facility] SP Creatinine, 46 MG/DL [facility] SP Random SP Protein/CR 0.3 [facility] SP ratio SP Specimen SP Performing Organization Address [facility] Ph one Number SP [facility] [address] [place] [address] SP * URINALYSIS, MICROSCOPIC (10/21/2018 9:20 AM CDT) Pathologist SP Signature SP WBCs,UA 0-2 0 - 2 /HPF [facility] SP RBCs,UA 2-5 0 - 3 /HPF [facility] SP Epith Cells,UA 0-2 0 - 2 /HPF [facility] SP MucousUA TRACE [facility] SP Specimen SP Urine - Urine SP Performing Organization Address [facility] Ph one Number SP [facility] [address] [place] [address] SP * URINALYSIS DIPSTICK (10/21/2018 9:20 AM CDT) Pathologist SP Signature SP Color,UA YELLOW [facility] SP Turbidity,UA CLEAR CLEAR-CLEAR [facility] SP Specific 1.015 1.003 - 1.035 [facility] SP Angwin-Urine SP pH,UA 6.5 5.0 - 8.0 [facility] [...] Urine - Urine SP Performing Organization Address [facility] Ph one Number SP [facility] [address] [place] [address] SP documented in this encounter Visit Diagnoses Diagnosis POS Clinical trial participant - Primary SP Malignant neoplasm of ovary, unspecifie d laterality (HCC) SP documented in this encounter Administered Medications Action Date Dose Rate Site POS Medication Order MAR Action SP 10/21/2018 12:33 PM CDT 1,200 mg 540 mL/hr SP (INV) atezolizumab ([facility] [id number]) 1,200 mg Given - New SP in sodium chloride 0.9% (NS) 270 mL IVPB Bag SP 1,200 mg, Intravenous, 270 mL, SP Administer over 30 Minutes, ONCE, 1 SP dose, 10/21/18 at 1200, SP INVESTIGATIONAL CYTOTOXIC If SP first dose was well tolerated, SP administer over 30 minutes (+/- 10 SP minutes). Infuse through a 0.2 micron SP filter. NOTE: This is a HIGH ALERT SP medication., SP 10/21/2018 1:09 PM CDT 500 Units SP heparin lock flush PF syringe 500 Units Given SP 500 Units, Flush, ONCE, 1 dose, Mon SP 10/21/18 at 1130, NOTE: This is a HIGH SP ALERT Medication., SP 10/21/2018 11:39 AM CDT 16 mg SP ondansetron (ZOFRAN) tablet 16 mg Given SP 16 mg, Oral, ONCE, 1 dose, 10/21/18 SP at 1130 SP documented in this encounter
--- OUTSIDE RECORDS SUMMARY | 2019-04-12 09:02 | XMS REPORT | Encounter Summary ---
Author Author [facility] POS Organization [facility] SP Address Unknown SP Phone Unavailable SP Care Team Providers Care Heel Boom Operator Name Role Phone POS Christa Ware MD PCP SP Encounter Details Care Team Description POS Date Type Department SP SP Belinda Landeros, [employer] DEALER [address] [facility] [address] [place], [place] [phone] SP 10/17/2018 Orders Only [facility] SP [address] [facility] SP 2nd [facility] [address] [place] [address] SP [phone] SP Social History Date POS Tobacco Use [...] of Assessment POS Functional Status Response SP 09/09/2018 SP Does the patient have a hearing impairment: No SP 09/09/2018 SP Does the patient have a visual impairment: No SP 09/09/2018 SP Does the patient have impaired ambulation: No SP 09/09/2018 SP Does the patient have an activity of daily living No SP (ADL) impairment: SP 09/09/2018 SP Does the patient have an instrumental activity of No SP daily living (IADL) impairment: SP Date of Assessment POS Cognitive Status Response SP 09/09/2018 SP Does the patient have a cognitive impairment: No SP documented as of this encounter Plan of Treatment Not on filedocumented as of this encounter Visit Diagnoses Not on filedocumented in this encounter
--- OUTSIDE RECORDS SUMMARY | 2019-04-12 09:02 | XMS REPORT | Summary of Care ---
Author Author [facility] POS Organization [facility] SP Address Unknown SP Phone Unavailable SP Care Team Providers Care Information Systems Project Manager Name Role Phone POS MARIAH DIAZ, PRO Mancilla PCP SP Encounter 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) - 03/23/19 Hydronephrosis of right kidney (Discharge Diagnosis) - 03/23/19 Microscopic hematuria (Discharge Diagnosis) - 03/23/19 Discharge Disposition: Home - 01 Attending Physician: SREEKANTH LOPEZ MD Admitting Physician: SREEKANTH LOPEZ MD Vital Signs Most recent to 1 POS oldest [Reference SP Range]: SP Temperature 97.8 DegF SP [96.8-99.7 DegF] (03/23/19 10:28 AM) SP Temp Method Oral SP (03/23/19 10:28 AM) SP Heart Rate 83 bpm SP (03/23/19 1:33 PM) SP Respiratory Rate 18 br/min SP [15-20 br/min] (03/23/19 1:33 PM) SP Blood Pressure 151/80 mmHg SP [90-180/50-90 mmHg] (03/23/19 1:33 PM) SP NIBP MAP [65 mmHg] 99 mmHg SP (03/23/19 1:33 PM) SP NIBP MAP Calc [65 104 mmHg SP mmHg] (03/23/19 1:33 PM) SP Vital Signs Note put on 2L 02 for low 02 sat SP (03/23/19 11:31 AM) SP Problem List Condition Effective Dates Status Health Status Informan t POS Constipation(Confirm Active SP ed) SP History of biliary Active SP disease(Confirmed) SP History of breast Active SP cancer(Confirmed) SP Hydronephrosis of Active SP right SP kidney(Confirmed) SP Ovarian cancer, 06/03/00 Active SP metastatic to liver SP and SP spleen(Confirmed) SP Pelvic Active SP mass(Confirmed) SP Retroperitoneal Active SP mass(Confirmed) SP Allergies, Adverse Reactions, Alerts No Known Allergies Medications atropine-diphenoxylate 0.025 mg-2.5 mg oral tablet TK 1 T PO BID PRF DIARRHEA Start Date: 03/23/19 Status: Ordered Movantik 12.5 mg oral tablet =1 TAB, PO, QAM (Every morning), # 30 TAB, 0 Refill(s), on an empty stomach 1 ho ur before or 2 hours after eating, Indication: Constipation Start Date: 03/23/19 Status: Ordered NITROFURANTOIN MONO/MAC 100MG CAPS 1 TAB, PO, BID (2 times a day) Start Date: 03/23/19 Status: Ordered Percocet 5/325 oral tablet 1-2 tabs, PO, Q6H (Every 6 hours), PRN Pain, # 24 TAB, 0 Refill(s), not to excee d 6 tablets/day, Indication: Pain Start Date: 03/23/19 Status: Ordered traMADol 50 mg oral tablet 1 TAB, PO, Q4H (Every 4 hours), PRN as needed for pain, TK 1 TO 2 TS PO Q 4 TO 6 H PRN P Start Date: 03/23/19 Status: Ordered Tylenol Caplet Extra Strength 500 mg oral tablet 2 TAB, PO, Q6H (Every 6 hours), PRN as needed for pain, 0 Refill(s) Start Date: 03/23/19 Status: Ordered Results HEMATOLOGY Most recent to 1 POS oldest [Reference SP Range]: SP WBC [4.0-11.0 8.4 x10'3/microL SP x10'3/microL] (03/23/19 11:13 AM) SP RBC [3.90-5.60 4.10 x10'6/microL SP x10'6/microL] (03/23/19 11:13 AM) SP Hgb [12.0-16.0 g/dL] 12.9 g/dL SP (03/23/19 11:13 AM) SP Hct [35-47 %] 39 % SP (03/23/19 11:13 AM) SP Platelet [140-400 395 x10'3/microL SP x10'3/microL] (03/23/19 11:13 AM) SP MCV [81-99 fL] 95 fL SP (03/23/19 11:13 AM) SP MCH [27-34 pg] 32 pg SP (03/23/19 11:13 AM) SP MCHC [30-36 g/dL] 33 g/dL SP (03/23/19 11:13 AM) SP RDW [<=16.5 %] 15.6 % SP (03/23/19 11:13 AM) SP MPV [6.5-10.4 fL] 8.7 fL SP (03/23/19 11:13 AM) SP Neutrophils % [44-76 79 % SP %] *HI* SP (03/23/19 11:13 AM) SP Lymphocytes % [13-43 9 % SP %] *LOW* SP (03/23/19 11:13 AM) SP Monocytes % [0-13 %] 10 % SP (03/23/19 11:13 AM) SP Eosinophils % [0-7 2 % SP %] (03/23/19 11:13 AM) SP Basophils % [0-3 %] 1 % SP (03/23/19 11:13 AM) SP Neutrophils Abs 6.6 x10'3/microL SP [1.4-7.2 (03/23/19 11:13 AM) SP x10'3/microL] SP Lymphocytes Abs 0.8 x10'3/microL SP [1.2-3.4 *LOW* SP x10'3/microL] (03/23/19 11:13 AM) SP Monocytes Abs 0.8 x10'3/microL SP [0.1-0.6 *HI* SP x10'3/microL] (03/23/19 11:13 AM) SP Eosinophils Abs 0.1 x10'3/microL SP [0.0-0.5 (03/23/19 11:13 AM) SP x10'3/microL] SP Basophils Abs 0.1 x10'3/microL SP [0.0-0.2 (03/23/19 11:13 AM) SP x10'3/microL] SP CHEMISTRY Most recent to 1 SP oldest [Reference SP Range]: SP Sodium [136-145 139 mmol/L SP mmol/L] (03/23/19 11:13 AM) SP Potassium [3.5-5.1 4.0 mmol/L SP mmol/L] (03/23/19 11:13 AM) SP Chloride [98-107 100 mmol/L SP mmol/L] (03/23/19 11:13 AM) SP CO2 [22-29 mmol/L] 27 mmol/L SP (03/23/19 11:13 AM) SP AGAP [3-12 mmol/L] 12 mmol/L SP (03/23/19 11:13 AM) SP Glucose [70-100 106 mg/dL SP mg/dL] *HI* SP (03/23/19 11:13 AM) SP BUN [8-20 mg/dL] 16 mg/dL SP (03/23/19 11:13 AM) SP Creatinine [0.7-1.2 0.7 mg/dL SP mg/dL] (03/23/19 11:13 AM) SP Calcium [8.6-10.2 10.1 mg/dL SP mg/dL] (03/23/19 11:13 AM) SP Est CrCL (CG) 58.9 mL/min 1 SP *NA* SP (03/23/19 11:13 AM) SP GFR (CKD-EPI) 90.8 mL/min/1.73 m2 2 SP *NA* SP (03/23/19 11:13 AM) SP Albumin Level 3.6 g/dL SP [3.5-5.2 g/dL] (03/23/19 11:13 AM) SP Total Protein 7.5 g/dL SP [6.6-8.7 g/dL] (03/23/19 11:13 AM) SP Alk Phos [40-130 140 Inter. Units/L SP Inter. Units/L] *HI* SP (03/23/19 11:13 AM) SP Lipase [13-60 23 Units/L SP Units/L] (03/23/19 11:13 AM) SP AST [0-40 Units/L] 21 Units/L SP (03/23/19 11:13 AM) SP ALT(SGPT) [0-33 15 Inter. Units/L SP Inter. Units/L] (03/23/19 11:13 AM) SP Bili Total [0.0-1.2 0.3 mg/dL SP mg/dL] (03/23/19 11:13 AM) SP 1Result Comment: Estimated Creatinine Clearance calculated based on Cockcroft-Gault formula using: Height 162.56 Weight 59.3 Estimated Creatinine Clearance Cockcroft Gault is utilized by the Pharmacy to as sist in determining medication dosage based on kidney function. Multiple factors determine normal ranges, please contact the Pharmacy with questions. 2Result Comment: GFR calculated based on CKD-EPI Creatinine Equation (2009). Age(years) Average GFR 20-29 116 mL/min/1.73 m^2 30-39 107 mL/min/1.73 m^2 40-49 99 mL/min/1.73 m^2 50-59 93 mL/min/1.73 m^2 60-69 85 mL/min/1.73 m^2 70+ 75 mL/min/1.73 m^2 Acceptable GFR=>60 mL/min/1.73 m^2 Chronic Kidney Disease <60 mL/min/1.73 m^2 Kidney Failure <15 mL/min/1.73 m^2 URINE Most recent to 1 SP oldest [Reference SP Range]: SP UA Color Yellow SP (03/23/19 11:13 AM) SP UA pH [5.0-8.0] 8.0 SP (03/23/19 11:13 AM) SP UA Spec Grav 1.010 SP [1.001-1.030] (03/23/19 11:13 AM) SP UA Glucose [Negative Negative mg/dL SP mg/dL] (03/23/19 11:13 AM) SP UA Bili [Negative] Negative SP (03/23/19 11:13 AM) SP UA Ketones [Negative Negative mg/dL SP mg/dL] (03/23/19 11:13 AM) SP UA Blood [Negative] Large SP *ABN* SP (03/23/19 11:13 AM) SP UA Protein [Negative 30 mg/dL SP mg/dL] *ABN* SP (03/23/19 11:13 AM) SP UA Nitrite Negative SP [Negative] (03/23/19 11:13 AM) SP UA Leuk Est Negative SP [Negative] (03/23/19 11:13 AM) SP UA Urobilinogen 0.2 EU per dL SP [0.2-1.0 EU per dL] (03/23/19 11:13 AM) SP UA Spec Type Clean Catch SP (03/23/19 11:13 AM) SP UA WBC [0-5 /hpf] 0-5 /hpf SP (03/23/19 11:13 AM) SP UA RBC [0-2 /hpf] >50 /hpf SP *ABN* SP (03/23/19 11:13 AM) SP UA Bacteria Moderate /hpf SP [Negative /hpf] *ABN* SP (03/23/19 11:13 AM) SP Microscopic? Yes SP *ABN* SP (03/23/19 11:13 AM) SP Culture? No SP (03/23/19 11:13 AM) SP Immunizations No data available for this section Procedures Procedure Date Related Diagnosis Body Site Status POS X 2 Completed SP CATARACTS Completed SP Cholecystectomy; Completed SP HYSTERECTOMY AND BSO Completed SP Port Completed SP R URETERAL STENT Completed SP SBR AND PARTIAL COLECTOMY Completed SP Social History Social History Type Response POS Functional Status No data available for this section Assessment and Plan No data available for this section Hospital Discharge Instructions No data available for this section
--- OUTSIDE RECORDS SUMMARY | 2019-04-12 09:03 | XMS REPORT | Continuity of Care Document ---
Author Author [facility] POS Organization [facility] SP Address Unknown SP Phone Unavailable SP Care Team Providers Care Marketing Administrator Name Role Phone POS [facility] Unavailable Unavailable SP Problems Problem Status Onset Date POS Classification Date Reported POS Comments Source POS Intra-abdominal and pelvic swelling, mas s and lump, unspecified site SP 03/23/2019 SP Diagnosis 03/24/2019 SP [facility] SP Malignant neoplasm of unspecified ovary SP 03/23/2019 Discharge Diagnosis SP 03/24/2019 SP [facility] Unspecified hydronephrosis SP Discharge Diagnosis SP [facility] SP Other microscopic hematuria SP [facility] SP Other specified diseases of anus and rectum SP 03/23/2019 Discharge Diagnosis SP 03/24/2019 SP [facility] Constipation, unspecified SP Discharge Diagnosis SP [facility] SP OTHER SPECIFIED DISEASES OF ANUS AND REC Active SP 03/23/2019 SP Seeo SP OTHER FATIGUE Active 03/23/2019 SP SP Seeo SP PERSONAL HISTORY OF NICOTINE DEPENDENCE Active SP 03/23/2019 SP Seeo SP MALIGNANT NEOPLASM OF UNSPECIFIED OVARY Active SP 03/23/2019 SP Seeo SP UNSPECIFIED HYDRONEPHROSIS Act ze SP 03/23/2019 SP Seeo SP BENIGN ESSENTIAL MICROSCOPIC HEMATURIA Active SP 03/23/2019 SP Seeo SP MALIGNANT NEOPLASM OF LIVER, NOT SPECIFI Active SP 03/23/2019 SP Seeo SP INTRA-ABDOMINAL AND PELVIC SWELLING, MAS Active SP 03/23/2019 SP Seeo SP CONSTIPATION, UNSPECIFIED Acti ve SP 03/23/2019 SP Seeo SP MALIGNANT NEOPLASM OF PERITONEUM, UNSPEC Active SP 04/17/2018 SP Seeo SP SECONDARY AND UNSPECIFIED MALIGNANT NEOP Active SP 04/17/2018 SP [facility] SP Malignant neoplasm of peritoneum, unspecified SP Final SP [facility] io n SP 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 SP Final SP 12/05/2018 [facility] Constipation (disorder) Active SP Problem 03/24/2019 SP [facility] SP History of - biliary disease (context-de pendent category) SP Active Prob sanjiv SP 03/24/2019 [facility] History of malignant neoplasm of breast (situation) SP Problem SP 03/24/2019 [facility] Hydronephrosis (disorder) Acti ve SP Problem [facility] SP Malignant tumor of ovary (disorder) Active SP Problem [facility] Pelvic mass (disorder) Active SP Problem 03/24/2019 [facility] SP Retroperitoneal mass (disorder) Active SP Problem [facility] SP Medications Medication Details Route POS Status Patient Instructions POS Ordering Provider Order Date POS Source POS Acetaminophen 325 MG / Oxycodone Hydroch loride 5 MG Oral Tablet [Percocet 5/325] SP 1-2 tabs, PO, Q6H (Every 6 hours), PRN P ain, # 24 TAB, SP0 Refill(s), not to exceed 6 tablets/day, Indication: Pain Active SP 03/23/2019 [facility] naloxegol 12.5 MG Oral Tablet [Movantik] =1 TAB, PO, QAM SP(Every morning), # 30 TAB, 0 Refill(s), on an empty stomach 1 hour before or 2 hours after eating, Indication: Constipation SP Active [facility] Acet[facility] 500 MG Oral Tablet [Tylenol] 2 TAB, PO, SP (Every 6 hours), PRN as needed for pain, 0 Refill(s) SP Active SP 03/23/2019 [facility] NITROFURANTOIN MONO/MAC 100MG CAPS 1 TAB, PO, BID (2 SP a day) Active SP 03/23/2019 [facility] SP Atropine Sulfate 0.025 MG / Diphenoxylat e Hydrochloride 2.5 MG Oral Tablet SP TK 1 T PO BID PRF DIARRHEA SP Active 03/23/2019 [facility] tramadol hydrochloride 50 MG Oral Tablet 1 TAB, PO, Q4H SP 4 hours), PRN as needed for pain, TK 1 TO 2 TS PO Q 4 TO 6 H PRN P Active 03/23/2019 [facility] pantoprazole 40 MG Enteric Coated Tablet [Protonix] 1 SP PO, Daily, 0 Refill(s) [facility] Allergies, Adverse Reactions, Alerts No Known Medication Allergies POS Immunizations No Data Provided for This Section POS Results Order Name Results Value POS Reference Range Date POS Interpretation Comments POS Source POS Est CrCl (CG) Est CrCL (CG) 58 .9 mL/min 03/23/2019 NA SP Estimated Creatinine Clearance calculate d based on Cockcroft- SP formula using:
Height 162.56
Weight 59.3
Estimated Creatinine Clearance Cockcroft Gault is utilized by the Pharmacy to assist in determining medication dosage based on kidney function. Multiple factors determine normal ranges, please contact the Pharmacy with questions.
[facility] Renal Funct Index GFR (CKD-EPI) 90.8 mL/min/1.73 m2 03/23/2019 SP NA GFR calculated based on CKD -EPI Creatinine (2008).
Age(years) Average GFR
20-29 116 mL/min/1.73 m^2
30-39 107 mL/min/1.73 m^2
40-49 99 mL/min/1.73 m^2
50-59 93 mL/min/1.73 m^2
60-69 85 mL/min/1.73 m^2
70+ 75 mL/min/1.73 m^2

Acceptable GFR=>60 mL/min/1.73 m^2
Chronic Kidney Disease <60 mL/min/1.73 m^2
Kidney Failure <15 mL/min/1.73 m^2
[facility] CMP Sodium 139 mmol/L 136 - 145 03/23/2019 N SP [facility] [place] SP CMP Potassium 4.0 mmol/L 3.5 - SP 03/23/2019 N SP [facility] SP CMP Chloride 100 mmol/L 98 - SP 03/23/2019 N SP [facility] SP CMP CO2 27 mmol/L 22 - 29 SP 03/23/2019 N SP [facility] SP CMP AGAP 12 mmol/L 3 - 12 SP 03/23/2019 N SP [facility] SP CMP Glucose 106 mg/dL 70 - 100 SP 03/23/2019 H SP [facility] SP CMP BUN 16 mg/dL 8 - 20 SP 03/23/2019 N SP [facility] SP CMP Creatinine 0.7 mg/dL 0.7 - SP 03/23/2019 N SP [facility] SP CMP Calcium 10.1 mg/dL 8.6 - SP 03/23/2019 N SP [facility] SP CMP Total Protein 7.5 g/dL 6.6 SP 8.7 03/23/2019 N SP [facility] SP CMP Albumin Level 3.6 g/dL 3.5 SP 5.2 03/23/2019 N SP [facility] SP CMP Bili Total 0.3 mg/dL 0.0 - SP 03/23/2019 N SP Samples containing indocyanine green mus t not be measured.
No SP interference from immunoglobulins up to a concentration of 28 g/L (187 umol/L).
[facility] SP CMP Alk Phos 140 Inter. U nits/L SP 40 - 130 03/23/2019 H SP [facility] SP CMP AST 21 Units/L 0 - 40 SP 03/23/2019 N SP [facility] SP CMP ALT(SGPT) 15 Inter. Un its/L SP 0 - 33 03/23/2019 N [facility] SP Lipase Lipase 23 Units/L 13 - SP 03/23/2019 N SP [facility] SP UA CI Culture? No SP 03/23/2019 N SP [facility] SP Ur Micro - NC UA RBC >50 /hpf SP2 03/23/2019 @ SP [facility] [place] SP Ur Micro - NC UA WBC 0-5 /hpf SP5 03/23/2019 N SP [facility] [place] SP Ur Micro - NC UA Bacteria Mo derate /hpf SP Negative 03/23/2019 @ SP [facility] [place] SP UA CI UA Spec Type Clean Catc h SP 03/23/2019 N SP [facility] [place] SP UA CI UA Color YELLOW SP 03/23/2019 N SP [facility] [place] SP UA CI UA Glucose NEGATIVE m g/dL SP Negative 03/23/2019 N SP [facility] [place] SP UA CI UA Bili NEGATIVE SP 03/23/2019 N SP [facility] [place] SP UA CI UA Ketones NEGATIVE m g/dL SP Negative 03/23/2019 N SP [facility] [place] SP UA CI UA Spec Grav 1.010 1.001 SP- 1.030 03/23/2019 N SP [facility] [place] SP UA CI UA pH 8.0 5.0 - 8.0 SP 03/23/2019 N SP [facility] [place] SP UA CI UA Protein 30 mg/dL SP 03/23/2019 @ SP [facility] [place] SP UA CI UA Urobilinogen 0.2 EU per dL SP 0.2 - 1.0 03/23/2019 N SP [facility] [place] SP UA CI UA Nitrite NEGATIVE SP 03/23/2019 N SP [facility] [place] SP UA CI UA Blood LARGE Negative SP 03/23/2019 @ SP [facility] [place] SP UA CI UA Leuk Est TRACE SP 03/23/2019 N SP [facility] [place] SP UA CI Microscopic? Yes SP 03/23/2019 @ SP result=No, Microscopic is not indicated. Specimen is held for 3 days. Call [phone] if further testing is needed.
SP [facility] [place] Auto Diff Neutrophils 79 % 44 - SP76 03/23/2019 H SP [facility] [place] SP Auto Diff Lymphocytes % 9 % 13 SP 43 03/23/2019 L SP [facility] [place] SP Auto Diff Monocytes % 10 % 0 - SP 03/23/2019 N SP [facility] [place] SP Auto Diff Eosinophils % 2 % 0 - SP7 03/23/2019 N SP [facility] [place] SP Auto Diff Basophils % 1 % 0 - 3 SP 03/23/2019 N SP [facility] [place] SP Auto Diff Neutro Absolute 6.6 x1 0'3/microL SP 1.4 - 7.2 03/23/2019 SP N [facility] SP Auto Diff Lymph Absolute 0.8 x1 0'3/microL SP 1.2 - 3.4 03/23/2019 SP L [facility] SP Auto Diff [place] Absolute 0.8 x1 0'3/microL SP 0.1 - 0.6 03/23/2019 SP [facility] n SP Auto Diff Eos Absolute 0.1 x1 0'3/microL SP 0.0 - 0.5 03/23/2019 N SP [facility] [place] SP Auto Diff Basophil Absolute 0.1 x1 0'3/microL SP 0.0 - 0.2 03/23/2019 SP [facility] SP CBC/Diff WBC 8.4 x10'3/micro L SP - 11.0 03/23/2019 N SP [facility] [place] SP CBC/Diff RBC 4.10 x10'6/micr oL SP - 5.60 03/23/2019 N SP [facility] [place] SP CBC/Diff Hgb 12.9 g/dL 12.0 - SP 03/23/2019 N SP [facility] [place] SP CBC/Diff Hct 39 % 35 - 47 SP 03/23/2019 N SP [facility] [place] SP CBC/Diff MCV 95 fL 81 - 99 SP 03/23/2019 N SP [facility] [place] SP CBC/Diff MCH 32 pg 27 - 34 SP 03/23/2019 N SP [facility] [place] SP CBC/Diff MCHC 33 g/dL 30 - 36 SP 03/23/2019 N SP [facility] [place] SP CBC/Diff RDW 15.6 % - <=16.5 SP 03/23/2019 N SP [facility] [place] SP CBC/Diff Platelet 395 x10 '3/microL SP 140 - 400 03/23/2019 N SP [facility] [place] SP CBC/Diff MPV 8.7 fL 6.5 - 10.4 SP 03/23/2019 N SP [facility] SP Flow Tissue Interpretation Flow Cyto metry See Scanned SP 04/24/2018 SP N [facility] [place] C HEIDI GORDON
[facility]
[address] [place] [address]
[place] [address]

M i c r o b i o l o g y

PROCEDURE: Culture Body Fluid
SOURCE: Pelvic Fl COLLECTED: 04/17/2018 13:30 CURER FOAM RUBBER
BODY SITE: Pelvis RECEIVED: 04/17/2018 16:29 CURER FOAM RUBBER
FREE TEXT SOURCE: STARTED: 04/17/2018 16:29 CURER FOAM RUBBER

FINAL REPORT

Final Report
Verified:04/20/2018 11:27 CURER FOAM RUBBER
No growth

04/19/2018 09:48 CURER FOAM RUBBER Culture Body Fluid:
Test Performed at [facility], [address] [place] [address],
[place] [address].

<br/&g t;

PROCEDURE: Gram Stain
SOURCE: Pelvic Fl COLLECTED: 04/17/2018 13:30 CURER FOAM RUBBER
BODY SITE: Pelvis RECEIVED: 04/17/2018 16:29 CURER FOAM RUBBER
FREE TEXT SOURCE: STARTED: 04/17/2018 16:29 CURER FOAM RUBBER

STAINS / PREPARATIONS <b r/>
Gram Stain Report
Verified:04/18/2018 14:39 CURER FOAM RUBBER
Many White blood Cells
No organisms seen. in concentrated smear

04/18/2018 14:39 CURER FOAM RUBBER Gram Stain:
Test Performed at [facility], [address] [place] [address],
[place] [address].

____

M i c r o b i o l o g y

PROCEDURE: Culture Anaerobic
SOURCE: Body Fl COLLECTED: 04/17/2018 13:30 CURER FOAM RUBBER
BODY SITE: RECEIVED: 04/17/2018 16:30 CURER FOAM RUBBER
FREE TEXT SOURCE: STARTED: 04/17/2018 16:31 CURER FOAM RUBBER

FINAL REPORT

Final Report
Verified:04/20/2018 11:28 CURER FOAM RUBBER
No anaerobic organisms isolated.

04/19/2018 09:48 CURER FOAM RUBBER Culture Anaerobic:
Test Performed at [facility], [address] [place] [address],
[place] [address].

SP 04/17/2018 SP [facility] SP C Body Fld C Body Fld
[address]
[place] [address]

M i c r o b i o l o g y

PROCEDURE: Culture Body Fluid
SOURCE: Pelvic Fl COLLECTED: 04/17/2018 13:30 CURER FOAM RUBBER
BODY SITE: Pelvis RECEIVED: 04/17/2018 16:29 CURER FOAM RUBBER
FREE TEXT SOURCE: STARTED: 04/17/2018 16:29 CURER FOAM RUBBER

FINAL REPORT

Final Report
Verified:04/20/2018 11:27 CURER FOAM RUBBER
No growth

04/19/2018 09:48 CURER FOAM RUBBER Culture Body Fluid:
Test Performed at [facility], [address] [place] [address],
[place] [address].

<br/&g t;

PROCEDURE: Gram Stain
SOURCE: Pelvic Fl COLLECTED: 04/17/2018 13:30 CURER FOAM RUBBER
BODY SITE: Pelvis RECEIVED: 04/17/2018 16:29 CURER FOAM RUBBER
FREE TEXT SOURCE: STARTED: 04/17/2018 16:29 CURER FOAM RUBBER

STAINS / PREPARATIONS <b r/>
Gram Stain Report
Verified:04/18/2018 14:39 CURER FOAM RUBBER
Many White blood Cells
No organisms seen. in concentrated smear

04/18/2018 14:39 CURER FOAM RUBBER Gram Stain:
Test Performed at [facility], [address] [place] [address],
[facility], [place] [address].

____

M i c r o b i o l o g y

PROCEDURE: Culture Anaerobic
SOURCE: Body Fl COLLECTED: 04/17/2018 13:30 CURER FOAM RUBBER
BODY SITE: RECEIVED: 04/17/2018 16:30 CURER FOAM RUBBER
FREE TEXT SOURCE: STARTED: 04/17/2018 16:31 CURER FOAM RUBBER

PRELIMINARY REPORT

Preliminary Report
Verified:04/19/2018 09:48 CURER FOAM RUBBER
No anaerobic organisms isolated at 48 hours.
Culture in progress

04/19/2018 09:48 CURER FOAM RUBBER Culture Anaerobic:
Test Performed at [facility], [address] [place] [address],
[place] [address].

& lt;br/>

04/17/2018 SP [facility] SP Gram Stain Gram Stain
[address]
[place] [address]

M i c r o b i o l o g y

PROCEDURE: Culture Body Fluid
SOURCE: Pelvic Fl COLLECTED: 04/17/2018 13:30 CURER FOAM RUBBER
BODY SITE: Pelvis RECEIVED: 04/17/2018 16:29 CURER FOAM RUBBER
FREE TEXT SOURCE: STARTED: 04/17/2018 16:29 CURER FOAM RUBBER

PRELIMINARY REPORT & lt;br/>
Preliminary Report
Verified:04/18/2018 07:32 CURER FOAM RUBBER
No growth
Culture in progress

04/18/2018 07:32 CURER FOAM RUBBER Culture Body Fluid:
Test Performed at [facility], [address] [place] [address]
[place] [address].& lt;br/>

PROCEDURE: Gram Stain
SOURCE: Pelvic Fl COLLECTED: 04/17/2018 13:30 CURER FOAM RUBBER
BODY SITE: Pelvis RECEIVED: 04/17/2018 16:29 CURER FOAM RUBBER
FREE TEXT SOURCE: STARTED: 04/17/2018 16:29 CURER FOAM RUBBER

STAINS / PREPARATIONS

Gram Stain Report
Verified:04/18/2018 14:39 CURER FOAM RUBBER
Many White blood Cells
No organisms seen. in concentrated smear

04/18/2018 14:39 CURER FOAM RUBBER Gram Stain:
Test Performed at [facility], [address] [place] [address],
[place] [address].

____
04/17/2018 SP [facility] [place] Protime PT 13.1 second 11.5 - SP 04/17/2018 N SP [facility] SP Protime INR 1.0 SP 04/17/2018 NA SP [facility] SP CBC WBC 5.9 x10'3/microL 4.0 - SP 04/17/2018 N SP [facility] SP CBC RBC 3.86 x10'6/microL 3.90 SP 5.60 04/17/2018 L SP [facility] [place] SP CBC Hgb 10.8 g/dL 12.0 - 16.0 SP 04/17/2018 L SP [facility] SP CBC Hct 35 % 35 - 47 SP 04/17/2018 N SP [facility] SP CBC MCV 92 fL 81 - 99 SP 04/17/2018 N SP [facility] [place] SP CBC MCH 28 pg 27 - 34 SP 04/17/2018 N SP [facility] [place] SP CBC MCHC 31 g/dL 30 - 36 SP 04/17/2018 N SP [facility] [place] SP CBC RDW 17.2 % - <=16.4 SP 04/17/2018 H [facility] [place] SP CBC Platelet 351 x10'3/microL SP - 400 04/17/2018 N [facility] SP CBC MPV 8.9 fL 6.5 - 10.4 SP 04/17/2018 N SP [facility] SP Pathology Reports Report Value Date POS Source POS Non-Research Laboratory Manager Cytology Final Report Firebreak Cutter SP Firebreak Cutter: ERIN Pathologist groupPABLO NON-GYNECOLOGIC CYTOLOGY REPORT [address] [place] [address] Cytology Non-MULTIFOLD OPERATOR Report [id number] Specimen: Pelvic Fluid Collection INTERPRETATION: No malignant cells identified. SLD Comment: Cytology smears and cell block consist entirely of small mature lymphocytes. Flow cytometric analysis was performed and was negative for an abnormal or neoplastic lymphoid population. Please see separate flow cytometry report [id number]. Clinical Information: Peritoneal CA Gross Description: 950 cc of straw colored fluid was submitted to cytology. A fluid-enhanced cellular recovery technique was utilized in order to obtain sufficient material to prepare a single, Papanicolaou-stained, thin prep cytologic smear. In addition, two cyto-spin smears and a cell block were prepared. 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 - One benign lymph node. 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 The slides will be returned to the originating institution. Dr. Dirk Dang has reviewed selected slides and concurs with the diagnosis. Clinical Information: Received from [facility] are five H&E stained glass slides labeled [id number] and Han, Katty Loly. The slides are additionally labeled D1, D2, E1, E2, and E3, and represent only two of the specimens from a procedure which generated 16 total specimens. The procedure was a total hysterectomy with bilateral salpingo-oophorectomy, omentectomy, peritoneal biopsies, and portion of sigmoid colon and rectum excision. These slides are received together with a corresponding surgical pathology report bearing the surg path number [id number]. This report identifies the patient as Katty Han, date of 1930. This report identifies the date of procedure as 10/09/2017. This report identifies specimen D as falciform ligament and liver tumor and specimen E as omentum. All of this material is reviewed at the request of Dr. Beebe. The remainder of the slides from this procedure are currently being evaluated at [facility], and are not available for our review. KATTY HAN [id number] Microscopic Description: Sections from the falciform ligament contain a high-grade carcinoma characterized by a papillary architecture with solid nests of high-grade carcinoma cells between and among the fibrovascular cores. The high-grade carcinoma is composed of [id number] cells with minimal associated cytoplasm. High nuclear grade features and a high mitotic rate are noted. One benign lymph node is also present in the falciform ligament tissue, and a small amount of subcapsular hepatic parenchyma is also noted. The sections from omentum contain small areas of involvement by the same tumor. A benign lymph node is also present in the sections from the omentum. 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 In this case, I believe the tumor represents a high-grade serous carcinoma, and this particular pattern of high-grade serous carcinoma has previously been referred to as transitional cell carcinoma by some authors in the past. However, we feel this tumor is more accurately classified as high- grade serous carcinoma. 10/09/2017 [facility] Nayeli samaniego SPMission Diagnostic Reports Report Value Date POS Source POS CT Abdomen W Pelvis W Cont SP Patient Name: KATTY HAN : 1950 [facility] [address] [place] [id number] Radiology Reports CPT code 38416 [id number] CDM code CDM description [id number] CT Abdomen W Pelvis W Cont [id number] C Contrast Isovue 300/ML Reason For Exam Severe rectal pain. And constipation with intermittent diarrhea. 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 Report CT ABDOMEN AND PELVIS with IV CONTRAST INDICATION: 68-year-old female with rectal pain and constipation. Known metastatic ovarian cancer. PROCEDURE: Routine CT scan of the abdomen and pelvis was performed following the intravenous administration of 100 cc Isovue-300. Automated exposure control (AEC) dose reduction technique was used. COMPARISON: CT abdomen and pelvis 03/18/2018 CT ABDOMEN: The lung bases are clear. No pleural or pericardial effusion is present. There are innumerable metastatic lesions involving the liver and spleen. These have progressed since 2018. There is mild intrahepatic biliary ductal dilatation. The gallbladder is surgically absent. The pancreas and adrenal glands are grossly normal. There are several benign-appearing cortical cysts in the left kidney. There is moderately severe right-sided hydronephrosis and hydroureter. Ureteral stent extends from the right renal pelvis to the urinary bladder. There is no abdominal ascites. There is a large amount of retained stool present throughout the colon. There is mild small bowel dilatation similar to previous CT scan. CT PELVIS: Right-sided ureteral stent extends into the urinary bladder. Large cystic pelvic midline and left lateral mass is slightly smaller than on the previous study there is a new 3.6 cm cystic mass anterior to the distal sigmoid colon/rectum. There is no pelvic free fluid. There are pelvic and inguinal low density lymph nodes that are probably metastatic. There are postoperative changes in the pelvis and right lower quadrant. There is a very large amount retained stool in the cecum. There is sigmoid diverticulosis. No destructive bone lesions are seen. IMPRESSION: 1. Widespread metastatic disease has progressed since 03/18/2018. 2. Large predominantly cystic pelvic mass is slightly smaller than on 2018 CT scan. 3. Very large amount of retained stool in the cecum and ascending colon. Radiology Reports Report 4. Moderately severe right hydronephrosis and hydroureter with ureteral stent extending from the right renal pelvis to the urinary bladder. Dictated by Dr. Jai Ruffin MD Dictated on 03/23/2019 12:[address] Jai Ruffin MD Location [id number] Final Transcribed by: ALF 03/23/19 12:27 Signed by: JAI RUFFIN MD 03/23/19 12:27 03/23/2019 [facility] SPMission SP US Guided Needle Placement [facility] [address] [address] Radiology Reports CPT Codes: 62399, 88597 CDM Codes: 1600433 (SP US Guided Needle Placement), [id number] (Pack Cust Angio/Hot Mill Shearer), [id number] (SP ASP Cyst/Abscess/Mian Punc) Reason for exam: peritoneal CA Report ULTRASOUND-GUIDED ASPIRATION OF THE LARGE CYSTIC LESION WITHIN THE PELVIS APRIL 17, 2018: MEDICATIONS: None CONTRAST: None COMPLICATIONS: None INDICATION: Peritoneal cancer. Large pelvic cystic lesion. Aspiration for cytology is requested. Abdominal distention. COMPARISON STUDIES: PET-CT March 22, [address] abdomen And pelvis March 18, 2018 from [facility]. TECHNIQUE/FINDINGS: The procedure was discussed extensively with the patient including potential risks, complications, expected outcomes and potential alternatives. Written, witnessed informed consent was obtained. Pre-procedure timeout was performed according to protocol Preliminary ultrasound was performed demonstrating a large simple appearing cystic lesion within the central pelvis, slightly greater to the left of the midline. An appropriate skin puncture site was localized. The skin was prepped and draped in the usual sterile fashion. 1% lidocaine was used for local anesthesia at the skin puncture site. Under direct ultrasound visualization with a single puncture and 5 [place] Merit One-Step sheath needle easily advanced into the fluid collection. There was free return of noncloudy slightly yellow-tinged fluid. A total of 1000 mL of fluid was able to be aspirated. As much of the fluid was aspirated as possible. Specimen was sent for cytology, Gram stain and cultures. The catheter was removed and hemostasis obtained at the skin puncture site following manual compression. The site was appropriately dressed. KATTY HAN [id number] Radiology Reports The patient tolerated the procedure extremely well and left the department in stable condition with precautionary instructions. IMPRESSION: Successful ultrasound-guided aspiration of a large pelvic cystic lesion yielding 1000 mL of non-cloudy slightly yellow fluid which was sent for laboratory analysis as requested. The patient is to follow-up with the ordering physician regarding specimen laboratory results. Dictated by Dr. Nagi Pulliam MD Dictated on 04/17/2018 4:[address] Nagi Pulliam MD Location [id number] Final Transcribed by: ALIRIO 04/17/18 16:51 Signed by: NAGI PULLIAM MD 04/17/18 16:51 04/17/2018 [facility] Nayeli samaniego SPMission Consultation Notes Results Value Date POS Source POS Emergency Room Record Basi c Information SP Chief Complaint under treatment for ovarian CA, right ureter stent. anal pain starting 2 days ago. also fatigue. PCP Primary Care Physician MARIAH DIAZ, [facility] Mode of Arrival Mode of Arrival.: Ambulatory Time Seen Time Seen Provider Contact Date and Time Provider 03/23/2019 10:34 SREEKANTH LOPEZ MD ED Triage Time Seen No qualifying data available. HPI/Information Source Historian: Patient, __ Accompanied by: Spouse History limited by: None PCP:_ _[facility] (POONAM LOU) URO-MULTIFOLD OPERATOR: Shanique UROL: ADRIANNE ONC: Cristy Chief Complaint:_ RECTAL PAIN History of Present Illness: Onset: _ X 3 DAYS Location: _RECTAL PAIN Duration: _CONSTANT Radiation: _NONE Quality: _SQUEEZING Severity: at Onset: _ 5 at Max: _8 Currently: _7_ Aggravating factors: None Alleviating factors: None Associated Symptoms: _ CONSTIPATION 3 WEEKS (FLUCTUATING) BUT HAVING "SMALL AMOUNTS OF DIARRHEA" WELL N/V MILD INTERMITTENT X 1 WEEK, FATIGUE X 4 DAYS Therapy today: Tylenol, ULTRAM Relief: _None Prior episodes: _OFF/ON SINCE BEING ON TRIAL MEDS FOR HER OVARIAN CA. Risk factors: OVARIAN CA, ON TRIAL MEDS, Pertinent negatives: NO: ABD PAIN, F/C, CP, SOB, Additional history: PT HAD R URETAL STENT PLACED 4 DAYS AGO FOR RIGHT RENAL OBSTRUCTION FROM RIGHT RETROPERITONEAL MASS.... PT IS ON TWO CLINICAL TRIAL MEDS FOR HER OVARIAN CA. PT ALSO HAD A SKIN LESION REMOVED FROM LEFT DORSAL HAND ABOUT 4 WEEKS AGO. Review of Systems / Other Histories Review of Systems: _ Constitutional symptoms: Negative except as documented in HPI. Skin symptoms: Negative except as documented in HPI. Eye symptoms: Negative except as documented in HPI. ENMT symptoms: Negative except as documented in HPI. Respiratory symptoms: Negative except as documented in HPI. Cardiovascular symptoms: Negative except as documented in HPI. Gastrointestinal symptoms: Negative except as documented in HPI. Genitourinary symptoms: Negative except as documented in HPI. Musculoskeletal symptoms: Negative except as documented in HPI. Neurologic symptoms: Negative except as documented in HPI. Endocrine symptoms: Negative except as documented in HPI. Hematologic/Lymphatic symptoms: Negative except as documented in HPI. Allergy/immunologic symptoms: Negative except as documented in HPI. Home Medications: Reviewed Past Medical History HEALTH HISTORY Constipation History of biliary disease History of breast cancer Hydronephrosis of right kidney Ovarian cancer, metastatic to liver and spleen Pelvic mass Retroperitoneal mass Additional Procedures X 2, CATARACTS, Cholecystectomy;, HYSTERECTOMY AND BSO, Port, R URETERAL STENT, SBR AND PARTIAL COLECTOMY. Family History - None Social history Tobacco use: Quit x 1.5 YEARS AGO Alcohol use: None Drug use: None Occupation: Retired Family/social situation: , _ Code Status: Full Code Initial Vitals Heart Rate -- 92 bpm Inet NIBP Systolic -- 165 mmHg Inet NIBP Diastolic -- 93 mmHg Oxygen Saturation -- 97 % Respiratory Rate -- 18 br/min Temperature -- 97.8 DegF Physical Exam General: Awake and alert. Mild Acute Distress. Secondary to pain . Appearance: Somewhat thin and frail appearing. Chronically ill-appearing,. Patient does appear uncomfortable and is fairly restless in bed secondary to pain. Skin: warm, dry, no pallor, no rash, Head: normocephalic, notrauma, _ , Neck: trachea midline,no jun(s), no swelling, Eye: PERRL, EOMI, normal conjunctiva, sclera clear, vision grossly normal, ENT: Moist mucous membranes, Cardiovascular: regular rhythm, Normal rate, S1, S2, no murmur _ _, no rubs, no gallops, normal peripheral perfusion, no edema _, Respiratory: No respiratory distress, Lungs clear to auscultation bilaterally, No wheezes, no rales, no rhonchi, No cough, Support: None , Chest wall: No deformity, No tenderness_, port right chest without signs of infection or tenderness. Abdomen: , non distended_, mild diffuse tenderness and moderate tenderness left lower quadrant and suprapubic region. There is also moderately firm mass in this area. _ , no rebound_, no guarding _ _, Normal active bowel sounds, Signs: None _ , Rectal: Normal tone, stool color brown, guaiac negative, nomass, small external hemorrhoid that is not inflamed, swollen, or tender. No rectal tenderness, _ no fecal impaction. No fluctuance or evidence of perirectal or perianal abscess. Back: Normal inspection, no tenderness _, normal range of motion, nostep-offs, _, no CVA tenderness. Musculoskeletal: Mild Diffuse muscle wasting no swelling, no deformity, Normal range of motion, no tenderness, _ ,_ Neurological: LOC: Awake and alert and oriented, No Gross Focal Neuro Deficits. speech normal, normal coordination, (grossly), _ , _ Psychiatric: Cooperative, affect appropriate, behavior restless, normal judgment _, Medical Decision Making/EKG Differential Diagnosis: Constipation, rectal pain, pelvic mass, referred pain to rectum. Documents reviewed: No previous records at [facility] Rationale/Rules: Will obtain urine, labs, and CT abdomen pelvis. Will give analgesics for her pain. Results: Results reviewed labs show mild left shift, mild elevation of alk-phos, and urine shows microscopic hematuria, otherwise unremarkable. (03/23/2019 12:[address] Abdomen W and Pelvis W Cont) Result type: CT Abdomen W and Pelvis W Cont Date: March 23, 2019 12:09 CDT Result status: Auth (Verified) Result title: CT Abdomen W Pelvis W Cont Performed by: JAI RUFFIN MD on March 23, 2019 12:27 US/Central Verified by: JAI RUFFIN MD on March 23, 2019 12:27 US/Central Encounter info: [id number], [employer] [facility] [employer], Emergency, 03/23/2019 - * Final Report * Reason For Exam Severe rectal pain. And constipation with intermittent diarrhea. 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 REPORT CT ABDOMEN AND PELVIS with IV CONTRAST INDICATION: 68-year-old female with rectal pain and constipation. Known metastatic ovarian cancer. PROCEDURE: Routine CT scan of the abdomen and pelvis was performed following the intravenous administration of 100 cc Isovue-300. Automated exposure control (AEC) dose reduction technique was used. COMPARISON: CT abdomen and pelvis 03/18/2018 CT ABDOMEN: The lung bases are clear. No pleural or pericardial effusion is present. There are innumerable metastatic lesions involving the liver and spleen. These have progressed since 2018. There is mild intrahepatic biliary ductal dilatation. The gallbladder is surgically absent. The pancreas and adrenal glands are grossly normal. There are several benign-appearing cortical cysts in the left kidney. There is moderately severe right-sided hydronephrosis and hydroureter. Ureteral stent extends from the right renal pelvis to the urinary bladder. There is no abdominal ascites. There is a large amount of retained stool present throughout the colon. There is mild small bowel dilatation similar to previous CT scan. CT PELVIS: Right-sided ureteral stent extends into the urinary bladder. Large cystic pelvic midline and left lateral mass is slightly smaller than on the previous study there is a new 3.6 cm cystic mass anterior to the distal sigmoid colon/rectum. There is no pelvic free fluid. There are pelvic and inguinal low density lymph nodes that are probably metastatic. There are postoperative changes in the pelvis and right lower quadrant. There is a very large amount retained stool in the cecum. There is sigmoid diverticulosis. No destructive bone lesions are seen. IMPRESSION: 1. Widespread metastatic disease has progressed since 03/18/2018. 2. Large predominantly cystic pelvic mass is slightly smaller than on 2018 CT scan. 3. Very large amount of retained stool in the cecum and ascending colon. 4. Moderately severe right hydronephrosis and hydroureter with ureteral stent extending from the right renal pelvis to the urinary bladder. Dictated by Dr. Jai Ruffin MD Dictated on 03/23/2019 12:[address] Jai Ruffin MD Location [id number] Signature Line Final Transcribed by: ALF 03/23/19 12:27 Signed by: CHELSEA DIAZ, JAI Wagner 03/23/19 12:27 RADRPT This document has an image [1] ED Course (Reexam, Consults, Procedures, etc) Consult: March 23, 2019 12:57:07 Dr. Beebe Doctor or Specialty: Oncology Summary: Agrees with assessment and plan. Re-exam: March 23, 2019 12:58:25 Discussed Diagnostic Results and need for follow up and plan of care. Copies of diagnostic reports given to patient prior to discharge. Assessment/Plan Visit Diagnoses 1. Rectal pain K62.89 Ordered: Percocet 5/325 oral tablet, 1-2 tabs, PO, Q6H (Every 6 hours), PRN Pain, # 24 TAB, 0 Refill(s), not to exceed 6 tablets/day, Indication: Pain 2. Constipation K59.00 Ordered: Movantik 12.5 mg oral tablet,=1 TAB, PO, QAM (Every morning), # 30 TAB, 0 Refill(s), on an empty stomach 1 hour before or 2 hours after eating, Indication: Constipation 3. Pelvic mass R19.00 4. Ovarian cancer, metastatic to liver and spleen C56.9 5. Hydronephrosis of right kidney N13.30 6. Microscopic hematuria R31.29 Orders: Percocet 5/325, 2 TAB, TAB, PO, Once, 03/23/19 14:00:00 CDT, Stop date 03/23/19 14:00:00 CDT Dilaudid, 0.5 mg, INJ, IV Push, Q15MIN (Every 15 minutes), PRN Pain, 03/23/19 11:07:00 CDT, Max of 2 mg total Zofran, 4 mg, INJ, IV Push, Q30MIN (Every 30 minutes), PRN Nausea/Vomiting, 03/23/19 11:07:00 CDT, x 2 doses Oil Field Operator, 03/23/19 11:07:00 CDT, Stat, 03/23/19 11:07:00 CDT Discharge (CPOE), 03/23/19 13:17:00 CDT, 03/23/19 13:17:00 CDT NPO, 03/23/19 11:07:00 CDT, NPO, Now RN Cont Pulse Oximeter, 03/23/19 11:07:00 CDT, Continuous Order, Stat Saline lock insertion, 03/23/19 11:07:00 CDT, Stat, Once, 03/23/19 11:07:00 CDT Completed Orders Orders: Sodium Chloride 0.9% Bolus, 1,000 mL, SOLUTION, IV, Once, STAT, 03/23/19 11:07:00 CDT, Stop date 03/23/19 11:07:00 CDT, 1,000 mL/hr, Infuse over 1 HR Auto Diff, Blood, Stat collect, 03/23/19 11:13:00 CDT, [id number] CBC and Plt w Diff, Blood, Stat collect, 03/23/19 11:07:00 CDT Comp Metabolic Panel, Blood, Stat collect, 03/23/19 11:07:00 CDT Creatinine Clearance Estimated CG, Blood, Stat collect, 03/23/19 11:13:00 CDT, .[id number] CT Abdomen W Pelvis W Cont, 03/23/19 11:07:00 CDT Stat, Reason: Severe rectal pain. And constipation with intermittent diarrhea. Known ovarian cancer metastatic to liver and spleen and known right retroperitoneal mass., Oral/Rectal Contrast: None, ? No Transport Mode:... Lipase Level, Blood, Stat collect, 03/23/19 11:07:00 CDT Renal Function Index, Blood, Stat collect, 03/23/19 11:13:00 CDT, .[id number] Urinalysis / Reflex Microscopic and Cult, Urine, Clean Catch, Stat collect, 03/23/19 11:07:00 CDT, Nurse collect, Hold Until Collected, Clean catch , Urine, Collected, Stat collect, 03/23/19 11:13:00 CDT, Nurse collect, Hold Until Collected, .[id number], Clean catch Disposition and Condition Discharged home in stable condition. Follow Up Location: [facility]EM[facility] MD Address: [address] [place] [address], [phone] Follow up by: Follow up within: 2-3 days Details: Return to ED if your symptoms worsen. INCREASE YOUR FLUID AND FIBER INTAKE. RESTART DULCOLAX. INCREASE YOUR MIRALAX TO TWICE A DAY NEEDED. Location: Your oncologist Address: Phone: Follow up by: Follow up within: 2-3 days Details: Return to ED if your symptoms worsen Allergies NKA Diagnostic Results COMPLETED RADIOLOGY IMAGING STUDIES: CT Abdomen W Pelvis W Cont [Auth (Verified)] (03/23 1227): FINAL IMPRESSION: 1. Widespread metastatic disease has progressed since 03/18/2018.2. Large predominantly cystic pelvic mass is slightly smaller than on 2018 CT scan.3. Very large amount of retained stool in the cecum and ascending colon.4. Moderately severe right hydronephrosis and hydroureter with ureteral stent extending from the right renal pelvis to the urinary bladder.Dictated by Dr. Jai Ruffin MD Dictated on 03/23/2019 12:[address] Jai Ruffin MD Location [id number] Lab Results Test Name Test Result Date/Time WBC 8.4 x10'3/microL 03/23/2019 11:13 CDT RBC 4.10 x10'6/microL 03/23/2019 11:13 CDT Hgb 12.9 g/dL 03/23/2019 11:13 CDT Hct 39 % 03/23/2019 11:13 CDT Platelet 395 x10'3/microL 03/23/2019 11:13 CDT MCV 95 fL 03/23/2019 11:13 CDT MCH 32 pg 03/23/2019 11:13 CDT MCHC 33 g/dL 03/23/2019 11:13 CDT RDW 15.6 % 03/23/2019 11:13 CDT MPV 8.7 fL 03/23/2019 11:13 CDT Neutrophils % 79 % (High) 03/23/2019 11:13 CDT Lymphocytes % 9 % (Low) 03/23/2019 11:13 CDT Monocytes % 10 % 03/23/2019 11:13 CDT Eosinophils % 2 % 03/23/2019 11:13 CDT Basophils % 1 % 03/23/2019 11:13 CDT Neutrophils Abs 6.6 x10'3/microL 03/23/2019 11:13 CDT Lymphocytes Abs 0.8 x10'3/microL (Low) 03/23/2019 11:13 CDT Monocytes Abs 0.8 x10'3/microL (High) 03/23/2019 11:13 CDT Eosinophils Abs 0.1 x10'3/microL 03/23/2019 11:13 CDT Basophils Abs 0.1 x10'3/microL 03/23/2019 11:13 CDT Sodium 139 mmol/L 03/23/2019 11:13 CDT Potassium 4.0 mmol/L 03/23/2019 11:13 CDT Chloride 100 mmol/L 03/23/2019 11:13 CDT CO2 27 mmol/L 03/23/2019 11:13 CDT AGAP 12 mmol/L 03/23/2019 11:13 CDT Glucose 106 mg/dL (High) 03/23/2019 11:13 CDT BUN 16 mg/dL 03/23/2019 11:13 CDT Creatinine 0.7 mg/dL 03/23/2019 11:13 CDT Calcium 10.1 mg/dL 03/23/2019 11:13 CDT Est CrCL (CG) 58.9 mL/min 03/23/2019 11:13 CDT GFR (CKD-EPI) 90.8 mL/min/1.73 m2 03/23/2019 11:13 CDT Albumin Level 3.6 g/dL 03/23/2019 11:13 CDT Total Protein 7.5 g/dL 03/23/2019 11:13 CDT Alk Phos 140 Inter. Units/L (High) 03/23/2019 11:13 CDT Lipase 23 Units/L 03/23/2019 11:13 CDT AST 21 Units/L 03/23/2019 11:13 CDT ALT(SGPT) 15 Inter. Units/L 03/23/2019 11:13 CDT Bili Total 0.3 mg/dL 03/23/2019 11:13 CDT UA Color Yellow 03/23/2019 11:13 CDT UA pH 8.0 03/23/2019 11:13 CDT UA Spec Grav 1.010 03/23/2019 11:13 CDT UA Glucose L Negative 03/23/2019 11:13 CDT UA Bili L Negative 03/23/2019 11:13 CDT UA Ketones L Negative 03/23/2019 11:13 CDT UA Blood L Large (Abnormal) 03/23/2019 11:13 CDT UA Protein 30 (Abnormal) 03/23/2019 11:13 CDT UA Nitrite L Negative 03/23/2019 11:13 CDT UA Leuk Est Trace/LTrace 03/23/2019 11:13 CDT UA Urobilinogen 0.2 03/23/2019 11:13 CDT UA Spec Type Clean Catch 03/23/2019 11:13 CDT UA WBC 0-5 03/23/2019 11:13 CDT UA RBC >50 (Abnormal) 03/23/2019 11:13 CDT UA Bacteria Moderate (Abnormal) 03/23/2019 11:13 CDT Microscopic? Yes (Abnormal) 03/23/2019 11:13 CDT Culture? No 03/23/2019 11:13 CDT [1] CT Abdomen W Pelvis W Cont; BLADIMIR RT,ARRT, MARZENA 03/23/2019 12:09 CD[facility] [place] Discharge Summaries No Data Provided for This Section POS History and Physicals No Data Provided for This Section POS Vital Signs Vital Sign Value Date POS Comments Source POS Inet NIBP Systolic 151 mm[Hg] SP [facility] Inet NIBP Diastolic 80 mm[Hg] SP [facility] NIBP MAP 99 mm[Hg] 03/23/2019 SP [facility] Heart Rate 83 bpm 03/23/2019 [facility] NIBP MAP Calc 104 mm[Hg] SP [facility] Respiratory Rate 18 br/min [facility] Vital Signs Note put on 2L 02 for low 02 sat SP 03/23/2019 [facility] Temp Method Oral (03/23/19 10: 28 AM) SP 03/23/2019 [facility] Temperature 97.8 [degF] [facility] Encounters Location Location Details POS Type Encounter Number Reason POSFor Visit Attending Provider POS Date DC Date Status POS Source POS [facility] SP Emergency [id number] SP SREEKANTH LOPEZ MD 03/23/2019 SP 03/23/2019 [facility] 006O [id number] E SP [id number] RECTAL PAIN SREEKANTH ALFONSO MD 03/23/2019 SP [facility] [place] SP CD:[id number] CD:[id number] N SP [id number] JACQUELYN BEEBE MD 04/24/2018 [facility] [place] SP [facility] [place] SP [id number] JACQUELYN BEEBE MD 8 SP 04/18/2018 [facility] [place] Procedures Procedure Code Date POS Perfomer Comments POS X 2 POS [facility] CATARACTS SP [facility] Cholecystectomy; [id number] SP [facility] HY[facility] AND [facility]SO [facility] Port SP [facility] R URETERAL STENT SP [facility] SBR AND PARTIAL COLECTOMY [facility] Plan of Care No Data Provided for This Section POS Social History Social History Date Source POS Social History TypeResponse POS 03/23/2019 [facility] Social History TypeResponse SP 04/18/2018 [facility] [place] Assessment and Plan No Data Provided for This Section POS Family History No Data Provided for This Section POS Advance Directives No Data Provided for This Section POS Functional Status No Data Provided for This Section POS
--- OUTSIDE RECORDS SUMMARY | 2019-04-12 09:04 | XMS REPORT | Continuity of Care Document ---
Author Organization Unknown POS Address Unknown SP Phone Unavailable SP Allergies Active Description Code Type Severity POS Reaction Onset Reported/Identified POS to Patient Clinical Status POS Yes No Known Drug Allergies [id number] Drug SP Unknown N/A 03/19/2019 SP SP Medications There is no data. 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 ADITYA AVILA Ot Z85.3 SP HISTORY OF MALIGNANT NEOPLASM O SP 04/16/2014 ADITYA AVILA Ot 268.9 SP SP 04/16/2014 AUSTINADITYA LAUREN Ot V13.89 SP SP 04/16/2014 AUSTINADITYA Ot V15.3 SP SP 04/16/2014 AUSTINADITYA Ot V58.69 SP SP 04/16/2015 AUSTINADITYA LAUREN Ot E55.9 SP SP 04/16/2015 AUSTINADITYA LAUREN N Ot M85.80 SP SP 04/16/2015 AUSTINADITYA N Ot Z09 SP SP 04/16/2015 AUSTINADITYA N Ot Z86.000 SP SP 04/16/2015 AUSTINADITYA LAUREN Ot Z92.3 SP SP 04/03/2016 Ot 610.1 DIFF US CYSTIC SP SP 04/03/2016 Ot V10.3 HX O F BREAST SP SP 04/03/2016 Ot V67.1 RADI OTHERAPY SPUP SP 04/03/2016 Ot 268.9 DEDE MIN D SP NOS SP 04/03/2016 Ot V10.3 HX O F BREAST SP SP 04/03/2016 Ot V67.1 RADI OTHERAPY SPUP SP 2016 Ot 610.1 DIFF US CYSTIC SP SP 2016 Ot V10.3 HX O F BREAST SP SP 2016 Ot V67.1 RADI OTHERAPY SPUP SP 2016 Ot 268.9 DEDE MIN D SP NOS SP 2016 Ot V10.3 HX O F BREAST SP SP 2016 Ot V67.1 RADI OTHERAPY SPUP SP 06/26/2016 ADITYA AVILA Ot 233.0 CA SP SITU BREAST SP 06/26/2016 ADITYA AVILA Ot 268.9 SP D DEFICIENCY NOS SP 06/26/2016 ADITYA AVILA Ot V15.3 HX SP IRRADIATION SP 06/26/2016 ADITYA AVILA Ot V58.69 OTH SPMED,LT,CURRENT USE SP 06/26/2016 ADITYA AVILA Ot 268.9 SP D DEFICIENCY NOS SP 06/26/2016 ADITYA AVILA Ot V13.89 SP HISTORY OF OTHER SPECIFIED DISE SP 06/26/2016 ADITYA AVILA Ot V15.3 HX SP IRRADIATION SP 06/26/2016 ADITYA AVILA Ot V58.69 OTH SPMED,LT,CURRENT USE SP 06/26/2016 ADITYA AVILA Ot E55.9 SP D DEFICIENCY, UNSPECIFIED SP 06/26/2016 ADITYA AVILA Ot M85.80 OTH SPDISRD OF BONE DENSITY AND STRUCTURE, SP 06/26/2016 ADITYA AVILA Ot Z09 ENCNTR SPFOR F/U EXAM AFT TRTMT FOR COND O SP 06/26/2016 ADITYA AVILA Ot 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 SP 06/26/2016 ADITYA AVILA Ot Z92.3 SP HISTORY OF IRRADIATION SP 07/11/2016 ADITYA AVILA Ot 233.0 CA SP SITU BREAST SP 07/11/2016 ADITYA AVILA Ot 268.9 SP D DEFICIENCY NOS SP 07/11/2016 ADITYA AVILA Ot V15.3 HX SP IRRADIATION SP 07/11/2016 ADITYA AVILA Ot V58.69 OTH SPMED,LT,CURRENT USE SP 07/11/2016 ADITYA AVILA Ot 268.9 SP D DEFICIENCY NOS SP 07/11/2016 ADITYA AVILA Ot V13.89 SP HISTORY OF OTHER SPECIFIED DISE SP 07/11/2016 ADITYA AVILA Ot V15.3 HX SP IRRADIATION SP 07/11/2016 ADITYA AVILA Ot V58.69 OTH SPMED,LT,CURRENT USE SP 07/11/2016 ADITYA AVILA Vivian Ot E55.9 SP D DEFICIENCY, UNSPECIFIED SP 07/11/2016 ADITYA AVILA Vivian Ot M85.80 OTH SPDISRD OF BONE DENSITY AND STRUCTURE, SP 07/11/2016 ADITYA AVILA Ot Z09 ENCNTR SPFOR F/U EXAM AFT TRTMT FOR COND O SP 07/11/2016 ADITYA AVILA Vivian Ot 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 SP 07/11/2016 ADITYA AVILA Vivian Ot Z92.3 SP HISTORY OF IRRADIATION SP 07/12/2016 ADITYA AVILA Vivian Ot E55.9 SP D DEFICIENCY, UNSPECIFIED SP 07/12/2016 ADITYA AVILA Vivian Ot M85.80 OTH SPDISRD OF BONE DENSITY AND STRUCTURE, SP 07/12/2016 ADITYA AVILA Vivian Ot Z09 ENCNTR SPFOR F/U EXAM AFT TRTMT FOR COND O SP 07/12/2016 ADITYA AVILA Vivian Ot 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 SP 07/12/2016 ADITYA AVILA Vivian Ot Z92.3 SP HISTORY OF IRRADIATION SP 07/25/2016 ADITYA AVILA Vivian Ot E55.9 SP D DEFICIENCY, UNSPECIFIED SP 07/25/2016 ADITYA AVILA Vivian Ot M85.80 OTH SPDISRD OF BONE DENSITY AND STRUCTURE, SP 07/25/2016 ADITYA AVILA Vivian Ot Z09 ENCNTR SPFOR F/U EXAM AFT TRTMT FOR COND O SP 07/25/2016 ADITYA AVILA Vivian Ot 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 SP 07/25/2016 ADITYA AVILA Ot Z92.3 SP HISTORY OF IRRADIATION SP 07/27/2016 ADITYA AVILA Vivian Ot E55.9 SP D DEFICIENCY, UNSPECIFIED SP 07/27/2016 ADITYA AVILA Vivian Ot M85.80 OTH SPDISRD OF BONE DENSITY AND STRUCTURE, SP 07/27/2016 ADITYA AVILA Ot Z09 ENCNTR SPFOR F/U EXAM AFT TRTMT FOR COND O SP 07/27/2016 ADITYA AVILA Vivian Ot 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 SP 07/27/2016 ADITYA AVILA Vivian Ot Z92.3 SP HISTORY OF IRRADIATION SP 08/29/2017 ADITYA AVILA N Ot 233.0 CA SP SITU BREAST SP 08/29/2017 ADITYA AVILA N Ot 268.9 SP D DEFICIENCY NOS SP 08/29/2017 ADITYA AVILA Vivian Ot V15.3 HX SP IRRADIATION SP 08/29/2017 ADITYA AVILA Vivian Ot V58.69 OTH SPMED,LT,CURRENT USE SP 08/29/2017 ADITYA AVILA N Ot 268.9 SP D DEFICIENCY NOS SP 08/29/2017 ADITYA AVILA N Ot V13.89 SP HISTORY OF OTHER SPECIFIED DISE SP 08/29/2017 ADITYA AVILA N Ot V15.3 HX SP IRRADIATION SP 08/29/2017 ADITYA AVILA N Ot V58.69 OTH SPMED,LT,CURRENT USE SP 08/29/2017 ADITYA AVILA Vivian Ot E55.9 SP D DEFICIENCY, UNSPECIFIED SP 08/29/2017 ADITYA AVILA Vivian Ot M85.80 OTH SPDISRD OF BONE DENSITY AND STRUCTURE, SP 08/29/2017 ADITYA AVILA Vivian Ot Z09 ENCNTR SPFOR F/U EXAM AFT TRTMT FOR COND O SP 08/29/2017 ADITYA AVILA Vivian Ot 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 SP 08/29/2017 ADITYA AVILA N Ot Z92.3 SP HISTORY OF IRRADIATION SP 08/29/2017 ADITYA AVILA Vivian Ot E55.9 SP D DEFICIENCY, UNSPECIFIED SP 08/29/2017 ADITYA AVILA Vivian Ot M85.80 OTH SPDISRD OF BONE DENSITY AND STRUCTURE, SP 08/29/2017 ADITYA AVILA Ot Z09 ENCNTR SPFOR F/U EXAM AFT TRTMT FOR COND O SP 08/29/2017 ADITYA AVILA Ot 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 SP 08/29/2017 ADITYA AVILA Ot Z92.3 SP HISTORY OF IRRADIATION SP 09/18/2017 ADITYA AVILA Ot E55.9 SP D DEFICIENCY, UNSPECIFIED SP 09/18/2017 ADITYA AVILA Ot 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, SP 09/18/2017 ADITYA AVILA Ot Z08 ENCNTR SPFOR FOLLOW-UP EXAM AFTER TRTMT FO SP 09/18/2017 ADITYA AVILA Vivian Ot Z79.899 SP LONG-TERM (CURRENT) DRUG THERAPY SP 09/18/2017 ADITYA AVILA Vivian Ot Z85.3 SP HISTORY OF MALIGNANT NEOPLASM O SP 09/20/2017 ADITYA AVILA Vivian Ot E55.9 SP D DEFICIENCY, UNSPECIFIED SP 09/20/2017 ADITYA AVILA Vivian Ot 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, SP 09/20/2017 ADITYA AVILA Ot Z08 ENCNTR SPFOR FOLLOW-UP EXAM AFTER TRTMT FO SP 09/20/2017 ADITYA AVILA Vivian Ot 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 09/20/2017 ADITYA AVILA Vivian Ot Z85.3 SP HISTORY OF MALIGNANT NEOPLASM O SP 11/19/2017 ADITYA AVILA Vivian Ot E55.9 SP D DEFICIENCY, UNSPECIFIED SP 11/19/2017 ADITYA AVILA Vivian Ot 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, SP 11/19/2017 ADITYA AVILA Ot Z08 ENCNTR SPFOR FOLLOW-UP EXAM AFTER TRTMT FO SP 11/19/2017 ADITYA AVILA N Ot 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 11/19/2017 ADITYA AVILA N Ot Z85.3 SP HISTORY OF MALIGNANT NEOPLASM O SP 11/27/2017 AUSTIN, SASHADELIA Vivian Ot 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 SP 11/27/2017 ADITYA AVILA Vivian Ot 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 11/27/2017 ADITYA AVILA N Ot C78.7 SP MALIG NEOPLASM OF LIVER AND IN SP 11/27/2017 ADITYA AVILA Vivian Ot E55.9 SP D DEFICIENCY, UNSPECIFIED SP 11/27/2017 ADITYA AVILA Vivian Ot 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, SP 11/27/2017 ADITYA AVILA Vivian Ot Z08 ENCNTR SPFOR FOLLOW-UP EXAM AFTER TRTMT FO SP 11/27/2017 ADITYA AVILA N Ot Z51.11 SP FOR ANTINEOPLASTIC CHEMOTHERAP SP 11/27/2017 ADITYA AVILA N Ot 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 11/27/2017 ADITYA AVILA N Ot Z85.3 SP HISTORY OF MALIGNANT NEOPLASM O SP 11/27/2017 ADITYA AVILA N Ot 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 SP 11/28/2017 ADITYA AVILA Vivian Ot 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 SP 11/28/2017 ADITYA AVILA N Ot 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 11/28/2017 ADITYA AVILA N Ot C78.7 SP MALIG NEOPLASM OF LIVER AND IN SP 11/28/2017 ADITYA AVILA Vivian Ot E55.9 SP D DEFICIENCY, UNSPECIFIED SP 11/28/2017 ADITYA AVILA Vivian Ot 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, SP 11/28/2017 ADITYA AVILA Vivian Ot Z51.11 SP FOR ANTINEOPLASTIC CHEMOTHERAP SP 11/28/2017 ADITYA AVILA N Ot 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 11/28/2017 ADITYA AVILA N Ot 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 SP 12/03/2017 ADITYA AVILA N Ot 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 SP 12/03/2017 AUSTIN SASHADELIA N Ot 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 12/03/2017 AUSTIN, SASHADELIA N Ot C78.7 SP MALIG NEOPLASM OF LIVER AND IN SP 12/03/2017 ADITYA AVILA N Ot E55.9 SP D DEFICIENCY, UNSPECIFIED SP 12/03/2017 ADITYA AVILA N Ot 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, SP 12/03/2017 ADITYA AVILA N Ot Z51.11 SP FOR ANTINEOPLASTIC CHEMOTHERAP SP 12/03/2017 ADITYA AVILA N Ot Z79.899 SP LONG-TERM (CURRENT) DRUG THERAPY SP 12/03/2017 ADITYA AVILA N Ot 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 SP 12/10/2017 ADITYA AVILA N Ot 233.0 CA SP SITU BREAST SP 12/10/2017 ADITYA AVILA N Ot 268.9 SP D DEFICIENCY NOS SP 12/10/2017 ADITYA AVILA N Ot V15.3 HX SP IRRADIATION SP 12/10/2017 ADITYA AVILA N Ot V58.69 OTH SPMED,LT,CURRENT USE SP 12/10/2017 ADITYA AVILA N Ot 268.9 SP D DEFICIENCY NOS SP 12/10/2017 ADITYA AVILA N Ot V13.89 SP HISTORY OF OTHER SPECIFIED DISE SP 12/10/2017 ADITYA AVILA N Ot V15.3 HX SP IRRADIATION SP 12/10/2017 ADITYA AVILA N Ot V58.69 OTH SPMED,LT,CURRENT USE SP 12/10/2017 ADITYA AVILA N Ot E55.9 SP D DEFICIENCY, UNSPECIFIED SP 12/10/2017 ADITYA AVILA N Ot M85.80 OTH SPDISRD OF BONE DENSITY AND STRUCTURE, SP 12/10/2017 ADITYA AVILA N Ot Z09 ENCNTR SPFOR F/U EXAM AFT TRTMT FOR COND O SP 12/10/2017 ADITYA AVILA N Ot 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 SP 12/10/2017 ADITYA AVILA N Ot Z92.3 SP HISTORY OF IRRADIATION SP 12/10/2017 ADITYA AVILA N Ot E55.9 SP D DEFICIENCY, UNSPECIFIED SP 12/10/2017 ADITYA AVILA N Ot M85.80 OTH SPDISRD OF BONE DENSITY AND STRUCTURE, SP 12/10/2017 ADITYA AVILA N Ot Z09 ENCNTR SPFOR F/U EXAM AFT TRTMT FOR COND O SP 12/10/2017 ADITYA AVILA Ot 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 SP 12/10/2017 ADITYA AVILA Ot Z92.3 SP HISTORY OF IRRADIATION SP 12/10/2017 ADITYA AVILA Ot E55.9 SP D DEFICIENCY, UNSPECIFIED SP 12/10/2017 ADITYA AVILA Ot 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, SP 12/10/2017 ADITYA AVILA Ot Z08 ENCNTR SPFOR FOLLOW-UP EXAM AFTER TRTMT FO SP 12/10/2017 ADITYA AVILA N Ot Z79.899 SP LONG-TERM (CURRENT) DRUG THERAPY SP 12/10/2017 ADITYA AVILA N Ot Z85.3 SP HISTORY OF MALIGNANT NEOPLASM O SP 12/13/2017 ADITYA AVILA Ot E55.9 SP D DEFICIENCY, UNSPECIFIED SP 12/13/2017 ADITYA AVILA N Ot 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, SP 12/13/2017 ADITYA AVILA N Ot Z08 ENCNTR SPFOR FOLLOW-UP EXAM AFTER TRTMT FO SP 12/13/2017 ADITYA AVILA N Ot Z79.899 SP LONG-TERM (CURRENT) DRUG THERAPY SP 12/13/2017 ADITYA AVILA Ot Z85.3 SP HISTORY OF MALIGNANT NEOPLASM O SP 01/21/2018 ADITYA AVILA Ot E55.9 SP D DEFICIENCY, UNSPECIFIED SP 01/21/2018 ADITYA AVILA N Ot 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, SP 01/21/2018 ADITYA AVILA Ot Z08 ENCNTR SPFOR FOLLOW-UP EXAM AFTER TRTMT FO SP 01/21/2018 ADITYA AVILA N Ot 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 01/21/2018 ADITYA AVILA N Ot Z85.3 SP HISTORY OF MALIGNANT NEOPLASM O SP 01/22/2018 ADITYA AVILA N Ot E55.9 SP D DEFICIENCY, UNSPECIFIED SP 01/22/2018 ADITYA AVILA N Ot 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, SP 01/22/2018 ADITYA AVILA N Ot Z08 ENCNTR SPFOR FOLLOW-UP EXAM AFTER TRTMT FO SP 01/22/2018 ADITYA AVILA N Ot 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 01/22/2018 ADITYA AVILA N Ot Z85.3 SP HISTORY OF MALIGNANT NEOPLASM O SP 02/26/2018 ADITYA AVILA N Ot E55.9 SP D DEFICIENCY, UNSPECIFIED SP 02/26/2018 ADITYA AVILA N Ot 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, SP 02/26/2018 ADITYA AVILA Vviian Ot Z08 ENCNTR SPFOR FOLLOW-UP EXAM AFTER TRTMT FO SP 02/26/2018 ADITYA AVILA N Ot 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 02/26/2018 ADITYA AVILA N Ot Z85.3 SP HISTORY OF MALIGNANT NEOPLASM O SP 03/01/2018 ADITYA AVILA N Ot E55.9 SP D DEFICIENCY, UNSPECIFIED SP 03/01/2018 AUSTINSASHADELIA N Ot 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, SP 03/01/2018 ADITYA AVILA N Ot Z08 ENCNTR SPFOR FOLLOW-UP EXAM AFTER TRTMT FO SP 03/01/2018 ADITYA AVILA Vivian Ot Z51.11 SP FOR ANTINEOPLASTIC CHEMOTHERAP SP 03/01/2018 ADITYA AVILA N Ot Z79.899 SP LONG-TERM (CURRENT) DRUG THERAPY SP 03/01/2018 ADITYA AVILA N Ot Z85.3 SP HISTORY OF MALIGNANT NEOPLASM O SP 03/26/2018 AUSTINADITYA N Ot Z12.31 SP SCREEN MAMMOGRAM FOR MALIGNANT NE SP 04/29/2018 AUSTINADITYA N Ot 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 SP 04/29/2018 AUSTINADITYA N Ot 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 04/29/2018 ADITYA AVILA N Ot C78.7 SP MALIG NEOPLASM OF LIVER AND IN SP 04/29/2018 [place] ADITYA N Ot E55.9 SP D DEFICIENCY, UNSPECIFIED SP 04/29/2018 ADITYA AVILA N Ot 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, SP 04/29/2018 AUSTINADITYA N Ot Z51.11 SP FOR ANTINEOPLASTIC CHEMOTHERAP SP 04/29/2018 AUSTINSASHAAN N Ot 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 04/29/2018 AUSTIN BOBAN N Ot 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 SP 06/02/2018 AUSTIN, BOBAN N Ot 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 SP 06/02/2018 AUSTIN, BOBAN N Ot 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 06/02/2018 AUSTIN, BOBAN N Ot C78.7 SP MALIG NEOPLASM OF LIVER AND IN SP 06/02/2018 AUSTIN, BOBAN N Ot E55.9 SP D DEFICIENCY, UNSPECIFIED SP 06/02/2018 AUSTIN, BOBAN N Ot 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, SP 06/02/2018 AUSTIN, BOBAN N Ot Z51.11 SP FOR ANTINEOPLASTIC CHEMOTHERAP SP 06/02/2018 AUSTIN, BOBAN N Ot Z79.899 SP LONG-TERM (CURRENT) DRUG THERAPY SP 06/02/2018 AUSTIN, BOBAN N Ot 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 SP 06/03/2018 AUSTIN, BOBAN N Ot 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 SP 06/03/2018 AUSTIN, BOBAN N Ot 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 06/03/2018 AUSTIN, BOBAN N Ot C78.7 SP MALIG NEOPLASM OF LIVER AND IN SP 06/03/2018 AUSTIN, BOBAN N Ot E55.9 SP D DEFICIENCY, UNSPECIFIED SP 06/03/2018 AUSTIN, BOBAN N Ot 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, SP 06/03/2018 AUSTIN, BOBAN N Ot Z51.11 SP FOR ANTINEOPLASTIC CHEMOTHERAP SP 06/03/2018 AUSTIN, BOBAN N Ot 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 06/03/2018 AUSTIN, BOBAN N Ot 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 SP 06/03/2018 AUSTIN, BOBAN N Ot 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 SP 06/03/2018 AUSTIN, BOBAN N Ot 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 06/03/2018 AUSTIN, BOBAN N Ot C78.7 SP MALIG NEOPLASM OF LIVER AND IN SP 06/03/2018 ADITYA AVILA Vivian Ot E55.9 SP D DEFICIENCY, UNSPECIFIED SP 06/03/2018 [place] ADITYA Park Ot 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, SP 06/03/2018 ADITYA AVILA Vivian Ot Z51.11 SP FOR ANTINEOPLASTIC CHEMOTHERAP SP 06/03/2018 [place] ADITYA [place] Ot 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 06/03/2018 ADITYA AVILA Vivian Ot 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 SP 06/10/2018 ADITYA AVILA Vivian Ot 233.0 CA SP SITU BREAST SP 06/10/2018 [place] ADITYA N Ot 268.9 SP D DEFICIENCY NOS SP 06/10/2018 ADITYA AVILA Vivian Ot V15.3 HX SP IRRADIATION SP 06/10/2018 [place]IN SASHADELIA Vivian Ot V58.69 OTH SPMED,LT,CURRENT USE SP 06/10/2018 ADITYA AVILA Vivian Ot 268.9 SP D DEFICIENCY NOS SP 06/10/2018 ADITYA AVILA Vivian Ot V13.89 SP HISTORY OF OTHER SPECIFIED DISE SP 06/10/2018 [place] SASHADELIA Vivian Ot V15.3 HX SP IRRADIATION SP 06/10/2018 ADITYA AVLIA Vivian Ot V58.69 OTH SPMED,LT,CURRENT USE SP 06/10/2018 ADITYA AVLIA Vivian Ot E55.9 SP D DEFICIENCY, UNSPECIFIED SP 06/10/2018 [place] ADITYA [place] Ot M85.80 OTH SPDISRD OF BONE DENSITY AND STRUCTURE, SP 06/10/2018 [place] SASHADELIA Vivian Ot Z09 ENCNTR SPFOR F/U EXAM AFT TRTMT FOR COND O SP 06/10/2018 [place] ADITYA [place] Ot 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 SP 06/10/2018 ADITYA AVILA Vivian Ot Z92.3 SP HISTORY OF IRRADIATION SP 06/10/2018 ADITYA AVILA Vivian Ot E55.9 SP D DEFICIENCY, UNSPECIFIED SP 06/10/2018 [place] ADITYA [place] Ot M85.80 OTH SPDISRD OF BONE DENSITY AND STRUCTURE, SP 06/10/2018 ADITYA AVILA Ot Z09 ENCNTR SPFOR F/U EXAM AFT TRTMT FOR COND O SP 06/10/2018 ADITYA AVILA Vivian Ot 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 SP 06/10/2018 ADITYA AVILA Vivian Ot Z92.3 SP HISTORY OF IRRADIATION SP 07/26/2018 ADITYA AVILA Ot 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 SP 07/26/2018 AUSTINADITYA Vivian Ot 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 07/26/2018 AUSTINADITYA N Ot C78.7 SP MALIG NEOPLASM OF LIVER AND IN SP 07/26/2018 ADITYA AVILA Vivian Ot E55.9 SP D DEFICIENCY, UNSPECIFIED SP 07/26/2018 ADITYA AVILA N Ot 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, SP 07/26/2018 ADITYA AVILA N Ot 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 07/26/2018 ADITYA AVILA N Ot Z85.3 SP HISTORY OF MALIGNANT NEOPLASM O SP 07/26/2018 ADITYA AVILA N Ot 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 SP 09/08/2018 ADITYA AVILA Vivian Ot 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 SP 09/08/2018 AUSTINADITYA N Ot 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 09/08/2018 ADITYA AVILA N Ot C78.7 SP MALIG NEOPLASM OF LIVER AND IN SP 09/08/2018 ADITYA AVILA Vivian Ot E55.9 SP D DEFICIENCY, UNSPECIFIED SP 09/08/2018 ADITYA AVILA N Ot 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, SP 09/08/2018 ADITYA AVILA N Ot 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 09/08/2018 AUSTINADITYA LAUREN N Ot Z85.3 SP HISTORY OF MALIGNANT NEOPLASM O SP 09/08/2018 ADITYA AVILA N Ot 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 SP 09/09/2018 ADITYA AVILA N Ot 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 SP 09/09/2018 AUSTIN, SASHADELIA N Ot 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 09/09/2018 ADITYA AVILA Vivian Ot C78.7 SP MALIG NEOPLASM OF LIVER AND IN SP 09/09/2018 ADITYA AVILA Vivian Ot E55.9 SP D DEFICIENCY, UNSPECIFIED SP 09/09/2018 ADITYA AVILA Vivian Ot 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, SP 09/09/2018 ADITYA AVILA Vivian Ot Z79.899 SP LONG-TERM (CURRENT) DRUG THERAPY SP 09/09/2018 ADITYA AVILA Vivian Ot Z85.3 SP HISTORY OF MALIGNANT NEOPLASM O SP 09/09/2018 ADITYA AVILA Vivian Ot 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 SP 03/07/2019 O'DELL, AHMET K [employer]ESPERSON [employer]URNITURE Ot K40.90 SP UNIL INGUINAL HERNIA, W/O OBST OR GANGR, SP 03/07/2019 O'DELL, AHMET K [employer]URN[employer]URE Ot R50 .9 SP UNSPECIFIED SP 03/07/2019 O'DELL, AHMET K [employer]ESPERSON [employer]URN[employer]URE Ot Z85.43 SP PERSONAL HISTORY OF MALIGNANT NEOPLASM O SP 03/07/2019 O'DELL, AHMET K [employer]ESPERSON [employer]URNITURE Ot K40.90 SP UNIL INGUINAL HERNIA, W/O OBST OR GANGR, SP 03/07/2019 O'DELL, AHMET K [employer]ESPERSON [employer]URN[employer]URE Ot N13.30 SP UNSPECIFIED HYDRONEPHROSIS SP 03/07/2019 O'DELL, AHMET K [employer]ESPERSON [employer]URN[employer]URE Ot R19.00 SP INTRA-ABD AND PELVIC SWELLING, MASS AND SP 03/07/2019 O'DELL, AHMET K [employer]ERSON [employer]URN[employer]URE Ot R19 .5 SP FECAL ABNORMALITIES SP 03/07/2019 O'DELL, AHMET K [employer]URN[employer]URE Ot R50 .9 SP UNSPECIFIED SP 03/07/2019 O'DELL, AHMET K [employer]ESPERSON [employer]URNITURE Ot Z85.43 SP PERSONAL HISTORY OF MALIGNANT NEOPLASM O SP 03/19/2019 ADITYA AVILA Vivian Ot 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 SP 03/19/2019 [place]IN SASHADELIA Vivian Ot 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 03/19/2019 ADITYA AVILA Vivian Ot C78.7 SP MALIG NEOPLASM OF LIVER AND IN SP 03/19/2019 ADITYA AVILA Vivian Ot E55.9 SP D DEFICIENCY, UNSPECIFIED SP 03/19/2019 ADITYA AVILA Ot 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, SP 03/19/2019 ADITYA AVILA Ot 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 03/19/2019 ADITYA AVILA Ot Z85.3 SP HISTORY OF MALIGNANT NEOPLASM O SP 03/19/2019 ADITYA AVILA Ot 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 SP 03/19/2019 DEE PEACOCK MD Ot Z01.8 18 SP FOR OTHER PREPROCEDURAL EXAMIN SP 03/20/2019 DEE PEACOCK MD Ot 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 03/20/2019 DEE PEACOCK MD Ot Z85.4 3 SP HISTORY OF MALIGNANT NEOPLASM O SP 03/20/2019 DEE PEACOCK MD Ot Z87.8 91 SP HISTORY OF NICOTINE DEPENDENCE SP 03/20/2019 DEE PEACOCK MD Ot Z90.4 9 SP ABSENCE OF OTHER SPECIFIED PART SP 03/20/2019 DEE PEACOCK MD Ot Z90.7 10 SP ABSENCE OF BOTH CERVIX AND UTER SP 03/25/2019 DEE PEACOCK MD Ot 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 03/25/2019 DEE PEACOCK MD Ot Z85.4 3 SP HISTORY OF MALIGNANT NEOPLASM O SP 03/25/2019 DEE PEACOCK MD Ot Z87.8 91 SP HISTORY OF NICOTINE DEPENDENCE SP 03/25/2019 DEE PEACOCK MD Ot Z90.4 9 SP ABSENCE OF OTHER SPECIFIED PART SP 03/25/2019 DEE PEACOCK MD Ot Z90.7 10 SP ABSENCE OF BOTH CERVIX AND UTER SP 03/27/2019 DEE PEACOCK MD Ot 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 03/27/2019 EDE PEACOCK MD Ot Z85.4 3 SP HISTORY OF MALIGNANT NEOPLASM O SP 03/27/2019 DEE PEACOCK MD Ot Z87.8 91 SP HISTORY OF NICOTINE DEPENDENCE SP 03/27/2019 DEE PEACOCK MD Ot Z90.4 9 SP ABSENCE OF OTHER SPECIFIED PART SP 03/27/2019 DEE PEACOCK MD A Ot Z90.7 10 SP ABSENCE OF BOTH CERVIX AND UTER SP 03/28/2019 O'DELL, AHMET K SALESPERSON FURNITURE Ot K40.90 SP UNIL INGUINAL HERNIA, W/O OBST OR GANGR, SP 03/28/2019 O'DELL, AHMET K 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 FURNITURE Ot R50 .9 SP UNSPECIFIED SP 03/28/2019 O'DELL, AHMET K SALESPERSON FURNITURE Ot Z85.43 SP PERSONAL HISTORY OF MALIGNANT NEOPLASM O SP 03/30/2019 MARSHA CALABRESE MD Ot D64 .9 SP UNSPECIFIED SP 03/30/2019 MARSHA CALABRESE MD Ot K59.00 SP CONSTIPATION, UNSPECIFIED SP 03/30/2019 MARSHA CALABRESE MD Ot K59.03 SP DRUG INDUCED CONSTIPATION SP 03/30/2019 MARSHA CALABRESE MD Ot T50.905A SP ADVERSE EFFECT OF UNSP DRUG/MEDS/BIOL ALONSO SP 03/30/2019 MARSHA CALABRESE MD Ot Z85.43 SP PERSONAL HISTORY OF MALIGNANT NEOPLASM O SP 03/30/2019 MARSHA CALABRESE MD Ot Z87.891 SP PERSONAL HISTORY OF NICOTINE DEPENDENCE SP 03/30/2019 MARSHA CALABRESE MD Ot Z90.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 UTER SP 04/02/2019 O'DELL, AHMET K SALESPERSON FURNITURE Ot K40.90 SP UNIL INGUINAL HERNIA, W/O OBST OR GANGR, SP 04/02/2019 O'DELL, AHMET K SALESPERSON FURNITURE Ot R50 .9 SP UNSPECIFIED SP 04/02/2019 O'DELL, AHMET K SALESPERSON FURNITURE Ot Z85.43 SP PERSONAL HISTORY OF MALIGNANT NEOPLASM O SP 04/03/2019 MARSHA CALABRESE MD Ot D64 .9 SP UNSPECIFIED SP 04/03/2019 AMRSHA CALABRESE MD Ot K59.00 SP CONSTIPATION, UNSPECIFIED SP 04/03/2019 MARSHA CALABRESE MD Ot K59.03 SP DRUG INDUCED CONSTIPATION SP 04/03/2019 MARSHA CALABRESE MD Ot T50.905A SP ADVERSE EFFECT OF UNSP DRUG/MEDS/BIOL ALONSO SP 04/03/2019 MARSHA CALABRESE MD Ot Z85.43 SP PERSONAL HISTORY OF MALIGNANT NEOPLASM O SP 04/03/2019 MARSHA CALABRESE MD Ot Z87.891 SP PERSONAL HISTORY OF NICOTINE DEPENDENCE SP 04/03/2019 MARSHA CALABRESE MD Ot 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 Results Test Result Range POS LIPID PANEL - 10/24/18 09:39 POS CHOLESTEROL, TOTAL 172 mg/dL <200 SP HDL CHOLESTEROL 42 mg/dL >50 SP TRIGLYCERIDES 163 mg/dL <150 SP LDL-CHOLESTEROL 101 mg/dL (calc) NRG SP CHOL/HDLC RATIO 4.1 (calc) <5.0 SP NON HDL CHOLESTEROL 130 mg/dL (calc) <13 0 SP PATHOLOGY REPORT (TISSUE PAHOLOGY) - 11/20 00:00 POS A SOURCE NRG SP A GROSS DESCRIPTION NRG SP A DIAGNOSIS NRG SP CLINICAL INFORMATION NRG SP PATHOLOGIST NRG SP Complete blood count (CBC) with automate d white blood cell (WBC) differential - POS 10:32 Blood leukocytes automated count (number/volume) 6.7 10*3/uL POS 4.3-11.0 SP Blood erythrocytes automated count (number/volume) 4.21 10*6/uL SP 4.35-5.85 SP Venous blood hemoglobin measurement (mass/volume) 13.5 g/dL SP16.0 Blood hematocrit (volume fraction) 42 % 35-52 SP Automated erythrocyte mean corpuscular volume 100 [foz_us] SP99 Automated erythrocyte mean corpuscular h emoglobin (mass per erythrocyte) SP 32 pg 25-34 SP Automated erythrocyte mean corpuscular h emoglobin concentration measurement SP 32 g/dL 32-36 SP Automated erythrocyte distribution width ratio 15. 7 % 10.0- SP Automated blood platelet count (count/volume) 246 10*3/uL SP400 Automated blood platelet mean volume measurement 9.5 [foz_us] SP 7.4-10.4 SP Automated blood neutrophils/100 leukocytes 66 % 42-75 SP Automated blood lymphocytes/100 leukocytes 17 % 12-44 SP Blood monocytes/100 leukocytes 13 % 0-12 SP Automated blood eosinophils/100 leukocytes 3 % 0-10 SP Automated blood basophils/100 leukocytes 1 % 0-10 SP Blood neutrophils automated count (number/volume) 4.5 10*3 SP7.8 Blood lymphocytes automated count (number/volume) 1.1 10*3 SP4.0 Blood monocytes automated count (number/volume) 0. 9 10*3 SP1.0 Automated eosinophil count 0.2 10*3/uL 0 .0-0.3 SP Automated blood basophil count (count/volume) 0.1 10*3/uL SP0.1 Comprehensive metabolic panel - 03/05/19 10:32 POS Serum or plasma sodium measurement (moles/volume) 139 mmol/L SP 135-145 SP Serum or plasma potassium measurement (moles/volume) 4.4 mmol/L SP 3.6-5.0 SP Serum or plasma chloride measurement (moles/volume) 102 mmol/L SP 98-107 SP Carbon dioxide 28 mmol/L 21-32 SP Serum or plasma anion gap determination (moles/volume) 9 mmol/L SP 5-14 SP Serum or plasma urea nitrogen measurement (mass/volume ) 16 mg/dL SP 7-18 SP Serum or plasma creatinine measurement (mass/volume) 0.83 mg/dL SP 0.60-1.30 SP Serum or plasma urea nitrogen/creatinine mass ratio 19 NRG SP Serum or plasma creatinine measurement w ith calculation of estimated glomerular SP rate > NRG SP Serum or plasma glucose measurement (mass/volume) 115 mg/dL SP105 Serum or plasma calcium measurement (mass/volume) 9.9 mg/dL SP10.1 Serum or plasma total bilirubin measurement (mass/volu me) 0.6 mg/dL SP 0.1-1.0 SP Serum or plasma alkaline phosphatase александр surement (enzymatic activity/volume) SP 103 U/L 40-136 SP Serum or plasma aspartate aminotransfera se measurement (enzymatic SP 41 U/L 5-34 SP Serum or plasma alanine aminotransferase measurement (enzymatic activity/volume) SP 35 U/L 0-55 SP Serum or plasma protein measurement (mass/volume) 7.3 g/dL SP8.2 Serum or plasma albumin measurement (mass/volume) 4.0 g/dL SP4.5 CALCIUM CORRECTED 9.9 mg/dL 8.5-10.1 SP Methicillin resistant Staphylococcus aur eus (MRSA) screening culture - 03/20/19 POS Methicillin resistant Staphylococcus aureus (MRSA) scr eening culture POS NRG SP Encounters ACCT No. Visit Date/Time Discharge Status POS Pt. Type Provider Facility Loc./Un it POS Complaint POS [id number] 11/01/2018 09:45:00 11/01/2018 23:59: 59 CLS SP Outpatient PRO LEMUS [facility]CK SP [facility] SP [id number] 02/07/2019 13:00:00 Document SPRegistration SP [id number] 10/24/2018 09:30:00 Document SPRegistration SP [id number] 03/30/2019 10:14:00 11:55:00 SP DIS Emergency BHARATI DIAZ, MARSHA Can[place]ola [facility] ER FS CONSTIPATION SP [id number] 03/20/2019 06:09:00 10:15:00 SP DIS Outpatient DEE PEACOCK MD [facility] SDC RIGHT URETERAL OBSTRUCTION SP [id number] 03/19/2019 15:32:00 15:45:00 SP DIS Outpatient DEE PEACOCK MD [facility] PREOP RIGHT URETERAL OBSTRUCTION SP [id number] 03/18/2019 12:40:00 23:59:59 SP CLS Outpatient DEE PEACOCK MD [facility] CARD RT RENAL OBSTRUCTION SP [id number] 03/05/2019 13:03:00 23:59:59 SP CLS Outpatient O'DELAHMET Kan APRN [facility] RAD FS LOWER ABD PAIN SP [id number] 03/05/2019 10:24:00 23:59:59 SP CLS Outpatient O'DELAHMET Kan [employer]URE [facility] RAD FS R50.9 R10.30 Z85.43 K 40.90 SP [id number] 09/09/2018 00:13:00 23:59:59 SP CLS Preadmit ADITYA AVILA [facility] ONC SP [id number] 06/10/2018 10:30:00 00:01:00 SP DIS Outpatient AUSTIN, ADITYA Vivian Fernandes zandra [facility] [place] [facility] SP [id number] 03/25/2018 10:40:00 018 00:01:00 SP DIS Outpatient [place], ADITYA Vivian Dena de paz Adrianna - [place] [facility] SP [id number] 03/26/2018 12:46:00 018 23:59:59 SP CLS Preadmit [place]USTIN, ADITYA Park [facility] [place] RAD SCREENING SP [id number] 02/11/2018 09:14:00 018 09:03:00 SP DIS Outpatient [place], ADITYA Vivian Fernandes zandra [facility] [place] [facility] SP [id number] 01/01/2018 08:46:00 018 09:22:00 SP DIS Outpatient [place], ADITYA Vivian Fernandes zandra [facility] ONC SP [id number] 11/19/2017 09:02:00 018 00:01:00 SP DIS Outpatient [place], ADITYA Vivian Fernandes zandra [facility] ONC SP [id number] 07/11/2016 11:38:00 017 23:59:59 SP CLS Outpatient [place], ADITYA Vivian Fernandes zandra [facility] FS SP [id number] 04/06/2015 10:27:00 015 23:59:59 SP CLS Outpatient [place], ADITYA Vivian de paz [facility] FS SP [id number] 03/31/2014 10:05:00 014 23:59:59 SP CLS Outpatient [place], ADITYA Vivian Fernandes zandra [facility] FS SP [id number] 03/25/2013 10:18:00 013 23:59:59 SP CLS Outpatient [place] ADITYA de paz Adrianna [facility] FS SP [id number] 02/27/2012 13:01:00 SP Registration SP [id number] 05/02/2011 09:50:00 SP Registration SP
== END 2019-03-20 10:15 | disposition home or self-care (01) ==
LOC: SDC 06:09
PROVIDERS: ATTEND Urology
DX: N13.5 Crossing vessel and stricture of ureter without hydronephrosis (principal); Z87.891 Personal history of nicotine dependence; Z85.43 Personal history of malignant neoplasm of ovary; Z90.710 Acquired absence of both cervix and uterus; Z90.49 Acquired absence of other specified parts of digestive tract
CPT/HCPCS: 87081

== ENCOUNTER 2019-03-30 10:12 | Emergency (ER) | payer MEDICARE ==
[~2019-03-30] VITALS: Ht 162.5 cm; Wt 56.7 kg
[~2019-03-30 10:12] MED LIST changes: -FUROSEMIDE 40 MG/4 ML INJ (LASIX) ONE
--- NOTE | 2019-03-30 10:25 | NUR ---
Pt arrival to ED reporting constipation as a side effect to her Trial Cancer tx for Ovarian CA with extension into retroperitoneal region. Pt on narcotic pain medication scheduled and break through. Request made to get an xray to see if making progress from Lactulose and the Miralax before beginning the recommended Go-Lytely by Dr Davies at . Pt has been having numerous stools of a non-formed type, mostly liquid.
--- NOTE | 2019-03-30 10:59 | ED GI ---
General Chief Complaint: Abdominal/GI Problems Stated Complaint: CONSTIPATION Source of Information: Family Exam Limitations: No Limitations History of Present Illness Date Seen by Provider: Mar 30, 2019 Time Seen by Provider: 10:54 Initial Comments The patient is a 68-year-old white female whom I have previously met. 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 He was a many year malpractice defendant document review attorney. He is well versed in medical issues well above the level of average. He states that she has ovarian cancer. She has been treated at [facility]. Her treating physician is Dr. Davies who is head is gynecologic oncology. She had been under chemothe rapy and was thought to be greatly improved more recently there have been recurrences it is known that she has an apparent recurrence retroperitoneal in the space directly posterior to the distal rectum and anus. She is also taking considerable pain medicines as would be appropriate. A recent CT scan showed her colon to be full of stool. She been placed on MiraLAX and more recently lactulose. She has not really had a solid stool although she has had several liquid stools. When she saw Dr. Davies on a KUB showed the colon to be absolutely full. It was stated that she would need to go to [facility] if this did not improve. She is here today for a KUB to compare. She reports reasonable control of pain. There is a area of skin in the perianal region which is red and tender. Timing/Duration: Other (2 weeks) Severity/Quality: Mild, Moderate Location: Generalized Abdomen Radiation: No Radiation Allergies and Home Medications Allergies Coded Allergies: No Known Drug Allergies (Unverified , 03/19/19) Home Medications Nitrofurantoin Monohyd/M-Cryst 100 Mg Capsule, 1 TAB PO BID Prescribed by: NORMA MACKAY on 03/20/19 09 Phenazopyridine HCl 200 Mg Tablet, 1 TAB PO TID PRN for SPASMS Prescribed by: NORMA MACKAY on 03/20/19 09 Patient Home Medication List Home Medication List Reviewed: Yes Review of Systems Review of Systems Constitutional: see HPI EENTM: No Symptoms Reported Respiratory: No Symptoms Reported Cardiovascular: No Symptoms Reported Gastrointestinal: See HPI Genitourinary: No Symptoms Reported Musculoskeletal: no symptoms reported Skin: no symptoms reported Psychiatric/Neurological: No Symptoms Reported Endocrine: No Symptoms Reported Hematologic/Lymphatic: No Symptoms Reported Past Pmqqnih-Yfopiz-Epskqq Hx Patient Social History Former Smoker, Quit: Jul 20, 2017 2nd Hand Smoke Exposure: Yes Recent Hopitalizations: No Immunizations Up To Date PED Vaccines UTD: No Date of Influenza Vaccine: Mar 11, 2018 Seasonal Allergies Seasonal Allergies: No Past Medical History Surgeries: Yes (CS X2, LUMPHECTOMY, ) Section, Gallbladder, Hysterectomy, Oophorectomy Respiratory: No Cardiac: No Neurological: No Genitourinary: Yes (URETERAL OBSTRUCTION) Gastrointestinal: Yes (SIDE EFFECT OF MEDS FROM CLINICAL TRIAL) Chronic Diarrhea Musculoskeletal: No Endocrine: No HEENT: Yes (READING GLASSES) Cancer: Yes Ovarian Did You Recieve Any Treatments: Yes What Type of Treatment Did You: Chemotherapy, Surgical Intervention Psychosocial: No Integumentary: No Blood Disorders: Yes (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 oz. kg; 21.67 BMI Method: General Appearance: WD/WN, no apparent distress, other (pleasant and well- groomed) HEENT: normal ENT inspection Neck: non-tender, full range of motion, supple, normal inspection Respiratory: chest non-tender, lungs clear, normal breath sounds, no respiratory distress, no accessory muscle use Cardiovascular: normal peripheral pulses, regular rate, rhythm, no edema, no gallop, no JVD, no murmur Exam Comments The abdomen is firm but not tight. No specific pain is elicited by palpation. Active bowel sounds are noted. Progress/Results/Core Measures Results/Orders My Orders Orders - MARSHA CALABRESE MD Abdomen (Kub) 1 View (03/30/19 10:50) Vital Signs/I&O 03/30/19 10:25 Temp 36.7 Pulse 121 Resp 18 B/P (MAP) 143/100 (114) Pulse Ox 98 O2 Delivery Room Air Departure Communication (Admissions) KUB returned and is reported to show a small volume of colonic stool which is reported to be markedly decreased since the film of 03/05/19. This does not cover the most recent. But I concur with the improvement in the ASCENDING and transverse colon. Impression Primary Impression: medication related constipation Disposition: 01 HOME, SELF-CARE Condition: Stable/Unchanged Departure-Patient Inst. Decision time for Depature: 11:47 Referrals: PRO LEMUS MD (PCP/Family) Primary Care Physician Patient Instructions: No Instuctions Given Add. Discharge Instructions: All discharge instructions reviewed with patient and/or family. Voiced understanding. Obtained 2 ounces of mineral oil and take that with a glass of water on your return home await for at least 2 hours and take 1 quart of the GoLYTELY. More than this may complicate your trip to the med Center in the morning. MARSHA CALABRESE MD Mar 30, 2019 10:59
[2019-03-30] MEDS ORDERED: NORTRIPTYLINE (11:12)
[2019-03-30] MEDS ORDERED: MORP-33 (11:12)
[2019-03-30] MEDS ORDERED: OXYC-471 (11:12)
[2019-03-30] MEDS ORDERED: LACTULOSE (11:12)
[2019-03-30] MEDS ORDERED: TIZA4TAB4 (11:12)
[2019-03-30] MEDS ORDERED: GABA-488 (11:12)
--- NOTE | 2019-03-30 11:14 | NUR ---
Returned from [facility].
--- NOTE | 2019-03-30 11:27 | Diagnostic Imaging Report ---
INDICATION: Abdominal pain. COMPARISON: 03/05/2019. FINDINGS: Small volume of colonic stool is present, markedly decreased since prior exam of 03/05/2019. Right nephroureteral stent is in place. Nonobstructive bowel gas pattern. No free intraperitoneal air. Lung bases are clear. IMPRESSION: 1. Small volume of colonic stool. 2. Right nephroureteral stent is in place. Dictated by: Dictated on workstation # [id number]
[2019-03-30 11:55] VITALS: BP 130/85
--- NOTE | 2019-03-30 11:55 | NUR ---
Pt dicharged to home after review of home instructions verbalized as understanding which was following radiology read on KUB completed and reviewed by physician. Pt and her spouse both state they were satisfied with being able to get more information regarding her current constipation status and which plan of treatment would be most effective.
== END 2019-03-30 11:55 | disposition home or self-care (01) ==
LOC: EDUNIT# 10:12 → ER FS 10:14
DX: K59.03 Drug induced constipation (principal); T50.905A Adverse effect of unspecified drugs, medicaments and biological substances, initial encounter; D64.9 Anemia, unspecified; Z87.891 Personal history of nicotine dependence; Z90.710 Acquired absence of both cervix and uterus; Z85.43 Personal history of malignant neoplasm of ovary
CPT/HCPCS: 74018

== ENCOUNTER → 2019-09-23 | Outpatient (CLI) | payer MEDICARE ==
[~2019-09-23] MED LIST changes: +GABA-488; +LACTULOSE; +MORP-68; +NORTRIPTYLINE; +OXYC-471; +TIZA4TAB4
[2019-09-23 11:12] LABS: BASOPHILS % (AUTO) 1 % (0-10); EOSINOPHILS # (AUTO) 0.3 10^3/uL (0.0-0.3); EOSINOPHILS % (AUTO) 5 % (0-10); HEMATOCRIT 39 % (35-52); HEMOGLOBIN 12.7 G/DL (11.5-16.0); LYMPHOCYTES % (AUTO) 18 % (12-44); MEAN CORPUSCULAR HEMOGLOBIN 31 PG (25-34); MEAN CORPUSCULAR HGB CONC 33 G/DL (32-36); MEAN CORPUSCULAR VOLUME 96 FL (80-99); MONOCYTES # (AUTO) 0.8 X 10^3 (0.0-1.0); MONOCYTES % (AUTO) 14 % (0-12); NEUTROPHILS # (AUTO) 3.6 X 10^3 (1.8-7.8); NEUTROPHILS % (AUTO) 63 % (42-75); PLATELET COUNT 305 10^3/uL (130-400); RED CELL DISTRIBUTION WIDTH 18.5 % (10.0-14.5); WHITE BLOOD COUNT 5.7 10^3/uL (4.3-11.0)
== END ==
LOC: LAB 10:59
PROVIDERS: ATTEND Internal Medicine Medical Oncology
DX: N13.5 Crossing vessel and stricture of ureter without hydronephrosis (principal); Z00.6 Encounter for examination for normal comparison and control in clinical research program
CPT/HCPCS: 36415; 85025

== ENCOUNTER → 2019-11-03 | Outpatient (CLI) | payer MEDICARE | LOC: LABNPT 12:16 | PROVIDERS: ATTEND Urology | DX: Z01.818 Encounter for other preprocedural examination (principal); Z11.59 Encounter for screening for other viral diseases | CPT/HCPCS: 87635 ==

== ENCOUNTER 2020-02-08 10:05 | Emergency (ER) | payer MEDICARE ==
[~2020-02-08] VITALS: Ht 165.1 cm; Wt 58.9 kg
[2020-02-08] MEDS ORDERED: HYDROmorphone 2 MG/ML VIAL (DILAUDID) IV ONE ×2 (11:00→12:30)
[2020-02-08 11:03] LABS: BASOPHILS # (AUTO) 0.1 10^3/uL (0.0-0.1); BASOPHILS % (AUTO) 1 % (0-10); EOSINOPHILS % (AUTO) 0 % (0-10); HEMATOCRIT 38 % (35-52); HEMOGLOBIN 11.8 G/DL (11.5-16.0); LYMPHOCYTES # (AUTO) 1.2 X 10^3 (1.0-4.0); LYMPHOCYTES % (AUTO) 10 % (12-44); MEAN CORPUSCULAR HEMOGLOBIN 29 PG (25-34); MEAN CORPUSCULAR HGB CONC 31 G/DL (32-36); MEAN CORPUSCULAR VOLUME 94 FL (80-99); MEAN PLATELET VOLUME 8.8 FL (7.4-10.4); MONOCYTES # (AUTO) 1.1 X 10^3 (0.0-1.0); MONOCYTES % (AUTO) 9 % (0-12); NEUTROPHILS # (AUTO) 9.3 X 10^3 (1.8-7.8); NEUTROPHILS % (AUTO) 79 % (42-75); PLATELET COUNT 534 10^3/uL (130-400); WHITE BLOOD COUNT 11.8 10^3/uL (4.3-11.0)
[2020-02-08 11:11] LABS: ALBUMIN 3.8 GM/DL (3.2-4.5); POTASSIUM 4.2 MMOL/L (3.6-5.0)
--- NOTE | 2020-02-08 11:12 | ED Back Pain ---
General Chief Complaint: Back Problems Stated Complaint: BACK PAIN Nursing Triage Note: PT AMB TO TRIAGE WITH COMPLAINT OF BACK PAIN. STATES HAS HAD ONGOING BACK PAIN. STATES WORSENED LAST WEEK. PT IS IN A CLINICAL TRIAL FOR STAGE 3 OVARIAN CANCER. STATES TOOK HYDROCODONE THIS MORNING. Nursing Sepsis Screen: No Definite Risk Source of Information: Patient Exam Limitations: No Limitations History of Present Illness Date Seen by Provider: Feb 08, 2020 Time Seen by Provider: 11:09 Initial Comments To ER with pain all across her low back. This is chronic but it seemed to be a bit worse starting about a week ago after a car ride home from [place] to [place]. It was terrible in nature this morning. No fevers or chills.She denies any loss of sensation of her genitals. She reports the pain goes down the right thigh. She denies any loss of bowel or bladder control except for this morning immediately upon standing out of bed she did leak a little bit of urine but otherwise has been able to control her bladder. 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 She underwent exploratory laparotomy with tumor debulking and omentectomy, peritoneal stripping, total abdominal hysterectomy with bilateral salpingo-oophorectomy resection of 2 liver lesions and lower anterior resection of bowel with Dr. Sanjuanita Davies and Lux saavedra at . She does not have any bony metastasis to her knowledge. She does have hydrocodone at home for pain but hasn't been taking it because of constipation that it causes and the constipation associated with stopping the carbozanitib (stopped recenlty due to proteinuria). Location: Lumbar Spine, Paraspinous Muscles Timing/Duration: 1 Week Severity: Moderate Pain/Injury Location: Back Associated Symptoms: lower back pain Allergies and Home Medications Allergies Coded Allergies: No Known Drug Allergies (Unverified , 03/19/19) Home Medications Nitrofurantoin Monohyd/M-Cryst 100 Mg Capsule, 1 TAB PO BID Prescribed by: NORMA MACKAY on 03/20/19906 Phenazopyridine HCl 200 Mg Tablet, 1 TAB PO TID PRN for SPASMS Prescribed by: NORMA MACKAY on 03/20/19 09 Patient Home Medication List Home Medication List Reviewed: Yes Review of Systems Constitutional: see HPI EENTM: see HPI Respiratory: no symptoms reported Cardiovascular: no symptoms reported Genitourinary: no symptoms reported Musculoskeletal: see HPI, back pain Skin: no symptoms reported Psychiatric/Neurological: No Symptoms Reported Past Pqtihgo-Gayimr-Wwpabz Hx Patient Social History Alcohol Use: Occasionally Uses Recreational Drug Use: No Smoking Status: Former Smoker Former Smoker, Quit: Jul 20, 2017 2nd Hand Smoke Exposure: Yes Recent Foreign Travel: No Contact w/Someone Who Travel: No Recent Infectious Disease Expo: No Recent Hopitalizations: No Immunizations Up To Date Tetanus Booster (TDap): Unknown PED Vaccines UTD: No Date of Influenza Vaccine: Mar 11, 2018 Seasonal Allergies Seasonal Allergies: No Past Medical History Surgeries: Yes (CS X2, LUMPECTOMY, ) Section, Gallbladder, Hysterectomy, Oophorectomy Respiratory: No Cardiac: No Neurological: No Genitourinary: Yes (URETERAL OBSTRUCTION) Gastrointestinal: Yes (SIDE EFFECT OF MEDS FROM CLINICAL TRIAL) Chronic Diarrhea Musculoskeletal: No Endocrine: No HEENT: Yes (READING GLASSES) Cancer: Yes Ovarian Did You Recieve Any Treatments: Yes What Type of Treatment Did You: Chemotherapy, Surgical Intervention Psychosocial: No Integumentary: No 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 oz. kg; 21.00 BMI Method: General Appearance: No Apparent Distress, WD/WN HEENT: PERRL/EOMI Neck: Full Range of Motion, Normal Inspection Respiratory: No Accessory Muscle Use, No Respiratory Distress Gastrointestinal: Non Tender, Soft Extremity: Normal Capillary Refill, Normal Inspection Neurologic/Psychiatric: Alert, Oriented x3 Skin: Normal Color, Warm/Dry Progress/Results/Core Measures Results/Orders Lab Results Laboratory Tests Test 02/08/20 10:58 02/08/20 11:13 Range/Units White Blood Count 11.8 H 4.3-11.0 10^3/uL Red Blood Count 4.02 L 4.35-5.85 10^6/uL Hemoglobin 11.8 11.5-16.0 G/DL Hematocrit 38 35-52 % Mean Corpuscular Volume 94 80-99 FL Mean Corpuscular Hemoglobin 29 25-34 PG Mean Corpuscular Hemoglobin Concent 31 L 32-36 G/DL Red Cell Distribution Width 17.6 H 10.0-14.5 % Platelet Count 534 H 130-400 10^3/uL Mean Platelet Volume 8.8 7.4-10.4 FL Neutrophils (%) (Auto) 79 H 42-75 % Lymphocytes (%) (Auto) 10 L 12-44 % Monocytes (%) (Auto) 9 0-12 % Eosinophils (%) (Auto) 0 0-10 % Basophils (%) (Auto) 1 0-10 % Neutrophils # (Auto) 9.3 H 1.8-7.8 X 10^3 Lymphocytes # (Auto) 1.2 1.0-4.0 X 10^3 Monocytes # (Auto) 1.1 H 0.0-1.0 X 10^3 Eosinophils # (Auto) 0.0 0.0-0.3 10^3/uL Basophils # (Auto) 0.1 0.0-0.1 10^3/uL Sodium Level 134 L 135-145 MMOL/L Potassium Level 4.2 3.6-5.0 MMOL/L Chloride Level 99 98-107 MMOL/L Carbon Dioxide Level 24 21-32 MMOL/L Anion Gap 11 5-14 MMOL/L Blood Urea Nitrogen 19 H 7-18 MG/DL Creatinine 0.94 0.60-1.30 MG/DL Estimat Glomerular Filtration Rate 59 BUN/Creatinine Ratio 20 Glucose Level 118 H 70-105 MG/DL Calcium Level 10.0 8.5-10.1 MG/DL Corrected Calcium 10.2 H 8.5-10.1 MG/DL Total Bilirubin 0.3 0.1-1.0 MG/DL Aspartate Amino Transf (AST/SGOT) 46 H 5-34 U/L Alanine Aminotransferase (ALT/SGPT) 30 0-55 U/L Alkaline Phosphatase 209 H 40-136 U/L Total Protein 8.0 6.4-8.2 GM/DL Albumin 3.8 3.2-4.5 GM/DL Urine Color BROWN H Urine Clarity CLOUDY Urine pH 6.5 5-9 Urine Specific [place] 1.015 L 1.016-1.022 Urine Protein 2+ H NEGATIVE Urine Glucose (UA) NEGATIVE NEGATIVE Urine Ketones TRACE H NEGATIVE Urine Nitrite POSITIVE H NEGATIVE Urine Bilirubin 2+ H NEGATIVE Urine Urobilinogen 1.0 < = 1.0 MG/DL Urine Leukocyte Esterase 2+ H NEGATIVE Urine RBC (Auto) 3+ H NEGATIVE Urine RBC TNTC H /HPF Urine WBC 50-100 H /HPF Urine Crystals NONE /LPF Urine Bacteria LARGE H /HPF Urine Casts NONE /LPF Urine Mucus NEGATIVE /LPF Urine Culture Indicated YES My Orders Orders - KISHA CRUMP APRN Cbc With Automated Diff (02/08/20 10:57) Comprehensive Metabolic Panel (02/08/20 10:57) Ed Iv/Invasive Line Start (02/08/20 10:57) Ct Lumbar Spine Wo (02/08/20 10:57) Hydromorphone Injection (Dilaudid Inject (02/08/20 11:00) Blood Culture (02/08/20 11:41) Ceftriaxone For Iv Use (Rocephin For I (02/08/20 11:45) Coronavirus Sars-Cov-2 So 2018 (02/08/20 11:43) Acetaminophen Tablet (Tylenol Tablet) (02/08/20 12:15) Ibuprofen Tablet (Motrin Tablet) (02/08/20 12:15) Covid 19 Inhouse Test (02/08/20 12:16) Hydromorphone Injection (Dilaudid Inject (02/08/20 12:30) Oxycodone/Apap 5/325mg Tablet (Percocet (02/08/20 12:30) Medications Given in ED Current Medications Medications Dose Ordered Sig/Christine Route Start Time Stop Time Status Last Admin Dose Admin Hydromorphone HCl 0.5 mg ONCE ONCE IV 02/08/20 11:00 02/08/20 11:01 DC 02/08/20 11:10 0.5 MG Vital Signs/I&O 02/08/20 10:38 Temp 36.8 Pulse 106 Resp 20 B/P (MAP) 132/81 (98) Pulse Ox 97 O2 Delivery Room Air Blood Pressure Mean: 98 Diagnostic Imaging Diagonstic Imaging: Xray, CT Comments NAME: WARD HAN MED REC#: [id number] PT STATUS: REG ER : 1950 PHYSICIAN: KISHA CRUMP APRN ADMIT DATE: 02/08/20/ER Signed Date of Exam:02/08/20 CT LUMBAR SPINE WO PROCEDURE: CT lumbar spine without contrast. TECHNIQUE: Multiple contiguous axial images were obtained through the lumbar spine without the use of intravenous contrast. Sagittal and coronal reformations were then performed. Auto Exposure Controls were utilized during the CT exam to meet ALARA standards for radiation dose reduction. INDICATION: Back pain. Worsening in the last week. History of ovarian cancer. COMPARISON: 03/05/2019. FINDINGS: There has been interval development of osseous lesions involving the T12 vertebral body and L5 vertebral body. Given the history of malignancy, these are highly concerning for osseous metastatic disease. The T12 lesion is more extensive with associated vertebral body height loss centrally of approximately 50%. No pathologic fracture is seen at the L5 vertebral body. No bony retropulsion is seen. There is stable minimal anterolisthesis of L4 on L5. No high density material is seen within the spinal canal. The soft tissues of the lumbar spine demonstrate no acute abnormalities. A right ureteral stent is noted. A moderate amount of stool seen in the included colon. Multiple cystic foci are seen in the included spleen. There is calcified aortic and iliac atherosclerotic plaque without aneurysm. IMPRESSION: 1. Findings highly concerning for osseous metastatic disease involving the T12 and L5 vertebral bodies with pathologic fracture at T12 with associated 50% height loss centrally. No significant bony retropulsion is seen. Dictated by: Dictated on workstation # [id number] Dict: 02/08/20 1124 Trans: 02/08/20 1137 [facility] [id number] Interpreted by: SAQIB FIGUEROA DO Electronically signed by: SAQIB FIGUEROA DO 02/08/20 1137 Departure Communication (Admissions) 1225-spoke with Dr. Cabral from gynecologic oncology at . Agrees that the transient leakage of urine is likely related to the urinary tract infection given the absence of saddle anesthesia, ability to walk and no obvious retropulsion on CT. She has an appointment already with in 48 hours. Patient has an adequate supply of oxycodone and morphine at home for pain control she has just been scared to use it. I'll give her Omnicef for antibiotics and Rocephin here. Impression Primary Impression: Urinary tract infection Qualified Codes: N39.0 - Urinary tract infection, site not specified Additional Impressions: Bony metastasis T12 vertebral fracture Qualified Codes: S22.089A - Unspecified fracture of t11-T12 vertebra, initial encounter for closed fracture Disposition: 01 HOME, SELF-CARE Condition: Stable Departure-Patient Inst. Decision time for Depature: 12:27 Referrals: PRO LEMUS MD (PCP/Family) Primary Care Physician Patient Instructions: Bone Metastasis, Urinary Tract Infections in Adults Add. Discharge Instructions: 1. Add MiraLAX to your stool softener and Benefiber. Increase water intake. Pain medication as directed. Antibiotics have been sent to [facility] in [place] which you can start today or tomorrow. Your CT scan has been sent to the [facility] already. Return to ER for any fevers worsening pain vomiting or any other concerns. All discharge instructions reviewed with patient and/or family. Voiced understanding. Scripts Cefdinir (Cefdinir) 300 Mg Capsule 300 MG PO BID, #14 CAP Prov: KISHA CRUMP PHYSICIAN ANESTHESIOLOGIST 02/08/20 KISHA CRUMP APRN Feb 08, 2020 11:12
[2020-02-08 11:16] LABS: BILIRUBIN,TOTAL 0.3 MG/DL (0.1-1.0)
[2020-02-08 11:18] LABS: CREATININE SERUM 0.94 MG/DL (0.60-1.30)
[2020-02-08 11:18] LABS: BILIRUBIN,URINE 2+ (NEGATIVE); CLARITY,URINE CLOUDY; COLOR,URINE BROWN; GLUCOSE, URINE (UA) NEGATIVE (NEGATIVE); KETONES,URINE TRACE (NEGATIVE); LEUKOCYTE ESTERASE ,URINE 2+ (NEGATIVE); NITRITE,URINE POSITIVE (NEGATIVE); PH,URINE 6.5 (5-9); PROTEIN,URINE 2+ (NEGATIVE)
[2020-02-08 11:27] LABS: RBC,URINE TNTC /HPF
[2020-02-08 11:28] LABS: BACTERIA,URINE LARGE /HPF; WBC,URINE 50-100 /HPF
--- NOTE | 2020-02-08 11:31 | Diagnostic Imaging Report ---
PROCEDURE: CT lumbar spine without contrast. TECHNIQUE: Multiple contiguous axial images were obtained through the lumbar spine without the use of intravenous contrast. Sagittal and coronal reformations were then performed. Auto Exposure Controls were utilized during the CT exam to meet ALARA standards for radiation dose reduction. INDICATION: Back pain. Worsening in the last week. History of ovarian cancer. COMPARISON: 03/05/2019. FINDINGS: There has been interval development of osseous lesions involving the T12 vertebral body and L5 vertebral body. Given the history of malignancy, these are highly concerning for osseous metastatic disease. The T12 lesion is more extensive with associated vertebral body height loss centrally of approximately 50%. No pathologic fracture is seen at the L5 vertebral body. No bony retropulsion is seen. There is stable minimal anterolisthesis of L4 on L5. No high density material is seen within the spinal canal. The soft tissues of the lumbar spine demonstrate no acute abnormalities. A right ureteral stent is noted. A moderate amount of stool seen in the included colon. Multiple cystic foci are seen in the included spleen. There is calcified aortic and iliac atherosclerotic plaque without aneurysm. IMPRESSION: 1. Findings highly concerning for osseous metastatic disease involving the T12 and L5 vertebral bodies with pathologic fracture at T12 with associated 50% height loss centrally. No significant bony retropulsion is seen. Dictated by: Dictated on workstation # [id number]
[2020-02-08] MEDS ORDERED: cefTRIAXone FOR IV USE 1,000 MG in WATER (STERILE) FOR INJECTION 10 ML IV ONE (11:45)
[2020-02-08] MEDS ORDERED: ACETAMINOPHEN 500 MG TAB (TYLENOL) PO ONE (12:15)
[2020-02-08] MEDS ORDERED: IBUPROFEN 800 MG (MOTRIN) TAB PO ONE (12:15)
[2020-02-08] MEDS ORDERED: CEFD300C3 PO (12:28)
[2020-02-08] MEDS ORDERED: oxyCODONE/APAP 5/325MG (PERCOCET 5) TABLET PO ONE (12:30)
[2020-02-08] MEDS ORDERED: OXYC1TAB87 PO (13:00)
[2020-02-08 13:35] VITALS: BP 128/81
--- NOTE | 2020-02-08 13:43 | NUR ---
KISHA TALKING TO PT'S ON THE PHONE
[2020-02-08] MEDS ORDERED: NALO25TA PO (13:51)
== END 2020-02-08 13:35 | disposition home or self-care (01) ==
LOC: EDUNIT# 10:05 → ER 10:05
DX: M84.48XA Pathological fracture, other site, initial encounter for fracture (principal); C56.2 Malignant neoplasm of left ovary; C79.51 Secondary malignant neoplasm of bone; N39.0 Urinary tract infection, site not specified; Z90.710 Acquired absence of both cervix and uterus; Z90.722 Acquired absence of ovaries, bilateral; Z87.891 Personal history of nicotine dependence
CPT/HCPCS: 72131; 80053; 81000; 85025; 87040; 87077; 87088; 99284; U0002; 36415; 87186; 87635

== ENCOUNTER 2020-03-04 22:31 | Emergency (ER) | payer MEDICARE ==
[~2020-03-04] VITALS: Ht 165.1 cm; Wt 63.5 kg
[~2020-03-04 22:31] MED LIST changes: +CEFD300C3 PO; +NALO25TA PO; +OXYC1TAB87 PO
--- NOTE | 2020-03-04 22:40 | ED General ---
General Stated Complaint: SOA,ANXIETY Source of Information: Patient Exam Limitations: No Limitations History of Present Illness Date Seen by Provider: Mar 04, 2020 Time Seen by Provider: 22:40 Initial Comments 69-year-old female presents with a feeling of just anxiousness and restlessness. Patient reports that earlier today she was at where she had 2 ureter stents placed. She has known ovarian cancer and is in a trial program up there. Reports that this evening she just got very anxious feeling and restless. This causes her to get mildly short of breath because of the anxiousness. She denies any chest pain, nausea or vomiting. She reports she's never had an anxiety attack with feels like that's what she is having at this time. She denies any fevers or chills. Patient reports that she's having difficulty even staying inside because is making her feel claustrophobic. Allergies and Home Medications Allergies Coded Allergies: No Known Drug Allergies (Unverified , 03/19/19) Home Medications Cefdinir 300 Mg Capsule, 300 MG PO BID Prescribed by: KISHA CRUMP on 02/08/20 1228 Naloxegol Oxalate 25 Mg Tablet, 25 MG PO DAILY Prescribed by: KISHA CRUMP on 02/08/20 1351 Nitrofurantoin Monohyd/M-Cryst 100 Mg Capsule, 1 TAB PO BID Prescribed by: NORMA MACKAY on 03/20/19 0907 Oxycodone HCl/Acetaminophen 1 Each Tablet, 1-2 TAB PO Q4H Prescribed by: KISHA CRUMP on 02/08/20 1300 Phenazopyridine HCl 200 Mg Tablet, 1 TAB PO TID PRN for SPASMS Prescribed by: NORMA MACKAY on 03/20/19 0907 Patient Home Medication List Home Medication List Reviewed: Yes Review of Systems Review of Systems Constitutional: see HPI EENTM: no symptoms reported Respiratory: see HPI, short of breath Cardiovascular: No chest pain; edema; No palpitations Gastrointestinal: No abdominal pain, No nausea, No vomiting Musculoskeletal: no symptoms reported Skin: no symptoms reported Psychiatric/Neurological: See HPI Hematologic/Lymphatic: See HPI Immunological/Allergic: no symptoms reported Past Qltxiwo-Kyngns-Slybdi Hx Past Med/Social Hx: Reviewed Nursing Past Med/Soc Hx Patient Social History Former Smoker, Quit: Jul 20, 2017 2nd Hand Smoke Exposure: Yes Recent Foreign Travel: No Contact w/Someone Who Travel: No Recent Hopitalizations: No Immunizations Up To Date Tetanus Booster (TDap): Unknown PED Vaccines UTD: No Date of Influenza Vaccine: Mar 11, 2018 Seasonal Allergies Seasonal Allergies: No Past Medical History Surgeries: Yes (CS X2, LUMPECTOMY, ) Section, Gallbladder, Hysterectomy, Oophorectomy Respiratory: No Cardiac: No Neurological: No Genitourinary: Yes (URETERAL OBSTRUCTION) Gastrointestinal: Yes (SIDE EFFECT OF MEDS FROM CLINICAL TRIAL) Chronic Diarrhea Musculoskeletal: No Endocrine: No HEENT: Yes (READING GLASSES) Cancer: Yes Ovarian Did You Recieve Any Treatments: Yes What Type of Treatment Did You: Chemotherapy, Surgical Intervention Psychosocial: No Integumentary: No 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 oz. 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 Norm as Tested Progress/Results/Core Measures Suspected Sepsis SIRS Temperature: Pulse: Respiratory Rate: Laboratory Tests 03/04/20 22:53: White Blood Count 10.5 Blood Pressure / Mean: Laboratory Tests 03/04/20 22:53: Creatinine 1.00, Platelet Count 578H, Total Bilirubin 0.4 Results/Orders Lab Results Laboratory Tests Test 03/04/20 22:53 Range/Units White Blood Count 10.5 4.3-11.0 10^3/uL Red Blood Count 4.11 L 4.35-5.85 10^6/uL Hemoglobin 10.9 L 11.5-16.0 G/DL Hematocrit 35 35-52 % Mean Corpuscular Volume 85 80-99 FL Mean Corpuscular Hemoglobin 27 25-34 PG Mean Corpuscular Hemoglobin Concent 31 L 32-36 G/DL Red Cell Distribution Width 18.4 H 10.0-14.5 % Platelet Count 578 H 130-400 10^3/uL Mean Platelet Volume 9.3 7.4-10.4 FL Immature Granulocyte % (Auto) 0 % Neutrophils (%) (Auto) 77 H 42-75 % Lymphocytes (%) (Auto) 11 L 12-44 % Monocytes (%) (Auto) 8 0-12 % Eosinophils (%) (Auto) 1 0-10 % Basophils (%) (Auto) 2 0-10 % Neutrophils # (Auto) 8.1 H 1.8-7.8 X 10^3 Lymphocytes # (Auto) 1.2 1.0-4.0 X 10^3 Monocytes # (Auto) 0.8 0.0-1.0 X 10^3 Eosinophils # (Auto) 0.1 0.0-0.3 10^3/uL Basophils # (Auto) 0.2 H 0.0-0.1 10^3/uL Immature Granulocyte # (Auto) 0.0 0.0-0.1 10^3/uL Sodium Level 135 135-145 MMOL/L Potassium Level 4.2 3.6-5.0 MMOL/L Chloride Level 96 L 98-107 MMOL/L Carbon Dioxide Level 23 21-32 MMOL/L Anion Gap 16 H 5-14 MMOL/L Blood Urea Nitrogen 11 7-18 MG/DL Creatinine 1.00 0.60-1.30 MG/DL Estimat Glomerular Filtration Rate 55 BUN/Creatinine Ratio 11 Glucose Level 127 H 70-105 MG/DL Calcium Level 9.0 8.5-10.1 MG/DL Corrected Calcium 9.6 8.5-10.1 MG/DL Total Bilirubin 0.4 0.1-1.0 MG/DL Aspartate Amino Transf (AST/SGOT) 66 H 5-34 U/L Alanine Aminotransferase (ALT/SGPT) 20 0-55 U/L Alkaline Phosphatase 329 H 40-136 U/L Troponin I < 0.30 <0.30 NG/ML Pro-B-Type Natriuretic Peptide 251.7 H <75.0 PG/ML Total Protein 7.2 6.4-8.2 GM/DL Albumin 3.3 3.2-4.5 GM/DL My Orders Orders - WEBBRONALASA L DO Cbc With Automated Diff (03/04/20 22:46) Comprehensive Metabolic Panel (03/04/20 22:46) Probnp Fs (03/04/20 22:46) Troponin I Fs (03/04/20 22:46) Ed Iv/Invasive Line Start (03/04/20 22:46) Ekg Tracing (03/04/20 22:46) Monitor-Rhythm Ecg Trace Only (03/04/20 22:46) Chest Pa/Lat (2 View) (03/04/20 22:46) Diphenhydramine Injection (Benadryl Inje (03/04/20 22:46) Vital Signs/I&O 03/04/20 22:40 Temp 35.8 Pulse 127 Resp 22 B/P (MAP) 131/90 (104) O2 Delivery Room Air Capillary Refill : Progress Note : Time: 23:43 Progress Note Patient's feeling of anxiety, unease and claustrophobic completely resolved with the Benadryl. Patient was doing significantly better. Discussed with her that she can take it at home if she has a repeat of her symptoms. Discussed with her that it could've been medication induced versus an anxiety reaction. She should follow-up with her primary care provider. She will be discharged home in stable condition Departure Impression Primary Impression: Anxiety Additional Impression: Medication reaction Qualified Codes: T50.905A - Adverse effect of unspecified drugs, medicaments and biological substances, initial encounter Disposition: 01 HOME, SELF-CARE Condition: Stable Departure-Patient Inst. Referrals: PRO LEMUS MD (PCP/Family) Primary Care Physician Patient Instructions: Anxiety, Adult (DC) Add. Discharge Instructions: Follow-up with your primary care provider in 2-3 days or sooner if needed You may take a Benadryl 25 mg every 8 hours as needed if symptoms return ASA WEBB DO Mar 04, 2020 22:40
[2020-03-04] MEDS ORDERED: diphenhydrAMINE 50 MG/ML INJ (BENADRYL) IV STA (22:46)
[2020-03-04 23:01] LABS: BASOPHILS # (AUTO) 0.2 10^3/uL (0.0-0.1); BASOPHILS % (AUTO) 2 % (0-10); EOSINOPHILS # (AUTO) 0.1 10^3/uL (0.0-0.3); EOSINOPHILS % (AUTO) 1 % (0-10); HEMATOCRIT 35 % (35-52); HEMOGLOBIN 10.9 G/DL (11.5-16.0); LYMPHOCYTES # (AUTO) 1.2 X 10^3 (1.0-4.0); LYMPHOCYTES % (AUTO) 11 % (12-44); MEAN CORPUSCULAR HEMOGLOBIN 27 PG (25-34); MEAN CORPUSCULAR HGB CONC 31 G/DL (32-36); MEAN CORPUSCULAR VOLUME 85 FL (80-99); MEAN PLATELET VOLUME 9.3 FL (7.4-10.4); MONOCYTES # (AUTO) 0.8 X 10^3 (0.0-1.0); MONOCYTES % (AUTO) 8 % (0-12); NEUTROPHILS # (AUTO) 8.1 X 10^3 (1.8-7.8); NEUTROPHILS % (AUTO) 77 % (42-75); PLATELET COUNT 578 10^3/uL (130-400); WHITE BLOOD COUNT 10.5 10^3/uL (4.3-11.0)
[2020-03-04 23:23] LABS: ALANINE AMINOTRANSFERASE 20 U/L (0-55); ALBUMIN 3.3 GM/DL (3.2-4.5); ALKALINE PHOSPHATASE 329 U/L (40-136); BILIRUBIN,TOTAL 0.4 MG/DL (0.1-1.0); BUN/CREATININE RATIO 11; CARBON DIOXIDE 23 MMOL/L (21-32); CHLORIDE 96 MMOL/L (98-107); GFR ESTIMATED 55; GLUCOSE 127 MG/DL (70-105); POTASSIUM 4.2 MMOL/L (3.6-5.0); SODIUM 135 MMOL/L (135-145); TOTAL PROTEIN 7.2 GM/DL (6.4-8.2)
[2020-03-04 23:53] VITALS: BP 129/72
--- NOTE | 2020-03-05 06:39 | Diagnostic Imaging Report ---
Clinical indications: Patient feeling hot and anxious and feels short of breath. Patient had 2 stents placed in both ureters today. Exam: Chest x-ray PA and lateral views. Comparisons: None. Findings: Port-A-Cath seen overlying the right chest with tip in the distal superior vena cava region. Lungs/pleura: There is minimal left basilar atelectasis. Otherwise, lungs are clear. There is no pneumothorax. There is no pleural effusion. Mediastinum: Unremarkable. Pulmonary vasculature: Unremarkable. Heart: Unremarkable. Bones/extrathoracic soft tissue: Unremarkable. Impression: There is minimal left basilar atelectasis. There is no radiographic evidence of acute cardiopulmonary process. Dictated by: Dictated on workstation # [id number]
== END 2020-03-04 23:53 | disposition home or self-care (01) ==
LOC: EDUNIT# 22:31 → ER FS 22:33
DX: F41.9 Anxiety disorder, unspecified (principal); T50.905A Adverse effect of unspecified drugs, medicaments and biological substances, initial encounter; Z85.43 Personal history of malignant neoplasm of ovary; Z87.891 Personal history of nicotine dependence
CPT/HCPCS: 36415; 71046; 80053; 83880; 84484; 85025; 93005; 93041

== ENCOUNTER → 2020-04-15 | Outpatient (CLI) | payer MEDICARE ==
[2020-04-15 11:44] LABS: BASOPHILS # (AUTO) 0.1 10^3/uL (0.0-0.1); BASOPHILS % (AUTO) 1 % (0-10); EOSINOPHILS % (AUTO) 0 % (0-10); HEMATOCRIT 33 % (35-52); HEMOGLOBIN 10.6 g/dL (11.5-16.0); LYMPHOCYTES # (AUTO) 0.6 10^3/uL (1.0-4.0); LYMPHOCYTES % (AUTO) 4 % (12-44); MEAN CORPUSCULAR HEMOGLOBIN 24 pg (25-34); MEAN CORPUSCULAR HGB CONC 32 g/dL (32-36); MEAN CORPUSCULAR VOLUME 76 fL (80-99); MEAN PLATELET VOLUME 10.2 fL (9.0-12.2); MONOCYTES # (AUTO) 1.3 10^3/uL (0.0-1.0); MONOCYTES % (AUTO) 9 % (0-12); NEUTROPHILS # (AUTO) 12.6 10^3/uL (1.8-7.8); NEUTROPHILS % (AUTO) 86 % (42-75); PLATELET COUNT 410 10^3/uL (130-400); WHITE BLOOD COUNT 14.7 10^3/uL (4.3-11.0)
[2020-04-15 11:55] LABS: NEUTROPHILS % (MANUAL) 86 %
[2020-04-15 11:56] LABS: ANISOCYTOSIS MODERATE; BAND NEUTROPHILS 2 %; EOSINOPHILS % (MANUAL) 1 %; HYPOCHROMASIA MODERATE; LYMPHOCYTES % (MANUAL) 6 %; MONOCYTES % (MANUAL) 5 %; TARGET CELLS SLIGHT
== END ==
LOC: LAB 11:19
PROVIDERS: ATTEND Family Medicine
DX: R79.89 Other specified abnormal findings of blood chemistry (principal)
CPT/HCPCS: 36415; 85007; 85027